=== PATIENT | male | born 1935 | race Caucasian/White ===

== ENCOUNTER 2016-06-22 15:20 | Inpatient (IN) | payer OTHER ==
[2016-06-22 15:40] VITALS: BMI 25.9
[2016-06-22 16:31] LABS: BASOPHIL 1.4 % (0-2.0); EOSINOPHIL 0.6 % (0-4.5); MCH 30.7 pg (25.7-33.7); MCHC 33.9 g/dl (32.0-35.9); MEAN CELL VOLUME 90.7 fl (80-96); MEAN PLT VOLUME 7.9 fl (7.5-11.1); NEUTROPHILS 78.3 % (42.8-82.8); PLATELET COUNT 354 K/MM3 (134-434); RDW 15.1 % (11.9-15.9); WHITE BLOOD COUNT 9.3 K/mm3 (4.0-10.0)
[2016-06-22 16:58] LABS: ALBUMIN 3.6 g/dl (3.4-5.0); CALCIUM 9.3 mg/dL (8.5-10.1); CREATININE 1.5 mg/dL (0.7-1.3)
[2016-06-22 17:00] LABS: BILIRUBIN,TOTAL 0.3 mg/dL (0.2-1.0); TOT PROT 7.6 g/dl (6.4-8.2)
[2016-06-22] MEDS ORDERED: DEXTROSE 50%-WATER 50 ML VIAL IVPUSH ONE (17:27)
[2016-06-22] MEDS ORDERED: INSULIN REGULAR HUMAN 100 UNITS/ML *VIAL IVPUSH ONE (17:27)
[2016-06-22] MEDS ORDERED: CALCIUM GLUCONATE 10% - 1,000 MG/10 ML VIAL IVPB ONE (17:27)
--- NOTE | 2016-06-22 17:38 | PDOC ---
History of Present Illness - History of Present Illness Initial Comments: 06/22/16 17:53 The patient is an 80 year old male with significant past medical history of hypertension, hyperlipidemia, CAD s/p stents x2, diabetes, metastatic prostate CA who presents to the emergency department with altered mental status for the last few months. As per daughter, the patient has been intermittently confused over the several weeks. She states that the patient does not recognize his family or where he is. The patient has also been complaining of back pain that radiates to his right abdomen. The patient denies any nausea, vomiting, or diarrhea. The patient denies any dizziness or syncope. The patient denies recent illness, fevers, or chills. PMD: Dr. Vincent <Paula Umaña - Last Filed: 06/22/16 17:53> - General History Source: Patient, Family, Old Records Exam Limitations: No Limitations <Isabel Otoole - Last Filed: 06/24/16 07:44> - General Chief Complaint: Altered Mental Status Stated Complaint: Altered Mental Status Time Seen by Provider: 06/22/16 16:00 Past History <Paula Umaña - Last Filed: 06/22/16 17:53> - Past Medical History Anemia: No Asthma: No Cancer: Yes ([id number] rx) Cardiac Disorders: Yes (bypassx4, stent placement x2) CVA: No COPD: Yes CHF: No Dementia: Yes (vague) Diabetes: No GI Disorders: Yes (hernia) Disorders: No HTN: Yes Hypercholesterolemia: Yes Liver Disease: No Seizures: No Thyroid Disease: Yes - Surgical History Abdominal Surgery: No Appendectomy: No Cardiac Surgery: Yes (bypassx4, stent placement x2) Cholecystectomy: No Lung Surgery: No Neurologic Surgery: Yes (laminectomy) Orthopedic Surgery: No - Immunization History Immunization Up to Date: Yes - Psycho/Social/Smoking Cessation Hx Anxiety: No Suicidal Ideation: No Smoking Status: No Smoking History: Former smoker Have you smoked in the past 12 months: No Number of Cigarettes Smoked Daily: 0 If you are a former smoker, when did you quit?: Over 58 years ago Information on smoking cessation initiated: No Hx Alcohol Use: No Drug/Substance Use Hx: No Substance Use Type: None Hx Substance Use Treatment: No <Isabel Otoole - Last Filed: 06/24/16 07:44> - Past Medical History Allergies/Adverse Reactions: Allergies Allergy/AdvReac Type Severity Reaction Status Date / Time acetaminophen [From [facility]] Allergy Intermediate Itching Verified 06/22/16 15: 35 Home Medications: Ambulatory Orders Buspirone HCl [Buspar -] 5 mg PO BID 08/26/15 Levothyroxine [Synthroid -] 50 mcg PO DAILY 08/26/15 Meclizine HCl 25 mg PO HS PRN 08/26/15 Metoprolol Succinate [Toprol Xl] 50 mg PO DAILY 08/26/15 Morphine Sulfate 30 mg PO TID PRN 08/26/15 Albuterol Sulfate [Proair Respiclick] 90 mcg IH QID PRN 11/30/15 Calcium Citrate [Calcitrate] 950 mg PO DAILY 11/30/15 Clonazepam [Klonopin] 1 mg PO HS PRN 11/30/15 Esomeprazole Magnesium [Nexium] 40 mg PO DAILY 11/30/15 Finasteride 5 mg PO DAILY 11/30/15 Albuterol Sulfate 0.042% [Ventolin 0.042% (Half-Strength) -] 1 amp NEB PRN PRN 05/12/16 Ergocalciferol [Drisdol -] 50,000 unit PO DAILY 05/12/16 Ipratropium 0.02% Nebulizer [Atrovent 0.02% Nebulizer -] 1 amp NEB PRN PRN 05/12 Amlodipine Besylate [Norvasc -] 5 mg PO DAILY 06/22/16 Icosapent Ethyl [Vascepa] 2 gm PO BID 06/22/16 Naloxegol Oxalate [Movantik] 25 mg PO DAILY 06/22/16 Oxycodone HCl/Acetaminophen [Endocet 7.5-325 mg Tablet] 1 each PO TID 06/22/16 Pitavastatin Calcium [Livalo] 2 mg PO DAILY 06/22/16 Roflumilast [Daliresp] 500 mcg PO DAILY 06/22/16 Tiotropium [place] [Spiriva] 1 inh PO DAILY 06/22/16 Review of Systems - Review of Systems Able to Perform ROS?: No (Altered mental status) <Paula Umaña - Last Filed: 06/22/16 17:53> *Physical Exam - Vital Signs Last Vital Signs Temp Pulse Resp BP Pulse Ox 99.1 F 86 19 160/76 95 06/22/16 15:35 06/22/16 15:35 06/22/16 15:35 06/22/16 15:35 06/22/16 15:35 - Physical Exam Comments: 06/22/16 17:54 GENERAL: The patient is in no acute distress, A&Ox2 HEAD: Normal with no signs of trauma. EYES: PERRLA, EOMI, sclera anicteric, conjunctiva clear. ENT: Ears normal, nares patent, oropharynx clear without exudates. Moist mucous membranes. NECK: Normal range of motion, supple without lymphadenopathy, JVD, or masses. LUNGS: Breath sounds equal, clear to auscultation bilaterally. No wheezes, and no crackles. HEART: Regular rate and rhythm, normal S1 and S2 without murmur, rub or gallop. ABDOMEN: +RLQ discomfort to palpation, otherwise soft, normoactive bowel sounds. No guarding, no rebound. EXTREMITIES: Normal range of motion, no edema. No clubbing or cyanosis. No erythema, or tenderness. NEUROLOGICAL: Cranial nerves II through XII grossly intact. Normal speech. No focal neurological deficits. MUSCULOSKELETAL: Back non-tender to palpation, no CVA tenderness SKIN: Warm, Dry, normal turgor, no rashes or lesions noted. <Paula Umaña - Last Filed: 06/22/16 17:53> - Vital Signs Last Vital Signs Temp Pulse Resp BP Pulse Ox 99.1 F 86 19 160/76 95 06/22/16 15:35 06/22/16 15:35 06/22/16 15:35 06/22/16 15:35 06/22/16 15:35 <Isabel Otoole - Last Filed: 06/24/16 07:44> Heart Score/ECG Review #1 ECG reviewed & interpreted by me at: 17:32 06/22/16 17:32 Twelve-lead EKG was performed and reviewed by me. There is normal sinus rhythm with a normal rate of 87bpm. Left axis deviation. The intervals are normal - pr: 130ms, QRS:102ms, QTc:425ms. RBBB. There are no ST elevations or depressions. T waves nml <Isabel Otoole - Last Filed: 06/24/16 07:44> ED Treatment Course - LABORATORY CBC & Chemistry Diagram: 06/22/16 16:15 06/22/16 16:15 - ADDITIONAL ORDERS Additional order review: Laboratory Results 06/22/16 16:15 Sodium 131 L Potassium 6.0 H D Chloride 99 Carbon Dioxide 21 Anion Gap 11 BUN 29 H D Creatinine 1.5 H D Creat Clearance w eGFR 44.92 Random Glucose 94 D Calcium 9.3 Total Bilirubin 0.3 D AST 16 D ALT 21 D Alkaline Phosphatase 96 D Total Protein 7.6 Albumin 3.6 06/22/16 16:15 RBC 3.53 L MCV 90.7 MCHC 33.9 RDW 15.1 MPV 7.9 D Neutrophils % 78.3 D Lymphocytes % 12.0 D Monocytes % 7.7 Eosinophils % 0.6 Basophils % 1.4 <Paula Umaña - Last Filed: 06/22/16 17:53> - LABORATORY CBC & Chemistry Diagram: 06/23/16 05:35 06/23/16 05:35 - ADDITIONAL ORDERS Additional order review: Laboratory Results 06/22/16 16:15 Sodium 131 L Potassium 6.0 H D Chloride 99 Carbon Dioxide 21 Anion Gap 11 BUN 29 H D Creatinine 1.5 H D Creat Clearance w eGFR 44.92 Random Glucose 94 D Calcium 9.3 Total Bilirubin 0.3 D AST 16 D ALT 21 D Alkaline Phosphatase 96 D Total Protein 7.6 Albumin 3.6 06/22/16 16:15 RBC 3.53 L MCV 90.7 MCHC 33.9 RDW 15.1 MPV 7.9 D Neutrophils % 78.3 D Lymphocytes % 12.0 D Monocytes % 7.7 Eosinophils % 0.6 Basophils % 1.4 - RADIOLOGY Radiology Studies Ordered: Category Date Time Status HEAD CT WITHOUT CONTRAST [CT] Stat CT Scan 06/22/16 16:01 Taken CHEST X-RAY PORTABLE* [RAD] Stat Radiology 06/22/16 16:01 Completed <Isabel Otoole - Last Filed: 06/24/16 07:44> Medical Decision Making - Medical Decision Making 06/22/16 17:31 A portion of this note was documented by scribe services under my direction. I have reviewed the details of the note, within reason, and agree with the documentation with the following case summary and management plan written by me. Nursing documentation reviewed and incorporated into medical decision making 06/22/16 17:37 THis is an 80 yo M with a history of Prostate CA with mets Pt presenting to the ER with daughter from Dr Vincent's office Pt apparently has been increasingly confused No trauma that the patient's daughter is aware of No fevers, no chills No recent travel 06/22/16 17:38 Laboratory Tests 06/22/16 06/22/16 16:15 16:15 WBC 9.3 Hgb 10.8 L Hct 32.0 L Plt Count 354 D Neutrophils % 78.3 D Lymphocytes % 12.0 D Sodium 131 L Potassium 6.0 H D Chloride 99 BUN 29 H D Creatinine 1.5 H D Random Glucose 94 D 06/22/16 17:[address] negative Case reviewed with Dr Li Will admit to tele Will give IVF, Calcium, Insulin, D50 Will continue to monitor Clinical impression: Confusion 06/24/16 07:44 <Isabel Otoole - Last Filed: 06/24/16 07:44> *DC/Admit/Observation/Transfer - Attestations Scribe Attestion: 06/22/16 17:56 Documentation prepared by Paula Umaña, acting as electromedical equipment technician for Isabel Otoole MD. <Paula Umaña - Last Filed: 06/22/16 17:53> - Discharge Dispostion Admit: Yes <Isabel Otoole - Last Filed: 06/24/16 07:44> Diagnosis at time of Disposition: Confusion - Discharge Dispostion Condition at time of disposition: Fair - Referrals
[2016-06-22] MEDS ORDERED: CALCIUM GLUCONATE 10% - 1,000 MG/10 ML VIAL ONE (17:47)
[2016-06-22] MEDS ORDERED: DEXTROSE 50%-WATER 50 ML DISP.SYRIN ONE (17:47)
[2016-06-22] MEDS ORDERED: INSULIN REGULAR HUMAN 100 UNITS/ML *VIAL ONE (17:48)
[2016-06-22] MEDS: SODIUM CHLORIDE 1,000 ML IV STA ×2 (17:50→23:12)
[2016-06-22 17:57] LABS: URINE APPEARANCE CLEAR; URINE BILIRUBIN NEGATIVE (NEGATIVE); URINE BLOOD NEGATIVE (NEGATIVE); URINE COLOR LTYELLOW; URINE GLUCOSE (UA) NEGATIVE (NEGATIVE); URINE KETONE NEGATIVE (NEGATIVE); URINE NITRITE NEGATIVE (NEGATIVE); URINE UROBILINOGEN NEGATIVE E.U./dl (0.2-1.0)
[2016-06-22 17:58] LABS: URINE PROTEIN 1+ (NEGATIVE)
[2016-06-22 17:59] LABS: URINE LEUK ESTERASE TRACE (NEGATIVE)
[2016-06-22 18:00] LABS: URINE RBC <1 /hpf (0-3); URINE WBC 5 /hpf (3-5)
[2016-06-22 18:17] LABS: TROPONIN I < 0.02 ng/ml (0.00-0.05)
[2016-06-22] MEDS ORDERED: morphine CARPU-JECT 2 MG/1 ML DISP.SYRIN IVPUSH ONE (18:24)
[2016-06-22] MEDS ORDERED: morphine CARPU-JECT 2 MG/1 ML DISP.SYRIN ONE (18:45)
[2016-06-22] MEDS ORDERED: MECLIZINE HCL 25 MG TABLET (FP) PO PRN (19:28)
[2016-06-22] MEDS ORDERED: morphine SULFATE IMMEDIATE RELEASE 30 MG TAB PO PRN (19:28)
[2016-06-22] MEDS ORDERED: PATIENT'S OWN MEDICATION (NON-FORMULARY) (Clonazepam [Klonopin] 1 MG) PO PRN (19:28)
[2016-06-22] MEDS: SODIUM CHLORIDE 1,000 ML IV SCH ×2 (21:30→23:22)
[2016-06-22] MEDS ORDERED: PATIENT'S OWN MEDICATION (NON-FORMULARY) (Icosapent Ethyl [Vascepa] 2 GM) PO SCH (22:00)
[2016-06-22 22:42] LABS: CALCIUM 10.1 mg/dL (8.5-10.1); CREATININE 1.4 mg/dL (0.7-1.3)
[2016-06-22] MEDS: OMEGA-3 ACID ETHYL ESTERS (FATTY-ACIDS) 1 GM CAPSULE (FP) PO SCH (23:10)
[2016-06-22] MEDS: clonazePAM 0.5 MG TABLET PO SCH (23:10)
[2016-06-22] MEDS: busPIRone HCL 5 MG TABLET PO SCH (23:10)
[2016-06-22] MEDS: HEPARIN NA (PORCINE) 5,000 UNITS/ML 1ML VIAL SQ SCH (23:11)
[2016-06-23] MEDS: LEVOTHYROXINE NA 50 MCG TABLET (FP) PO SCH (06:18)
[2016-06-23] MEDS: ALBUTEROL SO4 2.5/IPRATROPIUM 0.5 INH SOL 3 ML VIAL.NEB. NEB SCH ×5 (07:03→23:34)
[2016-06-23 07:18] LABS: BASOPHIL 1.4 % (0-2.0); EOSINOPHIL 0.9 % (0-4.5); MCH 30.6 pg (25.7-33.7); MCHC 33.6 g/dl (32.0-35.9); MEAN CELL VOLUME 91.1 fl (80-96); NEUTROPHILS 72.2 % (42.8-82.8); PLATELET COUNT 290 K/MM3 (134-434); RDW 15.3 % (11.9-15.9); WHITE BLOOD COUNT 7.2 K/mm3 (4.0-10.0)
[2016-06-23 07:43] LABS: BILIRUBIN,TOTAL 0.3 mg/dL (0.2-1.0); CALCIUM 9.3 mg/dL (8.5-10.1); CREATININE 1.4 mg/dL (0.7-1.3); TOT PROT 6.6 g/dl (6.4-8.2)
--- NOTE | 2016-06-23 08:30 | HP ---
Admitting History and Physical - Admission History of Present Illness: 80 year old male with significant past medical history of hypertension, hyperlipidemia, CAD s/p stents x2, diabetes, metastatic prostate CA who presents to the emergency department with altered mental status for the last few months. As per daughter, the patient has been intermittently confused over the several weeks. She states that the patient does not recognize his family or where he is. The patient has also been complaining of back pain that radiates to his right abdomen. The patient denies any nausea, vomiting, or diarrhea. The patient denies any dizziness or syncope. The patient denies recent illness, fevers, or chills. This am pt states feels better - Past Medical History Cardiovascular: Yes: CAD, HTN Gastrointestinal: Yes: Constipation Heme/Onc: Yes: Cancer (prostate ca with mets), Other (PROSTTAE CANCER PROBABLE METASTATIC) Musculoskeletal: Yes: Chronic low back pain, Paraplegia - Past Surgical History Past Surgical History: Yes: CABG, Laminectomy - Smoking History Smoking history: Former smoker Have you smoked in the past 12 months: No Aproximately how many cigarettes per day: 0 If you are a former smoker, when did you quit?: Over 58 years ago - Alcohol/Substance Use Hx Alcohol Use: No Home Medications - Allergies Allergies/Adverse Reactions: Allergies Allergy/AdvReac Type Severity Reaction Status Date / Time acetaminophen [From [facility]] Allergy Intermediate Itching Verified 06/22/16 15: 35 - Home Medications Home Medications: Ambulatory Orders Buspirone HCl [Buspar -] 5 mg PO BID 08/26/15 Levothyroxine [Synthroid -] 50 mcg PO DAILY 08/26/15 Meclizine HCl 25 mg PO HS PRN 08/26/15 Metoprolol Succinate [Toprol Xl] 50 mg PO DAILY 08/26/15 Morphine Sulfate 30 mg PO TID PRN 08/26/15 Albuterol Sulfate [Proair Respiclick] 90 mcg IH QID PRN 11/30/15 Calcium Citrate [Calcitrate] 950 mg PO DAILY 11/30/15 Clonazepam [Klonopin] 1 mg PO HS PRN 11/30/15 Esomeprazole Magnesium [Nexium] 40 mg PO DAILY 11/30/15 Finasteride 5 mg PO DAILY 11/30/15 Albuterol Sulfate 0.042% [Ventolin 0.042% (Half-Strength) -] 1 amp NEB PRN PRN 05/12/16 Ergocalciferol [Drisdol -] 50,000 unit PO DAILY 05/12/16 Ipratropium 0.02% Nebulizer [Atrovent 0.02% Nebulizer -] 1 amp NEB PRN PRN 05/12 Amlodipine Besylate [Norvasc -] 5 mg PO DAILY 06/22/16 Icosapent Ethyl [Vascepa] 2 gm PO BID 06/22/16 Naloxegol Oxalate [Movantik] 25 mg PO DAILY 06/22/16 Oxycodone HCl/Acetaminophen [Endocet 7.5-325 mg Tablet] 1 each PO TID 06/22/16 Pitavastatin Calcium [Livalo] 2 mg PO DAILY 06/22/16 Roflumilast [Daliresp] 500 mcg PO DAILY 06/22/16 Tiotropium [place] [Spiriva] 1 inh PO DAILY 06/22/16 Review of Systems - Review of Systems Cardiovascular: denies: Chest Pain Respiratory: denies: SOB Gastrointestinal: reports: Abdominal Pain Musculoskeletal: reports: Back Pain Physical Examination Vital Signs: Vital Signs Temperature 98.4 F 06/23/16 06:00 Pulse Rate 91 H 06/23/16 06:00 Respiratory Rate 18 06/23/16 06:00 Blood Pressure 124/64 06/23/16 06:00 O2 Sat by Pulse Oximetry (%) 95 06/22/16 21:20 Cardiovascular: Yes: S1, S2 Respiratory: Yes: Regular, CTA Bilaterally Gastrointestinal: Yes: Normal Bowel Sounds, Soft. No: Tenderness Edema: No Labs: CBC, BMP 06/23/16 05:35 06/23/16 05:35 Imaging - Results Cat Scan: Report Reviewed Problem List - Problems (1) Confusion Assessment/Plan: MAYBE DUE TO PNA MONITOR Code(s): R41.0 - DISORIENTATION, UNSPECIFIED (2) Prostate ca Assessment/Plan: URO CONSULT Code(s): C61 - MALIGNANT NEOPLASM OF PROSTATE (3) CAD (coronary artery disease) of artery bypass graft Assessment/Plan: NO CP Code(s): I25.810 - ATHEROSCLEROSIS OF CABG W/O ANGINA PECTORIS (4) Pneumonia Assessment/Plan: IV ABX ID CONSULT Code(s): J18.9 - PNEUMONIA, UNSPECIFIED ORGANISM Qualifiers: (5) Hyperkalemia Assessment/Plan: KAYAXELATE RENAL Code(s): E87.5 - HYPERKALEMIA (6) Pulmonary metastases Assessment/Plan: PULM CONSULT Code(s): C78.00 - SECONDARY MALIGNANT NEOPLASM OF UNSPECIFIED LUNG (7) Renal mass Assessment/Plan: UROLOGY CONSULT Code(s): N28.89 - OTHER SPECIFIED DISORDERS OF KIDNEY AND URETER
[2016-06-23] MEDS ORDERED: METOPROLOL SUCCINATE 50 MG TAB.SR.24H (FP) PO SCH (10:00)
[2016-06-23] MEDS ORDERED: CEFTRIAXONE 1 GM in DEXTROSE 5%-WATER - 100 ML IVPB SCH (10:00)
[2016-06-23] MEDS: HEPARIN NA (PORCINE) 5,000 UNITS/ML 1ML VIAL SQ SCH ×2 (10:10→21:22)
[2016-06-23] MEDS: FINASTERIDE 5 MG TABLET (FP) PO SCH (10:10)
[2016-06-23] MEDS: cefTRIAXone 1 GM/50 ML BAG (PRE-DOCKED) IVPB SCH (10:10)
[2016-06-23] MEDS: amLODIPine BESYLATE 5 MG TABLET (FP) PO SCH (10:10)
[2016-06-23] MEDS: OMEGA-3 ACID ETHYL ESTERS (FATTY-ACIDS) 1 GM CAPSULE (FP) PO SCH ×2 (10:11→21:22)
[2016-06-23] MEDS: busPIRone HCL 5 MG TABLET PO SCH ×2 (10:13→21:22)
[2016-06-23] MEDS ORDERED: PT OWN MED DRAWER 7, Y5N ONE ×3 (10:36→21:17)
[2016-06-23] MEDS ORDERED: SODIUM CHLORIDE 1,000 ML IV SCH (11:04)
--- NOTE | 2016-06-23 11:16 | CONSULT ---
Consult - text type - Consultation Consultation Note: Renal Consult for TERRA/Hyperkalemia This is a 80 year old Gentleman with PMhx of Metastatic Prostate Ca, Hypertension, Hyperlipidemia, CAD s/p Cardiac Stents, DM who presented with worsening MS for the past several months as per her daughter and found to have multiple abd mets and TERRA with BUN/Cr of 29/1.5 (baseline Cr 1.1) and hyperkalemia with K of 6. Pt is croatian speaking, awake and alert. Reports pain in thr right lower abd. No N/V. No chest pain or sob. No cough. No fever or chills. CT scan showed a distended bladder, unclear if pt is able to void. No rash. No documented recent Abx use. Call placed to daughter, did not pickle pumper, message left. PMhx: as above Allergies: Tylenol Family hx: NC Social hx: Unknown ROS: as per HPI, all other pertinent ros negative Home Meds: Home Medications Medication Instructions Recorded Buspirone HCl [Buspar -] 5 mg PO BID 08/26/15 Levothyroxine [Synthroid -] 50 mcg PO DAILY 08/26/15 Meclizine HCl 25 mg PO HS PRN 08/26/15 Metoprolol Succinate [Toprol Xl] 50 mg PO DAILY 08/26/15 Morphine Sulfate 30 mg PO TID PRN 08/26/15 Albuterol Sulfate [Proair 90 mcg IH QID PRN 11/30/15 Respiclick] Calcium Citrate [Calcitrate] 950 mg PO DAILY 11/30/15 Clonazepam [Klonopin] 1 mg PO HS PRN 11/30/15 Esomeprazole Magnesium [Nexium] 40 mg PO DAILY 11/30/15 Finasteride 5 mg PO DAILY 11/30/15 Albuterol Sulfate 0.042% [Ventolin 1 amp NEB PRN PRN 05/12/16 0.042% (Half-Strength) -] Ergocalciferol [Drisdol -] 50,000 unit PO DAILY 05/12/16 Ipratropium 0.02% Nebulizer 1 amp NEB PRN PRN 05/12/16 [Atrovent 0.02% Nebulizer -] Amlodipine Besylate [Norvasc -] 5 mg PO DAILY 06/22/16 Icosapent Ethyl [Vascepa] 2 gm PO BID 06/22/16 Naloxegol Oxalate [Movantik] 25 mg PO DAILY 06/22/16 Oxycodone HCl/Acetaminophen 1 each PO TID 06/22/16 [Endocet 7.5-325 mg Tablet] Pitavastatin Calcium [Livalo] 2 mg PO DAILY 06/22/16 Roflumilast [Daliresp] 500 mcg PO DAILY 06/22/16 Tiotropium [place] [Spiriva] 1 inh PO DAILY 06/22/16 Vital Signs Temperature 98.4 F 06/23/16 06:00 Pulse Rate 91 H 06/23/16 06:00 Respiratory Rate 18 06/23/16 10:00 Blood Pressure 124/64 06/23/16 06:00 O2 Sat by Pulse Oximetry (%) 95 06/23/16 10:00 Intake & Output 06/20/16 06/21/16 06/22/16 06/23/16 23:59 23:59 23:59 23:59 Intake Total 800 Output Total 300 Balance 500 Weight 137 lb Gen: NAD, awake and alert HEENT: NC/AT, MMM, No JVD CVS: RRR, No M/R Lungs: CTA, no rales or wheeze Abd: soft, + tenderness in lower abd Ext: No edema, clubbing or cyanosis Gu: mild bladder distension Neuro: Awake and Alert CBC, BMP 06/23/16 05:35 06/23/16 05:35 Current Medications Albuterol/Ipratropium (Duoneb -) 1 amp NEB QIDR [facility] Last Admin: 06/23/16 07:03 Dose: 1 amp Amlodipine Besylate (Norvasc -) 5 mg PO DAILY [facility] Last Admin: 06/23/16 10:10 Dose: 5 mg Buspirone HCl (Buspar -) 5 mg PO BID [facility] Last Admin: 06/23/16 10:13 Dose: 5 mg Ceftriaxone Sodium (Rocephin 1gm Ivpb (Pre-Docked)) 1 gm IVPB DAILY [facility] Last Admin: 06/23/16 10:10 Dose: 1 gm Clonazepam (Klonopin -) 1 mg PO HS [facility] Last Admin: 06/22/16 23:10 Dose: 1 mg Finasteride (Proscar -) 5 mg PO DAILY [facility] Last Admin: 06/23/16 10:10 Dose: 5 mg Heparin Sodium (Porcine) (Heparin -) 5,000 unit SQ BID [facility] Last Admin: 06/23/16 10:10 Dose: 5,000 unit Sodium Chloride (Normal Saline -) 1,000 mls @ 100 mls/hr IV ASDIR [facility] Stop: 06/23/16 19:44 Levothyroxine Sodium (Synthroid -) 50 mcg PO ACBK [facility] Last Admin: 06/23/16 06:18 Dose: 50 mcg Meclizine HCl (Antivert -) 25 mg PO HS PRN PRN Reason: VERTIGO Metoprolol Succinate (Toprol Xl -) 50 mg PO DAILY [facility] Last Admin: 06/23/16 10:10 Dose: 50 mg Morphine Sulfate (Msir -) 30 mg PO Q8H PRN PRN Reason: PAIN Non-Formulary Medication (Naloxegol Oxalate [Movantik]) 25 mg PO DAILY [facility] [id number] Ethyl Esters (Lovaza -) 2 gm PO BID [facility] Last Admin: 06/23/16 10:11 Dose: 2 gm Oxycodone HCl (Roxicodone -) 5 mg PO Q4H PRN PRN Reason: PAIN Roflumilast (Daliresp -) 500 mcg PO DAILY [facility] Sodium Polystyrene Sulfonate (Kayexalate -) 30 gm PO ONCE ONE Stop: 06/23/16 08:24 A/p 80 year old Gentleman with PMhx of Metastatic Prostate Ca, Hypertension, Hyperlipidemia, CAD s/p Cardiac Stents, DM who presented with worsening MS for the past several months as per her daughter and found to have multiple abd mets and TERRA with BUN/Cr of 29/1.5 (baseline Cr 1.1) and hyperkalemia with K of 6. #Acute Kidney Injury Cr is 1.4 today (baseline 1.1) Etiology unclear at this time but differential includes volume depletion vs. obstruction Ct of abd did not show hydronephrosis but the bladder did appear full. 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
[2016-06-23] MEDS ORDERED: SODIUM POLYSTYRENE SULFONATE 15 GM/60 ML BOTTLE PO ONE (11:30)
--- NOTE | 2016-06-23 11:59 | EKG ---
Test Reason : Blood Pressure : / mmHG Vent. Rate : 100 BPM Atrial Rate : 100 BPM P-R Int : 118 ms QRS Dur : 096 ms QT Int : 346 ms P-R-T Axes : 063 -48 042 degrees QTc Int : 446 ms SINUS RHYTHM WITH PREMATURE SUPRAVENTRICULAR COMPLEXES RIGHT BUNDLE BRANCH BLOCK ABNORMAL ECG Confirmed by SIS SWIFT, GREY ([id number]) on 06/23/2016 11:59:16 AM Referred By: KATARINA CALI Confirmed By:GREY ALEGRE MD
--- NOTE | 2016-06-23 12:00 | CON.GU ---
Consult Consult Specialty:: Urology Referred by:: Dr Lucila Li Reason for Consultation:: Metasatic Prostate Ca, Renal Insufficiency And Right Renal Mass - History of Present Illness Chief Complaint: Rt. Renal Mass - History Source History Provided By: Medical Record Limitations to Obtaining History: Clinical Condition - Past Medical History Cardio/Vascular: Yes: CAD, HTN Gastrointestinal: Yes: Constipation Renal/: Yes: Renal Failure, Cancer Musculoskeletal: Yes: Chronic low back pain, Paraplegia - Past Surgical History Past Surgical History: Yes: CABG, Laminectomy - Alcohol/Substance Use Hx Alcohol Use: No - Smoking History Smoking history: Former smoker Have you smoked in the past 12 months: No Aproximately how many cigarettes per day: 0 If you are a former smoker, when did you quit?: Over 58 years ago Home Medications - Allergies Allergies/Adverse Reactions: Allergies Allergy/AdvReac Type Severity Reaction Status Date / Time acetaminophen [From [facility]] Allergy Intermediate Itching Verified 06/22/16 15: 35 - Home Medications Home Medications: Ambulatory Orders Buspirone HCl [Buspar -] 5 mg PO BID 08/26/15 Levothyroxine [Synthroid -] 50 mcg PO DAILY 08/26/15 Meclizine HCl 25 mg PO HS PRN 08/26/15 Metoprolol Succinate [Toprol Xl] 50 mg PO DAILY 08/26/15 Morphine Sulfate 30 mg PO TID PRN 08/26/15 Albuterol Sulfate [Proair Respiclick] 90 mcg IH QID PRN 11/30/15 Calcium Citrate [Calcitrate] 950 mg PO DAILY 11/30/15 Clonazepam [Klonopin] 1 mg PO HS PRN 11/30/15 Esomeprazole Magnesium [Nexium] 40 mg PO DAILY 11/30/15 Finasteride 5 mg PO DAILY 11/30/15 Albuterol Sulfate 0.042% [Ventolin 0.042% (Half-Strength) -] 1 amp NEB PRN PRN 05/12/16 Ergocalciferol [Drisdol -] 50,000 unit PO DAILY 05/12/16 Ipratropium 0.02% Nebulizer [Atrovent 0.02% Nebulizer -] 1 amp NEB PRN PRN 05/12 Amlodipine Besylate [Norvasc -] 5 mg PO DAILY 06/22/16 Icosapent Ethyl [Vascepa] 2 gm PO BID 06/22/16 Naloxegol Oxalate [Movantik] 25 mg PO DAILY 06/22/16 Oxycodone HCl/Acetaminophen [Endocet 7.5-325 mg Tablet] 1 each PO TID 06/22/16 Pitavastatin Calcium [Livalo] 2 mg PO DAILY 06/22/16 Roflumilast [Daliresp] 500 mcg PO DAILY 06/22/16 Tiotropium [place] [Spiriva] 1 inh PO DAILY 06/22/16 Physical Exam- Vital Signs: Vital Signs Temperature 98.4 F 06/23/16 06:00 Pulse Rate 91 H 06/23/16 06:00 Respiratory Rate 18 06/23/16 10:00 Blood Pressure 124/64 06/23/16 06:00 O2 Sat by Pulse Oximetry (%) 95 06/23/16 10:00 Labs: CBC, BMP 06/23/16 05:35 06/23/16 05:35 Assessment/Plan 80 year Old Male with multiple medical issues admitted to the hospital with altered mental status. Sigificant past hx showed hx of metastatic ca of the prostate. He had Ct scan of the abd. for pain which showed a rt. renal mass in addition to the metastatic disease. He needs Ct Scan with contrast or MRI of the abd and pelvis. BUN and S. Creatinine are elevated. Will discuss with nephrology whether contrast can be given. Pt.'s present condition may preclude anything aggressive can be done. Will follow as necessary. Thank You Jyoti Jiang for Dr. Jhony Doshi.
[2016-06-23] MEDS: ROFLUMILAST 500 MCG TABLET PO SCH (12:05)
--- NOTE | 2016-06-23 12:31 | PN ---
Progress Note (short form) - Note Progress Note: ID Consult dictated LLL infiltrate/ effusion Possible toxic metabolic encephalopathy Metastatic prostate ca Azotemia Obtain c/s empiric zithromax/ ceftriaxone
--- NOTE | 2016-06-23 12:57 | CON.PULM ---
Consult Consult Specialty:: PULM/CCM Referred by:: CYTNHIA Reason for Consultation:: Abnormal CXR - History of Present Illness Chief Complaint: Confusion / back pain History of Present Illness: 80 M, with listed medical history. Hypertension, hyperlipidemia, CAD s/p stents x2, diabetes, and metastatic prostate CA (extent of metastatis is not clear). Admitted via the ER due to altered mental status and back/abdominal pain. No travel history or sick contacts. No documented hemoptysis. CXR: bilateral nodular densities / CT Abdomen : multiple mass like densities in the lung parenchyma. - History Source History Provided By: Medical Record Limitations to Obtaining History: Clinical Condition - Past Medical History Cardio/Vascular: Yes: CAD, HTN Gastrointestinal: Yes: Constipation Renal/: Yes: Renal Failure, Cancer Musculoskeletal: Yes: Chronic low back pain, Paraplegia - Past Surgical History Past Surgical History: Yes: CABG, Laminectomy - Alcohol/Substance Use Hx Alcohol Use: No - Smoking History Smoking history: Former smoker Have you smoked in the past 12 months: No Aproximately how many cigarettes per day: 0 If you are a former smoker, when did you quit?: Over 58 years ago Home Medications - Allergies Allergies/Adverse Reactions: Allergies Allergy/AdvReac Type Severity Reaction Status Date / Time acetaminophen [From [facility]] Allergy Intermediate Itching Verified 06/22/16 15: 35 - Home Medications Home Medications: Ambulatory Orders Buspirone HCl [Buspar -] 5 mg PO BID 08/26/15 Levothyroxine [Synthroid -] 50 mcg PO DAILY 08/26/15 Meclizine HCl 25 mg PO HS PRN 08/26/15 Metoprolol Succinate [Toprol Xl] 50 mg PO DAILY 08/26/15 Morphine Sulfate 30 mg PO TID PRN 08/26/15 Albuterol Sulfate [Proair Respiclick] 90 mcg IH QID PRN 11/30/15 Calcium Citrate [Calcitrate] 950 mg PO DAILY 11/30/15 Clonazepam [Klonopin] 1 mg PO HS PRN 11/30/15 Esomeprazole Magnesium [Nexium] 40 mg PO DAILY 11/30/15 Finasteride 5 mg PO DAILY 11/30/15 Albuterol Sulfate 0.042% [Ventolin 0.042% (Half-Strength) -] 1 amp NEB PRN PRN 05/12/16 Ergocalciferol [Drisdol -] 50,000 unit PO DAILY 05/12/16 Ipratropium 0.02% Nebulizer [Atrovent 0.02% Nebulizer -] 1 amp NEB PRN PRN 05/12 Amlodipine Besylate [Norvasc -] 5 mg PO DAILY 06/22/16 Icosapent Ethyl [Vascepa] 2 gm PO BID 06/22/16 Naloxegol Oxalate [Movantik] 25 mg PO DAILY 06/22/16 Oxycodone HCl/Acetaminophen [Endocet 7.5-325 mg Tablet] 1 each PO TID 06/22/16 Pitavastatin Calcium [Livalo] 2 mg PO DAILY 06/22/16 Roflumilast [Daliresp] 500 mcg PO DAILY 06/22/16 Tiotropium [place] [Spiriva] 1 inh PO DAILY 06/22/16 Review of Systems - Review of Systems Constitutional: reports: Lethargy, Malaise, Weakness. denies: Chills, Fever, Night Sweats Eyes: denies: Blurred Vision HENT: reports: No Symptoms Neck: reports: No Symptoms Cardiovascular: denies: Chest Pain, Palpitations, Shortness of Breath Respiratory: reports: Cough. denies: Hemoptysis, SOB, Wheezing Gastrointestinal: reports: Abdominal Pain, Diarrhea, Nausea, Vomiting. denies: Rectal Bleeding, Vomiting Blood Genitourinary: reports: Flank Pain. denies: Hematuria Musculoskeletal: reports: Back Pain Integumentary: reports: No Symptoms Neurological: reports: Confusion. denies: Seizure Endocrine: reports: No Symptoms Hematology/Lymphatic: reports: No Symptoms Physical Exam Vital Sings: Vital Signs Temperature 98.4 F 06/23/16 06:00 Pulse Rate 91 H 06/23/16 06:00 Respiratory Rate 18 06/23/16 10:00 Blood Pressure 124/64 06/23/16 06:00 O2 Sat by Pulse Oximetry (%) 95 06/23/16 10:00 Constitutional: Yes: No Distress Eyes: Yes: Conjunctiva Clear, EOM Intact, Ptosis HENT: Yes: Atraumatic Neck: Yes: Supple, Trachea Midline Cardiovascular: Yes: Regular Rate and Rhythm Respiratory: Yes: On Nasal O2, Rhonchi. No: Accessory Muscle Use, Rales, Stridor, Wheezes ...Inspection: Yes: WNL ...Clubbing: No Gastrointestinal: Yes: Normal Bowel Sounds, Soft Musculoskeletal: Yes: WNL Extremities: Yes: WNL Edema: No Peripheral Pulses WNL: Yes Integumentary: Yes: WNL Neurological: Yes: Confusion. No: Facial Droop Labs: CBC, BMP 06/23/16 05:35 06/23/16 05:35 Imaging - Results Chest X-ray: Report Reviewed, Image Reviewed Cat Scan: Report Reviewed, Image Reviewed Problem List - Problems (1) Abdominal pain Code(s): R10.9 - UNSPECIFIED ABDOMINAL PAIN (2) Confusion Code(s): R41.0 - DISORIENTATION, UNSPECIFIED (3) Prostate ca Code(s): C61 - MALIGNANT NEOPLASM OF PROSTATE (4) Pulmonary metastases Code(s): C78.00 - SECONDARY MALIGNANT NEOPLASM OF UNSPECIFIED LUNG (5) Renal mass Code(s): N28.89 - OTHER SPECIFIED DISORDERS OF KIDNEY AND URETER (6) TERRA (acute kidney injury) Code(s): N17.9 - ACUTE KIDNEY FAILURE, UNSPECIFIED (7) Back pain Code(s): M54.9 - DORSALGIA, UNSPECIFIED Qualifiers: Back pain location: low back pain (8) CAD (coronary artery disease) of artery bypass graft Code(s): I25.810 - ATHEROSCLEROSIS OF CABG W/O ANGINA PECTORIS (9) Pneumonia Code(s): J18.9 - PNEUMONIA, UNSPECIFIED ORGANISM Qualifiers: (10) UTI (lower urinary tract infection) Code(s): N39.0 - URINARY TRACT INFECTION, SITE NOT SPECIFIED Assessment/Plan ABX per ID O2 as needed Check sputum if possible Would not get a dedicated CT chest at this time as the CXR is consistent with likely metastatis Aspiration precautions Consider GOC talks with family Will follow Thank you. Dr Pink
[2016-06-23] MEDS: AZITHROMYCIN IVPB 500MG/250 ML IVPB SCH (14:32)
--- NOTE | 2016-06-23 15:28 | CONS ---
DATE OF CONSULTATION: HISTORY: An 80-year-old male with a known history of metastatic prostate cancer evaluated for possible pneumonia. He was brought to his primary care doctor by family members who report worsening mentation over the past weeks to months. He was evaluated in the emergency room at [facility] where a CAT scan of the head was negative. Family members had reported that he had been confused over the past several weeks and did not recognize his family or his environment. A CAT scan of the abdomen and pelvis was obtained for reports of lower abdominal pain. He was found to have a left lower lobe infiltrate and effusion as well as a right renal mass. His course was complicated by hyperkalemia. Family denies any recent febrile illness or shaking chills. No reports of dyspnea, cough, sputum production, or hemoptysis. No recent antibiotic therapy or hospitalizations. PAST MEDICAL HISTORY: Positive for metastatic prostate cancer with bone involvement, hypertension, coronary artery disease, diabetes mellitus, hyperlipidemia. Hospitalization in December 2015 for pneumonia. PAST SURGICAL HISTORY: Status post laminectomy and coronary artery stents. ALLERGIES: TYLENOL (pruritus). MEDICATIONS: Movantik, heparin, Antivert, Lovaza, BuSpar, Klonopin, Toprol, Norvasc, Proscar, Synthroid. SOCIAL HISTORY: Former smoker. Lives at home with family members. SYSTEMS REVIEW: Neurologic: Positive for altered mentation. Cardiac: Negative chest pain or palpitations. Respiratory: As per HPI. Gastrointestinal: Negative vomiting or diarrhea. Genitourinary: Negative for urinary tract infection. LABORATORY DATA: White count 7.2, hematocrit 30.1, platelet count 290, BUN 25, creatinine 1.4. Liver enzymes normal. Urinalysis: 5 white cells. Urine culture pending. PHYSICAL EXAMINATION: General: The patient is awake but confused. Vital Signs: Temperature 98.4, blood pressure 124/64, pulse 91 and regular, respirations 18. HEENT: Sclerae anicteric. Heart: Sounds S1, S2. Lungs: Diminished breath sounds at the bases bilaterally. Abdomen: Soft. No tenderness elicited. No mass, rebound, or rigidity. Extremities: Negative for edema. IMPRESSION: 1. Left lower lobe infiltrate/effusion. 2. Possible toxic metabolic encephalopathy secondary to pneumonia. 3. Metastatic prostate cancer. 4. Azotemia. PLAN: Obtain blood culture, sputum culture, urine Legionella antigen, empiric antibiotic coverage for community-acquired pulmonary pathogens with Zithromax and ceftriaxone. We will follow. Thank you for the kind referral. ELOY GLASS M.D. [id number]
--- NOTE | 2016-06-23 16:14 | EKG ---
Test Reason : Blood Pressure : / mmHG Vent. Rate : 085 BPM Atrial Rate : 085 BPM P-R Int : 128 ms QRS Dur : 100 ms QT Int : 348 ms P-R-T Axes : 040 -39 048 degrees QTc Int : 414 ms NORMAL SINUS RHYTHM LEFT AXIS DEVIATION INCOMPLETE RIGHT BUNDLE BRANCH BLOCK ABNORMAL ECG WHEN COMPARED WITH ECG OF 22-DEC-2015 09:38, CRITERIA FOR INFERIOR-POSTERIOR INFARCT ARE NO LONGER PRESENT QT HAS SHORTENED Confirmed by SIS SWIFT, GREY (2013) on 06/23/2016 4:14:03 PM Referred By: Confirmed By:GREY ALEGRE MD
--- NOTE | 2016-06-23 17:56 | CONSULT ---
Consult - text type - Consultation Consultation Note: NEUROLOGY CONSULTATION is greatly appreciated: This 80 yo RH man with h/o HTN, Chol, DM, ASHD,S/p stents is known to me with metastatic prostatic Ca and persistent back pain. On multiple meds including narcotics. Now admitted after few months of slowly progressive confusion punctuated by one weekl of not recognizing his family and loss of ambulation. CT of head (reviewed): Diffuse atrophy. Right frontal edema. K+= 6.0. Chest XRay shows multiple pulmonary mets and pleural effusion. Abd CT shows a large right renal tumor. CARLOS A: Neck supple. No bruits. Cor reg. Diffuse spinal palp tenderness. In diaper. NEURO: Awake, alert. Cannot identify [facility], the month or the year Follows simple commands. Full ferrell to threat and full EOM's No drift. Posssible ankle dorsiflexion weakness L>R Brisk reflexes except AJ's withdraws all 4's to pinch. IMP: Moderately severe, B/L cerebral dysfunction. Doubt hyperkalemia fully explains. R/O Right frontal met (possibly from a second primary). Cannot exclude myelopathy. SUGGEST: MRI of brain. MRI of cervical, thoracic and lumbosacral spines. Follow lytes, Ca++, Mg++ Check B12, TSH Oncology consultation. Thank you very much, Wayne Isidro MD
[2016-06-23] MEDS: clonazePAM 0.5 MG TABLET PO SCH (21:22)
[2016-06-23] MEDS: oxyCODONE HCL 5 MG TABLET PO PRN (22:03)
[2016-06-23] MEDS ORDERED: oxyCODONE HCL 5 MG TABLET PO ONE (23:15)
[2016-06-24] MEDS: oxyCODONE HCL 5 MG TABLET PO PRN ×7 (01:54→21:10)
[2016-06-24] MEDS: LEVOTHYROXINE NA 50 MCG TABLET (FP) PO SCH (06:03)
[2016-06-24] MEDS: ALBUTEROL SO4 2.5/IPRATROPIUM 0.5 INH SOL 3 ML VIAL.NEB. NEB SCH ×4 (06:15→23:17)
--- NOTE | 2016-06-24 08:08 | PN ---
Progress Note, Physician History of Present Illness: C/O PAIN - Current Medication List Current Medications: Active Medications Albuterol/Ipratropium (Duoneb -) 1 amp NEB QIDR [facility] Last Admin: 06/24/16 06:15 Dose: 1 amp Amlodipine Besylate (Norvasc -) 5 mg PO DAILY [facility] Last Admin: 06/23/16 10:10 Dose: 5 mg Buspirone HCl (Buspar -) 5 mg PO BID [facility] Last Admin: 06/23/16 21:22 Dose: 5 mg Ceftriaxone Sodium (Rocephin 1gm Ivpb (Pre-Docked)) 1 gm IVPB DAILY [facility] Last Admin: 06/23/16 10:10 Dose: 1 gm Clonazepam (Klonopin -) 1 mg PO HS [facility] Last Admin: 06/23/16 21:22 Dose: 1 mg Finasteride (Proscar -) 5 mg PO DAILY [facility] Last Admin: 06/23/16 10:10 Dose: 5 mg Heparin Sodium (Porcine) (Heparin -) 5,000 unit SQ BID [facility] Last Admin: 06/23/16 21:22 Dose: 5,000 unit Azithromycin (Zithromax 500mg Ivpb (Pre-Docked)) 250 mls @ 250 mls/hr IVPB DAILY [facility] Last Admin: 06/23/16 14:32 Dose: 250 mls/hr Levothyroxine Sodium (Synthroid -) 50 mcg PO ACBK [facility] Last Admin: 06/24/16 06:03 Dose: 50 mcg Metoprolol Succinate (Toprol Xl -) 50 mg PO DAILY [facility] Last Admin: 06/23/16 10:10 Dose: 50 mg Non-Formulary Medication (Naloxegol Oxalate [Movantik]) 25 mg PO DAILY [facility] [id number] Ethyl Esters (Lovaza -) 2 gm PO BID [facility] Last Admin: 06/23/16 21:22 Dose: 2 gm Oxycodone HCl (Roxicodone -) 5 mg PO Q4H PRN PRN Reason: PAIN Last Admin: 06/23/16 22:03 Dose: 5 mg Oxycodone HCl (Roxicodone -) 10 mg PO Q4H PRN PRN Reason: PAIN Last Admin: 06/24/16 06:14 Dose: 10 mg Roflumilast (Daliresp -) 500 mcg PO DAILY [facility] Last Admin: 06/23/16 12:05 Dose: 500 mcg - Objective Vital Signs: Vital Signs Temperature 97.9 F 06/24/16 05:33 Pulse Rate 92 H 06/24/16 05:33 Respiratory Rate 18 06/24/16 05:33 Blood Pressure 142/60 06/24/16 05:33 O2 Sat by Pulse Oximetry (%) 96 06/23/16 21:00 Cardiovascular: Yes: Regular Rate and Rhythm Respiratory: Yes: Regular, CTA Bilaterally Gastrointestinal: Yes: Normal Bowel Sounds, Soft Labs: CBC, BMP 06/23/16 05:35 06/23/16 05:35 Problem List - Problems (1) Confusion Assessment/Plan: MAYBE DUE TO PNA MONITOR Code(s): R41.0 - DISORIENTATION, UNSPECIFIED (2) Prostate ca Assessment/Plan: URO CONSULT Code(s): C61 - MALIGNANT NEOPLASM OF PROSTATE (3) CAD (coronary artery disease) of artery bypass graft Assessment/Plan: NO CP Code(s): I25.810 - ATHEROSCLEROSIS OF CABG W/O ANGINA PECTORIS (4) Pneumonia Assessment/Plan: IV ABX ID CONSULT Code(s): J18.9 - PNEUMONIA, UNSPECIFIED ORGANISM Qualifiers: (5) Hyperkalemia Assessment/Plan: KAYAXELATE RENAL LABS PENDING Code(s): E87.5 - HYPERKALEMIA (6) Pulmonary metastases Assessment/Plan: PULM CONSULT NOTED--WILL D/W FAMILY Code(s): C78.00 - SECONDARY MALIGNANT NEOPLASM OF UNSPECIFIED LUNG (7) Renal mass Assessment/Plan: UROLOGY CONSULT Code(s): N28.89 - OTHER SPECIFIED DISORDERS OF KIDNEY AND URETER
[2016-06-24] MEDS ORDERED: PT OWN MED DRAWER 7, Y5N ONE (09:18)
[2016-06-24] MEDS: FINASTERIDE 5 MG TABLET (FP) PO SCH (09:31)
[2016-06-24] MEDS: amLODIPine BESYLATE 5 MG TABLET (FP) PO SCH (09:32)
[2016-06-24] MEDS: OMEGA-3 ACID ETHYL ESTERS (FATTY-ACIDS) 1 GM CAPSULE (FP) PO SCH ×2 (09:32→21:11)
[2016-06-24] MEDS: HEPARIN NA (PORCINE) 5,000 UNITS/ML 1ML VIAL SQ SCH ×2 (09:33→21:09)
[2016-06-24] MEDS: ROFLUMILAST 500 MCG TABLET PO SCH (09:33)
[2016-06-24] MEDS: cefTRIAXone 1 GM/50 ML BAG (PRE-DOCKED) IVPB SCH (09:34)
[2016-06-24] MEDS: busPIRone HCL 5 MG TABLET PO SCH ×2 (09:34→21:09)
[2016-06-24] MEDS: AZITHROMYCIN IVPB 500MG/250 ML IVPB SCH (09:35)
[2016-06-24] MEDS: METOPROLOL SUCCINATE 50 MG TAB.SR.24H (FP) PO SCH ×2 (09:35→21:10)
[2016-06-24 11:09] LABS: ALBUMIN 2.7 g/dl (3.4-5.0); BILIRUBIN,TOTAL 0.3 mg/dL (0.2-1.0); CALCIUM 8.7 mg/dL (8.5-10.1); CREATININE 1.4 mg/dL (0.7-1.3); MAGNESIUM 1.5 mg/dL (1.8-2.4)
--- NOTE | 2016-06-24 12:13 | PN ---
Progress Note (short form) - Note Progress Note: PULMONARY AWAKE/MORE ALERT SON IS PRESENT DIDN'T KNOW ABOUT B/L LUNG NODULES AND POSSIBLE IMPLICATIONS RENAL MASS NOT BXED PER HX VSS/AFEBRILE COMPLAINING OF SEVERE CONSTIPATION(LIKELY NARCOTIC INDUCED) AND BACK PAIN ANICTERIC DISTANT B/L BREATH SOUNDS S1S2 TACHY BS+ NO EDEMA LABS/MEDS/NOTES/IMAGING/MEDS REVIEWED (1) Abdominal pain Code(s): R10.9 - UNSPECIFIED ABDOMINAL PAIN (2) Confusion Code(s): R41.0 - DISORIENTATION, UNSPECIFIED (3) Prostate ca Code(s): C61 - MALIGNANT NEOPLASM OF PROSTATE (4) Pulmonary metastases Code(s): C78.00 - SECONDARY MALIGNANT NEOPLASM OF UNSPECIFIED LUNG (5) Renal mass Code(s): N28.89 - OTHER SPECIFIED DISORDERS OF KIDNEY AND URETER (6) TERRA (acute kidney injury) Code(s): N17.9 - ACUTE KIDNEY FAILURE, UNSPECIFIED (7) Back pain Code(s): M54.9 - DORSALGIA, UNSPECIFIED Qualifiers: Back pain location: low back pain (8) CAD (coronary artery disease) of artery bypass graft Code(s): I25.810 - ATHEROSCLEROSIS OF CABG W/O ANGINA PECTORIS (9) Pneumonia Code(s): J18.9 - PNEUMONIA, UNSPECIFIED ORGANISM Qualifiers: (10) UTI (lower urinary tract infection) Code(s): N39.0 - URINARY TRACT INFECTION, SITE NOT SPECIFIED Assessment/Plan ABX per ID O2 as needed Check sputum if possible consider CT chest Aspiration precautions Consider GOC talks with family Pain management Will follow Jose SOUZA MD
[2016-06-24] MEDS: DOCUSATE SODIUM 100 MG CAPSULE (FP) PO SCH ×3 (13:00→21:09)
[2016-06-24] MEDS ORDERED: POLYETHYLENE GLYCOL 3350 119 GM BTL PO ONE (13:20)
--- NOTE | 2016-06-24 13:20 | PN ---
Progress Note (short form) - Note Progress Note: Renal Follow up for TERRA/Hyperkalemia Pt seen and examined at the bedside awake and alert pham inserted yesterday complaints of pain in abd that he feels is secondary to constipation no sob or chest pain Vital Signs Temperature 98.4 F 06/24/16 10:00 Pulse Rate 123 H 06/24/16 10:00 Respiratory Rate 20 06/24/16 10:00 Blood Pressure 124/66 06/24/16 10:00 O2 Sat by Pulse Oximetry (%) 96 06/24/16 09:00 Intake & Output 06/21/16 06/22/16 06/23/16 06/24/16 23:59 23:59 23:59 23:59 Intake Total 3160 1100 Output Total 1660 1000 Balance 1500 100 Weight 137 lb Gen: NAD, awake and alert CVS: RRR, No M/R Lungs: CTA, no rales or wheeze Abd: soft, + tenderness in lower abd Ext: No edema, clubbing or cyanosis : Pham in place CBC, BMP 06/23/16 05:35 06/24/16 10:00 Current Medications Albuterol/Ipratropium (Duoneb -) 1 amp NEB QIDR [facility] Last Admin: 06/24/16 11:05 Dose: 1 amp Amlodipine Besylate (Norvasc -) 5 mg PO DAILY [facility] Last Admin: 06/24/16 09:32 Dose: 5 mg Buspirone HCl (Buspar -) 5 mg PO BID [facility] Last Admin: 06/24/16 09:34 Dose: 5 mg Ceftriaxone Sodium (Rocephin 1gm Ivpb (Pre-Docked)) 1 gm IVPB DAILY [facility] Last Admin: 06/24/16 09:34 Dose: 1 gm Clonazepam (Klonopin -) 1 mg PO HS [facility] Last Admin: 06/23/16 21:22 Dose: 1 mg Docusate Sodium (Colace -) 100 mg PO TID [facility] Finasteride (Proscar -) 5 mg PO DAILY [facility] Last Admin: 06/24/16 09:31 Dose: 5 mg Heparin Sodium (Porcine) (Heparin -) 5,000 unit SQ BID [facility] Last Admin: 06/24/16 09:33 Dose: 5,000 unit Azithromycin (Zithromax 500mg Ivpb (Pre-Docked)) 250 mls @ 250 mls/hr IVPB DAILY [facility] Last Admin: 06/24/16 09:35 Dose: 250 mls/hr Levothyroxine Sodium (Synthroid -) 50 mcg PO ACBK [facility] Last Admin: 06/24/16 06:03 Dose: 50 mcg Metoprolol Succinate (Toprol Xl -) 50 mg PO BID [facility] Last Admin: 06/24/16 09:35 Dose: 50 mg Non-Formulary Medication (Naloxegol Oxalate [Movantik]) 25 mg PO DAILY [facility] [id number] Ethyl Esters (Lovaza -) 2 gm PO BID [facility] Last Admin: 06/24/16 09:32 Dose: 2 gm Oxycodone HCl (Roxicodone -) 5 mg PO Q4H PRN PRN Reason: PAIN Last Admin: 06/24/16 11:54 Dose: 5 mg Oxycodone HCl (Roxicodone -) 10 mg PO Q4H PRN PRN Reason: PAIN Last Admin: 06/24/16 09:20 Dose: 10 mg Roflumilast (Daliresp -) 500 mcg PO DAILY [facility] Last Admin: 06/24/16 09:33 Dose: 500 mcg A/p 80 year old Gentleman with PMhx of Metastatic Prostate Ca, Hypertension, Hyperlipidemia, CAD s/p Cardiac Stents, DM who presented with worsening MS for the past several months as per her daughter and found to have multiple abd mets and TERRA with BUN/Cr of 29/1.5 (baseline Cr 1.1) and hyperkalemia with K of 6. #Acute Kidney Injury BUN improving, Cr stable Pt is non-oliguric with good urine output maintain pham in place contine IVF but at decreased rate trend BUN/Cr #Contrast Nephropathy Prophylaxis Pt is ok to Get MRI with Srikanth if needed as GFR > 30 pt is at risk of CT contrast Nephropathy as per RADHA risk calculator janet of RADHA (50% or more increase in Cr is 26%), risk of immediate need for dialysis is 1.1% can hydrate pre and post procedure to minimize risk as well as give mucomyst #Hyperkalemia Secondary to renal insufficiency at this time improved today continue low k diet #AMS Work up as per neurology #Metastatic Prostate Ca with Renal mass Urology follow up pham in place #Hypertension Continue amlodipine for now keep MAP .>65 avoid KEO/ARB for now Anatoliy Ryan DO
--- NOTE | 2016-06-24 14:11 | CONSULT ---
Consult Consult Specialty:: Cardiology Referred by:: Dr Li Reason for Consultation:: Arrhythmia - History of Present Illness History of Present Illness: 80 year old male with history of hypertension, hyperlipidemia, DM, CAD s/p stents x2 (no details available), metastatic prostate CA, here with altered mental status for the last few months. As per daughter, the patient has been intermittently confused over several weeks , didn't recognize his family. The patient has also been complaining of back pain that radiates to his right abdomen. Patient has since been found with rt renal mass, pulmonary nodules adn is awaiting brain MRI to r/o mets He's been having a lot of ectopy on tele. Hence this consult. Pt denies palpitations or dizziness. He reports pain all over, not localized to chest. - History Source History Provided By: Patient, Medical Record - Past Medical History Cardio/Vascular: Yes: CAD (denies [place], but had CABG (no details)), HTN, Hyperlipdemia Gastrointestinal: Yes: Constipation Renal/: Yes: Renal Failure, Cancer (metastatic prostate) Musculoskeletal: Yes: Chronic low back pain, Paraplegia - Past Surgical History Past Surgical History: Yes: CABG, Laminectomy - Alcohol/Substance Use Hx Alcohol Use: No - Smoking History Smoking history: Former smoker (over 15 ya) Have you smoked in the past 12 months: No Aproximately how many cigarettes per day: 0 If you are a former smoker, when did you quit?: Over 58 years ago - Social History Usual Living Arrangement: With Child Home Medications - Allergies Allergies/Adverse Reactions: Allergies Allergy/AdvReac Type Severity Reaction Status Date / Time acetaminophen [From [facility]] Allergy Intermediate Itching Verified 06/22/16 15: 35 - Home Medications Home Medications: Ambulatory Orders Buspirone HCl [Buspar -] 5 mg PO BID 08/26/15 Levothyroxine [Synthroid -] 50 mcg PO DAILY 08/26/15 Meclizine HCl 25 mg PO HS PRN 08/26/15 Metoprolol Succinate [Toprol Xl] 50 mg PO DAILY 08/26/15 Morphine Sulfate 30 mg PO TID PRN 08/26/15 Albuterol Sulfate [Proair Respiclick] 90 mcg IH QID PRN 11/30/15 Calcium Citrate [Calcitrate] 950 mg PO DAILY 11/30/15 Clonazepam [Klonopin] 1 mg PO HS PRN 11/30/15 Esomeprazole Magnesium [Nexium] 40 mg PO DAILY 11/30/15 Finasteride 5 mg PO DAILY 11/30/15 Albuterol Sulfate 0.042% [Ventolin 0.042% (Half-Strength) -] 1 amp NEB PRN PRN 05/12/16 Ergocalciferol [Drisdol -] 50,000 unit PO DAILY 05/12/16 Ipratropium 0.02% Nebulizer [Atrovent 0.02% Nebulizer -] 1 amp NEB PRN PRN 05/12 Amlodipine Besylate [Norvasc -] 5 mg PO DAILY 06/22/16 Icosapent Ethyl [Vascepa] 2 gm PO BID 06/22/16 Naloxegol Oxalate [Movantik] 25 mg PO DAILY 06/22/16 Oxycodone HCl/Acetaminophen [Endocet 7.5-325 mg Tablet] 1 each PO TID 06/22/16 Pitavastatin Calcium [Livalo] 2 mg PO DAILY 06/22/16 Roflumilast [Daliresp] 500 mcg PO DAILY 06/22/16 Tiotropium [place] [Spiriva] 1 inh PO DAILY 06/22/16 Family Disease History - Family Disease History Family History: Denies (premature CADS) Review of Systems Unable to obtain ROS, reason: unreliable historian - Review of Systems Gastrointestinal: reports: Abdominal Pain Musculoskeletal: reports: Back Pain Physical Exam Vital Signs: Vital Signs Temperature 99.1 F 06/24/16 14:00 Pulse Rate 108 H 06/24/16 14:00 Respiratory Rate 20 06/24/16 14:00 Blood Pressure 119/81 06/24/16 14:00 O2 Sat by Pulse Oximetry (%) 96 06/24/16 09:00 Constitutional: Yes: No Distress Eyes: Yes: Conjunctiva Clear HENT: Yes: Atraumatic Neck: Yes: Supple Cardiovascular: Yes: Regular Rate and Rhythm (with frequent ectopy) Respiratory: Yes: CTA Bilaterally. No: Rales, Rhonchi, Wheezes Gastrointestinal: Yes: Normal Bowel Sounds, Soft, Tenderness Edema: No Peripheral Pulses WNL: Yes Neurological: Yes: Alert Psychiatric: Yes: Alert Labs: CBC, BMP 06/23/16 05:35 06/24/16 10:00 Imaging - Results Chest X-ray: Report Reviewed, Image Reviewed Cat Scan: Report Reviewed EKG: Report Reviewed, Image Reviewed (SR wit RBBB, NSST-T changes -. repeat EKG yesterday with mild improvement in anterior St-T changes) Other: Other (tele -. SR, ST, frequent APCs (look wide because of RBBB), short irregular runs suspicious for afib Holter (2013) -. SR wuth avg HR 72, frequent APCs, frequent PVCs including short NSVT (3 beats)) Assessment/Plan 80 yo male with the above history, here with change in mental status -. seems to have cleared up a little since Found in renal failure (normal in 12/21) and hyperkalemia (K 6) -. better with kayexalate No evidence of ACS or CHF Noted with a lot of atrial ectopy -. on review of tele, pt has been having a lot of APCs, some in succession , with some irregular episodes suspicious of afib (not clear as there are a lot of clear atrial activity (with P waves). Yasmeen ept is at high risl=k for thromboembolic complications form afib, he is also not a great candidate fro chronic AC, especially as we have not yet ruled out [employer] mets Pt had a lot of ectopy on holter from 2013 (see above) Patient's K is now nl, but Mg is 1.5 -. not yet repleted No record of echo in system Rec: Replete Mg to > 2 Keep K > 4 Echocardiogram to assess EF Agree with higher beta-john dose at 50 BID Follow HR Pt with evidence of possible renal and pulmonary CA (in addition to his met prostate CA)-. his prognosis will play a big part in management of course Thanks! We'll follow! d/w WILLIAM
--- NOTE | 2016-06-24 14:14 | PN ---
Progress Note, Physician History of Present Illness: Awake, supine in bed No c/o chest pain/ dyspnea/ cough Breathing non-labored + cough noted No fever/ chills - Current Medication List Current Medications: Active Medications Albuterol/Ipratropium (Duoneb -) 1 amp NEB QIDR [facility] Last Admin: 06/24/16 11:05 Dose: 1 amp Amlodipine Besylate (Norvasc -) 5 mg PO DAILY [facility] Last Admin: 06/24/16 09:32 Dose: 5 mg Buspirone HCl (Buspar -) 5 mg PO BID [facility] Last Admin: 06/24/16 09:34 Dose: 5 mg Ceftriaxone Sodium (Rocephin 1gm Ivpb (Pre-Docked)) 1 gm IVPB DAILY [facility] Last Admin: 06/24/16 09:34 Dose: 1 gm Clonazepam (Klonopin -) 1 mg PO HS [facility] Last Admin: 06/23/16 21:22 Dose: 1 mg Docusate Sodium (Colace -) 100 mg PO TID [facility] Finasteride (Proscar -) 5 mg PO DAILY [facility] Last Admin: 06/24/16 09:31 Dose: 5 mg Heparin Sodium (Porcine) (Heparin -) 5,000 unit SQ BID [facility] Last Admin: 06/24/16 09:33 Dose: 5,000 unit Azithromycin (Zithromax 500mg Ivpb (Pre-Docked)) 250 mls @ 250 mls/hr IVPB DAILY [facility] Last Admin: 06/24/16 09:35 Dose: 250 mls/hr Sodium Chloride (Normal Saline -) 1,000 mls @ 75 mls/hr IV ASDIR [facility] Stop: 06/25/16 13:29 Levothyroxine Sodium (Synthroid -) 50 mcg PO ACBK [facility] Last Admin: 06/24/16 06:03 Dose: 50 mcg Metoprolol Succinate (Toprol Xl -) 50 mg PO BID [facility] Last Admin: 06/24/16 09:35 Dose: 50 mg Non-Formulary Medication (Naloxegol Oxalate [Movantik]) 25 mg PO DAILY [facility] [id number] Ethyl Esters (Lovaza -) 2 gm PO BID [facility] Last Admin: 06/24/16 09:32 Dose: 2 gm Oxycodone HCl (Roxicodone -) 5 mg PO Q4H PRN PRN Reason: PAIN Last Admin: 06/24/16 11:54 Dose: 5 mg Oxycodone HCl (Roxicodone -) 10 mg PO Q4H PRN PRN Reason: PAIN Last Admin: 06/24/16 09:20 Dose: 10 mg Roflumilast (Daliresp -) 500 mcg PO DAILY [facility] Last Admin: 06/24/16 09:33 Dose: 500 mcg - Objective Vital Signs: Vital Signs Temperature 99.1 F 06/24/16 14:00 Pulse Rate 108 H 06/24/16 14:00 Respiratory Rate 20 06/24/16 14:00 Blood Pressure 119/81 06/24/16 14:00 O2 Sat by Pulse Oximetry (%) 96 06/24/16 09:00 Constitutional: Yes: No Distress Eyes: Yes: Conjunctiva Clear Cardiovascular: Yes: Regular Rate and Rhythm, S1, S2 Respiratory: Yes: Other (+ coarse rhonchi bilaterally) Gastrointestinal: Yes: Normal Bowel Sounds, Soft. No: Tenderness Edema: No Labs: CBC, BMP 06/23/16 05:35 06/24/16 10:00 Assessment/Plan LLL pneumonia Metastatic prostate ca Azotemia Check sputum c/s Continue empiric zithromax/ ceftriaxone
[2016-06-24] MEDS: SODIUM CHLORIDE 1,000 ML IV SCH (14:47)
[2016-06-24] MEDS ORDERED: MAGNESIUM OXIDE 400 MG TABLET (FP) PO ONE (15:30)
[2016-06-24] MEDS: clonazePAM 0.5 MG TABLET PO SCH (21:09)
[2016-06-25] MEDS: SODIUM CHLORIDE 1,000 ML IV SCH (03:08)
[2016-06-25] MEDS: oxyCODONE HCL 5 MG TABLET PO PRN ×3 (04:02→17:55)
[2016-06-25] MEDS: DOCUSATE SODIUM 100 MG CAPSULE (FP) PO SCH ×3 (06:21→21:07)
[2016-06-25] MEDS: LEVOTHYROXINE NA 50 MCG TABLET (FP) PO SCH (06:21)
[2016-06-25] MEDS: ALBUTEROL SO4 2.5/IPRATROPIUM 0.5 INH SOL 3 ML VIAL.NEB. NEB SCH ×4 (06:55→23:54)
--- NOTE | 2016-06-25 09:37 | PN ---
Progress Note, Physician Chief Complaint: C/O CONSTIPATION NOT IMPROVED CALM NO DISTRESS - Current Medication List Current Medications: Active Medications Albuterol/Ipratropium (Duoneb -) 1 amp NEB QIDR [facility] Last Admin: 06/24/16 23:17 Dose: 1 amp Amlodipine Besylate (Norvasc -) 5 mg PO DAILY [facility] Last Admin: 06/24/16 09:32 Dose: 5 mg Buspirone HCl (Buspar -) 5 mg PO BID [facility] Last Admin: 06/24/16 21:09 Dose: 5 mg Ceftriaxone Sodium (Rocephin 1gm Ivpb (Pre-Docked)) 1 gm IVPB DAILY [facility] Last Admin: 06/24/16 09:34 Dose: 1 gm Clonazepam (Klonopin -) 1 mg PO HS [facility] Last Admin: 06/24/16 21:09 Dose: 1 mg Docusate Sodium (Colace -) 100 mg PO TID [facility] Last Admin: 06/25/16 06:21 Dose: 100 mg Finasteride (Proscar -) 5 mg PO DAILY [facility] Last Admin: 06/24/16 09:31 Dose: 5 mg Heparin Sodium (Porcine) (Heparin -) 5,000 unit SQ BID [facility] Last Admin: 06/24/16 21:09 Dose: 5,000 unit Azithromycin (Zithromax 500mg Ivpb (Pre-Docked)) 250 mls @ 250 mls/hr IVPB DAILY [facility] Last Admin: 06/24/16 09:35 Dose: 250 mls/hr Sodium Chloride (Normal Saline -) 1,000 mls @ 75 mls/hr IV ASDIR [facility] Stop: 06/25/16 13:29 Last Admin: 06/25/16 03:08 Dose: 75 mls/hr Levothyroxine Sodium (Synthroid -) 50 mcg PO ACBK [facility] Last Admin: 06/25/16 06:21 Dose: 50 mcg Metoprolol Succinate (Toprol Xl -) 50 mg PO BID [facility] Last Admin: 06/24/16 21:10 Dose: 50 mg Non-Formulary Medication (Naloxegol Oxalate [Movantik]) 25 mg PO DAILY [facility] [id number] Ethyl Esters (Lovaza -) 2 gm PO BID [facility] Last Admin: 06/24/16 21:11 Dose: 2 gm Oxycodone HCl (Roxicodone -) 5 mg PO Q4H PRN PRN Reason: PAIN Last Admin: 06/24/16 17:41 Dose: 5 mg Oxycodone HCl (Roxicodone -) 10 mg PO Q4H PRN PRN Reason: PAIN Last Admin: 06/25/16 04:02 Dose: 10 mg Roflumilast (Daliresp -) 500 mcg PO DAILY [facility] Last Admin: 06/24/16 09:33 Dose: 500 mcg - Objective Vital Signs: Vital Signs Temperature 98.5 F 06/25/16 06:00 Pulse Rate 85 06/25/16 06:00 Respiratory Rate 20 06/25/16 06:00 Blood Pressure 128/77 06/25/16 06:00 O2 Sat by Pulse Oximetry (%) 96 06/24/16 21:00 Constitutional: Yes: Calm Cardiovascular: Yes: WNL Respiratory: Yes: WNL Gastrointestinal: Yes: WNL Edema: No Labs: CBC, BMP 06/23/16 05:35 06/24/16 10:00 Problem List - Problems (1) Confusion Code(s): R41.0 - DISORIENTATION, UNSPECIFIED (2) Prostate ca Code(s): C61 - MALIGNANT NEOPLASM OF PROSTATE (3) CAD (coronary artery disease) Code(s): I25.10 - ATHSCL HEART DISEASE OF [place] CORONARY ARTERY W/O ANG PCTRS (4) Pneumonia Code(s): J18.9 - PNEUMONIA, UNSPECIFIED ORGANISM Qualifiers: (5) Constipation Code(s): K59.00 - CONSTIPATION, UNSPECIFIED Assessment/Plan (1) Confusion Assessment/Plan: MAYBE DUE TO PNA MONITOR Code(s): R41.0 - DISORIENTATION, UNSPECIFIED (2) Prostate ca Assessment/Plan: URO CONSULTED -> F/U Code(s): C61 - MALIGNANT NEOPLASM OF PROSTATE (3) CAD (coronary artery disease) of artery bypass graft Assessment/Plan: TROP NEG x 1 -> F/U CARDIO ON CASE -> Whil ept is at high risl=k for thromboembolic complications form afib, he is also not a great candidate fro chronic AC, especially as we have not yet ruled out GARBAGE TRUCK HELPER mets - SCDs Code(s): I25.810 - ATHEROSCLEROSIS OF CABG W/O ANGINA PECTORIS (4) Pneumonia Assessment/Plan: IV ABX ID CONSULT Code(s): J18.9 - PNEUMONIA, UNSPECIFIED ORGANISM Qualifiers: (5) Hyperkalemia Assessment/Plan: KAYAXELATE RENAL RESOLVED Code(s): E87.5 - HYPERKALEMIA (6) Pulmonary metastases Assessment/Plan: PULM CONSULT NOTED--WILL D/W FAMILY Code(s): C78.00 - SECONDARY MALIGNANT NEOPLASM OF UNSPECIFIED LUNG (7) Renal mass Assessment/Plan: UROLOGY CONSULT Code(s): N28.89 - OTHER SPECIFIED DISORDERS OF KIDNEY AND URETER INVESTMENT ANALYST FM
--- NOTE | 2016-06-25 10:06 | PN ---
Progress Note (short form) - Note Progress Note: PULMONARY AWAKE/MORE ALERT COMPLAINING OF SEVERE CONSTIPATION(LIKELY NARCOTIC INDUCED) AND BACK PAIN VSS/AFEBRILE ANICTERIC DISTANT B/L BREATH SOUNDS S1S2 TACHY BS+ NO EDEMA LABS/MEDS/NOTES/IMAGING/MEDS REVIEWED (1) Abdominal pain Code(s): R10.9 - UNSPECIFIED ABDOMINAL PAIN (2) Confusion Code(s): R41.0 - DISORIENTATION, UNSPECIFIED (3) Prostate ca Code(s): C61 - MALIGNANT NEOPLASM OF PROSTATE (4) Pulmonary metastases Code(s): C78.00 - SECONDARY MALIGNANT NEOPLASM OF UNSPECIFIED LUNG (5) Renal mass Code(s): N28.89 - OTHER SPECIFIED DISORDERS OF KIDNEY AND URETER (6) TERRA (acute kidney injury) Code(s): N17.9 - ACUTE KIDNEY FAILURE, UNSPECIFIED (7) Back pain Code(s): M54.9 - DORSALGIA, UNSPECIFIED Qualifiers: Back pain location: low back pain (8) CAD (coronary artery disease) of artery bypass graft Code(s): I25.810 - ATHEROSCLEROSIS OF CABG W/O ANGINA PECTORIS (9) Pneumonia Code(s): J18.9 - PNEUMONIA, UNSPECIFIED ORGANISM Qualifiers: (10) UTI (lower urinary tract infection) Code(s): N39.0 - URINARY TRACT INFECTION, SITE NOT SPECIFIED Assessment/Plan ABX per ID O2 as needed Check sputum if possible consider CT chest Aspiration precautions Consider GOC talks with family Pain management consult requested Will follow Jose SOUZA MD
[2016-06-25] MEDS ORDERED: PT OWN MED DRAWER 7, Y5N ONE (10:17)
[2016-06-25] MEDS: HEPARIN NA (PORCINE) 5,000 UNITS/ML 1ML VIAL SQ SCH ×2 (10:22→21:07)
[2016-06-25] MEDS: METOPROLOL SUCCINATE 50 MG TAB.SR.24H (FP) PO SCH ×2 (10:22→21:04)
[2016-06-25] MEDS: amLODIPine BESYLATE 5 MG TABLET (FP) PO SCH (10:22)
[2016-06-25] MEDS: FINASTERIDE 5 MG TABLET (FP) PO SCH (10:22)
[2016-06-25] MEDS: cefTRIAXone 1 GM/50 ML BAG (PRE-DOCKED) IVPB SCH (10:23)
[2016-06-25] MEDS: AZITHROMYCIN IVPB 500MG/250 ML IVPB SCH (10:23)
[2016-06-25 11:15] LABS: CALCIUM 9.2 mg/dL (8.5-10.1); CREATININE 1.2 mg/dL (0.7-1.3)
[2016-06-25] MEDS: busPIRone HCL 5 MG TABLET PO SCH ×2 (11:56→23:13)
[2016-06-25] MEDS: OMEGA-3 ACID ETHYL ESTERS (FATTY-ACIDS) 1 GM CAPSULE (FP) PO SCH ×2 (11:56→23:13)
[2016-06-25] MEDS: ROFLUMILAST 500 MCG TABLET PO SCH (11:56)
--- NOTE | 2016-06-25 12:04 | PN ---
Progress Note (short form) - Note Progress Note: Renal Follow up for TERRA/Hyperkalemia Pt seen and examined at the bedside awake and alert reports lower back pain good urine output via pham no sob or chest pain on IVF Vital Signs Temperature 98.5 F 06/25/16 06:00 Pulse Rate 85 06/25/16 06:00 Respiratory Rate 20 06/25/16 06:00 Blood Pressure 128/77 06/25/16 06:00 O2 Sat by Pulse Oximetry (%) 96 06/24/16 21:00 Intake & Output 06/22/16 06/23/16 06/24/16 06/25/16 23:59 23:59 23:59 23:59 Intake Total 3160 2775 1020 Output Total 1660 2300 600 Balance 1500 475 420 Weight 137 lb Gen: NAD, awake and alert CVS: RRR, No M/R Lungs: CTA, no rales or wheeze Abd: soft, + tenderness in lower abd Ext: No edema, clubbing or cyanosis : Pham in place CBC, BMP 06/23/16 05:35 06/25/16 10:20 Current Medications Albuterol/Ipratropium (Duoneb -) 1 amp NEB QIDR [facility] Last Admin: 06/24/16 23:17 Dose: 1 amp Amlodipine Besylate (Norvasc -) 5 mg PO DAILY [facility] Last Admin: 06/25/16 10:22 Dose: 5 mg Buspirone HCl (Buspar -) 5 mg PO BID [facility] Last Admin: 06/25/16 11:56 Dose: Not Given Ceftriaxone Sodium (Rocephin 1gm Ivpb (Pre-Docked)) 1 gm IVPB DAILY [facility] Last Admin: 06/25/16 10:23 Dose: 1 gm Clonazepam (Klonopin -) 1 mg PO HS [facility] Last Admin: 06/24/16 21:09 Dose: 1 mg Docusate Sodium (Colace -) 100 mg PO TID [facility] Last Admin: 06/25/16 06:21 Dose: 100 mg Finasteride (Proscar -) 5 mg PO DAILY [facility] Last Admin: 06/25/16 10:22 Dose: 5 mg Heparin Sodium (Porcine) (Heparin -) 5,000 unit SQ BID [facility] Last Admin: 06/25/16 10:22 Dose: 5,000 unit Azithromycin (Zithromax 500mg Ivpb (Pre-Docked)) 250 mls @ 250 mls/hr IVPB DAILY [facility] Last Admin: 06/25/16 10:23 Dose: 250 mls/hr Sodium Chloride (Normal Saline -) 1,000 mls @ 75 mls/hr IV ASDIR [facility] Stop: 06/25/16 13:29 Last Admin: 06/25/16 03:08 Dose: 75 mls/hr Levothyroxine Sodium (Synthroid -) 50 mcg PO ACBK [facility] Last Admin: 06/25/16 06:21 Dose: 50 mcg Metoprolol Succinate (Toprol Xl -) 50 mg PO BID [facility] Last Admin: 06/25/16 10:22 Dose: 50 mg Non-Formulary Medication (Naloxegol Oxalate [Movantik]) 25 mg PO DAILY [facility] [id number] Ethyl Esters (Lovaza -) 2 gm PO BID [facility] Last Admin: 06/25/16 11:56 Dose: Not Given Oxycodone HCl (Roxicodone -) 5 mg PO Q4H PRN PRN Reason: PAIN Last Admin: 06/24/16 17:41 Dose: 5 mg Oxycodone HCl (Roxicodone -) 10 mg PO Q4H PRN PRN Reason: PAIN Last Admin: 06/25/16 10:30 Dose: 10 mg Roflumilast (Daliresp -) 500 mcg PO DAILY [facility] Last Admin: 06/25/16 11:56 Dose: Not Given A/p 80 year old Gentleman with PMhx of Metastatic Prostate Ca, Hypertension, Hyperlipidemia, CAD s/p Cardiac Stents, DM who presented with worsening MS for the past several months as per her daughter and found to have multiple abd mets and ETRRA with BUN/Cr of 29/1.5 (baseline Cr 1.1) and hyperkalemia with K of 6. #Acute Kidney Injury Etiology volume depletion + urine outflow obstruction BUN/Cr improving with IVF and Pham catheter Can decreae IVF rate to 60cc per hour today continue Pham pending urology follow up Avoid NSAIDS and other nephrotoxins #Contrast Nephropathy Prophylaxis Pt is ok to Get MRI with Srikanth if needed as GFR > 30 pt is at risk of CT contrast Nephropathy as per RADHA risk calculator janet of RADHA (50% or more increase in Cr is 26%), risk of immediate need for dialysis is 1.1% can hydrate pre and post procedure to minimize risk as well as give mucomyst #Hyperkalemia Secondary to renal insufficiency at this time now resolved #AMS Work up as per neurology #Metastatic Prostate Ca with Renal mass Urology follow up Pham in place #Hypertension Continue amlodipine for now BP acceptable keep MAP .>65 avoid KEO/ARB for now Anatoliy Ryan DO
--- NOTE | 2016-06-25 14:17 | PN ---
Progress Note, Physician History of Present Illness: Currently denies chest pain or dyspnea. - Current Medication List Current Medications: Active Medications Albuterol/Ipratropium (Duoneb -) 1 amp NEB QIDR [facility] Last Admin: 06/25/16 11:20 Dose: 1 amp Amlodipine Besylate (Norvasc -) 5 mg PO DAILY [facility] Last Admin: 06/25/16 10:22 Dose: 5 mg Buspirone HCl (Buspar -) 5 mg PO BID [facility] Last Admin: 06/25/16 11:56 Dose: Not Given Ceftriaxone Sodium (Rocephin 1gm Ivpb (Pre-Docked)) 1 gm IVPB DAILY [facility] Last Admin: 06/25/16 10:23 Dose: 1 gm Clonazepam (Klonopin -) 1 mg PO HS [facility] Last Admin: 06/24/16 21:09 Dose: 1 mg Docusate Sodium (Colace -) 100 mg PO TID [facility] Last Admin: 06/25/16 06:21 Dose: 100 mg Finasteride (Proscar -) 5 mg PO DAILY [facility] Last Admin: 06/25/16 10:22 Dose: 5 mg Heparin Sodium (Porcine) (Heparin -) 5,000 unit SQ BID [facility] Last Admin: 06/25/16 10:22 Dose: 5,000 unit Azithromycin (Zithromax 500mg Ivpb (Pre-Docked)) 250 mls @ 250 mls/hr IVPB DAILY [facility] Last Admin: 06/25/16 10:23 Dose: 250 mls/hr Levothyroxine Sodium (Synthroid -) 50 mcg PO ACBK [facility] Last Admin: 06/25/16 06:21 Dose: 50 mcg Metoprolol Succinate (Toprol Xl -) 50 mg PO BID [facility] Last Admin: 06/25/16 10:22 Dose: 50 mg Non-Formulary Medication (Naloxegol Oxalate [Movantik]) 25 mg PO DAILY [facility] [id number] Ethyl Esters (Lovaza -) 2 gm PO BID [facility] Last Admin: 06/25/16 11:56 Dose: Not Given Oxycodone HCl (Roxicodone -) 5 mg PO Q4H PRN PRN Reason: PAIN Last Admin: 06/24/16 17:41 Dose: 5 mg Oxycodone HCl (Roxicodone -) 10 mg PO Q4H PRN PRN Reason: PAIN Last Admin: 06/25/16 10:30 Dose: 10 mg Polyethylene Glycol (Miralax (For Daily Use) -) 17 gm PO DAILY [facility] Roflumilast (Daliresp -) 500 mcg PO DAILY [facility] Last Admin: 06/25/16 11:56 Dose: Not Given - Objective Vital Signs: Vital Signs Temperature 99.2 F 06/25/16 10:00 Pulse Rate 95 H 06/25/16 10:00 Respiratory Rate 20 06/25/16 10:00 Blood Pressure 134/82 06/25/16 10:00 O2 Sat by Pulse Oximetry (%) 96 06/25/16 10:00 Constitutional: Yes: Well Nourished, No Distress Eyes: Yes: Conjunctiva Clear, EOM Intact HENT: Yes: Atraumatic, Normocephalic Cardiovascular: Yes: Regular Rate and Rhythm. No: JVD, Murmur Respiratory: Yes: CTA Bilaterally Gastrointestinal: Yes: Normal Bowel Sounds, Soft. No: Tenderness Edema: No Neurological: Yes: Alert, Oriented Psychiatric: Yes: Alert, Oriented Labs: CBC, BMP 06/23/16 05:35 06/25/16 10:20 Assessment/Plan 80 yo male with HTN, hyperlipidemia, DM, CAD/CABG in 1998 (at [facility]?), metastatic prostate CA, who was admitted with altered mental status for the past few months. Patient has also been complaining of back pain that radiates to his right abdomen and was found to have right renal mass, pulmonary nodules, and is awaiting brain MRI to r/o mets. Cardiology consulted for frequent atrial ectopy. Patient was noted to have a lot of atrial ectopy per review of telemetry. Some irregular episodes were suspicious of afib, however it was not clear. Even if patient were having paroxysms of atrial fibrillation, he would not be an ideal candidate fro chronic anticoagulation, especially as we have not yet ruled out HEALTH CARE ANALYST metastases. 06/24/16 Echo demonstrated grossly normal LV systolic function, but regional WM abnormalities could not be excluded. Mild MR/TR/WA. Trivial pericardial effusion fo no hemodynamic significance. RECS: Keep K > 4 and Mg > 2. Continue metoprolol succinate. Given absence of documented afib, no indication for anticoagulation at this time. If patient will need surgical intervention in the future, he will need risk stratification with a nuclear stress test given his cardiac history and no recent ischemic evaluation. Will see prn. Call with questions.
[2016-06-25] MEDS: POLYETHYLENE GLYCOL 3350 119 GM BTL PO SCH (14:22)
[2016-06-25] MEDS: clonazePAM 0.5 MG TABLET PO SCH (21:06)
[2016-06-26] MEDS: oxyCODONE HCL 5 MG TABLET PO PRN ×3 (01:31→15:04)
[2016-06-26] MEDS ORDERED: PT OWN MED DRAWER 7, Y5N ONE ×3 (01:36→21:07)
[2016-06-26] MEDS: OMEGA-3 ACID ETHYL ESTERS (FATTY-ACIDS) 1 GM CAPSULE (FP) PO SCH ×3 (01:37→21:25)
[2016-06-26] MEDS: busPIRone HCL 5 MG TABLET PO SCH ×3 (01:37→21:26)
[2016-06-26] MEDS: LEVOTHYROXINE NA 50 MCG TABLET (FP) PO SCH (05:59)
[2016-06-26] MEDS: DOCUSATE SODIUM 100 MG CAPSULE (FP) PO SCH ×3 (06:06→21:25)
[2016-06-26] MEDS: ALBUTEROL SO4 2.5/IPRATROPIUM 0.5 INH SOL 3 ML VIAL.NEB. NEB SCH ×4 (06:24→23:00)
[2016-06-26 07:10] LABS: BASOPHIL 1.2 % (0-2.0); EOSINOPHIL 2.6 % (0-4.5); MCH 30.4 pg (25.7-33.7); MCHC 33.6 g/dl (32.0-35.9); MEAN CELL VOLUME 90.4 fl (80-96); MEAN PLT VOLUME 7.4 fl (7.5-11.1); NEUTROPHILS 68.2 % (42.8-82.8); PLATELET COUNT 244 K/MM3 (134-434); RDW 15.6 % (11.9-15.9); WHITE BLOOD COUNT 6.7 K/mm3 (4.0-10.0)
--- NOTE | 2016-06-26 07:47 | PN ---
Progress Note, Physician Chief Complaint: HAD BM NO CHANGE IN SOB - Current Medication List Current Medications: Active Medications Albuterol/Ipratropium (Duoneb -) 1 amp NEB QIDR [facility] Last Admin: 06/26/16 06:24 Dose: 1 amp Amlodipine Besylate (Norvasc -) 5 mg PO DAILY [facility] Last Admin: 06/25/16 10:22 Dose: 5 mg Buspirone HCl (Buspar -) 5 mg PO BID [facility] Last Admin: 06/26/16 01:37 Dose: 5 mg Ceftriaxone Sodium (Rocephin 1gm Ivpb (Pre-Docked)) 1 gm IVPB DAILY [facility] Last Admin: 06/25/16 10:23 Dose: 1 gm Clonazepam (Klonopin -) 1 mg PO HS [facility] Last Admin: 06/25/16 21:06 Dose: 1 mg Docusate Sodium (Colace -) 100 mg PO TID [facility] Last Admin: 06/26/16 06:06 Dose: Not Given Finasteride (Proscar -) 5 mg PO DAILY [facility] Last Admin: 06/25/16 10:22 Dose: 5 mg Heparin Sodium (Porcine) (Heparin -) 5,000 unit SQ BID [facility] Last Admin: 06/25/16 21:07 Dose: 5,000 unit Azithromycin (Zithromax 500mg Ivpb (Pre-Docked)) 250 mls @ 250 mls/hr IVPB DAILY [facility] Last Admin: 06/25/16 10:23 Dose: 250 mls/hr Levothyroxine Sodium (Synthroid -) 50 mcg PO ACBK [facility] Last Admin: 06/26/16 05:59 Dose: 50 mcg Metoprolol Succinate (Toprol Xl -) 50 mg PO BID [facility] Last Admin: 06/25/16 21:04 Dose: 50 mg Non-Formulary Medication (Naloxegol Oxalate [Movantik]) 25 mg PO DAILY [facility] [id number] Ethyl Esters (Lovaza -) 2 gm PO BID [facility] Last Admin: 06/26/16 01:37 Dose: 2 gm Oxycodone HCl (Roxicodone -) 10 mg PO Q4H PRN PRN Reason: PAIN Last Admin: 06/26/16 06:02 Dose: 10 mg Polyethylene Glycol (Miralax (For Daily Use) -) 17 gm PO DAILY [facility] Last Admin: 06/25/16 14:22 Dose: 17 gm Roflumilast (Daliresp -) 500 mcg PO DAILY [facility] Last Admin: 06/25/16 11:56 Dose: Not Given - Objective Vital Signs: Vital Signs Temperature 97.7 F 06/26/16 06:00 Pulse Rate 99 H 06/26/16 06:00 Respiratory Rate 18 06/26/16 06:00 Blood Pressure 142/76 06/26/16 06:00 O2 Sat by Pulse Oximetry (%) 95 06/25/16 22:00 Cardiovascular: Yes: Regular Rate and Rhythm Respiratory: Yes: Rhonchi Gastrointestinal: Yes: Normal Bowel Sounds, Soft Edema: No Labs: CBC, BMP 06/26/16 06:15 Problem List - Problems (1) Confusion Code(s): R41.0 - DISORIENTATION, UNSPECIFIED (2) Prostate ca Code(s): C61 - MALIGNANT NEOPLASM OF PROSTATE (3) CAD (coronary artery disease) Code(s): I25.10 - ATHSCL HEART DISEASE OF [place] CORONARY ARTERY W/O ANG PCTRS (4) Pneumonia Code(s): J18.9 - PNEUMONIA, UNSPECIFIED ORGANISM Qualifiers: (5) Constipation Code(s): K59.00 - CONSTIPATION, UNSPECIFIED Assessment/Plan (1) Confusion Assessment/Plan: MAYBE DUE TO PNA MONITOR Code(s): R41.0 - DISORIENTATION, UNSPECIFIED (2) Prostate ca Assessment/Plan: URO CONSULTED -> F/U Code(s): C61 - MALIGNANT NEOPLASM OF PROSTATE (3) CAD (coronary artery disease) of artery bypass graft Assessment/Plan: TROP NEG x 1 -> F/U CARDIO ON CASE -> NO AC NEEDED 2/2 NO DOCUMENTED AFIB SCDs Code(s): I25.810 - ATHEROSCLEROSIS OF CABG W/O ANGINA PECTORIS (4) Pneumonia Assessment/Plan: IV ABX ID CONSULT Code(s): J18.9 - PNEUMONIA, UNSPECIFIED ORGANISM Qualifiers: (5) Hyperkalemia Assessment/Plan: KAYAXELATE RENAL RESOLVED Code(s): E87.5 - HYPERKALEMIA (6) Pulmonary metastases Assessment/Plan: PULM CONSULT NOTED--WILL D/W FAMILY Code(s): C78.00 - SECONDARY MALIGNANT NEOPLASM OF UNSPECIFIED LUNG (7) Renal mass Assessment/Plan: UROLOGY CONSULT Code(s): N28.89 - OTHER SPECIFIED DISORDERS OF KIDNEY AND URETER CHALKER SOLES FM
[2016-06-26 08:44] LABS: ALBUMIN 2.8 g/dl (3.4-5.0); BILIRUBIN,TOTAL 0.4 mg/dL (0.2-1.0); CALCIUM 9.2 mg/dL (8.5-10.1); CREATININE 1.3 mg/dL (0.7-1.3); TOT PROT 6.2 g/dl (6.4-8.2)
--- NOTE | 2016-06-26 08:53 | CONSULT ---
Consult Consult Specialty:: pain medicine Referred by:: dr austin Reason for Consultation:: back pain - History of Present Illness Chief Complaint: back pain History of Present Illness: 80 year old man with a history of metastatic prostate cancer presented with increasing lower back pain. he is unable to stand or walk due to pain. he is on oxycodone atc with intermittent pain relief. there are no recent imaging studies of his lumbar spine - Past Medical History Cardio/Vascular: Yes: CAD (denies GA, but had CABG (no details)), HTN, Hyperlipdemia Gastrointestinal: Yes: Constipation Renal/: Yes: Renal Failure, Cancer (metastatic prostate) Musculoskeletal: Yes: Chronic low back pain, Paraplegia - Past Surgical History Past Surgical History: Yes: CABG, Laminectomy - Alcohol/Substance Use Hx Alcohol Use: No - Smoking History Smoking history: Former smoker (over 15 ya) Have you smoked in the past 12 months: No Aproximately how many cigarettes per day: 0 If you are a former smoker, when did you quit?: Over 58 years ago - Social History Usual Living Arrangement: With Child Home Medications - Allergies Allergies/Adverse Reactions: Allergies Allergy/AdvReac Type Severity Reaction Status Date / Time acetaminophen [From Ofirmev] Allergy Intermediate Itching Verified 06/22/16 15: 35 - Home Medications Home Medications: Ambulatory Orders Buspirone HCl [Buspar -] 5 mg PO BID 08/26/15 Levothyroxine [Synthroid -] 50 mcg PO DAILY 08/26/15 Meclizine HCl 25 mg PO HS PRN 08/26/15 Metoprolol Succinate [Toprol Xl] 50 mg PO DAILY 08/26/15 Morphine Sulfate 30 mg PO TID PRN 08/26/15 Albuterol Sulfate [Proair Respiclick] 90 mcg IH QID PRN 11/30/15 Calcium Citrate [Calcitrate] 950 mg PO DAILY 11/30/15 Clonazepam [Klonopin] 1 mg PO HS PRN 11/30/15 Esomeprazole Magnesium [Nexium] 40 mg PO DAILY 11/30/15 Finasteride 5 mg PO DAILY 11/30/15 Albuterol Sulfate 0.042% [Ventolin 0.042% (Half-Strength) -] 1 amp NEB PRN PRN 05/12/16 Ergocalciferol [Drisdol -] 50,000 unit PO DAILY 05/12/16 Ipratropium 0.02% Nebulizer [Atrovent 0.02% Nebulizer -] 1 amp NEB PRN PRN 05/12 Amlodipine Besylate [Norvasc -] 5 mg PO DAILY 06/22/16 Icosapent Ethyl [Vascepa] 2 gm PO BID 06/22/16 Naloxegol Oxalate [Movantik] 25 mg PO DAILY 06/22/16 Oxycodone HCl/Acetaminophen [Endocet 7.5-325 mg Tablet] 1 each PO TID 06/22/16 Pitavastatin Calcium [Livalo] 2 mg PO DAILY 06/22/16 Roflumilast [Daliresp] 500 mcg PO DAILY 06/22/16 Tiotropium [place] [Spiriva] 1 inh PO DAILY 06/22/16 Physical Exam Vital Signs: Vital Signs Temperature 97.7 F 06/26/16 06:00 Pulse Rate 99 H 06/26/16 06:00 Respiratory Rate 18 06/26/16 06:00 Blood Pressure 142/76 06/26/16 06:00 O2 Sat by Pulse Oximetry (%) 95 06/25/16 22:00 Musculoskeletal: Yes: Back Pain Labs: CBC, BMP 06/26/16 06:15 06/26/16 06:15 Assessment/Plan Severe worsening lower back pain over the last 3 months Metastatic prostate cancer 1. Patient will need further imaging studies. We are waiting for MRIs- there is a possibility that they cannot be performed due to recent stent placements. If that is the case he will need a dedicated ct scan lumbar spine non contrast and nuclear bone scan. 2. Patient seems to comfortable with oxycodone 10m po q4hr prn pain around the clock. Please consider adding oycontin 10mg PO q8h. 3. Bowel regimen to prevent opioid induced constipation
[2016-06-26] MEDS: HEPARIN NA (PORCINE) 5,000 UNITS/ML 1ML VIAL SQ SCH ×2 (08:59→21:24)
[2016-06-26] MEDS: AZITHROMYCIN IVPB 500MG/250 ML IVPB SCH (09:00)
[2016-06-26] MEDS: amLODIPine BESYLATE 5 MG TABLET (FP) PO SCH (09:00)
[2016-06-26] MEDS: cefTRIAXone 1 GM/50 ML BAG (PRE-DOCKED) IVPB SCH (09:00)
[2016-06-26] MEDS: METOPROLOL SUCCINATE 50 MG TAB.SR.24H (FP) PO SCH ×2 (09:00→21:25)
[2016-06-26] MEDS: FINASTERIDE 5 MG TABLET (FP) PO SCH (09:00)
[2016-06-26] MEDS: POLYETHYLENE GLYCOL 3350 119 GM BTL PO SCH (09:00)
[2016-06-26 09:25] LABS: MAGNESIUM 1.7 mg/dL (1.8-2.4); PHOSPHOROUS 3.6 mg/dL (2.5-4.9)
[2016-06-26 09:26] LABS: TROPONIN I 0.02 ng/ml (0.00-0.05)
[2016-06-26] MEDS: oxyCODONE HCL 10 MG SUSTAINED ACTING TABLET PO SCH ×2 (11:02→21:25)
--- NOTE | 2016-06-26 11:11 | PN ---
Progress Note (short form) - Note Progress Note: PULMONARY AWAKE/BACK PAIN CONTINUES PAIN MANAGEMENT CONSULT APPRECIATED COMPLAINING OF SEVERE CONSTIPATION(LIKELY NARCOTIC INDUCED) VSS/AFEBRILE ANICTERIC DISTANT B/L BREATH SOUNDS S1S2 TACHY BS+ NO EDEMA LABS/MEDS/NOTES/IMAGING/MEDS REVIEWED MG 05/14 (1) Abdominal pain Code(s): R10.9 - UNSPECIFIED ABDOMINAL PAIN (2) Confusion Code(s): R41.0 - DISORIENTATION, UNSPECIFIED (3) Prostate ca Code(s): C61 - MALIGNANT NEOPLASM OF PROSTATE (4) Pulmonary metastases Code(s): C78.00 - SECONDARY MALIGNANT NEOPLASM OF UNSPECIFIED LUNG (5) Renal mass Code(s): N28.89 - OTHER SPECIFIED DISORDERS OF KIDNEY AND URETER (6) TERRA (acute kidney injury) Code(s): N17.9 - ACUTE KIDNEY FAILURE, UNSPECIFIED (7) Back pain Code(s): M54.9 - DORSALGIA, UNSPECIFIED Qualifiers: Back pain location: low back pain (8) CAD (coronary artery disease) of artery bypass graft Code(s): 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
[2016-06-26] MEDS ORDERED: MAGNESIUM OXIDE 400 MG TABLET (FP) PO ONE (11:15)
[2016-06-26] MEDS: ROFLUMILAST 500 MCG TABLET PO SCH (15:04)
[2016-06-26] MEDS: MECLIZINE HCL 25 MG TABLET (FP) PO SCH (21:25)
[2016-06-26] MEDS: clonazePAM 0.5 MG TABLET PO SCH (21:25)
[2016-06-27] MEDS: oxyCODONE HCL 5 MG TABLET PO PRN ×2 (05:58→18:12)
[2016-06-27] MEDS: DOCUSATE SODIUM 100 MG CAPSULE (FP) PO SCH ×3 (05:58→21:40)
[2016-06-27] MEDS: LEVOTHYROXINE NA 50 MCG TABLET (FP) PO SCH (06:18)
[2016-06-27] MEDS: ALBUTEROL SO4 2.5/IPRATROPIUM 0.5 INH SOL 3 ML VIAL.NEB. NEB SCH ×4 (06:40→23:01)
[2016-06-27 08:39] LABS: BASOPHIL 0.8 % (0-2.0); EOSINOPHIL 2.7 % (0-4.5); MCH 30.4 pg (25.7-33.7); MCHC 33.8 g/dl (32.0-35.9); MEAN CELL VOLUME 89.7 fl (80-96); MEAN PLT VOLUME 7.6 fl (7.5-11.1); NEUTROPHILS 70.6 % (42.8-82.8); PLATELET COUNT 256 K/MM3 (134-434); RDW 15.1 % (11.9-15.9); WHITE BLOOD COUNT 6.4 K/mm3 (4.0-10.0)
--- NOTE | 2016-06-27 08:55 | PN ---
Progress Note, Physician - Current Medication List Current Medications: Active Medications Albuterol/Ipratropium (Duoneb -) 1 amp NEB QIDR [facility] Last Admin: 06/27/16 06:40 Dose: 1 amp Amlodipine Besylate (Norvasc -) 5 mg PO DAILY [facility] Last Admin: 06/26/16 09:00 Dose: 5 mg Buspirone HCl (Buspar -) 5 mg PO BID [facility] Last Admin: 06/26/16 21:26 Dose: 5 mg Ceftriaxone Sodium (Rocephin 1gm Ivpb (Pre-Docked)) 1 gm IVPB DAILY [facility] Last Admin: 06/26/16 09:00 Dose: 1 gm Clonazepam (Klonopin -) 1 mg PO HS [facility] Last Admin: 06/26/16 21:25 Dose: 1 mg Docusate Sodium (Colace -) 100 mg PO TID [facility] Last Admin: 06/27/16 05:58 Dose: 100 mg Finasteride (Proscar -) 5 mg PO DAILY [facility] Last Admin: 06/26/16 09:00 Dose: 5 mg Heparin Sodium (Porcine) (Heparin -) 5,000 unit SQ BID [facility] Last Admin: 06/26/16 21:24 Dose: 5,000 unit Azithromycin (Zithromax 500mg Ivpb (Pre-Docked)) 250 mls @ 250 mls/hr IVPB DAILY [facility] Last Admin: 06/26/16 09:00 Dose: 250 mls/hr Levothyroxine Sodium (Synthroid -) 50 mcg PO ACBK [facility] Last Admin: 06/27/16 06:18 Dose: 50 mcg Meclizine HCl (Antivert -) 25 mg PO [facility] Last Admin: 06/26/16 21:25 Dose: 25 mg Metoprolol Succinate (Toprol Xl -) 50 mg PO BID [facility] Last Admin: 06/26/16 21:25 Dose: 50 mg Non-Formulary Medication (Naloxegol Oxalate [Movantik]) 25 mg PO DAILY [facility] [id number]-[id number] Ethyl Esters (Lovaza -) 2 gm PO BID [facility] Last Admin: 06/26/16 21:25 Dose: 2 gm Oxycodone HCl (Roxicodone -) 10 mg PO Q4H PRN PRN Reason: PAIN Last Admin: 06/27/16 05:58 Dose: 10 mg Oxycodone HCl (Oxycontin -) 10 mg PO BID [facility] Last Admin: 06/26/16 21:25 Dose: 10 mg Polyethylene Glycol (Miralax (For Daily Use) -) 17 gm PO DAILY [facility] Last Admin: 06/26/16 09:00 Dose: 17 gm Roflumilast (Daliresp -) 500 mcg PO DAILY [facility] Last Admin: 06/26/16 15:04 Dose: 500 mcg - Objective Vital Signs: Vital Signs Temperature 97.9 F 06/27/16 06:00 Pulse Rate 95 H 06/27/16 06:00 Respiratory Rate 18 06/27/16 06:00 Blood Pressure 160/83 06/27/16 06:00 O2 Sat by Pulse Oximetry (%) 95 06/26/16 21:00 Cardiovascular: Yes: S1, S2 Respiratory: Yes: Regular, CTA Bilaterally Gastrointestinal: Yes: Normal Bowel Sounds, Soft Labs: CBC, BMP 06/27/16 06:05 Problem List - Problems (1) Confusion Assessment/Plan: MAYBE DUE TO PNA MONITOR Code(s): R41.0 - DISORIENTATION, UNSPECIFIED (2) Prostate ca Assessment/Plan: URO CONSULT Code(s): C61 - MALIGNANT NEOPLASM OF PROSTATE (3) CAD (coronary artery disease) of artery bypass graft Assessment/Plan: NO CP Code(s): I25.810 - ATHEROSCLEROSIS OF CABG W/O ANGINA PECTORIS (4) Pneumonia Assessment/Plan: IV ABX ID CONSULT Code(s): J18.9 - PNEUMONIA, UNSPECIFIED ORGANISM Qualifiers: (5) Hyperkalemia Assessment/Plan: S/P KAYAXELATE--K 4.3 RENAL LABS PENDING Code(s): E87.5 - HYPERKALEMIA (6) Pulmonary metastases Assessment/Plan: PULM CONSULT NOTED--WILL D/W FAMILY Code(s): C78.00 - SECONDARY MALIGNANT NEOPLASM OF UNSPECIFIED LUNG (7) Renal mass Assessment/Plan: UROLOGY CONSULT Code(s): N28.89 - OTHER SPECIFIED DISORDERS OF KIDNEY AND URETER
[2016-06-27] MEDS ORDERED: PT OWN MED DRAWER 7, Y5N ONE ×2 (09:09→21:34)
[2016-06-27 09:17] LABS: ALBUMIN 2.9 g/dl (3.4-5.0); BILIRUBIN,TOTAL 0.4 mg/dL (0.2-1.0); CREATININE 1.3 mg/dL (0.7-1.3); TOT PROT 6.7 g/dl (6.4-8.2)
[2016-06-27] MEDS: HEPARIN NA (PORCINE) 5,000 UNITS/ML 1ML VIAL SQ SCH ×2 (09:29→21:38)
[2016-06-27] MEDS: OMEGA-3 ACID ETHYL ESTERS (FATTY-ACIDS) 1 GM CAPSULE (FP) PO SCH ×2 (09:31→21:38)
[2016-06-27] MEDS: busPIRone HCL 5 MG TABLET PO SCH ×2 (09:31→21:38)
[2016-06-27] MEDS: amLODIPine BESYLATE 5 MG TABLET (FP) PO SCH (09:31)
[2016-06-27] MEDS: ROFLUMILAST 500 MCG TABLET PO SCH (09:31)
[2016-06-27] MEDS: oxyCODONE HCL 10 MG SUSTAINED ACTING TABLET PO SCH (09:32)
[2016-06-27] MEDS: AZITHROMYCIN IVPB 500MG/250 ML IVPB SCH (09:34)
[2016-06-27] MEDS: cefTRIAXone 1 GM/50 ML BAG (PRE-DOCKED) IVPB SCH (09:34)
[2016-06-27] MEDS: FINASTERIDE 5 MG TABLET (FP) PO SCH (09:34)
[2016-06-27] MEDS: METOPROLOL SUCCINATE 50 MG TAB.SR.24H (FP) PO SCH ×2 (09:34→21:40)
--- NOTE | 2016-06-27 11:17 | PN ---
Progress Note, Physician History of Present Illness: pulmonary alert,confused,-resp distress - Current Medication List Current Medications: Active Medications Albuterol/Ipratropium (Duoneb -) 1 amp NEB QIDR [facility] Last Admin: 06/27/16 06:40 Dose: 1 amp Amlodipine Besylate (Norvasc -) 5 mg PO DAILY [facility] Last Admin: 06/27/16 09:31 Dose: 5 mg Buspirone HCl (Buspar -) 5 mg PO BID [facility] Last Admin: 06/27/16 09:31 Dose: 5 mg Ceftriaxone Sodium (Rocephin 1gm Ivpb (Pre-Docked)) 1 gm IVPB DAILY [facility] Last Admin: 06/27/16 09:34 Dose: 1 gm Clonazepam (Klonopin -) 1 mg PO [facility] Last Admin: 06/26/16 21:25 Dose: 1 mg Docusate Sodium (Colace -) 100 mg PO TID [facility] Last Admin: 06/27/16 05:58 Dose: 100 mg Finasteride (Proscar -) 5 mg PO DAILY [facility] Last Admin: 06/27/16 09:34 Dose: 5 mg Heparin Sodium (Porcine) (Heparin -) 5,000 unit SQ BID [facility] Last Admin: 06/27/16 09:29 Dose: 5,000 unit Azithromycin (Zithromax 500mg Ivpb (Pre-Docked)) 250 mls @ 250 mls/hr IVPB DAILY [facility] Last Admin: 06/27/16 09:34 Dose: 250 mls/hr Levothyroxine Sodium (Synthroid -) 50 mcg PO ACBK [facility] Last Admin: 06/27/16 06:18 Dose: 50 mcg Meclizine HCl (Antivert -) 25 mg PO HS [facility] Last Admin: 06/26/16 21:25 Dose: 25 mg Metoprolol Succinate (Toprol Xl -) 50 mg PO BID [facility] Last Admin: 06/27/16 09:34 Dose: 50 mg Non-Formulary Medication (Naloxegol Oxalate [Movantik]) 25 mg PO DAILY [facility] Quqft-0-Mpod Ethyl Esters (Lovaza -) 2 gm PO BID [facility] Last Admin: 06/27/16 09:31 Dose: 2 gm Oxycodone HCl (Roxicodone -) 10 mg PO Q4H PRN PRN Reason: PAIN Last Admin: 06/27/16 05:58 Dose: 10 mg Oxycodone HCl (Oxycontin -) 10 mg PO BID [facility] Last Admin: 06/27/16 09:32 Dose: 10 mg Polyethylene Glycol (Miralax (For Daily Use) -) 17 gm PO DAILY [facility] Last Admin: 06/26/16 09:00 Dose: 17 gm Roflumilast (Daliresp -) 500 mcg PO DAILY [facility] Last Admin: 06/27/16 09:31 Dose: 500 mcg - Objective Vital Signs: Vital Signs Temperature 97.9 F 06/27/16 06:00 Pulse Rate 95 H 06/27/16 06:00 Respiratory Rate 18 06/27/16 06:00 Blood Pressure 160/83 06/27/16 06:00 O2 Sat by Pulse Oximetry (%) 95 06/26/16 21:00 Constitutional: Yes: Well Nourished, Calm Eyes: Yes: WNL HENT: Yes: WNL Neck: Yes: WNL Cardiovascular: Yes: Regular Rate and Rhythm, S1, S2 Respiratory: Yes: Diminished Gastrointestinal: Yes: Normal Bowel Sounds, Soft Extremities: Yes: WNL Edema: No Labs: CBC, BMP 06/27/16 06:05 06/27/16 06:05 Assessment/Plan Problem List - Problems (1) Abdominal pain Code(s): R10.9 - UNSPECIFIED ABDOMINAL PAIN (2) Confusion Code(s): R41.0 - DISORIENTATION, UNSPECIFIED (3) Prostate ca Code(s): C61 - MALIGNANT NEOPLASM OF PROSTATE (4) Pulmonary metastases Code(s): C78.00 - SECONDARY MALIGNANT NEOPLASM OF UNSPECIFIED LUNG (5) Renal mass Code(s): N28.89 - OTHER SPECIFIED DISORDERS OF KIDNEY AND URETER (6) TERRA (acute kidney injury) Code(s): N17.9 - ACUTE KIDNEY FAILURE, UNSPECIFIED (7) Back pain Code(s): M54.9 - DORSALGIA, UNSPECIFIED Qualifiers: Back pain location: low back pain (8) CAD (coronary artery disease) of artery bypass graft Code(s): I25.810 - ATHEROSCLEROSIS OF CABG W/O ANGINA PECTORIS (9) Pneumonia Code(s): J18.9 - PNEUMONIA, UNSPECIFIED ORGANISM Qualifiers: (10) UTI (lower urinary tract infection) Code(s): N39.0 - URINARY TRACT INFECTION, SITE NOT SPECIFIED Assessment/Plan ABX per ID O2 as needed Aspiration precautions Chest x-ray DR MURDOCK
[2016-06-27] MEDS: POLYETHYLENE GLYCOL 3350 119 GM BTL PO SCH (14:12)
--- NOTE | 2016-06-27 15:26 | PN ---
Progress Note, Physician Chief Complaint: The patient seen in his room . Family visiting. Remains confused. On analgesics. Maintains good urine output. No pains, No palpitations. Awaiting Neurologic w/u, including MRI. - Current Medication List Current Medications: Active Medications Albuterol/Ipratropium (Duoneb -) 1 amp NEB QIDR [facility] Last Admin: 06/27/16 12:06 Dose: 1 amp Amlodipine Besylate (Norvasc -) 5 mg PO DAILY [facility] Last Admin: 06/27/16 09:31 Dose: 5 mg Buspirone HCl (Buspar -) 5 mg PO BID [facility] Last Admin: 06/27/16 09:31 Dose: 5 mg Ceftriaxone Sodium (Rocephin 1gm Ivpb (Pre-Docked)) 1 gm IVPB DAILY [facility] Last Admin: 06/27/16 09:34 Dose: 1 gm Clonazepam (Klonopin -) 1 mg PO HS [facility] Last Admin: 06/26/16 21:25 Dose: 1 mg Docusate Sodium (Colace -) 100 mg PO TID [facility] Last Admin: 06/27/16 14:12 Dose: 100 mg Finasteride (Proscar -) 5 mg PO DAILY [facility] Last Admin: 06/27/16 09:34 Dose: 5 mg Heparin Sodium (Porcine) (Heparin -) 5,000 unit SQ BID [facility] Last Admin: 06/27/16 09:29 Dose: 5,000 unit Azithromycin (Zithromax 500mg Ivpb (Pre-Docked)) 250 mls @ 250 mls/hr IVPB DAILY [facility] Last Admin: 06/27/16 09:34 Dose: 250 mls/hr Levothyroxine Sodium (Synthroid -) 50 mcg PO ACBK [facility] Last Admin: 06/27/16 06:18 Dose: 50 mcg Meclizine HCl (Antivert -) 25 mg PO HS [facility] Last Admin: 06/26/16 21:25 Dose: 25 mg Metoprolol Succinate (Toprol Xl -) 50 mg PO BID [facility] Last Admin: 06/27/16 09:34 Dose: 50 mg Non-Formulary Medication (Naloxegol Oxalate [Movantik]) 25 mg PO DAILY [facility] Rqwhh-[id number] Ethyl Esters (Lovaza -) 2 gm PO BID [facility] Last Admin: 06/27/16 09:31 Dose: 2 gm Oxycodone HCl (Roxicodone -) 10 mg PO Q4H PRN PRN Reason: PAIN Last Admin: 06/27/16 05:58 Dose: 10 mg Oxycodone HCl (Oxycontin -) 10 mg PO BID [facility] Last Admin: 06/27/16 09:32 Dose: 10 mg Polyethylene Glycol (Miralax (For Daily Use) -) 17 gm PO DAILY [facility] Last Admin: 06/27/16 14:12 Dose: 17 gm Roflumilast (Daliresp -) 500 mcg PO DAILY [facility] Last Admin: 06/27/16 09:31 Dose: 500 mcg - Objective Vital Signs: Vital Signs Temperature 99.9 F H 06/27/16 10:00 Pulse Rate 108 H 06/27/16 10:00 Respiratory Rate 20 06/27/16 10:00 Blood Pressure 140/93 06/27/16 10:00 O2 Sat by Pulse Oximetry (%) 95 06/27/16 09:00 Constitutional: Yes: Calm Eyes: Yes: Conjunctiva Clear HENT: Yes: Normocephalic Neck: Yes: Supple Cardiovascular: Yes: S1, S2 Respiratory: Yes: CTA Bilaterally Gastrointestinal: Yes: Normal Bowel Sounds, Soft Neurological: Yes: Confusion Labs: CBC, BMP 06/27/16 06:05 06/27/16 06:05 Problem List - Problems (1) Confusion Code(s): R41.0 - DISORIENTATION, UNSPECIFIED (2) Hyperkalemia Code(s): E87.5 - HYPERKALEMIA (3) Prostate ca Code(s): C61 - MALIGNANT NEOPLASM OF PROSTATE (4) Pulmonary metastases Code(s): C78.00 - SECONDARY MALIGNANT NEOPLASM OF UNSPECIFIED LUNG (5) Renal mass Code(s): N28.89 - OTHER SPECIFIED DISORDERS OF KIDNEY AND URETER (6) TERRA (acute kidney injury) Code(s): N17.9 - ACUTE KIDNEY FAILURE, UNSPECIFIED (7) Back pain Code(s): M54.9 - DORSALGIA, UNSPECIFIED Qualifiers: Back pain location: low back pain (8) CAD (coronary artery disease) Code(s): I25.10 - ATHSCL HEART DISEASE OF [place] CORONARY ARTERY W/O ANG PCTRS (9) CAD (coronary artery disease) of artery bypass graft Code(s): I25.810 - ATHEROSCLEROSIS OF CABG W/O ANGINA PECTORIS (10) Chronic pain Code(s): G89.29 - OTHER CHRONIC PAIN (11) Hyponatremia Code(s): E87.1 - HYPO-OSMOLALITY AND HYPONATREMIA (12) Pneumonia Code(s): J18.9 - PNEUMONIA, UNSPECIFIED ORGANISM Qualifiers: Assessment/Plan 80 y/o male with Acute change in Mental status. Renal functions are improving towards his baseline. H/o CA Prostate with mets. Has Renal mass and Pulmonary nodule. The current management is well tolerated. Neurology w/u and Pain management in progress. Gabriella Fang MD
[2016-06-27] MEDS: morphine SO4 SUSTAINED ACTING 30 MG TABLET.SA PO SCH (21:39)
[2016-06-27] MEDS: clonazePAM 0.5 MG TABLET PO SCH (21:40)
[2016-06-27] MEDS: MECLIZINE HCL 25 MG TABLET (FP) PO SCH (21:40)
[2016-06-28] MEDS: DOCUSATE SODIUM 100 MG CAPSULE (FP) PO SCH ×2 (05:12→14:43)
[2016-06-28] MEDS: morphine SO4 SUSTAINED ACTING 30 MG TABLET.SA PO SCH ×2 (05:12→14:58)
[2016-06-28] MEDS: LEVOTHYROXINE NA 50 MCG TABLET (FP) PO SCH (05:59)
[2016-06-28 08:01] LABS: ALBUMIN 2.9 g/dl (3.4-5.0); BILIRUBIN,TOTAL 0.4 mg/dL (0.2-1.0); CALCIUM 10.6 mg/dL (8.5-10.1); CREATININE 1.6 mg/dL (0.7-1.3); TOT PROT 6.6 g/dl (6.4-8.2)
--- NOTE | 2016-06-28 08:58 | PN ---
Progress Note, Physician History of Present Illness: periods of confusion in bed - Current Medication List Current Medications: Active Medications Amlodipine Besylate (Norvasc -) 5 mg PO DAILY [facility] Last Admin: 06/27/16 09:31 Dose: 5 mg Buspirone HCl (Buspar -) 5 mg PO BID [facility] Last Admin: 06/27/16 21:38 Dose: 5 mg Ceftriaxone Sodium (Rocephin 1gm Ivpb (Pre-Docked)) 1 gm IVPB DAILY [facility] Last Admin: 06/27/16 09:34 Dose: 1 gm Clonazepam (Klonopin -) 1 mg PO HS [facility] Last Admin: 06/27/16 21:40 Dose: 1 mg Docusate Sodium (Colace -) 100 mg PO TID [facility] Last Admin: 06/28/16 05:12 Dose: 100 mg Finasteride (Proscar -) 5 mg PO DAILY [facility] Last Admin: 06/27/16 09:34 Dose: 5 mg Heparin Sodium (Porcine) (Heparin -) 5,000 unit SQ BID [facility] Last Admin: 06/27/16 21:38 Dose: 5,000 unit Azithromycin (Zithromax 500mg Ivpb (Pre-Docked)) 250 mls @ 250 mls/hr IVPB DAILY [facility] Last Admin: 06/27/16 09:34 Dose: 250 mls/hr Levothyroxine Sodium (Synthroid -) 50 mcg PO ACBK [facility] Last Admin: 06/28/16 05:59 Dose: 50 mcg Meclizine HCl (Antivert -) 25 mg PO [facility] Last Admin: 06/27/16 21:40 Dose: 25 mg Metoprolol Succinate (Toprol Xl -) 50 mg PO BID [facility] Last Admin: 06/27/16 21:40 Dose: 50 mg Morphine Sulfate (Ms Contin -) 30 mg PO TID [facility] Last Admin: 06/28/16 05:12 Dose: 30 mg Non-Formulary Medication (Naloxegol Oxalate [Movantik]) 25 mg PO DAILY [facility] [id number]-2-[id number] Ethyl Esters (Lovaza -) 2 gm PO BID [facility] Last Admin: 06/27/16 21:38 Dose: 2 gm Oxycodone HCl (Roxicodone -) 10 mg PO Q4H PRN PRN Reason: PAIN Last Admin: 06/27/16 18:12 Dose: 10 mg Polyethylene Glycol (Miralax (For Daily Use) -) 17 gm PO DAILY [facility] Last Admin: 06/27/16 14:12 Dose: 17 gm Roflumilast (Daliresp -) 500 mcg PO DAILY [facility] Last Admin: 06/27/16 09:31 Dose: 500 mcg - Objective Vital Signs: Vital Signs Temperature 98.2 F 06/28/16 06:00 Pulse Rate 102 H 06/28/16 06:00 Respiratory Rate 20 06/28/16 06:00 Blood Pressure 147/96 06/28/16 06:00 O2 Sat by Pulse Oximetry (%) 95 06/27/16 21:00 Cardiovascular: Yes: Regular Rate and Rhythm Respiratory: Yes: Diminished, On Nasal O2 Gastrointestinal: Yes: Normal Bowel Sounds, Soft Neurological: Yes: Alert, Confusion, Weakness Labs: CBC, BMP 06/27/16 06:05 06/28/16 05:35 Problem List - Problems (1) Confusion Code(s): R41.0 - DISORIENTATION, UNSPECIFIED (2) Prostate ca Code(s): C61 - MALIGNANT NEOPLASM OF PROSTATE (3) CAD (coronary artery disease) of artery bypass graft Code(s): I25.810 - ATHEROSCLEROSIS OF CABG W/O ANGINA PECTORIS (4) Pneumonia Code(s): J18.9 - PNEUMONIA, UNSPECIFIED ORGANISM Qualifiers: (5) Hyperkalemia Code(s): E87.5 - HYPERKALEMIA (6) Pulmonary metastases Code(s): C78.00 - SECONDARY MALIGNANT NEOPLASM OF UNSPECIFIED LUNG (7) Renal mass Code(s): N28.89 - OTHER SPECIFIED DISORDERS OF KIDNEY AND URETER Assessment/Plan Problems (1) Confusion Assessment/Plan: MAYBE DUE TO PNA R/O METS--UNABLE TO DO MRI DUE TO STENTS??? NEURO MONITOR Code(s): R41.0 - DISORIENTATION, UNSPECIFIED (2) Prostate ca Assessment/Plan: URO CONSULT Code(s): C61 - MALIGNANT NEOPLASM OF PROSTATE (3) CAD (coronary artery disease) of artery bypass graft Assessment/Plan: NO CP Code(s): I25.810 - ATHEROSCLEROSIS OF CABG W/O ANGINA PECTORIS (4) Pneumonia Assessment/Plan: IV ABX ID CONSULT Code(s): J18.9 - PNEUMONIA, UNSPECIFIED ORGANISM Qualifiers: (5) Hyperkalemia Assessment/Plan: S/P KAYAXELATE--K 4.3 RENAL LABS PENDING Code(s): E87.5 - HYPERKALEMIA (6) Pulmonary metastases Assessment/Plan: PULM CONSULT NOTED--WILL D/W FAMILY FURTHER RX ONCE INFECTIOUS PROCESS RESOLVES AND IF FAMILY WANTS TO PURSUE Code(s): C78.00 - SECONDARY MALIGNANT NEOPLASM OF UNSPECIFIED LUNG (7) Renal mass Assessment/Plan: UROLOGY CONSULT--D/W DR MAC--CONSIDER CT WITH CONTRAST VS BIOPSY--WILL DISCUSS Code(s): N28.89 - OTHER SPECIFIED DISORDERS OF KIDNEY AND URETER
[2016-06-28] MEDS: METOPROLOL SUCCINATE 50 MG TAB.SR.24H (FP) PO SCH (09:00)
[2016-06-28] MEDS: busPIRone HCL 5 MG TABLET PO SCH (09:00)
[2016-06-28] MEDS: ROFLUMILAST 500 MCG TABLET PO SCH (09:00)
[2016-06-28] MEDS: amLODIPine BESYLATE 5 MG TABLET (FP) PO SCH (09:00)
[2016-06-28] MEDS: FINASTERIDE 5 MG TABLET (FP) PO SCH (09:00)
[2016-06-28] MEDS: PATIENT'S OWN MEDICATION (NON-FORMULARY) (Naloxegol Oxalate [Movantik] 25 MG) PO SCH (09:01)
[2016-06-28] MEDS: cefTRIAXone 1 GM/50 ML BAG (PRE-DOCKED) IVPB SCH (09:08)
[2016-06-28] MEDS: HEPARIN NA (PORCINE) 5,000 UNITS/ML 1ML VIAL SQ SCH (09:09)
[2016-06-28] MEDS: OMEGA-3 ACID ETHYL ESTERS (FATTY-ACIDS) 1 GM CAPSULE (FP) PO SCH (09:11)
[2016-06-28] MEDS: POLYETHYLENE GLYCOL 3350 119 GM BTL PO SCH (09:13)
[2016-06-28] MEDS: AZITHROMYCIN IVPB 500MG/250 ML IVPB SCH (10:12)
--- NOTE | 2016-06-28 11:21 | PN ---
Progress Note, Physician History of Present Illness: pulmonary alert,nad,-congestion - Current Medication List Current Medications: Active Medications Amlodipine Besylate (Norvasc -) 5 mg PO DAILY [facility] Last Admin: 06/28/16 09:00 Dose: 5 mg Buspirone HCl (Buspar -) 5 mg PO BID [facility] Last Admin: 06/28/16 09:00 Dose: 5 mg Ceftriaxone Sodium (Rocephin 1gm Ivpb (Pre-Docked)) 1 gm IVPB DAILY [facility] Last Admin: 06/28/16 09:08 Dose: 1 gm Clonazepam (Klonopin -) 1 mg PO HS [facility] Last Admin: 06/27/16 21:40 Dose: 1 mg Docusate Sodium (Colace -) 100 mg PO TID [facility] Last Admin: 06/28/16 05:12 Dose: 100 mg Finasteride (Proscar -) 5 mg PO DAILY [facility] Last Admin: 06/28/16 09:00 Dose: 5 mg Furosemide (Lasix Injection -) 40 mg IVPUSH BID@0600,1400 [facility] Heparin Sodium (Porcine) (Heparin -) 5,000 unit SQ BID [facility] Last Admin: 06/28/16 09:09 Dose: 5,000 unit Azithromycin (Zithromax 500mg Ivpb (Pre-Docked)) 250 mls @ 250 mls/hr IVPB DAILY [facility] Last Admin: 06/28/16 10:12 Dose: 250 mls/hr Levothyroxine Sodium (Synthroid -) 50 mcg PO ACBK [facility] Last Admin: 06/28/16 05:59 Dose: 50 mcg Meclizine HCl (Antivert -) 25 mg PO [facility] Last Admin: 06/27/16 21:40 Dose: 25 mg Metoprolol Succinate (Toprol Xl -) 50 mg PO BID [facility] Last Admin: 06/28/16 09:00 Dose: 50 mg Morphine Sulfate (Ms Contin -) 30 mg PO TID [facility] Last Admin: 06/28/16 05:12 Dose: 30 mg Non-Formulary Medication (Naloxegol Oxalate [Movantik]) 25 mg PO DAILY [facility] Last Admin: 06/28/16 09:01 Dose: 25 mg Bhdls-0-Kslh Ethyl Esters (Lovaza -) 2 gm PO BID [facility] Last Admin: 06/28/16 09:11 Dose: Not Given Oxycodone HCl (Roxicodone -) 10 mg PO Q4H PRN PRN Reason: PAIN Last Admin: 06/27/16 18:12 Dose: 10 mg Polyethylene Glycol (Miralax (For Daily Use) -) 17 gm PO DAILY [facility] Last Admin: 06/28/16 09:13 Dose: Not Given Roflumilast (Daliresp -) 500 mcg PO DAILY [facility] Last Admin: 06/28/16 09:00 Dose: 500 mcg - Objective Vital Signs: Vital Signs Temperature 98.2 F 06/28/16 06:00 Pulse Rate 102 H 06/28/16 06:00 Respiratory Rate 20 06/28/16 06:00 Blood Pressure 147/96 06/28/16 06:00 O2 Sat by Pulse Oximetry (%) 95 06/27/16 21:00 Constitutional: Yes: Calm, Thin Eyes: Yes: WNL HENT: Yes: WNL Neck: Yes: WNL Cardiovascular: Yes: Regular Rate and Rhythm, S1, S2 Respiratory: Yes: Rales Gastrointestinal: Yes: Normal Bowel Sounds, Soft Extremities: Yes: WNL Edema: No Labs: CBC, BMP 06/27/16 06:05 06/28/16 05:35 - ....Imaging Chest X-ray: Report Reviewed, Image Reviewed Assessment/Plan Problem List - Problems (1) Abdominal pain Code(s): R10.9 - UNSPECIFIED ABDOMINAL PAIN (2) Confusion Code(s): R41.0 - DISORIENTATION, UNSPECIFIED (3) Prostate ca Code(s): C61 - MALIGNANT NEOPLASM OF PROSTATE (4) Pulmonary metastases Code(s): C78.00 - SECONDARY MALIGNANT NEOPLASM OF UNSPECIFIED LUNG (5) Renal mass Code(s): N28.89 - OTHER SPECIFIED DISORDERS OF KIDNEY AND URETER (6) TERRA (acute kidney injury) Code(s): N17.9 - ACUTE KIDNEY FAILURE, UNSPECIFIED (7) Back pain Code(s): M54.9 - DORSALGIA, UNSPECIFIED Qualifiers: Back pain location: low back pain (8) CAD (coronary artery disease) of artery bypass graft Code(s): I25.810 - ATHEROSCLEROSIS OF CABG W/O ANGINA PECTORIS (9) Pneumonia Code(s): J18.9 - PNEUMONIA, UNSPECIFIED ORGANISM Qualifiers: (10) UTI (lower urinary tract infection) Code(s): N39.0 - URINARY TRACT INFECTION, SITE NOT SPECIFIED Assessment/Plan ABX per ID O2 as needed Aspiration precautions monitor yulisa MURDOCK
[2016-06-28] MEDS: FUROSEMIDE 40 MG/4 ML INJECTABLE VIAL IVPUSH SCH ×2 (11:53→14:00)
--- NOTE | 2016-06-28 14:09 | CONSULT ---
Consult Consult Specialty:: PM&R - History of Present Illness Chief Complaint: diffuse back pain History of Present Illness: This is an 80 year old man with a medical history of HTN, HLD, CAD s/p stents, metastatic prostate cancer, DM, who presented to the ED 06/22/[address] head showed no acute pathology with chronic changes. Renal was consulted for TERRA. ID was consulted for possible PNA for which he received Azithromycin and Ceftriaxone; blood and urine cx were negative. Pulm was consulted for nodular interstitial lung disease, who felt it was related to metastatic disease. was consulted for the metastatic prostate cancer and renal insufficiency. Cardiology was consulted for arrhythmia, who ordered Echo which was performed 06/25/16. Neurology was consulted for AMS, who reported he has severe B brain dysfunction and recommended MRI brain and spine. Pain consult also recommended further imaging of spine, and adjusted pain regimen. Physiatry is being consulted for further recommendations. - History Source History Provided By: Medical Record - Past Medical History Cardio/Vascular: Yes: CAD (denies TN, but had CABG (no details)), HTN, Hyperlipdemia Gastrointestinal: Yes: Constipation Renal/: Yes: Renal Failure, Cancer (metastatic prostate) Musculoskeletal: Yes: Chronic low back pain, Paraplegia - Past Surgical History Past Surgical History: Yes: CABG, Laminectomy - Alcohol/Substance Use Hx Alcohol Use: No - Smoking History Smoking history: Former smoker (over 15 ya) Have you smoked in the past 12 months: No Aproximately how many cigarettes per day: 0 If you are a former smoker, when did you quit?: Over 58 years ago - Social History Usual Living Arrangement: With Child ADL: Support Services (has [employer] 8 hours x7 days) Home Medications - Allergies Allergies/Adverse Reactions: Allergies Allergy/AdvReac Type Severity Reaction Status Date / Time No Known Allergies Allergy Verified 06/27/16 16:30 - Home Medications Home Medications: Ambulatory Orders Buspirone HCl [Buspar -] 5 mg PO BID 08/26/15 Levothyroxine [Synthroid -] 50 mcg PO DAILY 08/26/15 Meclizine HCl 25 mg PO HS PRN 08/26/15 Metoprolol Succinate [Toprol Xl] 50 mg PO DAILY 08/26/15 Morphine Sulfate 30 mg PO TID PRN 08/26/15 Albuterol Sulfate [Proair Respiclick] 90 mcg IH QID PRN 11/30/15 Calcium Citrate [Calcitrate] 950 mg PO DAILY 11/30/15 Clonazepam [Klonopin] 1 mg PO HS PRN 11/30/15 Esomeprazole Magnesium [Nexium] 40 mg PO DAILY 11/30/15 Finasteride 5 mg PO DAILY 11/30/15 Albuterol Sulfate 0.042% [Ventolin 0.042% (Half-Strength) -] 1 amp NEB PRN PRN 05/12/16 Ergocalciferol [Drisdol -] 50,000 unit PO DAILY 05/12/16 Ipratropium 0.02% Nebulizer [Atrovent 0.02% Nebulizer -] 1 amp NEB PRN PRN 05/12 Amlodipine Besylate [Norvasc -] 5 mg PO DAILY 06/22/16 Icosapent Ethyl [Vascepa] 2 gm PO BID 06/22/16 Naloxegol Oxalate [Movantik] 25 mg PO DAILY 06/22/16 Oxycodone HCl/Acetaminophen [Endocet 7.5-325 mg Tablet] 1 each PO TID 06/22/16 Pitavastatin Calcium [Livalo] 2 mg PO DAILY 06/22/16 Roflumilast [Daliresp] 500 mcg PO DAILY 06/22/16 Tiotropium [place] [Spiriva] 1 inh PO DAILY 06/22/16 Family Disease History - Family Disease History Family History: Unable to Obtain Review of Systems Findings/Remarks: notes diffuse back down down BLE to feet, with B foot numbness. No fevers, ear/ eye pain, CP or abdominal pain; no agitation. On supplemental O2, Mora in place. Physical Exam Vital Signs: Vital Signs Temperature 98.7 F 06/28/16 10:00 Pulse Rate 89 06/28/16 10:00 Respiratory Rate 18 06/28/16 10:00 Blood Pressure 123/79 06/28/16 10:00 O2 Sat by Pulse Oximetry (%) 95 06/28/16 09:00 Musculoskeletal: Yes: Other (General: calm HM sitting in bed awake and alert on supplemental O2 HEENT: NCAT OP clear N/M: B shoulder passive flexion to 75 degrees, 2/5 BUE, 1/5 BLE with full passive BLE ROM; Pinprick Intact BUE/ BLE, negative B Davila's sign, B plantars equivocal Extremities: no BLE pitting edema, no B calf tenderness) Labs: CBC, BMP 06/27/16 06:05 06/28/16 05:35 Imaging - Results Chest X-ray: Report Reviewed (CXR 06/22/16 shows nodular interstitial lung disease, worse compared to prior) Cat Scan: Report Reviewed (CT head 06/22/16 shows no acute pathology CT A/P shows likely B lung and R renal mets) Assessment/Plan Impression: 1) Deficits mobility/ ADLs 2) Deconditioning 3) Gait abnormality 4) Metastatic prostate cancer 5) Diffuse spine pain down BLE, likely due to metastatic disease 6) Cardiac arrhythmia hx HTN, HLD, CAD s/p stents 7) TERRA 8) PNA 9) DM 10) severe B brain dysfunction 11) Anemia 12) BMI WNL 13) Up to date flu/ pneumovax Recommendations: 1) PT for stretching strengthening ROM bed mobility transfers balance ambulation 2) Falls, safety precautions 3) Cardiac, diabetic precautions 4) Heat, ice/ TENs to low back prn, trial lumbar corset prn. No US to back given active cancer 5) Pain medications as per Pain Management 6) Agree with further imaging spine 7) DVT ppx: on hep 8) Bowel regimen prn 9) Skin protection: float heels, frequent turning 10) Monitor CBC given anemia 11) Continue medical management 12) Discharge planning: while pt would benefit from inpatient rehabilitation for strengthening and pain control, per notes, family is planning on bringing pt home with services. Appreciate SW/ hospice case manager working on home services. Thank you for this referral.
--- NOTE | 2016-06-28 14:17 | PN ---
Progress Note (short form) - Note Progress Note: Renal Follow up for TERRA/Hyperkalemia Pt seen and examined at the bedside awake and alert has some secretions from his mouth denies any pain + Cough CXR shows worsening congestion Vital Signs Temperature 98.7 F 06/28/16 10:00 Pulse Rate 89 06/28/16 10:00 Respiratory Rate 18 06/28/16 10:00 Blood Pressure 123/79 06/28/16 10:00 O2 Sat by Pulse Oximetry (%) 95 06/28/16 09:00 Intake & Output 06/25/16 06/26/16 06/27/16 06/28/16 23:59 23:59 23:59 23:59 Intake Total 2770 550 1170 200 Output Total 2700 1450 1000 100 Balance 70 -900 170 100 Gen: NAD, CVS: RRR, No M/R Lungs: Dec BS at lung bases Abd: soft, + tenderness in lower abd Ext: No edema, clubbing or cyanosis : Mora in place CBC, BMP 06/27/16 06:05 06/28/16 05:35 Current Medications Amlodipine Besylate (Norvasc -) 5 mg PO DAILY [facility] Last Admin: 06/28/16 09:00 Dose: 5 mg Buspirone HCl (Buspar -) 5 mg PO BID [facility] Last Admin: 06/28/16 09:00 Dose: 5 mg Ceftriaxone Sodium (Rocephin 1gm Ivpb (Pre-Docked)) 1 gm IVPB DAILY [facility] Last Admin: 06/28/16 09:08 Dose: 1 gm Clonazepam (Klonopin -) 1 mg PO HS [facility] Last Admin: 06/27/16 21:40 Dose: 1 mg Docusate Sodium (Colace -) 100 mg PO TID [facility] Last Admin: 06/28/16 05:12 Dose: 100 mg Finasteride (Proscar -) 5 mg PO DAILY [facility] Last Admin: 06/28/16 09:00 Dose: 5 mg Furosemide (Lasix Injection -) 40 mg IVPUSH BID@0600,1400 [facility] Last Admin: 06/28/16 11:53 Dose: 40 mg Heparin Sodium (Porcine) (Heparin -) 5,000 unit SQ BID [facility] Last Admin: 06/28/16 09:09 Dose: 5,000 unit Azithromycin (Zithromax 500mg Ivpb (Pre-Docked)) 250 mls @ 250 mls/hr IVPB DAILY [facility] Last Admin: 06/28/16 10:12 Dose: 250 mls/hr Levothyroxine Sodium (Synthroid -) 50 mcg PO ACBK [facility] Last Admin: 06/28/16 05:59 Dose: 50 mcg Meclizine HCl (Antivert -) 25 mg PO HS [facility] Last Admin: 06/27/16 21:40 Dose: 25 mg Metoprolol Succinate (Toprol Xl -) 50 mg PO BID [facility] Last Admin: 06/28/16 09:00 Dose: 50 mg Morphine Sulfate (Ms Contin -) 30 mg PO TID [facility] Last Admin: 06/28/16 05:12 Dose: 30 mg Non-Formulary Medication (Naloxegol Oxalate [Movantik]) 25 mg PO DAILY [facility] Last Admin: 06/28/16 09:01 Dose: 25 mg Mwvgf-9-Irot Ethyl Esters (Lovaza -) 2 gm PO BID [facility] Last Admin: 06/28/16 09:11 Dose: Not Given Oxycodone HCl (Roxicodone -) 10 mg PO Q4H PRN PRN Reason: PAIN Last Admin: 06/27/16 18:12 Dose: 10 mg Polyethylene Glycol (Miralax (For Daily Use) -) 17 gm PO DAILY [facility] Last Admin: 06/28/16 09:13 Dose: Not Given Roflumilast (Daliresp -) 500 mcg PO DAILY [facility] Last Admin: 06/28/16 09:00 Dose: 500 mcg A/p 80 year old Gentleman with PMhx of Metastatic Prostate Ca, Hypertension, Hyperlipidemia, CAD s/p Cardiac Stents, DM who presented with worsening MS for the past several months as per her daughter and found to have multiple abd mets and TERRA with BUN/Cr of 29/1.5 (baseline Cr 1.1) and hyperkalemia with K of 6. #Acute Kidney Injury Cr up trended today no nephrotoxin exposure, overt hypotension CXR shows increasing congestion, will treat with IV Lasix 40mg BID Trend BUN/Cr No indication for INTERN BRAND #Hyperkalemia Secondary to renal insufficiency at this time will give IV lasix repeat BMP this evening #AMS Work up as per neurology #Metastatic Prostate Ca with Renal mass Urology follow up Mora in place #Hypertension Continue amlodipine for now BP acceptable keep MAP .>65 avoid KEO/ARB for now Anatoliy Ryan DO
--- NOTE | 2016-06-28 15:35 | PN ---
Progress Note, Physician History of Present Illness: More lethargic today Offers no complaints Breathing non-labored No fever/ chills - Current Medication List Current Medications: Active Medications Amlodipine Besylate (Norvasc -) 5 mg PO DAILY [facility] Last Admin: 06/28/16 09:00 Dose: 5 mg Buspirone HCl (Buspar -) 5 mg PO BID [facility] Last Admin: 06/28/16 09:00 Dose: 5 mg Ceftriaxone Sodium (Rocephin 1gm Ivpb (Pre-Docked)) 1 gm IVPB DAILY [facility] Last Admin: 06/28/16 09:08 Dose: 1 gm Clonazepam (Klonopin -) 1 mg PO HS [facility] Last Admin: 06/27/16 21:40 Dose: 1 mg Docusate Sodium (Colace -) 100 mg PO TID [facility] Last Admin: 06/28/16 14:43 Dose: Not Given Finasteride (Proscar -) 5 mg PO DAILY [facility] Last Admin: 06/28/16 09:00 Dose: 5 mg Furosemide (Lasix Injection -) 40 mg IVPUSH BID@0600,1400 [facility] Last Admin: 06/28/16 11:53 Dose: 40 mg Heparin Sodium (Porcine) (Heparin -) 5,000 unit SQ BID [facility] Last Admin: 06/28/16 09:09 Dose: 5,000 unit Azithromycin (Zithromax 500mg Ivpb (Pre-Docked)) 250 mls @ 250 mls/hr IVPB DAILY [facility] Last Admin: 06/28/16 10:12 Dose: 250 mls/hr Levothyroxine Sodium (Synthroid -) 50 mcg PO ACBK [facility] Last Admin: 06/28/16 05:59 Dose: 50 mcg Meclizine HCl (Antivert -) 25 mg PO HS [facility] Last Admin: 06/27/16 21:40 Dose: 25 mg Metoprolol Succinate (Toprol Xl -) 50 mg PO BID [facility] Last Admin: 06/28/16 09:00 Dose: 50 mg Morphine Sulfate (Ms Contin -) 30 mg PO TID [facility] Last Admin: 06/28/16 14:58 Dose: 30 mg Non-Formulary Medication (Naloxegol Oxalate [Movantik]) 25 mg PO DAILY [facility] Last Admin: 06/28/16 09:01 Dose: 25 mg Mpzet-8-Sfld Ethyl Esters (Lovaza -) 2 gm PO BID [facility] Last Admin: 06/28/16 09:11 Dose: Not Given Oxycodone HCl (Roxicodone -) 10 mg PO Q4H PRN PRN Reason: PAIN Last Admin: 06/27/16 18:12 Dose: 10 mg Polyethylene Glycol (Miralax (For Daily Use) -) 17 gm PO DAILY [facility] Last Admin: 06/28/16 09:13 Dose: Not Given Roflumilast (Daliresp -) 500 mcg PO DAILY [facility] Last Admin: 06/28/16 09:00 Dose: 500 mcg - Objective Vital Signs: Vital Signs Temperature 97.8 F 06/28/16 14:19 Pulse Rate 93 H 06/28/16 14:19 Respiratory Rate 18 06/28/16 14:19 Blood Pressure 126/58 06/28/16 14:19 O2 Sat by Pulse Oximetry (%) 95 06/28/16 09:00 Constitutional: Yes: No Distress Cardiovascular: Yes: Regular Rate and Rhythm, S1, S2 Respiratory: Yes: Diminished Gastrointestinal: Yes: Normal Bowel Sounds, Soft, Abdomen, Obese. No: Tenderness Labs: CBC, BMP 06/27/16 06:05 06/28/16 05:35 Assessment/Plan LLL pneumonia Metastatic prostate ca Azotemia Continue empiric zithromax/ ceftriaxone
[2016-06-28 16:55] LABS: MCH 30.1 pg (25.7-33.7); MCHC 33.3 g/dl (32.0-35.9); MEAN CELL VOLUME 90.5 fl (80-96); MEAN PLT VOLUME 7.8 fl (7.5-11.1); NEUTROPHILS 72.3 % (42.8-82.8); PLATELET COUNT 233 K/MM3 (134-434); RDW 15.1 % (11.9-15.9); WHITE BLOOD COUNT 7.5 K/mm3 (4.0-10.0)
[2016-06-28] MEDS: oxyCODONE HCL 5 MG TABLET PO PRN (17:19)
[2016-06-28] MEDS ORDERED: FUROSEMIDE 40 MG/4 ML INJECTABLE VIAL IVPUSH ONE ×2 (18:15→20:00)
[2016-06-28 19:37] LABS: CALCIUM 11.2 mg/dL (8.5-10.1); CREATININE 1.6 mg/dL (0.7-1.3)
[2016-06-28 19:51] LABS: ALBUMIN 2.9 g/dl (3.4-5.0); BILIRUBIN,TOTAL 0.3 mg/dL (0.2-1.0); CREATININE 1.6 mg/dL (0.7-1.3); TOT PROT 6.8 g/dl (6.4-8.2)
[2016-06-28] MEDS ORDERED: ONDANSETRON 4 MG/2 ML VIAL IVPB PRN (20:00)
[2016-06-28] MEDS: DEXTROSE 5%-0.45% SALINE 1,000 ML IV SCH (20:22)
[2016-06-28] MEDS ORDERED: METOPROLOL TARTRATE 5 MG/5 ML VIAL ONE (21:01)
[2016-06-28] MEDS ORDERED: METOPROLOL TARTRATE 5 MG/5 ML VIAL IVPUSH PRN (21:02)
[2016-06-28] MEDS ORDERED: PANTOPRAZOLE SODIUM 40 MG/100 ML PRE-DOCKED IVPB ONE (21:15)
[2016-06-28 22:02] LABS: BASOPHIL 0.9 % (0-2.0); EOSINOPHIL 1.2 % (0-4.5); MCHC 33.1 g/dl (32.0-35.9); MEAN CELL VOLUME 90.7 fl (80-96); MEAN PLT VOLUME 8.1 fl (7.5-11.1); NEUTROPHILS 84.7 % (42.8-82.8); PLATELET COUNT 252 K/MM3 (134-434); RDW 14.9 % (11.9-15.9); WHITE BLOOD COUNT 8.5 K/mm3 (4.0-10.0)
[2016-06-29] MEDS: METOPROLOL SUCCINATE 50 MG TAB.SR.24H (FP) PO SCH ×3 (00:01→21:18)
[2016-06-29] MEDS: morphine SO4 SUSTAINED ACTING 30 MG TABLET.SA PO SCH ×4 (00:01→21:18)
[2016-06-29] MEDS: DOCUSATE SODIUM 100 MG CAPSULE (FP) PO SCH ×4 (00:02→21:17)
[2016-06-29] MEDS: HEPARIN NA (PORCINE) 5,000 UNITS/ML 1ML VIAL SQ SCH ×3 (00:02→21:18)
[2016-06-29] MEDS: LEVOTHYROXINE NA 50 MCG TABLET (FP) PO SCH (06:58)
[2016-06-29] MEDS: FUROSEMIDE 40 MG/4 ML INJECTABLE VIAL IVPUSH SCH (07:05)
[2016-06-29 07:59] LABS: BASOPHIL 0.5 % (0-2.0); EOSINOPHIL 0.2 % (0-4.5); MCH 30.5 pg (25.7-33.7); MCHC 33.4 g/dl (32.0-35.9); MEAN CELL VOLUME 91.4 fl (80-96); MEAN PLT VOLUME 7.9 fl (7.5-11.1); NEUTROPHILS 78.4 % (42.8-82.8); PLATELET COUNT 231 K/MM3 (134-434); RDW 15.2 % (11.9-15.9); WHITE BLOOD COUNT 6.2 K/mm3 (4.0-10.0)
--- NOTE | 2016-06-29 08:05 | PN ---
Progress Note, Physician History of Present Illness: periods of confusion--more lethargic today in bed - Current Medication List Current Medications: Active Medications Amlodipine Besylate (Norvasc -) 5 mg PO DAILY [facility] Last Admin: 06/28/16 09:00 Dose: 5 mg Buspirone HCl (Buspar -) 5 mg PO BID [facility] Last Admin: 06/29/16 00:00 Dose: Not Given Ceftriaxone Sodium (Rocephin 1gm Ivpb (Pre-Docked)) 1 gm IVPB DAILY [facility] Last Admin: 06/28/16 09:08 Dose: 1 gm Clonazepam (Klonopin -) 1 mg PO [facility] Last Admin: 06/29/16 00:00 Dose: Not Given Docusate Sodium (Colace -) 100 mg PO TID [facility] Last Admin: 06/29/16 06:57 Dose: Not Given Finasteride (Proscar -) 5 mg PO DAILY [facility] Last Admin: 06/28/16 09:00 Dose: 5 mg Heparin Sodium (Porcine) (Heparin -) 5,000 unit SQ BID [facility] Last Admin: 06/29/16 00:02 Dose: 5,000 unit Dextrose/Sodium Chloride (D5-1/2ns -) 1,000 mls @ 83 mls/hr IV ASDIR [facility] Last Admin: 06/28/16 20:22 Dose: 83 mls/hr Pantoprazole Sodium 40 mg/ (Sodium Chloride) 100 mls @ 200 mls/hr IVPB BID [facility] Levothyroxine Sodium (Synthroid -) 50 mcg PO ACBK [facility] Last Admin: 06/29/16 06:58 Dose: Not Given Meclizine HCl (Antivert -) 25 mg PO [facility] Last Admin: 06/29/16 00:00 Dose: Not Given Metoprolol Succinate (Toprol Xl -) 50 mg PO BID [facility] Last Admin: 06/29/16 00:01 Dose: Not Given Metoprolol Tartrate (Lopressor Injection -) 5 mg IVPUSH Q4H PRN PRN Reason: FOR SBP OVER 150 Morphine Sulfate (Ms Contin -) 30 mg PO TID [facility] Last Admin: 06/29/16 06:58 Dose: Not Given Non-Formulary Medication (Naloxegol Oxalate [Movantik]) 25 mg PO DAILY [facility] Last Admin: 06/28/16 09:01 Dose: 25 mg Allfq-1-Klbm Ethyl Esters (Lovaza -) 2 gm PO BID [facility] Last Admin: 06/29/16 00:00 Dose: Not Given Ondansetron HCl (Zofran Injection) 4 mg IVPB Q6H PRN PRN Reason: NAUSEA Last Admin: 06/28/16 20:22 Dose: 4 mg Oxycodone HCl (Roxicodone -) 10 mg PO Q4H PRN PRN Reason: PAIN Last Admin: 06/28/16 17:19 Dose: 10 mg Polyethylene Glycol (Miralax (For Daily Use) -) 17 gm PO DAILY [facility] Last Admin: 06/28/16 09:13 Dose: Not Given - Objective Vital Signs: Vital Signs Temperature 97.4 F L 06/29/16 05:00 Pulse Rate 78 06/29/16 05:00 Respiratory Rate 18 06/29/16 05:00 Blood Pressure 127/66 06/29/16 05:00 O2 Sat by Pulse Oximetry (%) 97 06/28/16 22:00 Cardiovascular: Yes: S1, S2 Respiratory: Yes: Diminished, Rales (at the bases) Gastrointestinal: Yes: Normal Bowel Sounds, Soft Edema: No Problem List - Problems (1) Confusion Code(s): R41.0 - DISORIENTATION, UNSPECIFIED (2) Prostate ca Code(s): C61 - MALIGNANT NEOPLASM OF PROSTATE (3) CAD (coronary artery disease) of artery bypass graft Code(s): I25.810 - ATHEROSCLEROSIS OF CABG W/O ANGINA PECTORIS (4) Pneumonia Code(s): J18.9 - PNEUMONIA, UNSPECIFIED ORGANISM Qualifiers: (5) Hyperkalemia Code(s): E87.5 - HYPERKALEMIA (6) Pulmonary metastases Code(s): C78.00 - SECONDARY MALIGNANT NEOPLASM OF UNSPECIFIED LUNG (7) Renal mass Code(s): N28.89 - OTHER SPECIFIED DISORDERS OF KIDNEY AND URETER Assessment/Plan Problems (1) Confusion Assessment/Plan: MAYBE DUE TO PNA/DEMENTIA--NOW HYPERCALCEMIA R/O METS--UNABLE TO DO MRI DUE TO STENTS??? NEURO F/U--MRI IVF MONITOR Code(s): R41.0 - DISORIENTATION, UNSPECIFIED (2) Prostate ca Assessment/Plan: URO CONSULT NOTED-- Code(s): C61 - MALIGNANT NEOPLASM OF PROSTATE (3) CAD (coronary artery disease) of artery bypass graft Assessment/Plan: NO CP Code(s): I25.810 - ATHEROSCLEROSIS OF CABG W/O ANGINA PECTORIS (4) Pneumonia Assessment/Plan: IV ABX ID CONSULT AND F/U NOTED Code(s): J18.9 - PNEUMONIA, UNSPECIFIED ORGANISM Qualifiers: (5) Hypercalcemia Assessment/Plan: maybe due to malignancy monitor labs oncology consult (6) Pulmonary metastases Assessment/Plan: PULM CONSULT NOTED-- I DISCUSSED WITH FAMILY FURTHER RX ONCE INFECTIOUS PROCESS RESOLVES AND IF FAMILY WANTS TO PURSUE CT OF CHEST Code(s): C78.00 - SECONDARY MALIGNANT NEOPLASM OF UNSPECIFIED LUNG (7) Renal mass Assessment/Plan: UROLOGY CONSULT--D/W DR MAC--CONSIDER CT WITH CONTRAST VS BIOPSY--WILL DISCUSS Code(s): N28.89 - OTHER SPECIFIED DISORDERS OF KIDNEY AND URETER
[2016-06-29 08:10] LABS: CALCIUM 10.3 mg/dL (8.5-10.1); CREATININE 1.8 mg/dL (0.7-1.3); MAGNESIUM 2.3 mg/dL (1.8-2.4); PHOSPHOROUS 4.7 mg/dL (2.5-4.9)
[2016-06-29] MEDS: cefTRIAXone 1 GM/50 ML BAG (PRE-DOCKED) IVPB SCH (10:00)
[2016-06-29] MEDS: PANTOPRAZOLE SODIUM 100 ML IVPB SCH ×2 (10:00→21:17)
[2016-06-29] MEDS: oxyCODONE HCL 5 MG TABLET PO PRN ×2 (10:25→18:08)
[2016-06-29] MEDS: PATIENT'S OWN MEDICATION (NON-FORMULARY) (Naloxegol Oxalate [Movantik] 25 MG) PO SCH (10:30)
[2016-06-29] MEDS: FINASTERIDE 5 MG TABLET (FP) PO SCH (10:33)
[2016-06-29] MEDS: amLODIPine BESYLATE 5 MG TABLET (FP) PO SCH (10:33)
[2016-06-29] MEDS: busPIRone HCL 5 MG TABLET PO SCH ×3 (10:34→21:18)
[2016-06-29] MEDS: OMEGA-3 ACID ETHYL ESTERS (FATTY-ACIDS) 1 GM CAPSULE (FP) PO SCH ×3 (10:40→21:17)
[2016-06-29] MEDS: POLYETHYLENE GLYCOL 3350 119 GM BTL PO SCH (10:40)
[2016-06-29] MEDS ORDERED: PT OWN MED DRAWER 7, Y5N ONE (10:51)
--- NOTE | 2016-06-29 11:19 | PN ---
Progress Note, Physician History of Present Illness: pulmonary awake,still confused,-resp distress ,refused chest ct earlier - Current Medication List Current Medications: Active Medications Amlodipine Besylate (Norvasc -) 5 mg PO DAILY [facility] Last Admin: 06/29/16 10:33 Dose: 5 mg Buspirone HCl (Buspar -) 5 mg PO BID [facility] Last Admin: 06/29/16 10:34 Dose: 5 mg Ceftriaxone Sodium (Rocephin 1gm Ivpb (Pre-Docked)) 1 gm IVPB DAILY [facility] Last Admin: 06/28/16 09:08 Dose: 1 gm Clonazepam (Klonopin -) 1 mg PO HS [facility] Last Admin: 06/29/16 00:00 Dose: Not Given Docusate Sodium (Colace -) 100 mg PO TID [facility] Last Admin: 06/29/16 06:57 Dose: Not Given Finasteride (Proscar -) 5 mg PO DAILY [facility] Last Admin: 06/29/16 10:33 Dose: 5 mg Heparin Sodium (Porcine) (Heparin -) 5,000 unit SQ BID [facility] Last Admin: 06/29/16 10:38 Dose: 5,000 unit Dextrose/Sodium Chloride (D5-1/2ns -) 1,000 mls @ 83 mls/hr IV ASDIR [facility] Last Admin: 06/28/16 20:22 Dose: 83 mls/hr Pantoprazole Sodium (Protonix 40mg Ivpb (Pre-Docked)) 100 mls @ 200 mls/hr IVPB BID [facility] Levothyroxine Sodium (Synthroid -) 50 mcg PO ACBK [facility] Last Admin: 06/29/16 06:58 Dose: Not Given Meclizine HCl (Antivert -) 25 mg PO HS [facility] Last Admin: 06/29/16 00:00 Dose: Not Given Metoprolol Succinate (Toprol Xl -) 50 mg PO BID [facility] Last Admin: 06/29/16 10:33 Dose: 50 mg Metoprolol Tartrate (Lopressor Injection -) 5 mg IVPUSH Q4H PRN PRN Reason: FOR SBP OVER 150 Morphine Sulfate (Ms Contin -) 30 mg PO TID [facility] Last Admin: 06/29/16 06:58 Dose: Not Given Non-Formulary Medication (Naloxegol Oxalate [Movantik]) 25 mg PO DAILY [facility] Last Admin: 06/29/16 10:30 Dose: 25 mg Zliam-9-Bgtr Ethyl Esters (Lovaza -) 2 gm PO BID [facility] Last Admin: 06/29/16 10:40 Dose: Not Given Ondansetron HCl (Zofran Injection) 4 mg IVPB Q6H PRN PRN Reason: NAUSEA Last Admin: 06/28/16 20:22 Dose: 4 mg Oxycodone HCl (Roxicodone -) 10 mg PO Q4H PRN PRN Reason: PAIN Last Admin: 06/28/16 17:19 Dose: 10 mg Polyethylene Glycol (Miralax (For Daily Use) -) 17 gm PO DAILY [facility] Last Admin: 06/29/16 10:40 Dose: Not Given - Objective Vital Signs: Vital Signs Temperature 97.4 F L 06/29/16 05:00 Pulse Rate 78 06/29/16 05:00 Respiratory Rate 18 06/29/16 05:00 Blood Pressure 127/66 06/29/16 05:00 O2 Sat by Pulse Oximetry (%) 97 06/28/16 22:00 Constitutional: Yes: Well Nourished, Calm Eyes: Yes: WNL HENT: Yes: WNL Neck: Yes: WNL Cardiovascular: Yes: Regular Rate and Rhythm, S1, S2 Respiratory: Yes: Diminished, Rhonchi (few rhonchi) Gastrointestinal: Yes: WNL Extremities: Yes: WNL Edema: No Labs: CBC, BMP 06/29/16 06:00 06/29/16 06:00 - ....Imaging Chest X-ray: Report Reviewed, Image Reviewed (increased infiltrate left) Assessment/Plan Problem List - Problems (1) Abdominal pain Code(s): R10.9 - UNSPECIFIED ABDOMINAL PAIN (2) Confusion Code(s): R41.0 - DISORIENTATION, UNSPECIFIED (3) Prostate ca Code(s): C61 - MALIGNANT NEOPLASM OF PROSTATE (4) Pulmonary metastases Code(s): C78.00 - SECONDARY MALIGNANT NEOPLASM OF UNSPECIFIED LUNG (5) Renal mass Code(s): N28.89 - OTHER SPECIFIED DISORDERS OF KIDNEY AND URETER (6) TERRA (acute kidney injury) Code(s): N17.9 - ACUTE KIDNEY FAILURE, UNSPECIFIED (7) Back pain Code(s): M54.9 - DORSALGIA, UNSPECIFIED Qualifiers: Back pain location: low back pain (8) CAD (coronary artery disease) of artery bypass graft Code(s): I25.810 - ATHEROSCLEROSIS OF CABG W/O ANGINA PECTORIS (9) Pneumonia Code(s): J18.9 - PNEUMONIA, UNSPECIFIED ORGANISM Qualifiers: (10) UTI (lower urinary tract infection) Code(s): N39.0 - URINARY TRACT INFECTION, SITE NOT SPECIFIED Assessment/Plan ABX per ID O2 as needed Aspiration precautions monitor lytes chest ct DR MURDOCK
--- NOTE | 2016-06-29 13:41 | PN ---
Progress Note (short form) - Note Progress Note: Pt seen today. Office chart reviewed. Pt was supposed to have a consult with Dr. Liang for possible renal biopsy. Will put a consult for him. Thanks
--- NOTE | 2016-06-29 16:43 | PN ---
Progress Note (short form) - Note Progress Note: Renal Follow up for TERRA/Hyperkalemia Pt seen and examined at the bedside awake and alert has cough, + SOB no chest pain pham in place with yellow urine Vital Signs Temperature 98.7 F 06/29/16 14:18 Pulse Rate 112 H 06/29/16 14:18 Respiratory Rate 19 06/29/16 14:18 Blood Pressure 133/70 06/29/16 14:18 O2 Sat by Pulse Oximetry (%) 96 06/29/16 09:00 Intake & Output 06/26/16 06/27/16 06/28/16 06/29/16 23:59 23:59 23:59 23:59 Intake Total 550 6007 325 1801 Output Total 1450 9507 197 2300 Balance -900 170 -120 46 Gen: NAD, CVS: RRR, No M/R Lungs: Dec BS at lung bases Abd: soft, + tenderness in lower abd Ext: No edema, clubbing or cyanosis : Pham in place CBC, BMP 06/29/16 06:00 06/29/16 06:00 Current Medications Amlodipine Besylate (Norvasc -) 5 mg PO DAILY [facility] Last Admin: 06/29/16 10:33 Dose: 5 mg Buspirone HCl (Buspar -) 5 mg PO BID [facility] Last Admin: 06/29/16 10:34 Dose: 5 mg Ceftriaxone Sodium (Rocephin 1gm Ivpb (Pre-Docked)) 1 gm IVPB DAILY [facility] Last Admin: 06/29/16 10:00 Dose: Not Given Clonazepam (Klonopin -) 1 mg PO HS [facility] Last Admin: 06/29/16 00:00 Dose: Not Given Docusate Sodium (Colace -) 100 mg PO TID [facility] Last Admin: 06/29/16 14:14 Dose: Not Given Finasteride (Proscar -) 5 mg PO DAILY [facility] Last Admin: 06/29/16 10:33 Dose: 5 mg Heparin Sodium (Porcine) (Heparin -) 5,000 unit SQ BID [facility] Last Admin: 06/29/16 10:38 Dose: 5,000 unit Dextrose/Sodium Chloride (D5-1/2ns -) 1,000 mls @ 83 mls/hr IV ASDIR [facility] Last Admin: 06/28/16 20:22 Dose: 83 mls/hr Pantoprazole Sodium (Protonix 40mg Ivpb (Pre-Docked)) 100 mls @ 200 mls/hr IVPB BID [facility] Last Admin: 06/29/16 10:00 Dose: Not Given Levothyroxine Sodium (Synthroid -) 50 mcg PO ACBK [facility] Last Admin: 06/29/16 06:58 Dose: Not Given Meclizine HCl (Antivert -) 25 mg PO HS [facility] Last Admin: 06/29/16 00:00 Dose: Not Given Metoprolol Succinate (Toprol Xl -) 50 mg PO BID [facility] Last Admin: 06/29/16 10:33 Dose: 50 mg Metoprolol Tartrate (Lopressor Injection -) 5 mg IVPUSH Q4H PRN PRN Reason: FOR SBP OVER 150 Morphine Sulfate (Ms Contin -) 30 mg PO TID [facility] Last Admin: 06/29/16 14:14 Dose: 30 mg Non-Formulary Medication (Naloxegol Oxalate [Movantik]) 25 mg PO DAILY [facility] Last Admin: 06/29/16 10:30 Dose: 25 mg [id number]-9-[id number] Ethyl Esters (Lovaza -) 2 gm PO BID [facility] Last Admin: 06/29/16 10:40 Dose: Not Given Ondansetron HCl (Zofran Injection) 4 mg IVPB Q6H PRN PRN Reason: NAUSEA Last Admin: 06/28/16 20:22 Dose: 4 mg Oxycodone HCl (Roxicodone -) 10 mg PO Q4H PRN PRN Reason: PAIN Last Admin: 06/28/16 17:19 Dose: 10 mg Polyethylene Glycol (Miralax (For Daily Use) -) 17 gm PO DAILY [facility] Last Admin: 06/29/16 10:40 Dose: Not Given A/p 80 year old Gentleman with PMhx of Metastatic Prostate Ca, Hypertension, Hyperlipidemia, CAD s/p Cardiac Stents, DM who presented with worsening MS for the past several months as per her daughter and found to have multiple abd mets and TERRA with BUN/Cr of 29/1.5 (baseline Cr 1.1) and hyperkalemia with K of 6. #Acute Kidney Injury Cr remains elevated pt is non-oliguric pt with high urine Na indicating tubular injury Continue IV Lasix as needed for sob trend BUN/Cr #Hyperkalemia Secondary to renal insufficiency at this time Low potassium diet trend daily #Hypercalcemia of malignancy Corrected Ca is 11.3 Check PTH no acute intervention warranted Trend daily #AMS Work up as per neurology #Metastatic Prostate Ca with Renal mass Urology follow up Pham in place Continue Proscar and Flomax #Hypertension Continue amlodipine for now BP acceptable keep MAP .>65 avoid KEO/ARB for now Anatoliy Ryan DO
--- NOTE | 2016-06-29 20:25 | CONSULT ---
Consult - text type - Consultation Consultation Note: Patient seen and examined This is an 80 year old man with a medical history of HTN, HLD, CAD s/p stents, metastatic prostate cancer, DM, who presented to the ED 06/22/[address] head showed no acute pathology with chronic changes. Renal was consulted for TERRA. ID was consulted for possible PNA for which he received Azithromycin and Ceftriaxone; blood and urine cx were negative. Pulm was consulted for nodular interstitial lung disease, who felt it was related to metastatic disease. was consulted for the metastatic prostate cancer and renal insufficiency. Cardiology was consulted for arrhythmia, who ordered Echo which was performed 06/25/16. Neurology was consulted for AMS, who reported he has severe B brain dysfunction We have been consulted for metastatic prostate ca/lung mets/hypercalcemia - History Source History Provided By: Medical Record - Past Medical History Cardio/Vascular: Yes: CAD (denies GA, but had CABG (no details)), HTN, Hyperlipdemia Gastrointestinal: Yes: Constipation Renal/: Yes: Renal Failure, Cancer (metastatic prostate) Musculoskeletal: Yes: Chronic low back pain, Paraplegia - Past Surgical History Past Surgical History: Yes: CABG, Laminectomy - Smoking History Smoking history: Former smoker (over 15 ya) - Social History Usual Living Arrangement: With Child ADL: Support Services (has [employer] 8 hours x7 days) Home Medications - Allergies Allergies/Adverse Reactions: Allergies Allergy/AdvReac Type Severity Reaction Status Date / Time No Known Allergies Allergy Verified 06/27/16 16:30 - Home Medications Home Medications: Ambulatory Orders Buspirone HCl [Buspar -] 5 mg PO BID 08/26/15 Levothyroxine [Synthroid -] 50 mcg PO DAILY 08/26/15 Meclizine HCl 25 mg PO HS PRN 08/26/15 Metoprolol Succinate [Toprol Xl] 50 mg PO DAILY 08/26/15 Morphine Sulfate 30 mg PO TID PRN 08/26/15 Albuterol Sulfate [Proair Respiclick] 90 mcg IH QID PRN 11/30/15 Calcium Citrate [Calcitrate] 950 mg PO DAILY 11/30/15 Clonazepam [Klonopin] 1 mg PO HS PRN 11/30/15 Esomeprazole Magnesium [Nexium] 40 mg PO DAILY 11/30/15 Finasteride 5 mg PO DAILY 11/30/15 Albuterol Sulfate 0.042% [Ventolin 0.042% (Half-Strength) -] 1 amp NEB PRN PRN 05/12/16 Ergocalciferol [Drisdol -] 50,000 unit PO DAILY 05/12/16 Ipratropium 0.02% Nebulizer [Atrovent 0.02% Nebulizer -] 1 amp NEB PRN PRN 05/12 Amlodipine Besylate [Norvasc -] 5 mg PO DAILY 06/22/16 Icosapent Ethyl [Vascepa] 2 gm PO BID 06/22/16 Naloxegol Oxalate [Movantik] 25 mg PO DAILY 06/22/16 Oxycodone HCl/Acetaminophen [Endocet 7.5-325 mg Tablet] 1 each PO TID 06/22/16 Pitavastatin Calcium [Livalo] 2 mg PO DAILY 06/22/16 Roflumilast [Daliresp] 500 mcg PO DAILY 06/22/16 Tiotropium [place] [Spiriva] 1 inh PO DAILY 06/22/16 Physical Exam AFV SS HEENT: KIT, EOM Intact Cor: RSR, No murmurs, No gallops Lungs: Clear to P&A Abd: Soft, Normal bowel sounds, No organomegaly Ext:No significant edema - Results Chest X-ray: Report Reviewed (CXR 06/22/16 shows nodular interstitial lung disease, worse compared to prior) Cat Scan: Report Reviewed (CT head 06/22/16 shows no acute pathology CT A/P shows likely B lung and R renal mets) Assessment/Plan Impression: 1) Deficits mobility/ ADLs 2) Deconditioning 3) Gait abnormality for several months 4) Metastatic prostate cancer/lung mets 5) Diffuse pain 6) Cardiac arrhythmia hx HTN, HLD, CAD s/p stents 7) TERRA 8) PNA 9) DM 10) severe B brain dysfunction 11) Anemia 80 year old Gentleman with PMhx of Metastatic Prostate Ca, Hypertension, Hyperlipidemia, CAD s/p Cardiac Stents, DM who presented with worsening mental status for the past several months and found to have multiple lung mets and TERRA with BUN/Cr of 29/1.5 (baseline Cr 1.1) and hyperkalemia with K of 6. mild hypercalcemia On IV hydration will consider zometa / xgeva based on renal function/ca level
[2016-06-29] MEDS: clonazePAM 0.5 MG TABLET PO SCH ×2 (21:17)
[2016-06-29] MEDS: MECLIZINE HCL 25 MG TABLET (FP) PO SCH ×2 (21:18)
[2016-06-29] MEDS: DEXTROSE 5%-0.45% SALINE 1,000 ML IV SCH (21:34)
[2016-06-30] MEDS: morphine SO4 SUSTAINED ACTING 30 MG TABLET.SA PO SCH ×3 (05:45→21:46)
[2016-06-30] MEDS: LEVOTHYROXINE NA 50 MCG TABLET (FP) PO SCH ×2 (05:45→10:54)
[2016-06-30] MEDS: DOCUSATE SODIUM 100 MG CAPSULE (FP) PO SCH ×3 (05:46→21:44)
--- NOTE | 2016-06-30 08:21 | PN ---
Progress Note, Physician History of Present Illness: periods of confusion-- alert in bed - Current Medication List Current Medications: Active Medications Amlodipine Besylate (Norvasc -) 5 mg PO DAILY [facility] Last Admin: 06/29/16 10:33 Dose: 5 mg Buspirone HCl (Buspar -) 5 mg PO BID [facility] Last Admin: 06/29/16 21:18 Dose: 5 mg Ceftriaxone Sodium (Rocephin 1gm Ivpb (Pre-Docked)) 1 gm IVPB DAILY [facility] Last Admin: 06/29/16 10:00 Dose: Not Given Clonazepam (Klonopin -) 1 mg PO HS [facility] Last Admin: 06/29/16 21:17 Dose: 1 mg Docusate Sodium (Colace -) 100 mg PO TID [facility] Last Admin: 06/30/16 05:46 Dose: 100 mg Finasteride (Proscar -) 5 mg PO DAILY [facility] Last Admin: 06/29/16 10:33 Dose: 5 mg Heparin Sodium (Porcine) (Heparin -) 5,000 unit SQ BID [facility] Last Admin: 06/29/16 21:18 Dose: 5,000 unit Dextrose/Sodium Chloride (D5-1/2ns -) 1,000 mls @ 83 mls/hr IV ASDIR [facility] Last Admin: 06/29/16 21:34 Dose: 83 mls/hr Levothyroxine Sodium (Synthroid -) 50 mcg PO ACBK [facility] Last Admin: 06/30/16 05:45 Dose: 50 mcg Meclizine HCl (Antivert -) 25 mg PO HS [facility] Last Admin: 06/29/16 21:18 Dose: 25 mg Metoprolol Succinate (Toprol Xl -) 50 mg PO BID [facility] Last Admin: 06/29/16 21:18 Dose: 50 mg Morphine Sulfate (Ms Contin -) 30 mg PO TID [facility] Last Admin: 06/30/16 05:45 Dose: 30 mg Non-Formulary Medication (Naloxegol Oxalate [Movantik]) 25 mg PO DAILY [facility] Last Admin: 06/29/16 10:30 Dose: 25 mg Fqkrl-3-Ucbi Ethyl Esters (Lovaza -) 2 gm PO BID [facility] Last Admin: 06/29/16 21:17 Dose: 2 gm Ondansetron HCl (Zofran Injection) 4 mg IVPB Q6H PRN PRN Reason: NAUSEA Last Admin: 06/28/16 20:22 Dose: 4 mg Oxycodone HCl (Roxicodone -) 10 mg PO Q4H PRN PRN Reason: PAIN Last Admin: 06/29/16 18:08 Dose: 10 mg Pantoprazole Sodium (Protonix -) 40 mg PO BID [facility] Polyethylene Glycol (Miralax (For Daily Use) -) 17 gm PO DAILY [facility] Last Admin: 06/29/16 10:40 Dose: Not Given - Objective Vital Signs: Vital Signs Temperature 98.9 F 06/30/16 05:53 Pulse Rate 88 06/30/16 05:53 Respiratory Rate 18 06/30/16 05:53 Blood Pressure 151/75 06/30/16 05:53 O2 Sat by Pulse Oximetry (%) 96 06/29/16 22:00 Cardiovascular: Yes: Regular Rate and Rhythm Respiratory: Yes: Diminished, On Nasal O2 Gastrointestinal: Yes: Normal Bowel Sounds, Soft Neurological: Yes: Alert, Confusion Labs: CBC, BMP 06/29/16 06:00 06/29/16 06:00 Problem List - Problems (1) Confusion Code(s): R41.0 - DISORIENTATION, UNSPECIFIED (2) Prostate ca Code(s): C61 - MALIGNANT NEOPLASM OF PROSTATE (3) CAD (coronary artery disease) of artery bypass graft Code(s): I25.810 - ATHEROSCLEROSIS OF CABG W/O ANGINA PECTORIS (4) Pneumonia Code(s): J18.9 - PNEUMONIA, UNSPECIFIED ORGANISM Qualifiers: (5) Hyperkalemia Code(s): E87.5 - HYPERKALEMIA (6) Pulmonary metastases Code(s): C78.00 - SECONDARY MALIGNANT NEOPLASM OF UNSPECIFIED LUNG (7) Renal mass Code(s): N28.89 - OTHER SPECIFIED DISORDERS OF KIDNEY AND URETER Assessment/Plan Problems (1) Confusion Assessment/Plan: MAYBE DUE TO PNA/DEMENTIA--NOW HYPERCALCEMIA R/O METS--UNABLE TO DO MRI DUE TO STENTS??? NEURO F/U--MRI NOTED --NO METS IVF MONITOR Code(s): R41.0 - DISORIENTATION, UNSPECIFIED (2) Prostate ca Assessment/Plan: URO CONSULT NOTED-- Code(s): C61 - MALIGNANT NEOPLASM OF PROSTATE (3) CAD (coronary artery disease) of artery bypass graft Assessment/Plan: NO CP Code(s): I25.810 - ATHEROSCLEROSIS OF CABG W/O ANGINA PECTORIS (4) Pneumonia Assessment/Plan: IV ABX--F/U CXR ID CONSULT AND F/U NOTED Code(s): J18.9 - PNEUMONIA, UNSPECIFIED ORGANISM Qualifiers: (5) Hypercalcemia Assessment/Plan: maybe due to malignancy monitor labs oncology consult ON BOARD (6) Pulmonary metastases Assessment/Plan: PULM CONSULT NOTED-- I DISCUSSED WITH FAMILY FURTHER RX ONCE INFECTIOUS PROCESS RESOLVES AND IF FAMILY WANTS TO PURSUE CT OF CHEST Code(s): C78.00 - SECONDARY MALIGNANT NEOPLASM OF UNSPECIFIED LUNG (7) Renal mass Assessment/Plan: UROLOGY CONSULT--D/W DR MAC--CONSIDER CT WITH CONTRAST VS BIOPSY--WILL DISCUSS Code(s): N28.89 - OTHER SPECIFIED DISORDERS OF KIDNEY AND URETER DC PLANNING--PENDING LABS AND CXR
[2016-06-30 10:10] LABS: BASOPHIL 0.5 % (0-2.0); EOSINOPHIL 1.1 % (0-4.5); MCH 30.2 pg (25.7-33.7); MCHC 33.5 g/dl (32.0-35.9); MEAN CELL VOLUME 90.3 fl (80-96); MEAN PLT VOLUME 7.4 fl (7.5-11.1); NEUTROPHILS 75.4 % (42.8-82.8); PLATELET COUNT 215 K/MM3 (134-434); WHITE BLOOD COUNT 6.6 K/mm3 (4.0-10.0)
[2016-06-30] MEDS: cefTRIAXone 1 GM/50 ML BAG (PRE-DOCKED) IVPB SCH (10:55)
[2016-06-30] MEDS: METOPROLOL SUCCINATE 50 MG TAB.SR.24H (FP) PO SCH ×2 (10:55→21:45)
[2016-06-30] MEDS: amLODIPine BESYLATE 5 MG TABLET (FP) PO SCH (10:56)
[2016-06-30] MEDS: FINASTERIDE 5 MG TABLET (FP) PO SCH (10:56)
[2016-06-30] MEDS: PANTOPRAZOLE 40 MG TABLET (FP) PO SCH ×2 (10:56→21:44)
[2016-06-30] MEDS: HEPARIN NA (PORCINE) 5,000 UNITS/ML 1ML VIAL SQ SCH ×2 (10:56→21:45)
[2016-06-30] MEDS: PATIENT'S OWN MEDICATION (NON-FORMULARY) (Naloxegol Oxalate [Movantik] 25 MG) PO SCH (10:57)
[2016-06-30] MEDS: POLYETHYLENE GLYCOL 3350 119 GM BTL PO SCH (10:57)
[2016-06-30] MEDS: busPIRone HCL 5 MG TABLET PO SCH ×2 (10:58→21:45)
[2016-06-30] MEDS: OMEGA-3 ACID ETHYL ESTERS (FATTY-ACIDS) 1 GM CAPSULE (FP) PO SCH ×2 (10:58→22:44)
[2016-06-30 10:59] LABS: ALBUMIN 2.7 g/dl (3.4-5.0); BILIRUBIN,TOTAL 0.2 mg/dL (0.2-1.0); CALCIUM 10.1 mg/dL (8.5-10.1); CREATININE 1.5 mg/dL (0.7-1.3); TOT PROT 6.2 g/dl (6.4-8.2)
--- NOTE | 2016-06-30 13:45 | PN ---
Progress Note (short form) - Note Progress Note: Renal Follow up for TERRA/Hyperkalemia Pt seen and examined at the bedside awake and alert eating lunch denies any pain or sob on IVF good urine output via pham Vital Signs Temperature 97.8 F 06/30/16 11:20 Pulse Rate 97 H 06/30/16 11:20 Respiratory Rate 19 06/30/16 11:20 Blood Pressure 148/95 06/30/16 11:20 O2 Sat by Pulse Oximetry (%) 96 06/29/16 22:00 Intake & Output 06/27/16 06/28/16 06/29/16 06/30/16 23:59 23:59 23:59 23:59 Intake Total 6131 072 7785 996 Output Total 0887 604 7684 250 Balance 170 -120 96 746 Gen: NAD, CVS: RRR, No M/R Lungs: Dec BS at lung bases Abd: soft, + tenderness in lower abd Ext: No edema, clubbing or cyanosis : Pham in place CBC, BMP 06/30/16 09:20 06/30/16 09:20 Current Medications Amlodipine Besylate (Norvasc -) 5 mg PO DAILY [facility] Last Admin: 06/30/16 10:56 Dose: 5 mg Buspirone HCl (Buspar -) 5 mg PO BID [facility] Last Admin: 06/30/16 10:58 Dose: 5 mg Ceftriaxone Sodium (Rocephin 1gm Ivpb (Pre-Docked)) 1 gm IVPB DAILY [facility] Last Admin: 06/30/16 10:55 Dose: 1 gm Clonazepam (Klonopin -) 1 mg PO HS [facility] Last Admin: 06/29/16 21:17 Dose: 1 mg Docusate Sodium (Colace -) 100 mg PO TID [facility] Last Admin: 06/30/16 05:46 Dose: 100 mg Finasteride (Proscar -) 5 mg PO DAILY [facility] Last Admin: 06/30/16 10:56 Dose: 5 mg Heparin Sodium (Porcine) (Heparin -) 5,000 unit SQ BID [facility] Last Admin: 06/30/16 10:56 Dose: 5,000 unit Dextrose/Sodium Chloride (D5-1/2ns -) 1,000 mls @ 83 mls/hr IV ASDIR [facility] Last Admin: 06/29/16 21:34 Dose: 83 mls/hr Levothyroxine Sodium (Synthroid -) 50 mcg PO ACBK [facility] Last Admin: 06/30/16 10:54 Dose: Not Given Meclizine HCl (Antivert -) 25 mg PO HS [facility] Last Admin: 06/29/16 21:18 Dose: 25 mg Metoprolol Succinate (Toprol Xl -) 50 mg PO BID [facility] Last Admin: 06/30/16 10:55 Dose: 50 mg Morphine Sulfate (Ms Contin -) 30 mg PO TID [facility] Last Admin: 06/30/16 05:45 Dose: 30 mg Non-Formulary Medication (Naloxegol Oxalate [Movantik]) 25 mg PO DAILY [facility] Last Admin: 06/30/16 10:57 Dose: 25 mg Ufaxt-9-Fgwk Ethyl Esters (Lovaza -) 2 gm PO BID [facility] Last Admin: 06/30/16 10:58 Dose: 2 gm Ondansetron HCl (Zofran Injection) 4 mg IVPB Q6H PRN PRN Reason: NAUSEA Last Admin: 06/28/16 20:22 Dose: 4 mg Oxycodone HCl (Roxicodone -) 10 mg PO Q4H PRN PRN Reason: PAIN Last Admin: 06/29/16 18:08 Dose: 10 mg Pantoprazole Sodium (Protonix -) 40 mg PO BID [facility] Last Admin: 06/30/16 10:56 Dose: 40 mg Polyethylene Glycol (Miralax (For Daily Use) -) 17 gm PO DAILY [facility] Last Admin: 06/30/16 10:57 Dose: 17 gm A/p 80 year old Gentleman with PMhx of Metastatic Prostate Ca, Hypertension, Hyperlipidemia, CAD s/p Cardiac Stents, DM who presented with worsening MS for the past several months as per her daughter and found to have multiple abd mets and TERRA with BUN/Cr of 29/1.5 (baseline Cr 1.1) and hyperkalemia with K of 6. #Acute Kidney Injury Cr improved today continue gentle IVF Lasix PRN for sob/resp distress Trend BUN/Cr daily avoid nephrotoxins #Hyperkalemia K is WNL now Trend daily #Hypercalcemia of malignancy Corrected Ca is 11.3 Check PTH - pending management as per oncology #AMS Work up as per neurology #Metastatic Prostate Ca with Renal mass Urology follow up Pham in place Continue Proscar and Flomax #Hypertension Continue amlodipine for now BP acceptable keep MAP .>65 avoid KEO/ARB for now Anatoliy Ryan DO
--- NOTE | 2016-06-30 15:29 | PN ---
Progress Note (short form) - Note Progress Note: NAD. Confused. No acute events overnight. CT: bilateral scattered Pulmonary nodules that are new from 12/2015 / Bibasilar consolidation and effusions Left > right Intake & Output 06/27/16 06/28/16 06/29/16 06/30/16 23:59 23:59 23:59 23:59 Intake Total 2934 778 4988 996 Output Total 9631 230 6033 250 Balance 170 -120 96 746 Last Vital Signs Temp Pulse Resp BP Pulse Ox 98.4 F 98 H 22 144/85 96 06/30/16 15:06 06/30/16 15:06 06/30/16 15:06 06/30/16 15:06 06/29/16 22:00 Active Medications Amlodipine Besylate (Norvasc -) 5 mg PO DAILY [facility] Last Admin: 06/30/16 10:56 Dose: 5 mg Buspirone HCl (Buspar -) 5 mg PO BID [facility] Last Admin: 06/30/16 10:58 Dose: 5 mg Ceftriaxone Sodium (Rocephin 1gm Ivpb (Pre-Docked)) 1 gm IVPB DAILY [facility] Last Admin: 06/30/16 10:55 Dose: 1 gm Clonazepam (Klonopin -) 1 mg PO HS [facility] Last Admin: 06/29/16 21:17 Dose: 1 mg Docusate Sodium (Colace -) 100 mg PO TID [facility] Last Admin: 06/30/16 05:46 Dose: 100 mg Finasteride (Proscar -) 5 mg PO DAILY [facility] Last Admin: 06/30/16 10:56 Dose: 5 mg Heparin Sodium (Porcine) (Heparin -) 5,000 unit SQ BID [facility] Last Admin: 06/30/16 10:56 Dose: 5,000 unit Dextrose/Sodium Chloride (D5-1/2ns -) 1,000 mls @ 83 mls/hr IV ASDIR [facility] Last Admin: 06/29/16 21:34 Dose: 83 mls/hr Levothyroxine Sodium (Synthroid -) 50 mcg PO ACBK [facility] Last Admin: 06/30/16 10:54 Dose: Not Given Meclizine HCl (Antivert -) 25 mg PO HS [facility] Last Admin: 06/29/16 21:18 Dose: 25 mg Metoprolol Succinate (Toprol Xl -) 50 mg PO BID [facility] Last Admin: 06/30/16 10:55 Dose: 50 mg Morphine Sulfate (Ms Contin -) 30 mg PO TID [facility] Last Admin: 06/30/16 05:45 Dose: 30 mg Non-Formulary Medication (Naloxegol Oxalate [Movantik]) 25 mg PO DAILY [facility] Last Admin: 06/30/16 10:57 Dose: 25 mg Qktmu-9-Gzbi Ethyl Esters (Lovaza -) 2 gm PO BID [facility] Last Admin: 06/30/16 10:58 Dose: 2 gm Ondansetron HCl (Zofran Injection) 4 mg IVPB Q6H PRN PRN Reason: NAUSEA Last Admin: 06/28/16 20:22 Dose: 4 mg Oxycodone HCl (Roxicodone -) 10 mg PO Q4H PRN PRN Reason: PAIN Last Admin: 06/29/16 18:08 Dose: 10 mg Pantoprazole Sodium (Protonix -) 40 mg PO BID [facility] Last Admin: 06/30/16 10:56 Dose: 40 mg Polyethylene Glycol (Miralax (For Daily Use) -) 17 gm PO DAILY [facility] Last Admin: 06/30/16 10:57 Dose: 17 gm Constitutional: Yes: NAD, confused Eyes: Yes: WNL HENT: Yes: WNL Neck: Yes: WNL Cardiovascular: Yes: Regular Rate and Rhythm, S1, S2 Respiratory: Yes: Bibasilar rhonchi Gastrointestinal: Yes: WNL Extremities: Yes: WNL Edema: No Labs: Laboratory Results - last 24 hr 06/30/16 06/30/16 09:20 09:20 WBC 6.6 RBC 2.93 L Hgb 8.9 L Hct 26.5 L MCV 90.3 MCHC 33.5 RDW 15.0 Plt Count 215 MPV 7.4 L Neutrophils % 75.4 Lymphocytes % 16.4 Monocytes % 6.6 Eosinophils % 1.1 D Basophils % 0.5 Sodium 136 Potassium 4.6 Chloride 102 Carbon Dioxide 23 Anion Gap 11 BUN 30 H Creatinine 1.5 H Creat Clearance w eGFR 44.92 Random Glucose 113 H Calcium 10.1 Total Bilirubin 0.2 D AST 13 L D ALT 17 Alkaline Phosphatase 126 H D Total Protein 6.2 L Albumin 2.7 L Assessment/Plan Problem List - Problems (1) Abdominal pain Code(s): R10.9 - UNSPECIFIED ABDOMINAL PAIN (2) Confusion Code(s): R41.0 - DISORIENTATION, UNSPECIFIED (3) Prostate ca Code(s): C61 - MALIGNANT NEOPLASM OF PROSTATE (4) Pulmonary metastases Code(s): C78.00 - SECONDARY MALIGNANT NEOPLASM OF UNSPECIFIED LUNG (5) Renal mass Code(s): N28.89 - OTHER SPECIFIED DISORDERS OF KIDNEY AND URETER (6) TERRA (acute kidney injury) Code(s): N17.9 - ACUTE KIDNEY FAILURE, UNSPECIFIED (7) Back pain Code(s): M54.9 - DORSALGIA, UNSPECIFIED Qualifiers: Back pain location: low back pain (8) CAD (coronary artery disease) of artery bypass graft Code(s): I25.810 - ATHEROSCLEROSIS OF CABG W/O ANGINA PECTORIS (9) Pneumonia Code(s): J18.9 - PNEUMONIA, UNSPECIFIED ORGANISM Qualifiers: (10) UTI (lower urinary tract infection) Code(s): N39.0 - URINARY TRACT INFECTION, SITE NOT SPECIFIED Assessment/Plan ABX per ID O2 as needed Aspiration precautions monitor lytes Due to overall condition, would treat CT findings of likely metastatic disease conservatively / outpatient No Pulmonary contraindication for D/C planning Dr Pink Problem List - Problems (1) Abdominal pain Code(s): R10.9 - UNSPECIFIED ABDOMINAL PAIN (2) Confusion Code(s): R41.0 - DISORIENTATION, UNSPECIFIED (3) Prostate ca Code(s): C61 - MALIGNANT NEOPLASM OF PROSTATE (4) Pulmonary metastases Code(s): C78.00 - SECONDARY MALIGNANT NEOPLASM OF UNSPECIFIED LUNG (5) Renal mass Code(s): N28.89 - OTHER SPECIFIED DISORDERS OF KIDNEY AND URETER (6) TERRA (acute kidney injury) Code(s): N17.9 - ACUTE KIDNEY FAILURE, UNSPECIFIED (7) Back pain Code(s): M54.9 - DORSALGIA, UNSPECIFIED Qualifiers: Back pain location: low back pain (8) CAD (coronary artery disease) of artery bypass graft Code(s): I25.810 - ATHEROSCLEROSIS OF CABG W/O ANGINA PECTORIS (9) Pneumonia Code(s): J18.9 - PNEUMONIA, UNSPECIFIED ORGANISM Qualifiers: (10) UTI (lower urinary tract infection) Code(s): N39.0 - URINARY TRACT INFECTION, SITE NOT SPECIFIED
--- NOTE | 2016-06-30 17:11 | PN ---
Progress Note, Physician History of Present Illness: Lethargic Breathing non-labored Afebrile - Current Medication List Current Medications: Active Medications Amlodipine Besylate (Norvasc -) 5 mg PO DAILY [facility] Last Admin: 06/30/16 10:56 Dose: 5 mg Buspirone HCl (Buspar -) 5 mg PO BID [facility] Last Admin: 06/30/16 10:58 Dose: 5 mg Ceftriaxone Sodium (Rocephin 1gm Ivpb (Pre-Docked)) 1 gm IVPB DAILY [facility] Last Admin: 06/30/16 10:55 Dose: 1 gm Clonazepam (Klonopin -) 1 mg PO HS [facility] Last Admin: 06/29/16 21:17 Dose: 1 mg Docusate Sodium (Colace -) 100 mg PO TID [facility] Last Admin: 06/30/16 15:32 Dose: 100 mg Finasteride (Proscar -) 5 mg PO DAILY [facility] Last Admin: 06/30/16 10:56 Dose: 5 mg Heparin Sodium (Porcine) (Heparin -) 5,000 unit SQ BID [facility] Last Admin: 06/30/16 10:56 Dose: 5,000 unit Dextrose/Sodium Chloride (D5-1/2ns -) 1,000 mls @ 83 mls/hr IV ASDIR [facility] Last Admin: 06/29/16 21:34 Dose: 83 mls/hr Levothyroxine Sodium (Synthroid -) 50 mcg PO ACBK [facility] Last Admin: 06/30/16 10:54 Dose: Not Given Meclizine HCl (Antivert -) 25 mg PO HS [facility] Last Admin: 06/29/16 21:18 Dose: 25 mg Metoprolol Succinate (Toprol Xl -) 50 mg PO BID [facility] Last Admin: 06/30/16 10:55 Dose: 50 mg Morphine Sulfate (Ms Contin -) 30 mg PO TID [facility] Last Admin: 06/30/16 15:32 Dose: 30 mg Non-Formulary Medication (Naloxegol Oxalate [Movantik]) 25 mg PO DAILY [facility] Last Admin: 06/30/16 10:57 Dose: 25 mg Qybfu-4-Jqxq Ethyl Esters (Lovaza -) 2 gm PO BID [facility] Last Admin: 06/30/16 10:58 Dose: 2 gm Ondansetron HCl (Zofran Injection) 4 mg IVPB Q6H PRN PRN Reason: NAUSEA Last Admin: 06/28/16 20:22 Dose: 4 mg Oxycodone HCl (Roxicodone -) 10 mg PO Q4H PRN PRN Reason: PAIN Last Admin: 06/29/16 18:08 Dose: 10 mg Pantoprazole Sodium (Protonix -) 40 mg PO BID [facility] Last Admin: 06/30/16 10:56 Dose: 40 mg Polyethylene Glycol (Miralax (For Daily Use) -) 17 gm PO DAILY [facility] Last Admin: 06/30/16 10:57 Dose: 17 gm - Objective Vital Signs: Vital Signs Temperature 98.4 F 06/30/16 15:06 Pulse Rate 98 H 06/30/16 15:06 Respiratory Rate 22 06/30/16 15:06 Blood Pressure 144/85 06/30/16 15:06 O2 Sat by Pulse Oximetry (%) 96 06/29/16 22:00 Constitutional: Yes: No Distress Eyes: Yes: Conjunctiva Clear Cardiovascular: Yes: Regular Rate and Rhythm, S1, S2 Respiratory: Yes: Diminished Gastrointestinal: Yes: Normal Bowel Sounds, Soft. No: Tenderness Edema: No Labs: CBC, BMP 06/30/16 09:20 06/30/16 09:20 Assessment/Plan LLL pneumonia Metastatic prostate ca Azotemia D/C antibiotics, 0bserve
[2016-06-30] MEDS ORDERED: PT OWN MED DRAWER 7, Y5N ONE (21:41)
[2016-06-30] MEDS: clonazePAM 0.5 MG TABLET PO SCH (21:44)
[2016-06-30] MEDS: MECLIZINE HCL 25 MG TABLET (FP) PO SCH (21:45)
[2016-06-30] MEDS: DEXTROSE 5%-0.45% SALINE 1,000 ML IV SCH (21:59)
[2016-07-01] MEDS: DOCUSATE SODIUM 100 MG CAPSULE (FP) PO SCH ×3 (05:04→23:22)
[2016-07-01] MEDS: morphine SO4 SUSTAINED ACTING 30 MG TABLET.SA PO SCH ×3 (05:05→15:30)
[2016-07-01] MEDS: LEVOTHYROXINE NA 50 MCG TABLET (FP) PO SCH (06:03)
[2016-07-01 07:07] LABS: BASOPHIL 0.9 % (0-2.0); EOSINOPHIL 2.9 % (0-4.5); MEAN CELL VOLUME 91.1 fl (80-96); MEAN PLT VOLUME 7.8 fl (7.5-11.1); NEUTROPHILS 65.2 % (42.8-82.8); PLATELET COUNT 213 K/MM3 (134-434); RDW 14.8 % (11.9-15.9); WHITE BLOOD COUNT 5.1 K/mm3 (4.0-10.0)
[2016-07-01 07:36] LABS: ALBUMIN 2.6 g/dl (3.4-5.0); CALCIUM 10.7 mg/dL (8.5-10.1); MAGNESIUM 1.9 mg/dL (1.8-2.4); PHOSPHOROUS 2.9 mg/dL (2.5-4.9)
[2016-07-01 07:38] LABS: BILIRUBIN,TOTAL 0.2 mg/dL (0.2-1.0); CREATININE 1.3 mg/dL (0.7-1.3); TOT PROT 5.9 g/dl (6.4-8.2)
--- NOTE | 2016-07-01 07:45 | PN ---
Progress Note, Physician History of Present Illness: periods of confusion-- alert in bed nad - Current Medication List Current Medications: Active Medications Amlodipine Besylate (Norvasc -) 5 mg PO DAILY [facility] Last Admin: 06/30/16 10:56 Dose: 5 mg Buspirone HCl (Buspar -) 5 mg PO BID [facility] Last Admin: 06/30/16 21:45 Dose: 5 mg Clonazepam (Klonopin -) 1 mg PO [facility] Last Admin: 06/30/16 21:44 Dose: 1 mg Docusate Sodium (Colace -) 100 mg PO TID [facility] Last Admin: 07/01/16 05:04 Dose: 100 mg Finasteride (Proscar -) 5 mg PO DAILY [facility] Last Admin: 06/30/16 10:56 Dose: 5 mg Heparin Sodium (Porcine) (Heparin -) 5,000 unit SQ BID [facility] Last Admin: 06/30/16 21:45 Dose: 5,000 unit Levothyroxine Sodium (Synthroid -) 50 mcg PO ACBK [facility] Last Admin: 07/01/16 06:03 Dose: 50 mcg Meclizine HCl (Antivert -) 25 mg PO [facility] Last Admin: 06/30/16 21:45 Dose: 25 mg Metoprolol Succinate (Toprol Xl -) 50 mg PO BID [facility] Last Admin: 06/30/16 21:45 Dose: 50 mg Morphine Sulfate (Ms Contin -) 30 mg PO TID [facility] Last Admin: 07/01/16 05:05 Dose: 30 mg Non-Formulary Medication (Naloxegol Oxalate [Movantik]) 25 mg PO DAILY [facility] Last Admin: 06/30/16 10:57 Dose: 25 mg [id number]-9-[id number] Ethyl Esters (Lovaza -) 2 gm PO BID [facility] Last Admin: 06/30/16 22:44 Dose: 2 gm Ondansetron HCl (Zofran Injection) 4 mg IVPB Q6H PRN PRN Reason: NAUSEA Last Admin: 06/28/16 20:22 Dose: 4 mg Oxycodone HCl (Roxicodone -) 10 mg PO Q4H PRN PRN Reason: PAIN Last Admin: 06/29/16 18:08 Dose: 10 mg Pantoprazole Sodium (Protonix -) 40 mg PO BID [facility] Last Admin: 06/30/16 21:44 Dose: 40 mg Polyethylene Glycol (Miralax (For Daily Use) -) 17 gm PO DAILY [facility] Last Admin: 06/30/16 10:57 Dose: 17 gm - Objective Vital Signs: Vital Signs Temperature 98.5 F 07/01/16 06:00 Pulse Rate 80 07/01/16 06:00 Respiratory Rate 20 07/01/16 06:00 Blood Pressure 153/78 07/01/16 06:00 O2 Sat by Pulse Oximetry (%) 95 06/30/16 21:00 Cardiovascular: Yes: Regular Rate and Rhythm Respiratory: Yes: Regular, CTA Bilaterally Gastrointestinal: Yes: Normal Bowel Sounds, Soft Labs: CBC, BMP 07/01/16 06:00 Problem List - Problems (1) Confusion Code(s): R41.0 - DISORIENTATION, UNSPECIFIED (2) Prostate ca Code(s): C61 - MALIGNANT NEOPLASM OF PROSTATE (3) CAD (coronary artery disease) of artery bypass graft Code(s): I25.810 - ATHEROSCLEROSIS OF CABG W/O ANGINA PECTORIS (4) Pneumonia Code(s): J18.9 - PNEUMONIA, UNSPECIFIED ORGANISM Qualifiers: (5) Hyperkalemia Code(s): E87.5 - HYPERKALEMIA (6) Pulmonary metastases Code(s): C78.00 - SECONDARY MALIGNANT NEOPLASM OF UNSPECIFIED LUNG (7) Renal mass Code(s): N28.89 - OTHER SPECIFIED DISORDERS OF KIDNEY AND URETER Assessment/Plan Problems (1) Confusion Assessment/Plan: MAYBE DUE TO PNA/DEMENTIA--NOW HYPERCALCEMIA R/O METS--UNABLE TO DO MRI DUE TO STENTS??? NEURO F/U--MRI NOTED --NO METS DC IVF MONITOR Code(s): R41.0 - DISORIENTATION, UNSPECIFIED (2) Prostate ca Assessment/Plan: URO CONSULT NOTED-- DC ZHONG Code(s): C61 - MALIGNANT NEOPLASM OF PROSTATE (3) CAD (coronary artery disease) of artery bypass graft Assessment/Plan: NO CP Code(s): I25.810 - ATHEROSCLEROSIS OF CABG W/O ANGINA PECTORIS (4) Pneumonia Assessment/Plan: DC IV ABX--F/U CXR NOTED ID CONSULT AND F/U NOTED Code(s): J18.9 - PNEUMONIA, UNSPECIFIED ORGANISM Qualifiers: (5) Hypercalcemia Assessment/Plan: maybe due to malignancy monitor labs as outpatient oncology consult ON BOARD (6) Pulmonary metastases Assessment/Plan: PULM CONSULT NOTED-- I DISCUSSED WITH FAMILY FURTHER RX ONCE INFECTIOUS PROCESS RESOLVES AND IF FAMILY WANTS TO PURSUE Code(s): C78.00 - SECONDARY MALIGNANT NEOPLASM OF UNSPECIFIED LUNG (7) Renal mass Assessment/Plan: UROLOGY CONSULT--D/W DR MAC--CONSIDER CT WITH CONTRAST VS BIOPSY--WILL DISCUSS Code(s): N28.89 - OTHER SPECIFIED DISORDERS OF KIDNEY AND URETER DC PLANNING--POSSIBLE SNF IF FAMILY AGREES--
[2016-07-01] MEDS: PATIENT'S OWN MEDICATION (NON-FORMULARY) (Naloxegol Oxalate [Movantik] 25 MG) PO SCH ×2 (11:07→14:49)
[2016-07-01] MEDS: HEPARIN NA (PORCINE) 5,000 UNITS/ML 1ML VIAL SQ SCH ×3 (11:08→23:23)
[2016-07-01] MEDS: OMEGA-3 ACID ETHYL ESTERS (FATTY-ACIDS) 1 GM CAPSULE (FP) PO SCH ×3 (11:08→23:23)
[2016-07-01] MEDS: busPIRone HCL 5 MG TABLET PO SCH ×3 (11:08→23:18)
[2016-07-01] MEDS: amLODIPine BESYLATE 5 MG TABLET (FP) PO SCH ×2 (11:09→14:49)
[2016-07-01] MEDS: FINASTERIDE 5 MG TABLET (FP) PO SCH ×2 (11:09→14:50)
[2016-07-01] MEDS: PANTOPRAZOLE 40 MG TABLET (FP) PO SCH ×3 (11:09→23:19)
[2016-07-01] MEDS: METOPROLOL SUCCINATE 50 MG TAB.SR.24H (FP) PO SCH ×3 (11:09→23:22)
[2016-07-01] MEDS: POLYETHYLENE GLYCOL 3350 119 GM BTL PO SCH (11:11)
--- NOTE | 2016-07-01 12:22 | PN ---
Progress Note (short form) - Note Progress Note: Renal Follow up for TERRA/Hyperkalemia Pt seen and examined at the bedside awake and alert no overnight events off IVF as of this AM good urine output pham removed this am Vital Signs Temperature 98.2 F 07/01/16 10:00 Pulse Rate 112 H 07/01/16 10:00 Respiratory Rate 20 07/01/16 10:00 Blood Pressure 162/98 07/01/16 10:00 O2 Sat by Pulse Oximetry (%) 95 06/30/16 21:00 Intake & Output 06/28/16 06/29/16 06/30/16 07/01/16 23:59 23:59 23:59 23:59 Intake Total 630 1496 2068 581 Output Total 750 1400 1050 800 Balance -460 64 7557 -219 Gen: NAD, CVS: RRR, No M/R Lungs: Dec BS at lung bases Abd: soft, NT Ext: No edema, clubbing or cyanosis : Pham removed, no bladder distension CBC, BMP 07/01/16 06:00 07/01/16 06:00 Current Medications Amlodipine Besylate (Norvasc -) 5 mg PO DAILY [facility] Last Admin: 07/01/16 11:09 Dose: 5 mg Buspirone HCl (Buspar -) 5 mg PO BID [facility] Last Admin: 07/01/16 11:08 Dose: 5 mg Clonazepam (Klonopin -) 1 mg PO HS [facility] Last Admin: 06/30/16 21:44 Dose: 1 mg Docusate Sodium (Colace -) 100 mg PO TID [facility] Last Admin: 07/01/16 05:04 Dose: 100 mg Finasteride (Proscar -) 5 mg PO DAILY [facility] Last Admin: 07/01/16 11:09 Dose: 5 mg Heparin Sodium (Porcine) (Heparin -) 5,000 unit SQ BID [facility] Last Admin: 07/01/16 11:08 Dose: 5,000 unit Levothyroxine Sodium (Synthroid -) 50 mcg PO ACBK [facility] Last Admin: 07/01/16 06:03 Dose: 50 mcg Meclizine HCl (Antivert -) 25 mg PO HS [facility] Last Admin: 06/30/16 21:45 Dose: 25 mg Metoprolol Succinate (Toprol Xl -) 50 mg PO BID [facility] Last Admin: 07/01/16 11:09 Dose: 50 mg Morphine Sulfate (Ms Contin -) 30 mg PO TID [facility] Last Admin: 07/01/16 05:05 Dose: 30 mg Non-Formulary Medication (Naloxegol Oxalate [Movantik]) 25 mg PO DAILY [facility] Last Admin: 07/01/16 11:07 Dose: 25 mg Vhxwo-2-Ysvs Ethyl Esters (Lovaza -) 2 gm PO BID [facility] Last Admin: 07/01/16 11:08 Dose: 2 gm Ondansetron HCl (Zofran Injection) 4 mg IVPB Q6H PRN PRN Reason: NAUSEA Last Admin: 06/28/16 20:22 Dose: 4 mg Oxycodone HCl (Roxicodone -) 10 mg PO Q4H PRN PRN Reason: PAIN Last Admin: 06/29/16 18:08 Dose: 10 mg Pantoprazole Sodium (Protonix -) 40 mg PO BID [facility] Last Admin: 07/01/16 11:09 Dose: 40 mg Polyethylene Glycol (Miralax (For Daily Use) -) 17 gm PO DAILY [facility] Last Admin: 07/01/16 11:11 Dose: Not Given A/p 80 year old Gentleman with PMhx of Metastatic Prostate Ca, Hypertension, Hyperlipidemia, CAD s/p Cardiac Stents, DM who presented with worsening MS for the past several months as per her daughter and found to have multiple abd mets and TERRA with BUN/Cr of 29/1.5 (baseline Cr 1.1) and hyperkalemia with K of 6. #Acute Kidney Injury Renal function improved off IVF Pham discontinued, trend renal function and urine output #Hyperkalemia K is WNL now Trend daily #Hypercalcemia of malignancy Corrected Ca is 11.8 Check PTH - pending management as per oncology #AMS Work up as per neurology #Metastatic Prostate Ca with Renal mass Urology follow up Pham discontinued Continue Proscar and Flomax #Hypertension Continue amlodipine for now BP acceptable keep MAP .>65 avoid KEO/ARB for now Anatoliy Ryan DO
--- NOTE | 2016-07-01 15:29 | PN ---
Progress Note (short form) - Note Progress Note: NEUROLOGY FOLLOW-UP: Events reviewed, Patient examined. Normokalemic and more alert, but remains confused. MRI of Brain (reviewed): Moderate, diffuse, atrophy and multiple strokes including, B/L Basal ganglia and diffuse, microvascular disease. CARLOS A: No bruits. Still with pham (removed later today). In diaper. Neck supple. NEURO: Awake, alert. [facility] but not [facility]. Speech, fluent but confused. + Glabella Full ferrell. Gag OK Moves all fours well. Normal reflexes except AJ's Feels touch throughout IMP: Non-focal exam sig for Moderate, bilateral cerebral dysfunction. Probably a more chronic, underlying OMS (as suggested by the MRI scan.) Better than on admission this time-improving. No suggestion of [employer] Mets. Suggest: Continue current Rx and supportive care. Check ammonia level (liver mets), B12, TSH, RPR. Mobilize OO bed to chair. Thank you very much, Wayne Isidro MD
[2016-07-01] MEDS ORDERED: PT OWN MED DRAWER 7, Y5N ONE (23:11)
[2016-07-01] MEDS: clonazePAM 0.5 MG TABLET PO SCH (23:23)
[2016-07-02] MEDS: LEVOTHYROXINE NA 50 MCG TABLET (FP) PO SCH (06:35)
[2016-07-02] MEDS: DOCUSATE SODIUM 100 MG CAPSULE (FP) PO SCH ×4 (06:35→21:56)
[2016-07-02 07:35] LABS: ALBUMIN 2.7 g/dl (3.4-5.0); BILIRUBIN,TOTAL 0.2 mg/dL (0.2-1.0); CALCIUM 11.7 mg/dL (8.5-10.1); CREATININE 1.3 mg/dL (0.7-1.3); TOT PROT 6.1 g/dl (6.4-8.2)
[2016-07-02 07:44] LABS: THYROID STIMULATING HORMONE 0.24 uIU/ml (0.358-3.74)
[2016-07-02] MEDS ORDERED: PT OWN MED DRAWER 7, Y5N ONE ×2 (09:08→20:40)
[2016-07-02] MEDS: HEPARIN NA (PORCINE) 5,000 UNITS/ML 1ML VIAL SQ SCH ×3 (10:05→21:57)
[2016-07-02] MEDS: POLYETHYLENE GLYCOL 3350 119 GM BTL PO SCH (10:05)
[2016-07-02] MEDS: OMEGA-3 ACID ETHYL ESTERS (FATTY-ACIDS) 1 GM CAPSULE (FP) PO SCH ×3 (10:05→21:56)
[2016-07-02] MEDS: PATIENT'S OWN MEDICATION (NON-FORMULARY) (Naloxegol Oxalate [Movantik] 25 MG) PO SCH (10:06)
[2016-07-02] MEDS: amLODIPine BESYLATE 5 MG TABLET (FP) PO SCH (10:07)
[2016-07-02] MEDS: PANTOPRAZOLE 40 MG TABLET (FP) PO SCH ×2 (10:07→21:36)
[2016-07-02] MEDS: METOPROLOL SUCCINATE 50 MG TAB.SR.24H (FP) PO SCH ×2 (10:08→21:36)
[2016-07-02] MEDS: FINASTERIDE 5 MG TABLET (FP) PO SCH (10:22)
[2016-07-02] MEDS: oxyCODONE HCL 5 MG TABLET PO PRN ×3 (10:23→21:38)
--- NOTE | 2016-07-02 10:44 | PN ---
Progress Note (short form) - Note Progress Note: Renal Follow up for TERRA/Hyperkalemia Pt seen and examined at the bedside awake and alert daughter at the bedside reports that her dad is still confused eatting a little amount urinating w/o pham Vital Signs Temperature 98.7 F 07/02/16 10:00 Pulse Rate 78 07/02/16 10:00 Respiratory Rate 20 07/02/16 10:00 Blood Pressure 178/79 07/02/16 10:00 O2 Sat by Pulse Oximetry (%) 98 07/01/16 20:58 Intake & Output 06/29/16 06/30/16 07/01/16 07/02/16 23:59 23:59 23:59 23:59 Intake Total 1496 2068 981 Output Total 1400 1050 1100 Balance 96 1018 -119 Gen: NAD, CVS: RRR, No M/R Lungs: Dec BS at lung bases Abd: soft, NT Ext: No edema, clubbing or cyanosis : Pham removed, no bladder distension CBC, BMP 07/01/16 06:00 07/02/16 05:45 Current Medications Amlodipine Besylate (Norvasc -) 5 mg PO DAILY [facility] Last Admin: 07/02/16 10:07 Dose: 5 mg Buspirone HCl (Buspar -) 5 mg PO BID [facility] Last Admin: 07/01/16 23:18 Dose: 5 mg Clonazepam (Klonopin -) 1 mg PO HS [facility] Last Admin: 07/01/16 23:23 Dose: 1 mg Docusate Sodium (Colace -) 100 mg PO TID [facility] Last Admin: 07/02/16 06:35 Dose: Not Given Finasteride (Proscar -) 5 mg PO DAILY [facility] Last Admin: 07/02/16 10:22 Dose: 5 mg Heparin Sodium (Porcine) (Heparin -) 5,000 unit SQ BID [facility] Last Admin: 07/02/16 10:05 Dose: 5,000 unit Levothyroxine Sodium (Synthroid -) 50 mcg PO ACBK [facility] Last Admin: 07/02/16 06:35 Dose: Not Given Metoprolol Succinate (Toprol Xl -) 50 mg PO BID [facility] Last Admin: 07/02/16 10:08 Dose: 50 mg Non-Formulary Medication (Naloxegol Oxalate [Movantik]) 25 mg PO DAILY [facility] Last Admin: 07/02/16 10:06 Dose: 25 mg Gghlw-3-Otcs Ethyl Esters (Lovaza -) 2 gm PO BID [facility] Last Admin: 07/02/16 10:05 Dose: Not Given Ondansetron HCl (Zofran Injection) 4 mg IVPB Q6H PRN PRN Reason: NAUSEA Last Admin: 06/28/16 20:22 Dose: 4 mg Oxycodone HCl (Roxicodone -) 10 mg PO Q4H PRN PRN Reason: PAIN Last Admin: 07/02/16 10:23 Dose: 10 mg Pantoprazole Sodium (Protonix -) 40 mg PO BID [facility] Last Admin: 07/02/16 10:07 Dose: 40 mg Polyethylene Glycol (Miralax (For Daily Use) -) 17 gm PO DAILY [facility] Last Admin: 07/02/16 10:05 Dose: 17 gm A/p 80 year old Gentleman with PMhx of Metastatic Prostate Ca, Hypertension, Hyperlipidemia, CAD s/p Cardiac Stents, DM who presented with worsening MS for the past several months as per her daughter and found to have multiple abd mets and TERRA with BUN/Cr of 29/1.5 (baseline Cr 1.1) and hyperkalemia with K of 6. #Acute Kidney Injury Renal function improved Pham removed and pt is voiding continue to trend renal function #Hypercalcemia of malignancy PTH pending Trend Ca not currently on IVF #AMS Work up as per neurology #Metastatic Prostate Ca with Renal mass Urology follow up Pham discontinued Continue Proscar and Flomax #Hypertension Increase amlodpine to 140mg BP above goal keep MAP .>65 avoid KEO/ARB for now Anatoliy Ryan DO
[2016-07-02] MEDS ORDERED: amLODIPine BESYLATE 5 MG TABLET (FP) PO ONE (11:00)
--- NOTE | 2016-07-02 11:34 | PN ---
Progress Note, Physician History of Present Illness: periods of confusion-- alert in bed nad - Current Medication List Current Medications: Active Medications Amlodipine Besylate (Norvasc -) 10 mg PO DAILY [facility] Buspirone HCl (Buspar -) 5 mg PO BID [facility] Last Admin: 07/01/16 23:18 Dose: 5 mg Clonazepam (Klonopin -) 1 mg PO HS [facility] Last Admin: 07/01/16 23:23 Dose: 1 mg Docusate Sodium (Colace -) 100 mg PO TID [facility] Last Admin: 07/02/16 06:35 Dose: Not Given Finasteride (Proscar -) 5 mg PO DAILY [facility] Last Admin: 07/02/16 10:22 Dose: 5 mg Heparin Sodium (Porcine) (Heparin -) 5,000 unit SQ BID [facility] Last Admin: 07/02/16 10:05 Dose: 5,000 unit Levothyroxine Sodium (Synthroid -) 50 mcg PO ACBK [facility] Last Admin: 07/02/16 06:35 Dose: Not Given Metoprolol Succinate (Toprol Xl -) 50 mg PO BID [facility] Last Admin: 07/02/16 10:08 Dose: 50 mg Non-Formulary Medication (Naloxegol Oxalate [Movantik]) 25 mg PO DAILY [facility] Last Admin: 07/02/16 10:06 Dose: 25 mg Bneud-8-Reej Ethyl Esters (Lovaza -) 2 gm PO BID [facility] Last Admin: 07/02/16 10:05 Dose: Not Given Ondansetron HCl (Zofran Injection) 4 mg IVPB Q6H PRN PRN Reason: NAUSEA Last Admin: 06/28/16 20:22 Dose: 4 mg Oxycodone HCl (Roxicodone -) 10 mg PO Q4H PRN PRN Reason: PAIN Last Admin: 07/02/16 10:23 Dose: 10 mg Pantoprazole Sodium (Protonix -) 40 mg PO BID [facility] Last Admin: 07/02/16 10:07 Dose: 40 mg Polyethylene Glycol (Miralax (For Daily Use) -) 17 gm PO DAILY [facility] Last Admin: 07/02/16 10:05 Dose: 17 gm - Objective Vital Signs: Vital Signs Temperature 98.7 F 07/02/16 10:00 Pulse Rate 78 07/02/16 10:00 Respiratory Rate 20 07/02/16 10:00 Blood Pressure 178/79 07/02/16 10:00 O2 Sat by Pulse Oximetry (%) 98 07/01/16 20:58 Cardiovascular: Yes: S1, S2 Respiratory: Yes: Regular, CTA Bilaterally Gastrointestinal: Yes: Normal Bowel Sounds, Soft. No: Tenderness Labs: CBC, BMP 07/01/16 06:00 07/02/16 05:45 Problem List - Problems (1) Confusion Assessment/Plan: H/O DEMENTIA DUE TO PNA MONITOR Code(s): R41.0 - DISORIENTATION, UNSPECIFIED (2) Prostate ca Assessment/Plan: URO CONSULT Code(s): C61 - MALIGNANT NEOPLASM OF PROSTATE (3) CAD (coronary artery disease) of artery bypass graft Assessment/Plan: NO CP Code(s): I25.810 - ATHEROSCLEROSIS OF CABG W/O ANGINA PECTORIS (4) Pneumonia Assessment/Plan: IV ABX ID CONSULT Code(s): J18.9 - PNEUMONIA, UNSPECIFIED ORGANISM Qualifiers: (5) Hyperkalemia Assessment/Plan: S/P KAYAXELATE--K 4.3 RENAL LABS PENDING Code(s): E87.5 - HYPERKALEMIA (6) Pulmonary metastases Assessment/Plan: PULM CONSULT NOTED--WILL D/W FAMILY Code(s): C78.00 - SECONDARY MALIGNANT NEOPLASM OF UNSPECIFIED LUNG (7) Renal mass Assessment/Plan: UROLOGY CONSULT Code(s): N28.89 - OTHER SPECIFIED DISORDERS OF KIDNEY AND URETER Assessment/Plan D/W PT DAUGHTER REGARDING PROGNOSIS AND PLAN REGARDING PEG AND COMFORT
[2016-07-02] MEDS: busPIRone HCL 5 MG TABLET PO SCH ×2 (11:52→21:35)
--- NOTE | 2016-07-02 15:38 | CON.GI ---
Consult Consult Specialty:: gastroenterology Referred by:: Dr Lucila Li Reason for Consultation:: evaluation for gastrostomy tube placement - History of Present Illness History of Present Illness: 80 year old Gentleman with PMhx of Metastatic Prostate Ca, Hypertension, Hyperlipidemia, CAD s/p Cardiac Stents, DM who presented with worsening mental status for the past several months and found to have multiple lung mets and TERRA with BUN/Cr of 29/1.5 (baseline Cr 1.1) and hyperkalemia with K of 6. Patient noted to have multiple lacunar infarcts.He has episodes of confusion associated with poor po intake. - Past Medical History Cardio/Vascular: Yes: CAD (denies [place], but had CABG (no details)), HTN, Hyperlipdemia Gastrointestinal: Yes: Constipation Renal/: Yes: Renal Failure, Cancer (metastatic prostate) Musculoskeletal: Yes: Chronic low back pain, Paraplegia - Past Surgical History Past Surgical History: Yes: CABG, Laminectomy - Alcohol/Substance Use Hx Alcohol Use: No - Smoking History Smoking history: Former smoker (over 15 ya) Have you smoked in the past 12 months: No Aproximately how many cigarettes per day: 0 If you are a former smoker, when did you quit?: Over 58 years ago - Social History Usual Living Arrangement: With Child ADL: Support Services (has [employer]ATION [employer] 8 hours x7 days) Home Medications - Allergies Allergies/Adverse Reactions: Allergies Allergy/AdvReac Type Severity Reaction Status Date / Time No Known Allergies Allergy Verified 06/27/16 16:30 - Home Medications Home Medications: Ambulatory Orders Buspirone HCl [Buspar -] 5 mg PO BID 08/26/15 Levothyroxine [Synthroid -] 50 mcg PO DAILY 08/26/15 Meclizine HCl 25 mg PO HS PRN 08/26/15 Metoprolol Succinate [Toprol Xl] 50 mg PO DAILY 08/26/15 Morphine Sulfate 30 mg PO TID PRN 08/26/15 Albuterol Sulfate [Proair Respiclick] 90 mcg IH QID PRN 11/30/15 Calcium Citrate [Calcitrate] 950 mg PO DAILY 11/30/15 Clonazepam [Klonopin] 1 mg PO HS PRN 11/30/15 Esomeprazole Magnesium [Nexium] 40 mg PO DAILY 11/30/15 Finasteride 5 mg PO DAILY 11/30/15 Albuterol Sulfate 0.042% [Ventolin 0.042% (Half-Strength) -] 1 amp NEB PRN PRN 05/12/16 Ergocalciferol [Drisdol -] 50,000 unit PO DAILY 05/12/16 Ipratropium 0.02% Nebulizer [Atrovent 0.02% Nebulizer -] 1 amp NEB PRN PRN 05/12 Amlodipine Besylate [Norvasc -] 5 mg PO DAILY 06/22/16 Icosapent Ethyl [Vascepa] 2 gm PO BID 06/22/16 Naloxegol Oxalate [Movantik] 25 mg PO DAILY 06/22/16 Oxycodone HCl/Acetaminophen [Endocet 7.5-325 mg Tablet] 1 each PO TID 06/22/16 Pitavastatin Calcium [Livalo] 2 mg PO DAILY 06/22/16 Roflumilast [Daliresp] 500 mcg PO DAILY 06/22/16 Tiotropium [place] [Spiriva] 1 inh PO DAILY 06/22/16 Review of Systems Unable to obtain ROS, reason: confused Physical Exam-GI Vital Signs: Vital Signs Temperature 98.7 F 07/02/16 10:00 Pulse Rate 78 07/02/16 10:00 Respiratory Rate 20 07/02/16 10:00 Blood Pressure 178/79 07/02/16 10:00 O2 Sat by Pulse Oximetry (%) 98 07/02/16 09:00 Constitutional: Yes: Well Nourished Eyes: Yes: Conjunctiva Clear HENT: Yes: Atraumatic Neck: Yes: Supple Cardiovascular: Yes: Regular Rate and Rhythm Respiratory: Yes: CTA Bilaterally ...Palpate: Yes: Soft. No: Firm/Rigid, Guarding, Hepatomegaly, Mass, Pulsatile Mass, Splenomegaly Labs: CBC, BMP 07/01/16 06:00 07/02/16 05:45 Problem List - Problems (1) Poor fluid intake Assessment/Plan: poor appetite secondary lacunar infarcts leading to confusion and dementia R> discucced possible PEG insertion with her sisters and brother as patient has no capacity to make medical decisions concern of patient pulling out the tube was discussed with the family Code(s): R63.8 - OTHER SYMPTOMS AND SIGNS CONCERNING FOOD AND FLUID INTAKE
--- NOTE | 2016-07-02 19:48 | PN ---
Progress Note (short form) - Note Progress Note: NEUROLOGY FOLLOW-up: Events reviewed. Pt examined with family at bedside. Case discussed with family. Questions answered. Ammonia level is normal but TSH is low. Pain relief is adequate on oxycodone without standing MS. No c/o dizziness off meclizine. However, Pt remains confused and is oriented to "the hill over there." + Glabella, snout, suck. Non-focal exam. No drift. Moves all fours well. 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 MRI suggests more chronic features of possible underlying OMS. Suggest: Continue supportive care. Use lowest amount of narcotics required. Mobilize out of bed to chair and PT for gait with walker. Thank you very much, Wayne Isidro MD
[2016-07-02] MEDS: clonazePAM 0.5 MG TABLET PO SCH (21:36)
--- NOTE | 2016-07-02 22:01 | PN ---
Progress Note (short form) - Note Progress Note: Patient seen and examined Denies any c/o follows simple commands Last Vital Signs Temp Pulse Resp BP Pulse Ox 98.7 F 78 20 178/79 98 07/02/16 10:00 07/02/16 10:00 07/02/16 10:00 07/02/16 10:00 07/02/16 09:00 Cor: RSR, No murmurs, No gallops Lungs: decreased at bases Abd: Soft, Normal bowel sounds, No organomegaly Ext:No significant edema Skin: No rashes, Integument intact Abnormal Lab Results 07/02/16 05:45 Anion Gap 7 L BUN 26 H Calcium 11.7 H AST 12 L Alkaline Phosphatase 151 H Total Protein 6.1 L Albumin 2.7 L TSH 0.24 L D Current Medications Amlodipine Besylate (Norvasc -) 10 mg PO DAILY [facility] Buspirone HCl (Buspar -) 5 mg PO BID [facility] Last Admin: 07/02/16 21:35 Dose: 5 mg Clonazepam (Klonopin -) 1 mg PO HS [facility] Last Admin: 07/02/16 21:36 Dose: 1 mg Docusate Sodium (Colace -) 100 mg PO TID [facility] Last Admin: 07/02/16 21:56 Dose: Not Given Finasteride (Proscar -) 5 mg PO DAILY [facility] Last Admin: 07/02/16 10:22 Dose: 5 mg Heparin Sodium (Porcine) (Heparin -) 5,000 unit SQ BID [facility] Last Admin: 07/02/16 21:57 Dose: Not Given Levothyroxine Sodium (Synthroid -) 50 mcg PO ACBK [facility] Last Admin: 07/02/16 06:35 Dose: Not Given Metoprolol Succinate (Toprol Xl -) 50 mg PO BID [facility] Last Admin: 07/02/16 21:36 Dose: 50 mg Non-Formulary Medication (Naloxegol Oxalate [Movantik]) 25 mg PO DAILY [facility] Last Admin: 07/02/16 10:06 Dose: 25 mg Vbzyt-4-Funf Ethyl Esters (Lovaza -) 2 gm PO BID [facility] Last Admin: 07/02/16 21:56 Dose: Not Given Ondansetron HCl (Zofran Injection) 4 mg IVPB Q6H PRN PRN Reason: NAUSEA Last Admin: 06/28/16 20:22 Dose: 4 mg Oxycodone HCl (Roxicodone -) 10 mg PO Q4H PRN PRN Reason: PAIN Last Admin: 07/02/16 21:38 Dose: 10 mg Pantoprazole Sodium (Protonix -) 40 mg PO BID [facility] Last Admin: 07/02/16 21:36 Dose: 40 mg Polyethylene Glycol (Miralax (For Daily Use) -) 17 gm PO DAILY [facility] Last Admin: 07/02/16 10:05 Dose: 17 gm A/P 80 year old Gentleman with PMhx of Metastatic Prostate Ca, Hypertension, Hyperlipidemia, CAD s/p Cardiac Stents, DM who presented with worsening mental status for the past several months and found to have multiple lung mets and TERRA with BUN/Cr of 29/1.5 (baseline Cr 1.1) and hyperkalemia with K of 6. mild hypercalcemia renal function improved will dose zometa check PSA neuro imput noted---chronic organic mental syndrome discussed with daughter at bed side about metastaic ling nodules/poor performance status
[2016-07-03] MEDS: DOCUSATE SODIUM 100 MG CAPSULE (FP) PO SCH ×3 (05:41→21:43)
[2016-07-03] MEDS: LEVOTHYROXINE NA 50 MCG TABLET (FP) PO SCH (05:59)
--- NOTE | 2016-07-03 08:21 | PN ---
Progress Note, Physician History of Present Illness: periods of confusion-- alert in bed nad - Current Medication List Current Medications: Active Medications Amlodipine Besylate (Norvasc -) 10 mg PO DAILY [facility] Buspirone HCl (Buspar -) 5 mg PO BID [facility] Last Admin: 07/02/16 21:35 Dose: 5 mg Clonazepam (Klonopin -) 0.5 mg PO HS [facility] Docusate Sodium (Colace -) 100 mg PO TID [facility] Last Admin: 07/03/16 05:41 Dose: 100 mg Finasteride (Proscar -) 5 mg PO DAILY [facility] Last Admin: 07/02/16 10:22 Dose: 5 mg Heparin Sodium (Porcine) (Heparin -) 5,000 unit SQ BID [facility] Last Admin: 07/02/16 21:57 Dose: Not Given Levothyroxine Sodium (Synthroid -) 50 mcg PO ACBK [facility] Last Admin: 07/03/16 05:59 Dose: 50 mcg Metoprolol Succinate (Toprol Xl -) 50 mg PO BID [facility] Last Admin: 07/02/16 21:36 Dose: 50 mg Non-Formulary Medication (Naloxegol Oxalate [Movantik]) 25 mg PO DAILY [facility] Last Admin: 07/02/16 10:06 Dose: 25 mg Vkejn-7-Igba Ethyl Esters (Lovaza -) 2 gm PO BID [facility] Last Admin: 07/02/16 21:56 Dose: Not Given Ondansetron HCl (Zofran Injection) 4 mg IVPB Q6H PRN PRN Reason: NAUSEA Last Admin: 06/28/16 20:22 Dose: 4 mg Oxycodone HCl (Roxicodone -) 10 mg PO Q4H PRN PRN Reason: PAIN Last Admin: 07/02/16 21:38 Dose: 10 mg Pantoprazole Sodium (Protonix -) 40 mg PO BID [facility] Last Admin: 07/02/16 21:36 Dose: 40 mg Polyethylene Glycol (Miralax (For Daily Use) -) 17 gm PO DAILY [facility] Last Admin: 07/02/16 10:05 Dose: 17 gm - Objective Vital Signs: Vital Signs Temperature 98.5 F 07/03/16 02:00 Pulse Rate 101 H 07/03/16 06:00 Respiratory Rate 20 07/03/16 02:00 Blood Pressure 164/92 07/03/16 06:00 O2 Sat by Pulse Oximetry (%) 96 07/02/16 21:00 Cardiovascular: Yes: S1, S2 Respiratory: Yes: Diminished, On Nasal O2 Gastrointestinal: Yes: Normal Bowel Sounds, Soft Problem List - Problems (1) Confusion Assessment/Plan: H/O DEMENTIA DUE TO PNA MONITOR Code(s): R41.0 - DISORIENTATION, UNSPECIFIED (2) Prostate ca Assessment/Plan: URO CONSULT Code(s): C61 - MALIGNANT NEOPLASM OF PROSTATE (3) CAD (coronary artery disease) of artery bypass graft Assessment/Plan: NO CP Code(s): I25.810 - ATHEROSCLEROSIS OF CABG W/O ANGINA PECTORIS (4) Pneumonia Assessment/Plan: IV ABX ID CONSULT Code(s): J18.9 - PNEUMONIA, UNSPECIFIED ORGANISM Qualifiers: (5) Pulmonary metastases Assessment/Plan: PULM CONSULT NOTED--WILL D/W FAMILY Code(s): C78.00 - SECONDARY MALIGNANT NEOPLASM OF UNSPECIFIED LUNG (6) Renal mass Assessment/Plan: UROLOGY CONSULT Code(s): N28.89 - OTHER SPECIFIED DISORDERS OF KIDNEY AND URETER Assessment/Plan D/W PT DAUGHTER REGARDING PROGNOSIS AND PLAN REGARDING PEG AND COMFORT
[2016-07-03 08:23] LABS: BASOPHIL 0.3 % (0-2.0); MCH 30.9 pg (25.7-33.7); MCHC 34.9 g/dl (32.0-35.9); MEAN CELL VOLUME 88.5 fl (80-96); MEAN PLT VOLUME 7.5 fl (7.5-11.1); NEUTROPHILS 91.8 % (42.8-82.8); PLATELET COUNT 269 K/MM3 (134-434); RDW 14.6 % (11.9-15.9)
[2016-07-03 08:50] LABS: ALBUMIN 3.1 g/dl (3.4-5.0); BILIRUBIN,TOTAL 0.3 mg/dL (0.2-1.0); CALCIUM 12.5 mg/dL (8.5-10.1); CREATININE 1.2 mg/dL (0.7-1.3); TOT PROT 7.3 g/dl (6.4-8.2)
[2016-07-03] MEDS: HEPARIN NA (PORCINE) 5,000 UNITS/ML 1ML VIAL SQ SCH ×2 (10:36→22:11)
[2016-07-03] MEDS: METOPROLOL SUCCINATE 50 MG TAB.SR.24H (FP) PO SCH ×2 (10:36→22:11)
[2016-07-03] MEDS: FINASTERIDE 5 MG TABLET (FP) PO SCH (10:36)
[2016-07-03] MEDS: amLODIPine BESYLATE 5 MG TABLET (FP) PO SCH (10:37)
[2016-07-03] MEDS: PATIENT'S OWN MEDICATION (NON-FORMULARY) (Naloxegol Oxalate [Movantik] 25 MG) PO SCH (10:38)
[2016-07-03] MEDS: POLYETHYLENE GLYCOL 3350 119 GM BTL PO SCH (10:38)
[2016-07-03] MEDS: OMEGA-3 ACID ETHYL ESTERS (FATTY-ACIDS) 1 GM CAPSULE (FP) PO SCH ×3 (10:38→21:43)
[2016-07-03] MEDS: busPIRone HCL 5 MG TABLET PO SCH ×2 (10:39→22:28)
[2016-07-03] MEDS: oxyCODONE HCL 5 MG TABLET PO PRN (12:41)
[2016-07-03] MEDS: PANTOPRAZOLE 40 MG TABLET (FP) PO SCH ×2 (14:22→22:28)
[2016-07-03] MEDS ORDERED: ZOLEDRONIC ACID 3 MG in SODIUM CHLORIDE 100 ML IVPB ONE (16:56)
[2016-07-03] MEDS ORDERED: ZOLEDRONIC ACID IVPB ONE (18:00)
[2016-07-03] MEDS ORDERED: SODIUM CHLORIDE IVPB ONE (18:00)
[2016-07-03] MEDS: SODIUM CHLORIDE 1,000 ML IV SCH (18:20)
--- NOTE | 2016-07-03 22:05 | PN ---
Progress Note (short form) - Note Progress Note: Patient seen and examined lethargic Last Vital Signs Temp Pulse Resp BP Pulse Ox 98.1 F 104 H 20 170/84 99 07/03/16 18:25 07/03/16 18:25 07/03/16 18:25 07/03/16 18:25 07/03/16 09:00 Cor: RSR, No murmurs, No gallops Lungs: decreased at bases Abd: Soft, Normal bowel sounds, No organomegaly Ext:No significant edema Skin: No rashes, Integument intact Abnormal Lab Results 07/03/16 07/03/16 06:20 06:20 RBC 3.28 L Hgb 10.1 L D Hct 29.0 L Neutrophils % 91.8 H D Lymphocytes % 6.0 L D Monocytes % 1.9 L Sodium 134 L BUN 24 H Random Glucose 151 H D Calcium 12.5 H AST 11 L Alkaline Phosphatase 173 H Albumin 3.1 L Current Medications Amlodipine Besylate (Norvasc -) 10 mg PO DAILY [facility] Last Admin: 07/03/16 10:37 Dose: 10 mg Buspirone HCl (Buspar -) 5 mg PO BID [facility] Last Admin: 07/03/16 10:39 Dose: 5 mg Clonazepam (Klonopin -) 0.5 mg PO HS [facility] Docusate Sodium (Colace -) 100 mg PO TID [facility] Last Admin: 07/03/16 21:43 Dose: Not Given Finasteride (Proscar -) 5 mg PO DAILY [facility] Last Admin: 07/03/16 10:36 Dose: 5 mg Heparin Sodium (Porcine) (Heparin -) 5,000 unit SQ BID [facility] Last Admin: 07/03/16 10:36 Dose: 5,000 unit Sodium Chloride (Normal Saline -) 1,000 mls @ 42 mls/hr IV ASDIR [facility] Last Admin: 07/03/16 18:20 Dose: 42 mls/hr Levothyroxine Sodium (Synthroid -) 50 mcg PO ACBK [facility] Last Admin: 07/03/16 05:59 Dose: 50 mcg Metoprolol Succinate (Toprol Xl -) 50 mg PO BID [facility] Last Admin: 07/03/16 10:36 Dose: 50 mg Non-Formulary Medication (Naloxegol Oxalate [Movantik]) 25 mg PO DAILY [facility] Last Admin: 07/03/16 10:38 Dose: 25 mg Yxvzq-5-Xrqy Ethyl Esters (Lovaza -) 2 gm PO BID [facility] Last Admin: 07/03/16 21:43 Dose: Not Given Ondansetron HCl (Zofran Injection) 4 mg IVPB Q6H PRN PRN Reason: NAUSEA Last Admin: 06/28/16 20:22 Dose: 4 mg Oxycodone HCl (Roxicodone -) 10 mg PO Q4H PRN PRN Reason: PAIN Last Admin: 07/03/16 12:41 Dose: 10 mg Pantoprazole Sodium (Protonix -) 40 mg PO BID [facility] Last Admin: 07/03/16 14:22 Dose: 40 mg Polyethylene Glycol (Miralax (For Daily Use) -) 17 gm PO DAILY [facility] Last Admin: 07/03/16 10:38 Dose: 17 gm A/P 80 year old Gentleman with PMhx of Metastatic Prostate Ca, Hypertension, Hyperlipidemia, CAD s/p Cardiac Stents, DM who presented with worsening mental status for the past several months and found to have multiple lung mets and TERRA with BUN/Cr of 29/1.5 (baseline Cr 1.1) and hyperkalemia with K of 6. moderate hypercalcemia renal function improved will dose zometa gentle hydration check cultures check PSA neuro imput noted---chronic organic mental syndrome discussed with daughter at bed side about metastaic ling nodules/poor performance status
[2016-07-03] MEDS: clonazePAM 0.5 MG TABLET PO SCH (22:28)
--- NOTE | 2016-07-03 23:00 | HOSP ---
Subjective - Review of Symptoms Events since last encounter: Called by nurse to see patient as she noticed a right sided facial droop when she went to give medications. Daughter reports she noticed it earlier in the day as well. Nurse and daughter both report pt with increased confusion, lethargy today. Not consistently following commands. Pt only c/o being cold on exam. Daughter reports not moving extremities much today at all, no noted focal weakness. Physical Examination Vital Signs: Vital Signs Temperature 98.1 F 07/03/16 18:25 Pulse Rate 104 H 07/03/16 18:25 Respiratory Rate 20 07/03/16 18:25 Blood Pressure 170/84 07/03/16 18:25 O2 Sat by Pulse Oximetry (%) 99 07/03/16 09:00 Constitutional: Yes: Calm, Other (not following commands or answering questions. noted leaning head to right side) HENT: Yes: Other (right side facial droop. does not respond to request to smile , stick out tongue) Cardiovascular: Yes: Regular Rate and Rhythm Respiratory: Yes: Rhonchi (right side--improved with repositioning and sitting upright) Gastrointestinal: Yes: Normal Bowel Sounds, Soft Musculoskeletal: Yes: Other (not following commands to squeeze hands, raise arms , move legs, resistance noted when extension of arms attempted.) Labs: CBC, BMP 07/03/16 06:20 07/03/16 06:20 Hospitalist Encounter Assessment: altered mental status with facial droop, increased from previous - likely due to progression of disease, increasing calcium levels, worsening functional status - DW pilot control operator helper neurology, Dr. Tinoco. will obtain CT head to r/o bleed
[2016-07-04] MEDS: DOCUSATE SODIUM 100 MG CAPSULE (FP) PO SCH ×3 (06:12→21:03)
[2016-07-04] MEDS: LEVOTHYROXINE NA 50 MCG TABLET (FP) PO SCH (06:12)
[2016-07-04] MEDS ORDERED: ALBUTEROL SO4 2.5/IPRATROPIUM 0.5 INH SOL 3 ML VIAL.NEB. NEB ONE (06:33)
[2016-07-04] MEDS ORDERED: FUROSEMIDE 40 MG/4 ML INJECTABLE VIAL IVPB ONE (07:38)
--- NOTE | 2016-07-04 07:38 | PN ---
Progress Note, Physician History of Present Illness: periods of confusion-- alert in bed events noted--cough and sob last night ?worsening lt facial droop - Current Medication List Current Medications: Active Medications Amlodipine Besylate (Norvasc -) 10 mg PO DAILY [facility] Last Admin: 07/03/16 10:37 Dose: 10 mg Buspirone HCl (Buspar -) 5 mg PO BID [facility] Last Admin: 07/03/16 22:28 Dose: Not Given Clonazepam (Klonopin -) 0.5 mg PO HS [facility] Last Admin: 07/03/16 22:28 Dose: Not Given Docusate Sodium (Colace -) 100 mg PO TID [facility] Last Admin: 07/04/16 06:12 Dose: Not Given Finasteride (Proscar -) 5 mg PO DAILY [facility] Last Admin: 07/03/16 10:36 Dose: 5 mg Heparin Sodium (Porcine) (Heparin -) 5,000 unit SQ BID [facility] Last Admin: 07/03/16 22:11 Dose: 5,000 unit Sodium Chloride (Normal Saline -) 1,000 mls @ 42 mls/hr IV ASDIR [facility] Last Admin: 07/03/16 18:20 Dose: 42 mls/hr Levothyroxine Sodium (Synthroid -) 50 mcg PO ACBK [facility] Last Admin: 07/04/16 06:12 Dose: Not Given Metoprolol Succinate (Toprol Xl -) 50 mg PO BID [facility] Last Admin: 07/03/16 22:11 Dose: 50 mg Metoprolol Tartrate (Lopressor Injection -) 5 mg IVPB Q6H PRN PRN Reason: HR > 130 SUSTAINED Non-Formulary Medication (Naloxegol Oxalate [Movantik]) 25 mg PO DAILY [facility] Last Admin: 07/03/16 10:38 Dose: 25 mg Vtbxo-7-Mljm Ethyl Esters (Lovaza -) 2 gm PO BID [facility] Last Admin: 07/03/16 21:43 Dose: Not Given Ondansetron HCl (Zofran Injection) 4 mg IVPB Q6H PRN PRN Reason: NAUSEA Last Admin: 06/28/16 20:22 Dose: 4 mg Oxycodone HCl (Roxicodone -) 10 mg PO Q4H PRN PRN Reason: PAIN Last Admin: 07/03/16 12:41 Dose: 10 mg Pantoprazole Sodium (Protonix -) 40 mg PO BID [facility] Last Admin: 07/03/16 22:28 Dose: Not Given Polyethylene Glycol (Miralax (For Daily Use) -) 17 gm PO DAILY [facility] Last Admin: 07/03/16 10:38 Dose: 17 gm - Objective Vital Signs: Vital Signs Temperature 98.6 F 07/04/16 02:00 Pulse Rate 104 H 07/04/16 02:00 Respiratory Rate 20 07/04/16 02:00 Blood Pressure 149/94 07/04/16 02:00 O2 Sat by Pulse Oximetry (%) 95 07/03/16 22:00 Cardiovascular: Yes: S1, S2 Respiratory: Yes: Diminished, Rales Gastrointestinal: Yes: Normal Bowel Sounds, Soft Neurological: Yes: Confusion, Facial Droop Labs: CBC, BMP 07/03/16 06:20 Problem List - Problems (1) Confusion Assessment/Plan: H/O DEMENTIA RPT CT --NAD Code(s): R41.0 - DISORIENTATION, UNSPECIFIED (2) Prostate ca Assessment/Plan: URO CONSULT Code(s): C61 - MALIGNANT NEOPLASM OF PROSTATE (3) CAD (coronary artery disease) of artery bypass graft Assessment/Plan: NO CP Code(s): I25.810 - ATHEROSCLEROSIS OF CABG W/O ANGINA PECTORIS (4) Pneumonia Assessment/Plan: OFF IV ABX PER ID CXR Code(s): J18.9 - PNEUMONIA, UNSPECIFIED ORGANISM Qualifiers: (5) Pulmonary metastases Assessment/Plan: PULM CONSULT NOTED--WILL D/W FAMILY Code(s): C78.00 - SECONDARY MALIGNANT NEOPLASM OF UNSPECIFIED LUNG (6) Renal mass Assessment/Plan: UROLOGY CONSULT Code(s): N28.89 - OTHER SPECIFIED DISORDERS OF KIDNEY AND URETER Assessment/Plan D/W PT DAUGHTER REGARDING PROGNOSIS AND PLAN REGARDING PEG AND COMFORT CARE DNR/DNI D/W DAUGHTER THEY WANT PEG
[2016-07-04 07:45] LABS: CALCIUM 11.2 mg/dL (8.5-10.1); CREATININE 1.2 mg/dL (0.7-1.3); MAGNESIUM 1.8 mg/dL (1.8-2.4); PHOSPHOROUS 3.2 mg/dL (2.5-4.9)
[2016-07-04] MEDS: ACETAMINOPHEN 1000 MG/100 ML VIAL (NON FORMULARY) IVPB PRN ×2 (08:14→20:29)
[2016-07-04] MEDS: POLYETHYLENE GLYCOL 3350 119 GM BTL PO SCH (09:28)
[2016-07-04] MEDS: busPIRone HCL 5 MG TABLET PO SCH ×2 (09:28→21:03)
[2016-07-04] MEDS: OMEGA-3 ACID ETHYL ESTERS (FATTY-ACIDS) 1 GM CAPSULE (FP) PO SCH ×2 (09:28→21:04)
[2016-07-04] MEDS: PATIENT'S OWN MEDICATION (NON-FORMULARY) (Naloxegol Oxalate [Movantik] 25 MG) PO SCH (09:29)
[2016-07-04] MEDS: PANTOPRAZOLE 40 MG TABLET (FP) PO SCH ×2 (09:29→21:04)
[2016-07-04] MEDS: amLODIPine BESYLATE 5 MG TABLET (FP) PO SCH (09:29)
[2016-07-04] MEDS: METOPROLOL SUCCINATE 50 MG TAB.SR.24H (FP) PO SCH ×2 (09:29→21:04)
[2016-07-04] MEDS: FINASTERIDE 5 MG TABLET (FP) PO SCH (09:29)
[2016-07-04] MEDS: HEPARIN NA (PORCINE) 5,000 UNITS/ML 1ML VIAL SQ SCH ×2 (09:39→21:34)
--- NOTE | 2016-07-04 10:21 | CONSULT ---
Admitting History and Physical - Primary Care Physician PCP: Lucila Li - Admission History of Present Illness: 80 y/o M with AMS. Recurrent hyperkalemia- s/p Kayexalate Pt with metastatic prostate ca, with renal, pulmonary mets PO- poor 0-50 % in general, more week today 0-25 % meals; no swallowing difficulty but increased weakness PMH: metastatic prostate ca, HTN, HLD, CAD with cardiac stents Moderate OMS per neurology Family agreed to PEG insertion. PMD discussed DNR with family. Palliative care consult placed. Now NPO, due to increased facial/lethargy. Medical notes reviewed and case discussed with PMD. Family reports change in speech and facial weakness 2 days ago. They report that he was forgetful but spoke well until this onset. Pt has had periods of increased confusion/lethargy - multifactorial eg labs/pain medication, etc. CTs of head/MRI noted. History Source: Patient, Family Member, Medical Record Limitations to Obtaining History: Clinical Condition - Past Medical History Cardiovascular: Yes: CAD (denies [place], but had CABG (no details)), HTN, Hyperlipdemia Gastrointestinal: Yes: Constipation Renal/: Yes: Renal Failure, Cancer (metastatic prostate) Heme/Onc: Yes: Cancer (prostate ca with mets), Other (PROSTTAE CANCER PROBABLE METASTATIC) Musculoskeletal: Yes: Chronic low back pain, Paraplegia - Past Surgical History Past Surgical History: Yes: CABG, Laminectomy - Smoking History Smoking history: Former smoker (over 15 ya) Have you smoked in the past 12 months: No Aproximately how many cigarettes per day: 0 If you are a former smoker, when did you quit?: Over 58 years ago - Alcohol/Substance Use Hx Alcohol Use: No - Social History 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) History - Admission Reason For Visit: HYPERKALEMIA - Diagnostics X-ray: Report Reviewed CT Scan: Report Reviewed MRI: Report Reviewed - General Mental Status: Awake and Alert, Able to Follow Commands, Forgetful, Vague Attention: Distractible Ability to Follow Directions: Fair - Hearing Hearing: Normal Speech Evaluation - Communication Primary Language: ANGUILLAN Communication: Yes: Simple Responses Oral Expression Ability: Yes: Moderate Impairment - Speech Production Able to Make Needs Known: Yes: Moderately Impaired Intelligibility: Yes: Moderately Impaired - Speech Characteristics Voice Loudness: Moderately Soft/Quiet Voice Pitch: Yes: Normal Voice Phonatory-based Quality: Yes: Dysphonia Speech Pattern: Impaired Speech Clarity: < 25% Nasal Resonance: Normal Articulation: Yes: Imprecise Rate of Speech: Too Fast Voice, Other Observations: Yes: Inadequate Breath Support - Language/Auditory Comprehension Follows: Yes: 1 Stage Simple Commands Observation: Comprehends Conversational Speech: Yes (simple), Benefits from Repetiton: Yes - Swallow Evaluation/Bedside Assessment Current Nutritional Intake: NPO Dentition: Yes: Missing Teeth Facial Symmetry at Rest: Facial Droop Right Facial Symmetry on Retraction: Facial Droop Right Against Resistance Opening: Weak Against Resistance Closing: Weak Pucker Lips: Droops Right Smile: Droops Right Lingual Movement: Symmetric Lingual Speed of Movement: Reduced Lingual Movement Strgth Against Opposition: Reduced Velopharyngeal Movement: Normal Laryngeal Elevation: Impaired Laryngeal Movement: Reduced Excursion, Labored,delay initiation, Reduced Velocity Oral Prep Time: Increased A-P Transit: Impaired Timing of Swallow: Delayed Recommendations - Speech Evaluation, Impression/Plan Impression: Impaired intelligibility with right facial weakness. Delayed, weak swallow with aspiration suspected on thin liquid.Dysarthria/dysphagia- new onset ? May be able to tolerate puree/thick liquid? PEG to supplement? Palliative care regarding DNR/DNI. Able to name and repeat.Grossly oriented to self -" born in [place]"/ "83" yo but not place/time. - Dysphagia Impressions/Plan Swallowing Skills: Impaired Dysphagia Impressions: Mild Impairment, Moderate Impairment *Silent aspiration: cannot be R/O at bedside Recommendations: Modified Barium Swallow
--- NOTE | 2016-07-04 10:33 | PN ---
Progress Note (short form) - Note Progress Note: Renal Follow up for TERRA/Hyperkalemia Pt seen and examined at the bedside pt noted to have left sided facial droop as of yesterday daughter reports that MS is worse now poor oral intake Vital Signs Temperature 99.2 F 07/04/16 06:00 Pulse Rate 100 H 07/04/16 06:00 Respiratory Rate 20 07/04/16 06:00 Blood Pressure 154/81 07/04/16 06:00 O2 Sat by Pulse Oximetry (%) 95 07/03/16 22:00 Intake & Output 07/01/16 07/02/16 07/03/16 07/04/16 23:59 23:59 23:59 23:59 Intake Total 981 200 660 294 Output Total 1100 Balance -119 200 660 294 Gen: NAD, CVS: RRR, No M/R Lungs: Dec BS at lung bases Abd: soft, NT Ext: No edema, clubbing or cyanosis : Mora removed, no bladder distension CBC, BMP 07/03/16 06:20 07/04/16 05:55 Current Medications Acetaminophen (Ofirmev Injection -) 1,000 mg IVPB Q6H PRN PRN Reason: FEVER OR PAIN Stop: 07/05/16 02:05 Last Admin: 07/04/16 08:14 Dose: 1,000 mg Albuterol/Ipratropium (Duoneb -) 1 amp NEB QIDR [facility] Amlodipine Besylate (Norvasc -) 10 mg PO DAILY [facility] Last Admin: 07/04/16 09:29 Dose: Not Given Buspirone HCl (Buspar -) 5 mg PO BID [facility] Last Admin: 07/04/16 09:28 Dose: Not Given Clonazepam (Klonopin -) 0.5 mg PO HS [facility] Last Admin: 07/03/16 22:28 Dose: Not Given Docusate Sodium (Colace -) 100 mg PO TID [facility] Last Admin: 07/04/16 06:12 Dose: Not Given Finasteride (Proscar -) 5 mg PO DAILY [facility] Last Admin: 07/04/16 09:29 Dose: Not Given Heparin Sodium (Porcine) (Heparin -) 5,000 unit SQ BID [facility] Last Admin: 07/04/16 09:39 Dose: 5,000 unit Sodium Chloride (Normal Saline -) 1,000 mls @ 42 mls/hr IV ASDIR [facility] Last Admin: 07/03/16 18:20 Dose: 42 mls/hr Levothyroxine Sodium (Synthroid -) 50 mcg PO ACBK [facility] Last Admin: 07/04/16 06:12 Dose: Not Given Metoprolol Succinate (Toprol Xl -) 50 mg PO BID [facility] Last Admin: 07/04/16 09:29 Dose: Not Given Metoprolol Tartrate (Lopressor Injection -) 5 mg IVPB Q6H PRN PRN Reason: HR > 130 SUSTAINED Non-Formulary Medication (Naloxegol Oxalate [Movantik]) 25 mg PO DAILY [facility] Last Admin: 07/04/16 09:29 Dose: Not Given Kqwej-7-Oeox Ethyl Esters (Lovaza -) 2 gm PO BID [facility] Last Admin: 07/04/16 09:28 Dose: Not Given Ondansetron HCl (Zofran Injection) 4 mg IVPB Q6H PRN PRN Reason: NAUSEA Last Admin: 06/28/16 20:22 Dose: 4 mg Pantoprazole Sodium (Protonix -) 40 mg PO BID [facility] Last Admin: 07/04/16 09:29 Dose: Not Given Polyethylene Glycol (Miralax (For Daily Use) -) 17 gm PO DAILY [facility] Last Admin: 07/04/16 09:28 Dose: Not Given A/p 80 year old Gentleman with PMhx of Metastatic Prostate Ca, Hypertension, Hyperlipidemia, CAD s/p Cardiac Stents, DM who presented with worsening MS for the past several months as per her daughter and found to have multiple abd mets and TERRA with BUN/Cr of 29/1.5 (baseline Cr 1.1) and hyperkalemia with K of 6. #Acute Kidney Injury Renal function improved and stable #Hypercalcemia of malignancy Corrected CA is 12 ? contribution to AMS ? role for bisphosphante given improved mental status with exercise caution with IVf given effusions and congestion seen on prior CXRs #AMS/Facial Droop Work up as per neurology #Metastatic Prostate Ca with Renal mass Urology follow up Mora discontinued Continue Proscar and Flomax #Hypertension Continue current meds Anatoliy Ryan DO
[2016-07-04] MEDS: ALBUTEROL SO4 2.5/IPRATROPIUM 0.5 INH SOL 3 ML VIAL.NEB. NEB SCH ×2 (11:42→18:25)
--- NOTE | 2016-07-04 12:20 | PN ---
Progress Note, Physician History of Present Illness: pulmonary lethargic,congested on o2 - Current Medication List Current Medications: Active Medications Acetaminophen (Ofirmev Injection -) 1,000 mg IVPB Q6H PRN PRN Reason: FEVER OR PAIN Stop: 07/05/16 02:05 Last Admin: 07/04/16 08:14 Dose: 1,000 mg Albuterol/Ipratropium (Duoneb -) 1 amp NEB QIDR [facility] Last Admin: 07/04/16 11:42 Dose: 1 amp Amlodipine Besylate (Norvasc -) 10 mg PO DAILY [facility] Last Admin: 07/04/16 09:29 Dose: Not Given Buspirone HCl (Buspar -) 5 mg PO BID [facility] Last Admin: 07/04/16 09:28 Dose: Not Given Clonazepam (Klonopin -) 0.5 mg PO HS [facility] Last Admin: 07/03/16 22:28 Dose: Not Given Docusate Sodium (Colace -) 100 mg PO TID [facility] Last Admin: 07/04/16 06:12 Dose: Not Given Finasteride (Proscar -) 5 mg PO DAILY [facility] Last Admin: 07/04/16 09:29 Dose: Not Given Heparin Sodium (Porcine) (Heparin -) 5,000 unit SQ BID [facility] Last Admin: 07/04/16 09:39 Dose: 5,000 unit Sodium Chloride (Normal Saline -) 1,000 mls @ 42 mls/hr IV ASDIR [facility] Last Admin: 07/03/16 18:20 Dose: 42 mls/hr Levothyroxine Sodium (Synthroid -) 50 mcg PO ACBK [facility] Last Admin: 07/04/16 06:12 Dose: Not Given Metoprolol Succinate (Toprol Xl -) 50 mg PO BID [facility] Last Admin: 07/04/16 09:29 Dose: Not Given Metoprolol Tartrate (Lopressor Injection -) 5 mg IVPB Q6H PRN PRN Reason: HR > 130 SUSTAINED Non-Formulary Medication (Naloxegol Oxalate [Movantik]) 25 mg PO DAILY [facility] Last Admin: 07/04/16 09:29 Dose: Not Given Tprzi-0-Hffj Ethyl Esters (Lovaza -) 2 gm PO BID [facility] Last Admin: 07/04/16 09:28 Dose: Not Given Ondansetron HCl (Zofran Injection) 4 mg IVPB Q6H PRN PRN Reason: NAUSEA Last Admin: 06/28/16 20:22 Dose: 4 mg Pantoprazole Sodium (Protonix -) 40 mg PO BID [facility] Last Admin: 07/04/16 09:29 Dose: Not Given Polyethylene Glycol (Miralax (For Daily Use) -) 17 gm PO DAILY [facility] Last Admin: 07/04/16 09:28 Dose: Not Given - Objective Vital Signs: Vital Signs Temperature 97.4 F L 07/04/16 08:30 Pulse Rate 116 H 07/04/16 11:41 Respiratory Rate 22 07/04/16 10:00 Blood Pressure 153/79 07/04/16 10:00 O2 Sat by Pulse Oximetry (%) 91 L 07/04/16 11:41 Constitutional: Yes: Mild Distress, Other Eyes: Yes: WNL HENT: Yes: WNL Neck: Yes: WNL Cardiovascular: Yes: Regular Rate and Rhythm, S1, S2 Respiratory: Yes: Rhonchi (bilateral rhonchi) Gastrointestinal: Yes: Normal Bowel Sounds, Soft Extremities: Yes: WNL Edema: No Labs: CBC, BMP 07/03/16 06:20 07/04/16 05:55 Assessment/Plan Problem List - Problems (1) Abdominal pain Code(s): R10.9 - UNSPECIFIED ABDOMINAL PAIN (2) Confusion Code(s): R41.0 - DISORIENTATION, UNSPECIFIED (3) Prostate ca Code(s): C61 - MALIGNANT NEOPLASM OF PROSTATE (4) Pulmonary metastases Code(s): C78.00 - SECONDARY MALIGNANT NEOPLASM OF UNSPECIFIED LUNG (5) Renal mass Code(s): N28.89 - OTHER SPECIFIED DISORDERS OF KIDNEY AND URETER (6) TERRA (acute kidney injury) Code(s): N17.9 - ACUTE KIDNEY FAILURE, UNSPECIFIED (7) Back pain Code(s): M54.9 - DORSALGIA, UNSPECIFIED Qualifiers: Back pain location: low back pain (8) CAD (coronary artery disease) of artery bypass graft Code(s): I25.810 - ATHEROSCLEROSIS OF CABG W/O ANGINA PECTORIS (9) Pneumonia Code(s): J18.9 - PNEUMONIA, UNSPECIFIED ORGANISM Qualifiers: (10) UTI (lower urinary tract infection) Code(s): N39.0 - URINARY TRACT INFECTION, SITE NOT SPECIFIED Assessment/Plan inhaled bronchodilators O2 as needed Aspiration precautions monitor lytes f/u chest x-rays abg antibiotics DR MURDOCK
[2016-07-04 12:38] LABS: ARTERIAL BLD GAS O2 SATURATION 80.4 % (90-98.9); ARTERIAL BLOOD GAS BASE EXCESS 0.1 meq/l (-2-2); ARTERIAL BLOOD GAS HCO3 22.6 meq/L (22-26)
[2016-07-04 12:39] LABS: ALLENS TEST POSITIVE; ART PUNCT SITE RIGHT RADIAL; ARTERIAL BLOOD GAS pH 7.48 (7.35-7.45); LPM/O2% 3L; PT. ON O2? YES; TYPE OF O2 NASAL
[2016-07-04 12:40] LABS: ARTERIAL BLOOD GAS PO2 45.7 mmHg (68-100)
[2016-07-04] MEDS: METOPROLOL TARTRATE 5 MG/5 ML VIAL IVPB PRN (15:20)
[2016-07-04] MEDS: SODIUM CHLORIDE 1,000 ML IV SCH (20:35)
[2016-07-04] MEDS: clonazePAM 0.5 MG TABLET PO SCH (21:04)
[2016-07-05 00:13] LABS: PROSTATE SPECIFIC ANTIGEN < 0.10 ng/mL (0.0-4.0)
[2016-07-05] MEDS: METOPROLOL TARTRATE 5 MG/5 ML VIAL IVPB PRN ×3 (02:13→16:53)
[2016-07-05] MEDS: DOCUSATE SODIUM 100 MG CAPSULE (FP) PO SCH ×3 (05:22→22:31)
[2016-07-05] MEDS: LEVOTHYROXINE NA 50 MCG TABLET (FP) PO SCH (06:01)
[2016-07-05 06:06] LABS: PSA ULTRA < 0.006 ng/mL (0.000-4.000)
[2016-07-05] MEDS: ALBUTEROL SO4 2.5/IPRATROPIUM 0.5 INH SOL 3 ML VIAL.NEB. NEB SCH ×4 (06:31→17:20)
[2016-07-05 06:56] LABS: BASOPHIL 0.5 % (0-2.0); MCH 30.2 pg (25.7-33.7); MCHC 33.5 g/dl (32.0-35.9); MEAN CELL VOLUME 90.2 fl (80-96); MEAN PLT VOLUME 7.7 fl (7.5-11.1); NEUTROPHILS 89.7 % (42.8-82.8); PLATELET COUNT 266 K/MM3 (134-434); WHITE BLOOD COUNT 9.3 K/mm3 (4.0-10.0)
[2016-07-05 07:20] LABS: CALCIUM 10.8 mg/dL (8.5-10.1)
[2016-07-05 07:23] LABS: CREATININE 1.5 mg/dL (0.7-1.3); PHOSPHOROUS 3.4 mg/dL (2.5-4.9)
--- NOTE | 2016-07-05 09:21 | PN ---
Progress Note, Physician History of Present Illness: periods of confusion-- alert in bed events noted--cough and sob last night ?worsening lt facial droop family still undecided - Current Medication List Current Medications: Active Medications Albuterol/Ipratropium (Duoneb -) 1 amp NEB QIDR [facility] Last Admin: 07/05/16 06:31 Dose: 1 amp Amlodipine Besylate (Norvasc -) 10 mg PO DAILY [facility] Last Admin: 07/04/16 09:29 Dose: Not Given Buspirone HCl (Buspar -) 5 mg PO BID [facility] Last Admin: 07/04/16 21:03 Dose: Not Given Clonazepam (Klonopin -) 0.5 mg PO HS [facility] Last Admin: 07/04/16 21:04 Dose: Not Given Docusate Sodium (Colace -) 100 mg PO TID [facility] Last Admin: 07/05/16 05:22 Dose: Not Given Finasteride (Proscar -) 5 mg PO DAILY [facility] Last Admin: 07/04/16 09:29 Dose: Not Given Heparin Sodium (Porcine) (Heparin -) 5,000 unit SQ BID [facility] Last Admin: 07/04/16 21:34 Dose: 5,000 unit Sodium Chloride (Normal Saline -) 1,000 mls @ 42 mls/hr IV ASDIR [facility] Last Admin: 07/04/16 20:35 Dose: 42 mls/hr Levothyroxine Sodium (Synthroid -) 50 mcg PO ACBK [facility] Last Admin: 07/05/16 06:01 Dose: Not Given Metoprolol Succinate (Toprol Xl -) 50 mg PO BID [facility] Last Admin: 07/04/16 21:04 Dose: Not Given Metoprolol Tartrate (Lopressor Injection -) 5 mg IVPB Q6H PRN PRN Reason: HR > 130 SUSTAINED Last Admin: 07/05/16 02:13 Dose: 5 mg Non-Formulary Medication (Naloxegol Oxalate [Movantik]) 25 mg PO DAILY [facility] Last Admin: 07/04/16 09:29 Dose: Not Given Yfmws-0-Ylir Ethyl Esters (Lovaza -) 2 gm PO BID [facility] Last Admin: 07/04/16 21:04 Dose: Not Given Ondansetron HCl (Zofran Injection) 4 mg IVPB Q6H PRN PRN Reason: NAUSEA Last Admin: 06/28/16 20:22 Dose: 4 mg Pantoprazole Sodium (Protonix -) 40 mg PO BID [facility] Last Admin: 07/04/16 21:04 Dose: Not Given Polyethylene Glycol (Miralax (For Daily Use) -) 17 gm PO DAILY [facility] Last Admin: 07/04/16 09:28 Dose: Not Given - Objective Vital Signs: Vital Signs Temperature 99.1 F 07/05/16 06:00 Pulse Rate 107 H 07/05/16 06:00 Respiratory Rate 20 07/05/16 06:00 Blood Pressure 134/76 07/05/16 06:00 O2 Sat by Pulse Oximetry (%) 100 07/04/16 21:00 Cardiovascular: Yes: S1, S2 Respiratory: Yes: Diminished, Rhonchi Neurological: Yes: Lethargy Labs: CBC, BMP 07/05/16 05:35 07/05/16 05:35 Problem List - Problems (1) Confusion Assessment/Plan: H/O DEMENTIA RPT CT --NAD MUTILPE FACTORS FAMILY DECIDING ON FURTHER CARE--PEG/DNR/DNI Code(s): R41.0 - DISORIENTATION, UNSPECIFIED (2) Prostate ca Assessment/Plan: URO CONSULT Code(s): C61 - MALIGNANT NEOPLASM OF PROSTATE (3) CAD (coronary artery disease) of artery bypass graft Assessment/Plan: NO CP Code(s): I25.810 - ATHEROSCLEROSIS OF CABG W/O ANGINA PECTORIS (4) Pneumonia Assessment/Plan: OFF IV ABX PER ID CXR Code(s): J18.9 - PNEUMONIA, UNSPECIFIED ORGANISM Qualifiers: (5) Pulmonary metastases Assessment/Plan: PULM CONSULT NOTED-- D/W FAMILY DX AND PROGNOSIS Code(s): C78.00 - SECONDARY MALIGNANT NEOPLASM OF UNSPECIFIED LUNG (6) Renal mass Assessment/Plan: UROLOGY CONSULT Code(s): N28.89 - OTHER SPECIFIED DISORDERS OF KIDNEY AND URETER Assessment/Plan D/W PT DAUGHTER REGARDING PROGNOSIS AND PLAN REGARDING PEG AND COMFORT CARE DNR/DNI D/W DAUGHTER THEY WANT PEG
[2016-07-05] MEDS ORDERED: FUROSEMIDE 40 MG/4 ML INJECTABLE VIAL IVPB ONE (09:35)
[2016-07-05] MEDS: morphine CARPU-JECT 2 MG/1 ML DISP.SYRIN SQ PRN ×3 (11:04→22:11)
[2016-07-05] MEDS: busPIRone HCL 5 MG TABLET PO SCH ×2 (11:05→22:31)
[2016-07-05] MEDS: AMINO ACIDS 4.25%/D5W 1,000 ML IV SCH ×2 (11:05→22:12)
[2016-07-05] MEDS: OMEGA-3 ACID ETHYL ESTERS (FATTY-ACIDS) 1 GM CAPSULE (FP) PO SCH ×2 (11:05→22:31)
[2016-07-05] MEDS: PATIENT'S OWN MEDICATION (NON-FORMULARY) (Naloxegol Oxalate [Movantik] 25 MG) PO SCH (11:06)
[2016-07-05] MEDS: POLYETHYLENE GLYCOL 3350 119 GM BTL PO SCH (11:06)
[2016-07-05] MEDS: FINASTERIDE 5 MG TABLET (FP) PO SCH (11:07)
[2016-07-05] MEDS: amLODIPine BESYLATE 5 MG TABLET (FP) PO SCH (11:07)
[2016-07-05] MEDS: PANTOPRAZOLE 40 MG TABLET (FP) PO SCH ×2 (11:10→22:32)
--- NOTE | 2016-07-05 11:25 | PN ---
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 Now audible and articulation is more precise. "Almost" back to baseline per family. Selected Entries 07/03/16 07/03/16 07/03/16 02:00 10:00 14:00 Temperature 98.5 F 98.5 F 98.9 F 07/03/16 07/03/16 07/04/16 18:25 22:00 02:00 Temperature 98.1 F 97.2 F L 98.6 F 07/04/16 07/04/16 07/04/16 06:00 08:30 14:00 Temperature 99.2 F 97.4 F L 97.5 F L 07/04/16 07/04/16 07/05/16 18:00 22:00 02:00 Temperature 98.1 F 100.1 F H 98.4 F 07/05/16 06:00 Temperature 99.1 F Laboratory Tests 07/03/16 07/05/16 06:20 05:35 WBC 7.0 D 9.3 D Pt will benefit from MBS, when medically stable, to initiate PO diet with safety.
[2016-07-05] MEDS: METOPROLOL SUCCINATE 50 MG TAB.SR.24H (FP) PO SCH ×2 (11:34→22:32)
--- NOTE | 2016-07-05 11:46 | PN ---
Progress Note, Physician History of Present Illness: pulmonary alert,feeling better,less congested - Current Medication List Current Medications: Active Medications Acetaminophen (Ofirmev Injection -) 1,000 mg IVPB Q6H PRN PRN Reason: FEVER OR PAIN Stop: 07/06/16 03:18 Albuterol/Ipratropium (Duoneb -) 1 amp NEB QIDR [facility] Last Admin: 07/05/16 11:29 Dose: 1 amp Amlodipine Besylate (Norvasc -) 10 mg PO DAILY [facility] Last Admin: 07/05/16 11:07 Dose: Not Given Buspirone HCl (Buspar -) 5 mg PO BID [facility] Last Admin: 07/05/16 11:05 Dose: Not Given Clonazepam (Klonopin -) 0.5 mg PO HS [facility] Last Admin: 07/04/16 21:04 Dose: Not Given Docusate Sodium (Colace -) 100 mg PO TID [facility] Last Admin: 07/05/16 05:22 Dose: Not Given Finasteride (Proscar -) 5 mg PO DAILY [facility] Last Admin: 07/05/16 11:07 Dose: Not Given Amino Acids (Clinimix -) 1,000 mls @ 84 mls/hr IV Q12H [facility] Last Admin: 07/05/16 11:05 Dose: 84 mls/hr Levothyroxine Sodium (Synthroid -) 50 mcg PO ACBK [facility] Last Admin: 07/05/16 06:01 Dose: Not Given Metoprolol Succinate (Toprol Xl -) 50 mg PO BID [facility] Last Admin: 07/05/16 11:34 Dose: Not Given Metoprolol Tartrate (Lopressor Injection -) 5 mg IVPB Q6H PRN PRN Reason: HR > 130 SUSTAINED Last Admin: 07/05/16 11:34 Dose: 5 mg Morphine Sulfate (Morphine Injection -) 0.5 mg SQ Q3H PRN PRN Reason: PAIN Last Admin: 07/05/16 11:04 Dose: 0.5 mg Non-Formulary Medication (Naloxegol Oxalate [Movantik]) 25 mg PO DAILY [facility] Last Admin: 07/05/16 11:06 Dose: Not Given Qtdzu-3-Jrax Ethyl Esters (Lovaza -) 2 gm PO BID [facility] Last Admin: 07/05/16 11:05 Dose: Not Given Ondansetron HCl (Zofran Injection) 4 mg IVPB Q6H PRN PRN Reason: NAUSEA Last Admin: 06/28/16 20:22 Dose: 4 mg Pantoprazole Sodium (Protonix -) 40 mg PO BID [facility] Last Admin: 07/05/16 11:10 Dose: Not Given Polyethylene Glycol (Miralax (For Daily Use) -) 17 gm PO DAILY [facility] Last Admin: 07/05/16 11:06 Dose: Not Given - Objective Vital Signs: Vital Signs Temperature 99.1 F 07/05/16 06:00 Pulse Rate 145 H 07/05/16 11:34 Respiratory Rate 20 07/05/16 06:00 Blood Pressure 149/72 07/05/16 11:34 O2 Sat by Pulse Oximetry (%) 100 07/04/16 21:00 Constitutional: Yes: Calm, Thin Eyes: Yes: WNL HENT: Yes: WNL Neck: Yes: WNL Cardiovascular: Yes: Regular Rate and Rhythm, S1, S2 Respiratory: Yes: Rhonchi (scattered rhonchi) Gastrointestinal: Yes: Normal Bowel Sounds, Soft Extremities: Yes: WNL Edema: No Labs: CBC, BMP 07/05/16 05:35 07/05/16 05:35 Assessment/Plan Problem List - Problems (1) Abdominal pain Code(s): R10.9 - UNSPECIFIED ABDOMINAL PAIN (2) Confusion Code(s): R41.0 - DISORIENTATION, UNSPECIFIED (3) Prostate ca Code(s): C61 - MALIGNANT NEOPLASM OF PROSTATE (4) Pulmonary metastases Code(s): C78.00 - SECONDARY MALIGNANT NEOPLASM OF UNSPECIFIED LUNG (5) Renal mass Code(s): N28.89 - OTHER SPECIFIED DISORDERS OF KIDNEY AND URETER (6) TERRA (acute kidney injury) Code(s): N17.9 - ACUTE KIDNEY FAILURE, UNSPECIFIED (7) Back pain Code(s): M54.9 - DORSALGIA, UNSPECIFIED Qualifiers: Back pain location: low back pain (8) CAD (coronary artery disease) of artery bypass graft Code(s): I25.810 - ATHEROSCLEROSIS OF CABG W/O ANGINA PECTORIS (9) Pneumonia Code(s): J18.9 - PNEUMONIA, UNSPECIFIED ORGANISM Qualifiers: (10) UTI (lower urinary tract infection) Code(s): N39.0 - URINARY TRACT INFECTION, SITE NOT SPECIFIED Assessment/Plan inhaled bronchodilators O2 as needed Aspiration precautions monitor lytes f/u chest x-rays antibiotics as per id DR MURDOCK
--- NOTE | 2016-07-05 14:34 | PN ---
Progress Note (short form) - Note Progress Note: Renal Follow up for TERRA/Hyperkalemia Pt seen and examined at the bedside daughter at the bedside on 40% ventimask to get IV Lasix because of sob speech and facial droop appear improved Vital Signs Temperature 98.2 F 07/05/16 14:00 Pulse Rate 120 H 07/05/16 14:00 Respiratory Rate 20 07/05/16 14:00 Blood Pressure 137/77 07/05/16 14:00 O2 Sat by Pulse Oximetry (%) 94 L 07/05/16 09:00 Intake & Output 07/02/16 07/03/16 07/04/16 07/05/16 23:59 23:59 23:59 23:59 Intake Total 764 931 5414 294 Output Total 200 Balance 899 894 0708 294 Gen: NAD, on Ventimask CVS: RRR, No M/R Lungs: Dec BS b/l lung ferrell Abd: soft, NT Ext: No edema, clubbing or cyanosis : no bladder distension CBC, BMP 07/05/16 05:35 07/05/16 05:35 Current Medications Acetaminophen (Ofirmev Injection -) 1,000 mg IVPB Q6H PRN PRN Reason: FEVER OR PAIN Stop: 07/06/16 03:18 Albuterol/Ipratropium (Duoneb -) 1 amp NEB QIDR [facility] Last Admin: 07/05/16 11:29 Dose: 1 amp Amlodipine Besylate (Norvasc -) 10 mg PO DAILY [facility] Last Admin: 07/05/16 11:07 Dose: Not Given Buspirone HCl (Buspar -) 5 mg PO BID [facility] Last Admin: 07/05/16 11:05 Dose: Not Given Clonazepam (Klonopin -) 0.5 mg PO HS [facility] Last Admin: 07/04/16 21:04 Dose: Not Given Docusate Sodium (Colace -) 100 mg PO TID [facility] Last Admin: 07/05/16 05:22 Dose: Not Given Finasteride (Proscar -) 5 mg PO DAILY [facility] Last Admin: 07/05/16 11:07 Dose: Not Given Amino Acids (Clinimix -) 1,000 mls @ 84 mls/hr IV Q12H [facility] Last Admin: 07/05/16 11:05 Dose: 84 mls/hr Levothyroxine Sodium (Synthroid -) 50 mcg PO ACBK [facility] Last Admin: 07/05/16 06:01 Dose: Not Given Metoprolol Succinate (Toprol Xl -) 50 mg PO BID [facility] Last Admin: 07/05/16 11:34 Dose: Not Given Metoprolol Tartrate (Lopressor Injection -) 5 mg IVPB Q6H PRN PRN Reason: HR > 130 SUSTAINED Last Admin: 07/05/16 11:34 Dose: 5 mg Morphine Sulfate (Morphine Injection -) 0.5 mg SQ Q3H PRN PRN Reason: PAIN Last Admin: 07/05/16 11:04 Dose: 0.5 mg Non-Formulary Medication (Naloxegol Oxalate [Movantik]) 25 mg PO DAILY [facility] Last Admin: 07/05/16 11:06 Dose: Not Given Cmhsc-8-Duyq Ethyl Esters (Lovaza -) 2 gm PO BID [facility] Last Admin: 07/05/16 11:05 Dose: Not Given Ondansetron HCl (Zofran Injection) 4 mg IVPB Q6H PRN PRN Reason: NAUSEA Last Admin: 06/28/16 20:22 Dose: 4 mg Pantoprazole Sodium (Protonix -) 40 mg PO BID [facility] Last Admin: 07/05/16 11:10 Dose: Not Given Polyethylene Glycol (Miralax (For Daily Use) -) 17 gm PO DAILY [facility] Last Admin: 07/05/16 11:06 Dose: Not Given A/p 80 year old Gentleman with PMhx of Metastatic Prostate Ca, Hypertension, Hyperlipidemia, CAD s/p Cardiac Stents, DM who presented with worsening MS for the past several months as per her daughter and found to have multiple abd mets and TERRA with BUN/Cr of 29/1.5 (baseline Cr 1.1) and hyperkalemia with K of 6. #Acute Kidney Injury Cr up trended to 1.5 continue to trend BUN/cr with IV lasix #Hypercalcemia of malignancy Corrected CA is 11.6 today Continue to trend for now #LLL PNA/Pleural effusions to get IV lasix today ID and Pulmonary follow up for regarding Abx #AMS/Facial Droop Work up as per neurology #Metastatic Prostate Ca with Renal mass Urology follow up Mora discontinued Continue Proscar and Flomax #Hypertension Continue current meds Anatoliy Ryan DO
[2016-07-05] MEDS: ACETAMINOPHEN 1000 MG/100 ML VIAL (NON FORMULARY) IVPB PRN ×2 (16:00→22:10)
--- NOTE | 2016-07-05 17:39 | PN ---
GI Progress Note Subjective: patient noted to have respiratory distress brought about by food intake,spoke to the patient and and family, agreeable to undergo PEG insertion - Objective Vital Signs: Vital Signs Temperature 98.2 F 07/05/16 14:00 Pulse Rate 150 H 07/05/16 16:53 Respiratory Rate 20 07/05/16 14:00 Blood Pressure 137/77 07/05/16 16:53 O2 Sat by Pulse Oximetry (%) 94 L 07/05/16 09:00 Constitutional: Other (congested) Eyes: Yes: Conjunctiva Clear Neck: Yes: Trachea Midline Cardiovascular: Yes: Regular Rate and Rhythm Respiratory: Yes: Rhonchi ...Palpate: Yes: Soft. No: Firm/Rigid, Guarding, Hepatomegaly, Mass, Pulsatile Mass, Splenomegaly, Tenderness Labs: CBC, BMP 07/05/16 05:35 07/05/16 05:35 Problem List - Problems (1) Poor fluid intake Code(s): R63.8 - OTHER SYMPTOMS AND SIGNS CONCERNING FOOD AND FLUID INTAKE (2) Dysphagia Assessment/Plan: R> for Peg insertion once medically cleared Code(s): R13.10 - DYSPHAGIA, UNSPECIFIED
[2016-07-05] MEDS ORDERED: morphine CARPU-JECT 4 MG/1 ML DISP.SYRIN ONE (18:13)
--- NOTE | 2016-07-05 19:54 | PN ---
Progress Note (short form) - Note Progress Note: NEUROLOGY FOLLOW-UP: Events reviewed and discussed with family. Pt. examined. Daughter's confirm that patient has been confused at home for at least 4 months and is now "back to the way he was at home." Over the last 2 days, Mr. Smith became increasingly lethargic. Facial asymmetry was noted. Was unable to swallow and was made NPO. Repeat CT of head (reviewed): shows diffuse atrophy and multiple infarcts and microvascular ischemic gliosis. Unchanged from the prior study. Now on ventimask. Family notes he is much more awake, responsive and participating. He is requesting to be fed. NEURO: Awake, alert. O [facility] (but not [facility]). He identifies his daughter. Fluent in Welsh. + Glabella, snout. Full ferrell. No facial. Gag OK Moves all fours well. IMP: Non-focal exam. 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 Suspect worsening was on Toxic-metabolic basis due to hypoxemia and/o infection. Now back to baseline. SUGGEST: Continue supportive care. Update UA, C&S Reassess swallowing and allow PO if safe. Thank you very much, Wayne Isidro MD
[2016-07-05] MEDS: clonazePAM 0.5 MG TABLET PO SCH (22:31)
[2016-07-06] MEDS: ALBUTEROL SO4 2.5/IPRATROPIUM 0.5 INH SOL 3 ML VIAL.NEB. NEB SCH ×5 (00:07→23:49)
[2016-07-06] MEDS: METOPROLOL TARTRATE 5 MG/5 ML VIAL IVPB PRN ×2 (01:04→10:04)
[2016-07-06] MEDS: morphine CARPU-JECT 2 MG/1 ML DISP.SYRIN SQ PRN ×3 (05:34→21:44)
[2016-07-06] MEDS: DOCUSATE SODIUM 100 MG CAPSULE (FP) PO SCH ×3 (05:55→21:26)
[2016-07-06] MEDS: LEVOTHYROXINE NA 50 MCG TABLET (FP) PO SCH (06:17)
--- NOTE | 2016-07-06 07:41 | PN ---
Progress Note, Physician History of Present Illness: periods of confusion-- alert in bed events noted--cough and sob last night ?worsening lt facial droop family still undecided - Current Medication List Current Medications: Active Medications Albuterol/Ipratropium (Duoneb -) 1 amp NEB QIDR [facility] Last Admin: 07/06/16 06:39 Dose: 1 amp Amlodipine Besylate (Norvasc -) 10 mg PO DAILY [facility] Last Admin: 07/05/16 11:07 Dose: Not Given Buspirone HCl (Buspar -) 5 mg PO BID [facility] Last Admin: 07/05/16 22:31 Dose: Not Given Clonazepam (Klonopin -) 0.5 mg PO HS [facility] Last Admin: 07/05/16 22:31 Dose: Not Given Docusate Sodium (Colace -) 100 mg PO TID [facility] Last Admin: 07/06/16 05:55 Dose: Not Given Enoxaparin Sodium (Lovenox -) 60 mg SQ BID [facility] Finasteride (Proscar -) 5 mg PO DAILY [facility] Last Admin: 07/05/16 11:07 Dose: Not Given Amino Acids (Clinimix -) 1,000 mls @ 84 mls/hr IV Q12H [facility] Last Admin: 07/05/16 22:12 Dose: 84 mls/hr Levothyroxine Sodium (Synthroid -) 50 mcg PO ACBK [facility] Last Admin: 07/06/16 06:17 Dose: Not Given Metoprolol Succinate (Toprol Xl -) 50 mg PO BID [facility] Last Admin: 07/05/16 22:32 Dose: Not Given Metoprolol Tartrate (Lopressor Injection -) 5 mg IVPB Q4H PRN PRN Reason: HR < 60, SBP < 110 Last Admin: 07/06/16 01:04 Dose: 5 mg Morphine Sulfate (Morphine Injection -) 0.5 mg SQ Q3H PRN PRN Reason: PAIN Last Admin: 07/06/16 05:34 Dose: 0.5 mg Non-Formulary Medication (Naloxegol Oxalate [Movantik]) 25 mg PO DAILY [facility] Last Admin: 07/05/16 11:06 Dose: Not Given Jlkqd-3-Xffy Ethyl Esters (Lovaza -) 2 gm PO BID [facility] Last Admin: 07/05/16 22:31 Dose: Not Given Ondansetron HCl (Zofran Injection) 4 mg IVPB Q6H PRN PRN Reason: NAUSEA Last Admin: 06/28/16 20:22 Dose: 4 mg Pantoprazole Sodium (Protonix -) 40 mg PO BID [facility] Last Admin: 07/05/16 22:32 Dose: Not Given Polyethylene Glycol (Miralax (For Daily Use) -) 17 gm PO DAILY [facility] Last Admin: 07/05/16 11:06 Dose: Not Given - Objective Vital Signs: Vital Signs Temperature 98.6 F 07/06/16 06:00 Pulse Rate 108 H 07/06/16 06:00 Respiratory Rate 18 07/06/16 06:00 Blood Pressure 144/85 07/06/16 06:00 O2 Sat by Pulse Oximetry (%) 97 07/05/16 21:00 Cardiovascular: Yes: S1, S2 Respiratory: Yes: Rhonchi Gastrointestinal: Yes: Normal Bowel Sounds, Soft Edema: No Labs: CBC, BMP 07/05/16 05:35 Problem List - Problems (1) Confusion Assessment/Plan: H/O DEMENTIA RPT CT --NAD MUTILPE FACTORS FAMILY DECIDING ON FURTHER CARE--PEG/DNR/DNI Code(s): R41.0 - DISORIENTATION, UNSPECIFIED (2) Prostate ca Assessment/Plan: URO CONSULT Code(s): C61 - MALIGNANT NEOPLASM OF PROSTATE (3) CAD (coronary artery disease) of artery bypass graft Assessment/Plan: NO CP Code(s): I25.810 - ATHEROSCLEROSIS OF CABG W/O ANGINA PECTORIS (4) Pneumonia Assessment/Plan: OFF IV ABX PER ID CXR Code(s): J18.9 - PNEUMONIA, UNSPECIFIED ORGANISM Qualifiers: (5) Pulmonary metastases Assessment/Plan: PULM CONSULT NOTED-- D/W FAMILY DX AND PROGNOSIS Code(s): C78.00 - SECONDARY MALIGNANT NEOPLASM OF UNSPECIFIED LUNG (6) Renal mass Assessment/Plan: UROLOGY CONSULT Code(s): N28.89 - OTHER SPECIFIED DISORDERS OF KIDNEY AND URETER (7) Thrombus Assessment/Plan: LOVENOX VASCULAR CONSULT Code(s): I82.90 - ACUTE EMBOLISM AND THROMBOSIS OF UNSPECIFIED VEIN Assessment/Plan D/W PT DAUGHTER REGARDING PROGNOSIS AND PLAN REGARDING PEG AND COMFORT CARE DNR/DNI D/W DAUGHTER THEY WANT PEG
[2016-07-06 08:23] LABS: CALCIUM 9.8 mg/dL (8.5-10.1); CREATININE 1.3 mg/dL (0.7-1.3)
[2016-07-06 08:24] LABS: PHOSPHOROUS 1.8 mg/dL (2.5-4.9)
--- NOTE | 2016-07-06 09:56 | EKG ---
Test Reason : Blood Pressure : / mmHG Vent. Rate : 138 BPM Atrial Rate : 138 BPM P-R Int : 122 ms QRS Dur : 110 ms QT Int : 342 ms P-R-T Axes : 048 -61 047 degrees QTc Int : 518 ms SINUS TACHYCARDIA WITH OCCASIONAL PREMATURE VENTRICULAR COMPLEXES AND FUSION COMPLEXES LEFT AXIS DEVIATION RIGHT BUNDLE BRANCH BLOCK ABNORMAL ECG WHEN COMPARED WITH ECG OF 05-JUL-2016 20:16, FUSION COMPLEXES ARE NOW PRESENT PREMATURE VENTRICULAR COMPLEXES ARE NOW PRESENT ABERRANT CONDUCTION IS NO LONGER PRESENT ST NOW DEPRESSED IN ANTERIOR LEADS Confirmed by RADHA SWIFT, ELAINE ([id number]) on 07/06/2016 9:56:27 AM Referred By: Akiko EVERETT Confirmed By:ELAINE GARCIA MD
[2016-07-06] MEDS: busPIRone HCL 5 MG TABLET PO SCH ×2 (10:02→21:26)
[2016-07-06] MEDS: AMINO ACIDS 4.25%/D5W 1,000 ML IV SCH ×3 (10:02→21:27)
[2016-07-06] MEDS: KCL 10 MEQ IVPB 100 ML IVPB SCH ×2 (10:02→14:06)
[2016-07-06] MEDS: OMEGA-3 ACID ETHYL ESTERS (FATTY-ACIDS) 1 GM CAPSULE (FP) PO SCH ×2 (10:02→21:26)
[2016-07-06] MEDS: METOPROLOL SUCCINATE 50 MG TAB.SR.24H (FP) PO SCH (10:03)
[2016-07-06] MEDS: PANTOPRAZOLE 40 MG TABLET (FP) PO SCH ×2 (10:03→21:31)
[2016-07-06] MEDS: PATIENT'S OWN MEDICATION (NON-FORMULARY) (Naloxegol Oxalate [Movantik] 25 MG) PO SCH (10:03)
[2016-07-06] MEDS: amLODIPine BESYLATE 5 MG TABLET (FP) PO SCH (10:03)
[2016-07-06] MEDS: FINASTERIDE 5 MG TABLET (FP) PO SCH (10:03)
[2016-07-06] MEDS: POLYETHYLENE GLYCOL 3350 119 GM BTL PO SCH (10:03)
[2016-07-06] MEDS: ENOXAPARIN NA (PORCINE) 60 MG/0.6 ML DISP.SYRIN SQ SCH ×2 (10:03→21:31)
[2016-07-06] MEDS ORDERED: FUROSEMIDE 40 MG/4 ML INJECTABLE VIAL IVPUSH ONE (11:00)
--- NOTE | 2016-07-06 11:00 | PN ---
Progress Note (short form) - Note Progress Note: Renal Follow up for TERRA/Hyperkalemia Pt seen and examined at the bedside awake and alert for speech and swallow eval today on ventimask O2 Vital Signs Temperature 98.6 F 07/06/16 06:00 Pulse Rate 130 H 07/06/16 10:04 Respiratory Rate 18 07/06/16 06:00 Blood Pressure 150/70 07/06/16 10:04 O2 Sat by Pulse Oximetry (%) 97 07/05/16 21:00 Intake & Output 07/03/16 07/04/16 07/05/16 07/06/16 23:59 23:59 23:59 23:59 Intake Total 660 6473 258 1008 Output Total 200 Balance 660 4184 095 7679 Gen: NAD, on Ventimask CVS: RRR, No M/R Lungs: Dec BS b/l lung ferrell Abd: soft, NT Ext: No edema, clubbing or cyanosis : no bladder distension CBC, BMP 07/05/16 05:35 07/06/16 06:00 Laboratory Tests 06/25/16 06/28/16 06/29/16 10:20 19:05 06:00 Calcium 9.2 10.3 H Phosphorus Magnesium Albumin 2.9 L 07/01/16 07/03/16 07/05/16 06:00 06:20 05:35 Calcium 10.7 H 10.8 H Phosphorus 3.4 Magnesium Albumin 2.6 L 3.1 L 07/06/16 06:00 Calcium 9.8 Phosphorus 1.8 L D Magnesium 2.0 Albumin Current Medications Albuterol/Ipratropium (Duoneb -) 1 amp NEB QIDR [facility] Last Admin: 07/06/16 06:39 Dose: 1 amp Amlodipine Besylate (Norvasc -) 10 mg PO DAILY [facility] Last Admin: 07/06/16 10:03 Dose: Not Given Buspirone HCl (Buspar -) 5 mg PO BID [facility] Last Admin: 07/06/16 10:02 Dose: Not Given Clonazepam (Klonopin -) 0.5 mg PO HS [facility] Last Admin: 07/05/16 22:31 Dose: Not Given Docusate Sodium (Colace -) 100 mg PO TID [facility] Last Admin: 07/06/16 05:55 Dose: Not Given Enoxaparin Sodium (Lovenox -) 60 mg SQ BID [facility] Last Admin: 07/06/16 10:03 Dose: 60 mg Finasteride (Proscar -) 5 mg PO DAILY [facility] Last Admin: 07/06/16 10:03 Dose: Not Given Amino Acids (Clinimix -) 1,000 mls @ 84 mls/hr IV Q12H [facility] Last Admin: 07/06/16 10:02 Dose: Not Given Potassium Chloride (Potassium Chloride 10 Meq Premix Ivpb -) 100 mls @ 100 mls/ hr IVPB Q60M [facility] Stop: 07/06/16 11:44 Last Admin: 07/06/16 10:02 Dose: 100 mls/hr Levothyroxine Sodium (Synthroid -) 50 mcg PO ACBK [facility] Last Admin: 07/06/16 06:17 Dose: Not Given Metoprolol Succinate (Toprol Xl -) 50 mg PO BID [facility] Last Admin: 07/06/16 10:03 Dose: Not Given Metoprolol Tartrate (Lopressor Injection -) 5 mg IVPB Q4H PRN PRN Reason: HR < 60, SBP < 110 Last Admin: 07/06/16 10:04 Dose: 5 mg Morphine Sulfate (Morphine Injection -) 0.5 mg SQ Q3H PRN PRN Reason: PAIN Last Admin: 07/06/16 05:34 Dose: 0.5 mg Non-Formulary Medication (Naloxegol Oxalate [Movantik]) 25 mg PO DAILY [facility] Last Admin: 07/06/16 10:03 Dose: Not Given Eiyyn-3-Xdlx Ethyl Esters (Lovaza -) 2 gm PO BID [facility] Last Admin: 07/06/16 10:02 Dose: Not Given Ondansetron HCl (Zofran Injection) 4 mg IVPB Q6H PRN PRN Reason: NAUSEA Last Admin: 06/28/16 20:22 Dose: 4 mg Pantoprazole Sodium (Protonix -) 40 mg PO BID [facility] Last Admin: 07/06/16 10:03 Dose: Not Given Polyethylene Glycol (Miralax (For Daily Use) -) 17 gm PO DAILY [facility] Last Admin: 07/06/16 10:03 Dose: Not Given A/p 80 year old Gentleman with PMhx of Metastatic Prostate Ca, Hypertension, Hyperlipidemia, CAD s/p Cardiac Stents, DM who presented with worsening MS for the past several months as per her daughter and found to have multiple abd mets and TERRA with BUN/Cr of 29/1.5 (baseline Cr 1.1) and hyperkalemia with K of 6. #Acute Kidney Injury Cr stable/improved continue to trend BUN/Cr #Hypercalcemia of malignancy Corrected CA is 10.6 today Continue to trend for now #Hypokalemia Give KCL IV x 2 #LLL PNA/Pleural effusions Give additional IV lasix today #AMS/Facial Droop Work up as per neurology #Metastatic Prostate Ca with Renal mass Urology follow up Mora discontinued Continue Proscar and Flomax #Hypertension Continue current meds Anatoliy Ryan DO
--- NOTE | 2016-07-06 13:29 | PN ---
Progress Note, Physician History of Present Illness: Patient with dyspnea. Tachycardic overnight with sinus tach and PACs/PVCs/ fusion complexes. Noted to have right IJ thrombosis, currently on lovenox. - Current Medication List Current Medications: Active Medications Albuterol/Ipratropium (Duoneb -) 1 amp NEB QIDR [facility] Last Admin: 07/06/16 11:09 Dose: 1 amp Amlodipine Besylate (Norvasc -) 10 mg PO DAILY [facility] Last Admin: 07/06/16 10:03 Dose: Not Given Buspirone HCl (Buspar -) 5 mg PO BID [facility] Last Admin: 07/06/16 10:02 Dose: Not Given Clonazepam (Klonopin -) 0.5 mg PO HS [facility] Last Admin: 07/05/16 22:31 Dose: Not Given Docusate Sodium (Colace -) 100 mg PO TID [facility] Last Admin: 07/06/16 05:55 Dose: Not Given Enoxaparin Sodium (Lovenox -) 60 mg SQ BID [facility] Last Admin: 07/06/16 10:03 Dose: 60 mg Finasteride (Proscar -) 5 mg PO DAILY [facility] Last Admin: 07/06/16 10:03 Dose: Not Given Amino Acids (Clinimix -) 1,000 mls @ 84 mls/hr IV Q12H [facility] Last Admin: 07/06/16 10:02 Dose: Not Given Levothyroxine Sodium (Synthroid -) 50 mcg PO ACBK [facility] Last Admin: 07/06/16 06:17 Dose: Not Given Metoprolol Tartrate (Lopressor Injection -) 5 mg IVPB Q4H PRN PRN Reason: HR < 60, SBP < 110 Last Admin: 07/06/16 10:04 Dose: 5 mg Metoprolol Tartrate (Lopressor -) 50 mg PO BID [facility] Morphine Sulfate (Morphine Injection -) 0.5 mg SQ Q3H PRN PRN Reason: PAIN Last Admin: 07/06/16 05:34 Dose: 0.5 mg Non-Formulary Medication (Naloxegol Oxalate [Movantik]) 25 mg PO DAILY [facility] Last Admin: 07/06/16 10:03 Dose: Not Given Tmdsp-5-Qwok Ethyl Esters (Lovaza -) 2 gm PO BID [facility] Last Admin: 07/06/16 10:02 Dose: Not Given Ondansetron HCl (Zofran Injection) 4 mg IVPB Q6H PRN PRN Reason: NAUSEA Last Admin: 06/28/16 20:22 Dose: 4 mg Pantoprazole Sodium (Protonix -) 40 mg PO BID [facility] Last Admin: 07/06/16 10:03 Dose: Not Given Polyethylene Glycol (Miralax (For Daily Use) -) 17 gm PO DAILY [facility] Last Admin: 07/06/16 10:03 Dose: Not Given - Objective Vital Signs: Vital Signs Temperature 98.6 F 07/06/16 06:00 Pulse Rate 130 H 07/06/16 10:04 Respiratory Rate 18 07/06/16 06:00 Blood Pressure 150/70 07/06/16 10:04 O2 Sat by Pulse Oximetry (%) 97 07/05/16 21:00 HENT: Yes: Atraumatic, Normocephalic Cardiovascular: No: JVD, Murmur Respiratory: Yes: Diminished (at bases otherwise clear) Gastrointestinal: Yes: Normal Bowel Sounds, Soft. No: Tenderness Edema: No Integumentary: Yes: Other (Poor skin turgor) Labs: CBC, BMP 07/05/16 05:35 07/06/16 06:00 - ....Imaging Chest X-ray: Report Reviewed (07/04/16: LLL infiltrates/effusion), Image Reviewed Assessment/Plan 80 yo male with HTN, hyperlipidemia, DM, CAD/CABG in 1998 (at [facility]?), metastatic prostate CA, who was admitted with altered mental status for the past few months. Patient has also been complaining of back pain that radiates to his right abdomen and was found to have right renal mass, pulmonary nodules, and is awaiting brain MRI to r/o mets. Cardiology initially consulted for frequent atrial ectopy. Patient was noted to have a lot of atrial ectopy per review of telemetry. No clear evidence of atrial fibrillation. 06/24/16 Echo demonstrated grossly normal LV systolic function, but regional WM abnormalities could not be excluded. Mild MR/TR/NJ. Trivial pericardial effusion of no hemodynamic significance. Called by nursing last evening regarding sinus tachycardia with frequent ectopy. Patient is currently being treated for pneumonia and current concern for aspiration. Patient's sinus tachycardia is not unusual in current clinical setting of pneumonia/aspiration. Also patient looks clinically hypovolemic and 2 doses of IV furosemide yesterday and today are also contributing to his tachycardia as this is making him more intravascularly depleted. Per my assessment, patient does not appear to be volume overloaded given absence of peripheral edema and lack of JVD. US of neck on 07/05 demonstrated right IJ thrombosis RECS: Will change metoprolol succinate to metoprolol tartrate 50 mg po bid as this can be crushed and mixed into his apple sauce. Patient to attempt oral diet today. Currently on therapeutic lovenox for R IJ thrombosis. Spoke with renal service regarding patient current clinical status. Will defer further diuretics at this time and given 500 cc bolus of NS and monitor clinical response. Will follow. Call with questions.
[2016-07-06] MEDS ORDERED: SODIUM CHLORIDE 500 ML IV STA (13:33)
[2016-07-06] MEDS: METOPROLOL TARTRATE 50 MG TABLET (FP) PO SCH ×2 (13:46→21:31)
--- NOTE | 2016-07-06 19:29 | PN ---
GI Progress Note Subjective: Patient dyspneic at rest. Cardio-respiratory problems all day. Now with wet couigh after being fed dysphagia diet. - Objective Vital Signs: Vital Signs Temperature 98.6 F 07/06/16 17:36 Pulse Rate 94 H 07/06/16 17:36 Respiratory Rate 18 07/06/16 17:36 Blood Pressure 138/97 07/06/16 17:36 O2 Sat by Pulse Oximetry (%) 97 07/06/16 09:00 Constitutional: Anxious, Severe Distress HENT: Yes: Normocephalic Neck: Yes: Supple Cardiovascular: Yes: Tachycardia Respiratory: Yes: Tachypnea Gastrointestinal Inspection: Yes: WNL ...Palpate: Yes: Soft. No: Tenderness Labs: CBC, BMP 07/05/16 05:35 07/06/16 06:00 Assessment/Plan Patient currently not stable enough for procedure. Discussed with 2 of his daughters who are still unclear about goals of care. Advised that they collectively clarify his status. No point to aggressive nutritional therapy if he is to be made palliative care. If they opt for aggressive management, may be able to place PEG Monday depending on his clinical status
[2016-07-06] MEDS: clonazePAM 0.5 MG TABLET PO SCH (21:26)
[2016-07-06] MEDS: ACETAMINOPHEN 325 MG TABLET (FP) PO PRN (21:31)
[2016-07-07] MEDS: AMINO ACIDS 4.25%/D5W 1,000 ML IV SCH ×4 (03:32→21:56)
[2016-07-07] MEDS: DOCUSATE SODIUM 100 MG CAPSULE (FP) PO SCH ×3 (05:46→21:57)
[2016-07-07] MEDS: LEVOTHYROXINE NA 50 MCG TABLET (FP) PO SCH (06:18)
[2016-07-07] MEDS: ALBUTEROL SO4 2.5/IPRATROPIUM 0.5 INH SOL 3 ML VIAL.NEB. NEB SCH ×4 (06:32→23:01)
[2016-07-07 06:56] LABS: EOSINOPHIL 1.1 % (0-4.5); MCH 30.7 pg (25.7-33.7); MCHC 34.1 g/dl (32.0-35.9); MEAN CELL VOLUME 89.9 fl (80-96); MEAN PLT VOLUME 7.6 fl (7.5-11.1); NEUTROPHILS 84.9 % (42.8-82.8); PLATELET COUNT 269 K/MM3 (134-434); RDW 14.7 % (11.9-15.9); WHITE BLOOD COUNT 9.4 K/mm3 (4.0-10.0)
[2016-07-07 07:18] LABS: CREATININE 1.1 mg/dL (0.7-1.3); MAGNESIUM 1.7 mg/dL (1.8-2.4)
[2016-07-07 07:24] LABS: PHOSPHOROUS 1.2 mg/dL (2.5-4.9)
[2016-07-07] MEDS: busPIRone HCL 5 MG TABLET PO SCH ×2 (09:29→21:57)
[2016-07-07] MEDS: ENOXAPARIN NA (PORCINE) 60 MG/0.6 ML DISP.SYRIN SQ SCH ×2 (09:30→22:10)
[2016-07-07] MEDS: OMEGA-3 ACID ETHYL ESTERS (FATTY-ACIDS) 1 GM CAPSULE (FP) PO SCH ×2 (09:30→21:57)
[2016-07-07] MEDS: METOPROLOL TARTRATE 50 MG TABLET (FP) PO SCH ×2 (09:30→22:10)
[2016-07-07] MEDS: PATIENT'S OWN MEDICATION (NON-FORMULARY) (Naloxegol Oxalate [Movantik] 25 MG) PO SCH (09:31)
[2016-07-07] MEDS: POLYETHYLENE GLYCOL 3350 119 GM BTL PO SCH (09:31)
[2016-07-07] MEDS: FINASTERIDE 5 MG TABLET (FP) PO SCH (09:33)
[2016-07-07] MEDS: amLODIPine BESYLATE 5 MG TABLET (FP) PO SCH (09:33)
[2016-07-07] MEDS: PANTOPRAZOLE 40 MG TABLET (FP) PO SCH ×2 (09:33→21:57)
[2016-07-07] MEDS: morphine CARPU-JECT 2 MG/1 ML DISP.SYRIN SQ PRN ×2 (09:44→22:25)
--- NOTE | 2016-07-07 10:22 | PN ---
Progress Note, Physician Chief Complaint: patient on venti mask dysphagfia diet had MBS yesterday daughter at bedside they will decide later today about palliative care vs PEG and let us know low grade temp last night - Current Medication List Current Medications: Active Medications Acetaminophen (Tylenol -) 650 mg PO Q4H PRN PRN Reason: FEVER OR PAIN Last Admin: 07/06/16 21:31 Dose: 650 mg Albuterol/Ipratropium (Duoneb -) 1 amp NEB QIDR [facility] Last Admin: 07/07/16 06:32 Dose: 1 amp Amlodipine Besylate (Norvasc -) 10 mg PO DAILY [facility] Last Admin: 07/07/16 09:33 Dose: 10 mg Buspirone HCl (Buspar -) 5 mg PO BID [facility] Last Admin: 07/07/16 09:29 Dose: Not Given Clonazepam (Klonopin -) 0.5 mg PO HS [facility] Last Admin: 07/06/16 21:26 Dose: Not Given Docusate Sodium (Colace -) 100 mg PO TID [facility] Last Admin: 07/07/16 05:46 Dose: Not Given Enoxaparin Sodium (Lovenox -) 60 mg SQ BID [facility] Last Admin: 07/07/16 09:30 Dose: 60 mg Finasteride (Proscar -) 5 mg PO DAILY [facility] Last Admin: 07/07/16 09:33 Dose: Not Given Amino Acids (Clinimix -) 1,000 mls @ 84 mls/hr IV Q12H [facility] Last Admin: 07/07/16 09:29 Dose: Not Given Levothyroxine Sodium (Synthroid -) 50 mcg PO ACBK [facility] Last Admin: 07/07/16 06:18 Dose: Not Given Metoprolol Tartrate (Lopressor Injection -) 5 mg IVPB Q4H PRN PRN Reason: HR < 60, SBP < 110 Last Admin: 07/06/16 10:04 Dose: 5 mg Metoprolol Tartrate (Lopressor -) 50 mg PO BID [facility] Last Admin: 07/07/16 09:30 Dose: 50 mg Morphine Sulfate (Morphine Injection -) 0.5 mg SQ Q3H PRN PRN Reason: PAIN Last Admin: 07/07/16 09:44 Dose: 0.5 mg Non-Formulary Medication (Naloxegol Oxalate [Movantik]) 25 mg PO DAILY [facility] Last Admin: 07/07/16 09:31 Dose: Not Given Jhcde-5-Gtwl Ethyl Esters (Lovaza -) 2 gm PO BID [facility] Last Admin: 07/07/16 09:30 Dose: Not Given Ondansetron HCl (Zofran Injection) 4 mg IVPB Q6H PRN PRN Reason: NAUSEA Last Admin: 06/28/16 20:22 Dose: 4 mg Pantoprazole Sodium (Protonix -) 40 mg PO BID [facility] Last Admin: 07/07/16 09:33 Dose: Not Given Polyethylene Glycol (Miralax (For Daily Use) -) 17 gm PO DAILY [facility] Last Admin: 07/07/16 09:31 Dose: Not Given - Objective Vital Signs: Vital Signs Temperature 98.4 F 07/07/16 06:00 Pulse Rate 70 07/07/16 06:00 Respiratory Rate 20 07/07/16 06:00 Blood Pressure 152/70 07/07/16 06:00 O2 Sat by Pulse Oximetry (%) 98 07/06/16 21:00 Constitutional: Yes: Calm Cardiovascular: Yes: Regular Rate and Rhythm, Tachycardia Respiratory: Yes: CTA Bilaterally, On Venti-Mask Gastrointestinal: Yes: Normal Bowel Sounds, Soft Edema: No Neurological: Yes: Alert (awake) Labs: CBC, BMP 07/07/16 05:35 07/07/16 05:35 Problem List - Problems (1) Dysphagia Assessment/Plan: MBS shows silent aspiration dysphagia diet family to decied in afternoon today about peg vs palliative care i spoke to them Code(s): R13.10 - DYSPHAGIA, UNSPECIFIED (2) Thrombus Assessment/Plan: on lovenox for Righr IJ thrombus Code(s): I82.90 - ACUTE EMBOLISM AND THROMBOSIS OF UNSPECIFIED VEIN (3) Hypothyroid Assessment/Plan: tsh noted dose adjsuted Code(s): E03.9 - HYPOTHYROIDISM, UNSPECIFIED (4) Prostate ca Assessment/Plan: with ABDOMINAL METS AND hypercalcemia on iv f luids calcium 9.0 better today Code(s): C61 - MALIGNANT NEOPLASM OF PROSTATE (5) Electrolyte abnormality Assessment/Plan: magnesium and K repleted recheck in am Code(s): E87.8 - OTH DISORDERS OF ELECTROLYTE AND FLUID BALANCE, NEC
[2016-07-07] MEDS ORDERED: MAGNESIUM SULF 50% (8.12 MEQ/2 ML-1 GM VIAL) IVPB ONE (11:00)
--- NOTE | 2016-07-07 11:10 | PN ---
Progress Note, ADMISSIONS OFFICER - Note Progress Note: Po diet of pureed food and honey thick liquid on a tsp. Staff fed pt last night , palpating larynx for reflex. Pt was reportedly more congested last night and minimal accepted last night and this morning. Selected Entries 07/05/16 07/05/16 07/05/16 02:00 06:00 10:00 Temperature 98.4 F 99.1 F 99.0 F 07/05/16 07/05/16 07/05/16 14:00 18:00 21:00 Temperature 98.2 F 100.4 F H 100.2 F H 07/06/16 07/06/16 07/06/16 02:00 06:00 13:47 Temperature 98.1 F 98.6 F 98.4 F 07/06/16 07/06/16 07/06/16 17:36 18:45 21:00 Temperature 98.6 F 100.0 F H 100.0 F H 07/07/16 07/07/16 02:00 06:00 Temperature 97.3 F L 98.4 F GI consult reviewed and appreciated, Family considering palliative care/home hospice vs PEG.
--- NOTE | 2016-07-07 11:49 | PN ---
Progress Note, Physician Chief Complaint: The patient seen in his room . Fmily by his bed. Awake, alert good urine output. Oral intake better - Current Medication List Current Medications: Active Medications Acetaminophen (Tylenol -) 650 mg PO Q4H PRN PRN Reason: FEVER OR PAIN Last Admin: 07/06/16 21:31 Dose: 650 mg Albuterol/Ipratropium (Duoneb -) 1 amp NEB QIDR [facility] Last Admin: 07/07/16 06:32 Dose: 1 amp Amlodipine Besylate (Norvasc -) 10 mg PO DAILY [facility] Last Admin: 07/07/16 09:33 Dose: 10 mg Buspirone HCl (Buspar -) 5 mg PO BID [facility] Last Admin: 07/07/16 09:29 Dose: Not Given Clonazepam (Klonopin -) 0.5 mg PO HS [facility] Last Admin: 07/06/16 21:26 Dose: Not Given Docusate Sodium (Colace -) 100 mg PO TID [facility] Last Admin: 07/07/16 05:46 Dose: Not Given Enoxaparin Sodium (Lovenox -) 60 mg SQ BID [facility] Last Admin: 07/07/16 09:30 Dose: 60 mg Finasteride (Proscar -) 5 mg PO DAILY [facility] Last Admin: 07/07/16 09:33 Dose: Not Given Amino Acids (Clinimix -) 1,000 mls @ 84 mls/hr IV Q12H [facility] Last Admin: 07/07/16 09:29 Dose: Not Given Potassium Chloride (Potassium Chloride 10 Meq Premix Ivpb -) 100 mls @ 100 mls/ hr IVPB Q60M [facility] Stop: 07/07/16 13:59 Levothyroxine Sodium (Synthroid -) 37.5 mcg PO ACBK [facility] Metoprolol Tartrate (Lopressor Injection -) 5 mg IVPB Q4H PRN PRN Reason: HR < 60, SBP < 110 Last Admin: 07/06/16 10:04 Dose: 5 mg Metoprolol Tartrate (Lopressor -) 50 mg PO BID [facility] Last Admin: 07/07/16 09:30 Dose: 50 mg Morphine Sulfate (Morphine Injection -) 0.5 mg SQ Q3H PRN PRN Reason: PAIN Last Admin: 07/07/16 09:44 Dose: 0.5 mg Non-Formulary Medication (Naloxegol Oxalate [Movantik]) 25 mg PO DAILY [facility] Last Admin: 07/07/16 09:31 Dose: Not Given Clxmu-9-Idab Ethyl Esters (Lovaza -) 2 gm PO BID [facility] Last Admin: 07/07/16 09:30 Dose: Not Given Ondansetron HCl (Zofran Injection) 4 mg IVPB Q6H PRN PRN Reason: NAUSEA Last Admin: 06/28/16 20:22 Dose: 4 mg Pantoprazole Sodium (Protonix -) 40 mg PO BID [facility] Last Admin: 07/07/16 09:33 Dose: Not Given Polyethylene Glycol (Miralax (For Daily Use) -) 17 gm PO DAILY [facility] Last Admin: 07/07/16 09:31 Dose: Not Given - Objective Vital Signs: Vital Signs Temperature 98.4 F 07/07/16 06:00 Pulse Rate 70 07/07/16 06:00 Respiratory Rate 20 07/07/16 06:00 Blood Pressure 152/70 07/07/16 06:00 O2 Sat by Pulse Oximetry (%) 98 07/06/16 21:00 Constitutional: Yes: Calm, Anxious HENT: Yes: Atraumatic, Normocephalic Neck: Yes: Supple, Trachea Midline Cardiovascular: Yes: Regular Rate and Rhythm, S1, S2 Respiratory: Yes: CTA Bilaterally, Rhonchi Edema: No Labs: CBC, BMP 07/07/16 05:35 07/07/16 05:35 Problem List - Problems (1) Confusion Code(s): R41.0 - DISORIENTATION, UNSPECIFIED (2) Prostate ca Code(s): C61 - MALIGNANT NEOPLASM OF PROSTATE (3) Pulmonary metastases Code(s): C78.00 - SECONDARY MALIGNANT NEOPLASM OF UNSPECIFIED LUNG (4) Renal mass Code(s): N28.89 - OTHER SPECIFIED DISORDERS OF KIDNEY AND URETER (5) TERRA (acute kidney injury) Code(s): N17.9 - ACUTE KIDNEY FAILURE, UNSPECIFIED (6) Back pain Code(s): M54.9 - DORSALGIA, UNSPECIFIED Qualifiers: Back pain location: low back pain (7) CAD (coronary artery disease) Code(s): I25.10 - ATHSCL HEART DISEASE OF [place] CORONARY ARTERY W/O ANG PCTRS (8) CAD (coronary artery disease) of artery bypass graft Code(s): I25.810 - ATHEROSCLEROSIS OF CABG W/O ANGINA PECTORIS (9) Chronic pain Code(s): G89.29 - OTHER CHRONIC PAIN (10) Hyponatremia Code(s): E87.1 - HYPO-OSMOLALITY AND HYPONATREMIA (11) Pneumonia Code(s): J18.9 - PNEUMONIA, UNSPECIFIED ORGANISM Qualifiers: Assessment/Plan 80 y/o male with Acute change in Mental status. Mental staus much better. Renal functions are improving towards his baseline. there is prerenal azotemia. need to r/o blood in the gut. CA Prostate with mets. Has Renal mass and Pulmonary nodule. The current management is well tolerated. Neurology w/u and Pain management in progress. Hypokalemia may be related to poor oral intake and Hypomgnesemia. KCl supplements. Mag Sulfate supplements Gabriella Fang MD
--- NOTE | 2016-07-07 11:55 | PN ---
Progress Note, Physician History of Present Illness: pulmonary alert,-resp distress,-tachypnea - Current Medication List Current Medications: Active Medications Acetaminophen (Tylenol -) 650 mg PO Q4H PRN PRN Reason: FEVER OR PAIN Last Admin: 07/06/16 21:31 Dose: 650 mg Albuterol/Ipratropium (Duoneb -) 1 amp NEB QIDR [facility] Last Admin: 07/07/16 06:32 Dose: 1 amp Amlodipine Besylate (Norvasc -) 10 mg PO DAILY [facility] Last Admin: 07/07/16 09:33 Dose: 10 mg Buspirone HCl (Buspar -) 5 mg PO BID [facility] Last Admin: 07/07/16 09:29 Dose: Not Given Clonazepam (Klonopin -) 0.5 mg PO HS [facility] Last Admin: 07/06/16 21:26 Dose: Not Given Docusate Sodium (Colace -) 100 mg PO TID [facility] Last Admin: 07/07/16 05:46 Dose: Not Given Enoxaparin Sodium (Lovenox -) 60 mg SQ BID [facility] Last Admin: 07/07/16 09:30 Dose: 60 mg Finasteride (Proscar -) 5 mg PO DAILY [facility] Last Admin: 07/07/16 09:33 Dose: Not Given Amino Acids (Clinimix -) 1,000 mls @ 84 mls/hr IV Q12H [facility] Last Admin: 07/07/16 09:29 Dose: Not Given Potassium Chloride (Potassium Chloride 10 Meq Premix Ivpb -) 100 mls @ 100 mls/ hr IVPB Q60M [facility] Stop: 07/07/16 13:59 Levothyroxine Sodium (Synthroid -) 37.5 mcg PO ACBK [facility] Metoprolol Tartrate (Lopressor Injection -) 5 mg IVPB Q4H PRN PRN Reason: HR < 60, SBP < 110 Last Admin: 07/06/16 10:04 Dose: 5 mg Metoprolol Tartrate (Lopressor -) 50 mg PO BID [facility] Last Admin: 07/07/16 09:30 Dose: 50 mg Morphine Sulfate (Morphine Injection -) 0.5 mg SQ Q3H PRN PRN Reason: PAIN Last Admin: 07/07/16 09:44 Dose: 0.5 mg Non-Formulary Medication (Naloxegol Oxalate [Movantik]) 25 mg PO DAILY [facility] Last Admin: 07/07/16 09:31 Dose: Not Given Bddyo-6-Mtlp Ethyl Esters (Lovaza -) 2 gm PO BID [facility] Last Admin: 07/07/16 09:30 Dose: Not Given Ondansetron HCl (Zofran Injection) 4 mg IVPB Q6H PRN PRN Reason: NAUSEA Last Admin: 06/28/16 20:22 Dose: 4 mg Pantoprazole Sodium (Protonix -) 40 mg PO BID [facility] Last Admin: 07/07/16 09:33 Dose: Not Given Polyethylene Glycol (Miralax (For Daily Use) -) 17 gm PO DAILY [facility] Last Admin: 07/07/16 09:31 Dose: Not Given - Objective Vital Signs: Vital Signs Temperature 98.4 F 07/07/16 06:00 Pulse Rate 70 07/07/16 06:00 Respiratory Rate 20 07/07/16 06:00 Blood Pressure 152/70 07/07/16 06:00 O2 Sat by Pulse Oximetry (%) 98 07/06/16 21:00 Constitutional: Yes: Calm, Thin Eyes: Yes: WNL HENT: Yes: WNL Neck: Yes: WNL Cardiovascular: Yes: Regular Rate and Rhythm, S1, S2 Respiratory: Yes: Diminished (poor insp effort,few rhonchi) Gastrointestinal: Yes: Normal Bowel Sounds, Soft Extremities: Yes: WNL Edema: No Labs: CBC, BMP 07/07/16 05:35 07/07/16 05:35 Assessment/Plan Problem List - Problems (1) Abdominal pain Code(s): R10.9 - UNSPECIFIED ABDOMINAL PAIN (2) Confusion Code(s): R41.0 - DISORIENTATION, UNSPECIFIED (3) Prostate ca Code(s): C61 - MALIGNANT NEOPLASM OF PROSTATE (4) Pulmonary metastases Code(s): C78.00 - SECONDARY MALIGNANT NEOPLASM OF UNSPECIFIED LUNG (5) Renal mass Code(s): N28.89 - OTHER SPECIFIED DISORDERS OF KIDNEY AND URETER (6) TERRA (acute kidney injury) Code(s): N17.9 - ACUTE KIDNEY FAILURE, UNSPECIFIED (7) Back pain Code(s): M54.9 - DORSALGIA, UNSPECIFIED Qualifiers: Back pain location: low back pain (8) CAD (coronary artery disease) of artery bypass graft Code(s): I25.810 - ATHEROSCLEROSIS OF CABG W/O ANGINA PECTORIS (9) Pneumonia Code(s): J18.9 - PNEUMONIA, UNSPECIFIED ORGANISM Qualifiers: (10) UTI (lower urinary tract infection) Code(s): N39.0 - URINARY TRACT INFECTION, SITE NOT SPECIFIED Assessment/Plan inhaled bronchodilators O2 as needed Aspiration precautions monitor lytes f/u chest x-rays antibiotics as per id DR MURDOCK
[2016-07-07] MEDS: KCL 10 MEQ IVPB 100 ML IVPB SCH ×3 (12:03→17:53)
[2016-07-07] MEDS ORDERED: MAGNESIUM SULF 50% (8.12 MEQ/2 ML-1 GM VIAL) ONE (12:05)
--- NOTE | 2016-07-07 14:13 | EKG ---
Test Reason : Blood Pressure : / mmHG Vent. Rate : 114 BPM Atrial Rate : 114 BPM P-R Int : 116 ms QRS Dur : 116 ms QT Int : 352 ms P-R-T Axes : 052 -59 042 degrees QTc Int : 485 ms SINUS TACHYCARDIA WITH PREMATURE ATRIAL COMPLEXES WITH ABERRANT CONDUCTION LEFT AXIS DEVIATION RIGHT BUNDLE BRANCH BLOCK ABNORMAL ECG WHEN COMPARED WITH ECG OF 23-JUN-2016 10:34, RIGHT BUNDLE BRANCH BLOCK IS NOW PRESENT CRITERIA FOR INFERIOR-POSTERIOR INFARCT ARE NO LONGER PRESENT Confirmed by GREY ALEGRE MD ([id number]) on 07/07/2016 2:12:53 PM Referred By: Confirmed By:GREY ALEGRE MD
[2016-07-07] MEDS ORDERED: KCL 10 MEQ IVPB 100 ML IVPB ONE (17:45)
[2016-07-07] MEDS: ACETAMINOPHEN 325 MG TABLET (FP) PO PRN (18:00)
--- NOTE | 2016-07-07 18:01 | PN ---
Progress Note, Physician History of Present Illness: No new events Family considering palliative care - Current Medication List Current Medications: Active Medications Acetaminophen (Tylenol -) 650 mg PO Q4H PRN PRN Reason: FEVER OR PAIN Last Admin: 07/06/16 21:31 Dose: 650 mg Albuterol/Ipratropium (Duoneb -) 1 amp NEB QIDR [facility] Last Admin: 07/07/16 17:51 Dose: 1 amp Amlodipine Besylate (Norvasc -) 10 mg PO DAILY [facility] Last Admin: 07/07/16 09:33 Dose: 10 mg Buspirone HCl (Buspar -) 5 mg PO BID [facility] Last Admin: 07/07/16 09:29 Dose: Not Given Clonazepam (Klonopin -) 0.5 mg PO HS [facility] Last Admin: 07/06/16 21:26 Dose: Not Given Docusate Sodium (Colace -) 100 mg PO TID [facility] Last Admin: 07/07/16 14:51 Dose: Not Given Enoxaparin Sodium (Lovenox -) 60 mg SQ BID [facility] Last Admin: 07/07/16 09:30 Dose: 60 mg Finasteride (Proscar -) 5 mg PO DAILY [facility] Last Admin: 07/07/16 09:33 Dose: Not Given Amino Acids (Clinimix -) 1,000 mls @ 84 mls/hr IV Q12H [facility] Last Admin: 07/07/16 15:50 Dose: 84 mls/hr Potassium Chloride (Potassium Chloride 10 Meq Premix Ivpb -) 100 mls @ 100 mls/ hr IVPB ONCE ONE Stop: 07/07/16 18:44 Last Admin: 07/07/16 17:53 Dose: 100 mls/hr Levothyroxine Sodium (Synthroid -) 37.5 mcg PO ACBK [facility] Metoprolol Tartrate (Lopressor Injection -) 5 mg IVPB Q4H PRN PRN Reason: HR < 60, SBP < 110 Last Admin: 07/06/16 10:04 Dose: 5 mg Metoprolol Tartrate (Lopressor -) 50 mg PO BID [facility] Last Admin: 07/07/16 09:30 Dose: 50 mg Morphine Sulfate (Morphine Injection -) 0.5 mg SQ Q3H PRN PRN Reason: PAIN Last Admin: 07/07/16 09:44 Dose: 0.5 mg Non-Formulary Medication (Naloxegol Oxalate [Movantik]) 25 mg PO DAILY [facility] Last Admin: 07/07/16 09:31 Dose: Not Given Wzbil-7-Nppf Ethyl Esters (Lovaza -) 2 gm PO BID [facility] Last Admin: 07/07/16 09:30 Dose: Not Given Ondansetron HCl (Zofran Injection) 4 mg IVPB Q6H PRN PRN Reason: NAUSEA Last Admin: 06/28/16 20:22 Dose: 4 mg Pantoprazole Sodium (Protonix -) 40 mg PO BID [facility] Last Admin: 07/07/16 09:33 Dose: Not Given Polyethylene Glycol (Miralax (For Daily Use) -) 17 gm PO DAILY [facility] Last Admin: 07/07/16 09:31 Dose: Not Given - Objective Vital Signs: Vital Signs Temperature 100.1 F H 07/07/16 17:31 Pulse Rate 65 07/07/16 17:31 Respiratory Rate 18 07/07/16 17:31 Blood Pressure 154/70 07/07/16 17:31 O2 Sat by Pulse Oximetry (%) 100 07/07/16 09:00 Constitutional: Yes: Mild Distress (on ventimask) Eyes: Yes: Conjunctiva Clear Neck: Yes: Supple Respiratory: Yes: Rhonchi. No: Rales, Wheezes Gastrointestinal: Yes: Normal Bowel Sounds Edema: Yes (tarce) Peripheral Pulses WNL: Yes Neurological: Yes: Alert Labs: CBC, BMP 07/07/16 05:35 07/07/16 05:35 Assessment/Plan 80 yo male with HTN, hyperlipidemia, DM, CAD/CABG in 1998 (at [facility]?), metastatic prostate CA, who was admitted with altered mental status for the past few months. Patient has also been complaining of back pain that radiates to his right abdomen and was found to have right renal mass, pulmonary nodules, and is awaiting brain MRI to r/o mets. Cardiology initially consulted for frequent atrial ectopy. Patient was noted to have a lot of atrial ectopy per review of telemetry. No clear evidence of atrial fibrillation. 06/24/16 Echo demonstrated grossly normal LV systolic function, but regional WM abnormalities could not be excluded. Mild MR/TR/MT. Trivial pericardial effusion of no hemodynamic significance. Called by nursing last evening regarding sinus tachycardia with frequent ectopy. Patient is currently being treated for pneumonia and current concern for aspiration. Patient's sinus tachycardia is not unusual in current clinical setting of pneumonia/aspiration. Also patient looks clinically hypovolemic and 2 doses of IV furosemide yesterday and today are also contributing to his tachycardia as this is making him more intravascularly depleted. Per my assessment, patient does not appear to be volume overloaded given absence of peripheral edema and lack of JVD. US of neck on 07/05 demonstrated right IJ thrombosis Today, 07/07, HR better overall BP ok RECS: Cont metoprolol tartrate 50 mg po bid an dIV metoprolol prn Currently on therapeutic lovenox for R IJ thrombosis -. will have to be switched to PO AC, timing to be determined after family's decision Family at bedside -. seems to be leaning toward comfort care
[2016-07-07] MEDS: clonazePAM 0.5 MG TABLET PO SCH (21:57)
[2016-07-08] MEDS: ACETAMINOPHEN 325 MG TABLET (FP) PO PRN ×3 (03:30→20:16)
[2016-07-08] MEDS: AMINO ACIDS 4.25%/D5W 1,000 ML IV SCH ×3 (03:36→21:21)
[2016-07-08] MEDS: DOCUSATE SODIUM 100 MG CAPSULE (FP) PO SCH ×3 (05:41→21:30)
[2016-07-08] MEDS: ALBUTEROL SO4 2.5/IPRATROPIUM 0.5 INH SOL 3 ML VIAL.NEB. NEB SCH ×4 (05:45→23:37)
[2016-07-08] MEDS: LEVOTHYROXINE NA 25 MCG TABLET (FP) PO SCH (06:08)
[2016-07-08] MEDS: morphine CARPU-JECT 2 MG/1 ML DISP.SYRIN SQ PRN ×4 (06:36→21:18)
[2016-07-08 07:24] LABS: ALBUMIN 2.5 g/dl (3.4-5.0); ANION GAP 12 (8-16); CALCIUM 8.5 mg/dL (8.5-10.1); CO2 19 mmol/L (21-32); GLUCOSE,RANDOM 124 mg/dL (74-106); MAGNESIUM 2.1 mg/dL (1.8-2.4); SGOT/AST 23 U/L (15-37); SGPT/ALT 23 U/L (12-78)
[2016-07-08 07:26] LABS: ALK PHOS 164 U/L (45-117); BILIRUBIN,TOTAL 0.3 mg/dL (0.2-1.0)
[2016-07-08] MEDS: amLODIPine BESYLATE 5 MG TABLET (FP) PO SCH (10:00)
[2016-07-08] MEDS: busPIRone HCL 5 MG TABLET PO SCH ×2 (10:01→21:30)
[2016-07-08] MEDS: FINASTERIDE 5 MG TABLET (FP) PO SCH (10:01)
[2016-07-08] MEDS: PANTOPRAZOLE 40 MG TABLET (FP) PO SCH ×2 (10:01→21:20)
[2016-07-08] MEDS: ENOXAPARIN NA (PORCINE) 60 MG/0.6 ML DISP.SYRIN SQ SCH ×2 (10:01→21:21)
[2016-07-08] MEDS: PATIENT'S OWN MEDICATION (NON-FORMULARY) (Naloxegol Oxalate [Movantik] 25 MG) PO SCH (10:01)
[2016-07-08] MEDS: METOPROLOL TARTRATE 50 MG TABLET (FP) PO SCH ×2 (10:01→21:55)
[2016-07-08] MEDS: OMEGA-3 ACID ETHYL ESTERS (FATTY-ACIDS) 1 GM CAPSULE (FP) PO SCH ×2 (10:02→21:31)
[2016-07-08] MEDS: POLYETHYLENE GLYCOL 3350 119 GM BTL PO SCH (10:02)
--- NOTE | 2016-07-08 10:03 | PN ---
Progress Note, FINISHING TRIMMER - Note Progress Note: Limited PO acceptance. Overtly tolerating modified diet. Pt is deciding about palliative care vs PEG. If PEG chosen, PO intake can be continued,as desired, for quality of life. Selected Entries 07/07/16 07/07/16 07/07/16 02:00 06:00 10:00 Temperature 97.3 F L 98.4 F 98.8 F 07/07/16 07/07/16 07/07/16 14:00 17:31 20:00 Temperature 98.3 F 100.1 F H 99.6 F 07/07/16 07/08/16 07/08/16 22:00 02:00 03:30 Temperature 99.0 F 98.7 F 99.9 F H 07/08/16 07:00 Temperature 99.5 F Laboratory Tests 07/07/16 05:35 WBC 9.4 Pt is DNR/DNI.
--- NOTE | 2016-07-08 10:22 | PN ---
Progress Note, Physician Chief Complaint: spoke to patient and his son son and daughter donot want peg tube but the patient is awake and alert and says he wants the peg tube will recall GI to speak to him as well eat half of cereal and few spoons of apple sauce and yogurt today - Current Medication List Current Medications: Active Medications Acetaminophen (Tylenol -) 650 mg PO Q4H PRN PRN Reason: FEVER OR PAIN Last Admin: 07/08/16 03:30 Dose: 650 mg Albuterol/Ipratropium (Duoneb -) 1 amp NEB QIDR [facility] Last Admin: 07/08/16 05:45 Dose: 1 amp Amlodipine Besylate (Norvasc -) 10 mg PO DAILY [facility] Last Admin: 07/08/16 10:00 Dose: 10 mg Buspirone HCl (Buspar -) 5 mg PO BID [facility] Last Admin: 07/08/16 10:01 Dose: 5 mg Clonazepam (Klonopin -) 0.5 mg PO HS [facility] Last Admin: 07/07/16 21:57 Dose: Not Given Docusate Sodium (Colace -) 100 mg PO TID [facility] Last Admin: 07/08/16 05:41 Dose: Not Given Enoxaparin Sodium (Lovenox -) 60 mg SQ BID [facility] Last Admin: 07/08/16 10:01 Dose: 60 mg Finasteride (Proscar -) 5 mg PO DAILY [facility] Last Admin: 07/08/16 10:01 Dose: 5 mg Amino Acids (Clinimix -) 1,000 mls @ 84 mls/hr IV Q12H [facility] Last Admin: 07/08/16 10:02 Dose: Not Given Levothyroxine Sodium (Synthroid -) 37.5 mcg PO ACBK [facility] Last Admin: 07/08/16 06:08 Dose: 37.5 mcg Metoprolol Tartrate (Lopressor Injection -) 5 mg IVPB Q4H PRN PRN Reason: HR < 60, SBP < 110 Last Admin: 07/06/16 10:04 Dose: 5 mg Metoprolol Tartrate (Lopressor -) 50 mg PO BID [facility] Last Admin: 07/08/16 10:01 Dose: 50 mg Non-Formulary Medication (Naloxegol Oxalate [Movantik]) 25 mg PO DAILY [facility] Last Admin: 07/08/16 10:01 Dose: 25 mg Ioccc-6-Fqso Ethyl Esters (Lovaza -) 2 gm PO BID [facility] Last Admin: 07/08/16 10:02 Dose: Not Given Ondansetron HCl (Zofran Injection) 4 mg IVPB Q6H PRN PRN Reason: NAUSEA Last Admin: 06/28/16 20:22 Dose: 4 mg Pantoprazole Sodium (Protonix -) 40 mg PO BID [facility] Last Admin: 07/08/16 10:01 Dose: 40 mg Polyethylene Glycol (Miralax (For Daily Use) -) 17 gm PO DAILY [facility] Last Admin: 07/08/16 10:02 Dose: Not Given - Objective Vital Signs: Vital Signs Temperature 99.5 F 07/08/16 07:00 Pulse Rate 86 07/08/16 07:00 Respiratory Rate 18 07/08/16 07:00 Blood Pressure 157/75 07/08/16 07:00 O2 Sat by Pulse Oximetry (%) 99 07/07/16 20:37 Constitutional: Yes: Calm, Thin Cardiovascular: Yes: Regular Rate and Rhythm, S1, S2 Respiratory: Yes: Rhonchi (scattered) Gastrointestinal: Yes: Normal Bowel Sounds, Soft Edema: No Neurological: Yes: Alert, Oriented (to name) Labs: CBC, BMP 07/07/16 05:35 07/08/16 06:00 Problem List - Problems (1) Dysphagia Assessment/Plan: will recall GI to speak regarding PEG placement read Zeinab note as well the patient wants pEG but family wants home hospice MBS shows silent aspiration dysphagia diet Code(s): R13.10 - DYSPHAGIA, UNSPECIFIED (2) Thrombus Assessment/Plan: on lovenox for Righr IJ thrombus Code(s): I82.90 - ACUTE EMBOLISM AND THROMBOSIS OF UNSPECIFIED VEIN (3) Hypothyroid Assessment/Plan: tsh noted dose adjsuted Code(s): E03.9 - HYPOTHYROIDISM, UNSPECIFIED (4) Prostate ca Assessment/Plan: with ABDOMINAL METS AND hypercalcemia on iv f luids calcium 9.0 better today Code(s): C61 - MALIGNANT NEOPLASM OF PROSTATE (5) Electrolyte abnormality Assessment/Plan: magnesium and K repleted recheck in am Code(s): E87.8 - OTH DISORDERS OF ELECTROLYTE AND FLUID BALANCE, NEC
[2016-07-08] MEDS ORDERED: NAPH,MB-DB/K PH,MBDB POWDER PACKET PO ONE (11:30)
--- NOTE | 2016-07-08 12:25 | PN ---
Progress Note, Physician History of Present Illness: pulmonary less alert today,c/o abd discomfort,-resp distress - Current Medication List Current Medications: Active Medications Acetaminophen (Tylenol -) 650 mg PO Q4H PRN PRN Reason: FEVER OR PAIN Last Admin: 07/08/16 10:00 Dose: 650 mg Albuterol/Ipratropium (Duoneb -) 1 amp NEB QIDR [facility] Last Admin: 07/08/16 11:46 Dose: 1 amp Amlodipine Besylate (Norvasc -) 10 mg PO DAILY [facility] Last Admin: 07/08/16 10:00 Dose: 10 mg Buspirone HCl (Buspar -) 5 mg PO BID [facility] Last Admin: 07/08/16 10:01 Dose: 5 mg Clonazepam (Klonopin -) 0.5 mg PO HS [facility] Last Admin: 07/07/16 21:57 Dose: Not Given Docusate Sodium (Colace -) 100 mg PO TID [facility] Last Admin: 07/08/16 05:41 Dose: Not Given Enoxaparin Sodium (Lovenox -) 60 mg SQ BID [facility] Last Admin: 07/08/16 10:01 Dose: 60 mg Finasteride (Proscar -) 5 mg PO DAILY [facility] Last Admin: 07/08/16 10:01 Dose: 5 mg Amino Acids (Clinimix -) 1,000 mls @ 84 mls/hr IV Q12H [facility] Last Admin: 07/08/16 10:02 Dose: Not Given Levothyroxine Sodium (Synthroid -) 37.5 mcg PO ACBK [facility] Last Admin: 07/08/16 06:08 Dose: 37.5 mcg Metoprolol Tartrate (Lopressor Injection -) 5 mg IVPB Q4H PRN PRN Reason: HR < 60, SBP < 110 Last Admin: 07/06/16 10:04 Dose: 5 mg Metoprolol Tartrate (Lopressor -) 50 mg PO BID [facility] Last Admin: 07/08/16 10:01 Dose: 50 mg Morphine Sulfate (Morphine Injection -) 0.5 mg SQ Q4H PRN PRN Reason: PAIN Non-Formulary Medication (Naloxegol Oxalate [Movantik]) 25 mg PO DAILY [facility] Last Admin: 07/08/16 10:01 Dose: 25 mg Dhuzn-9-Nryq Ethyl Esters (Lovaza -) 2 gm PO BID [facility] Last Admin: 07/08/16 10:02 Dose: Not Given Ondansetron HCl (Zofran Injection) 4 mg IVPB Q6H PRN PRN Reason: NAUSEA Last Admin: 06/28/16 20:22 Dose: 4 mg Pantoprazole Sodium (Protonix -) 40 mg PO BID [facility] Last Admin: 07/08/16 10:01 Dose: 40 mg Polyethylene Glycol (Miralax (For Daily Use) -) 17 gm PO DAILY [facility] Last Admin: 07/08/16 10:02 Dose: Not Given - Objective Vital Signs: Vital Signs Temperature 99.5 F 07/08/16 07:00 Pulse Rate 86 07/08/16 07:00 Respiratory Rate 18 07/08/16 07:00 Blood Pressure 157/75 07/08/16 07:00 O2 Sat by Pulse Oximetry (%) 99 07/07/16 20:37 Constitutional: Yes: Well Nourished, Calm Eyes: Yes: WNL HENT: Yes: WNL Neck: Yes: WNL Cardiovascular: Yes: Regular Rate and Rhythm, S1, S2 Respiratory: Yes: Rhonchi (few rhonchi) Gastrointestinal: Yes: Normal Bowel Sounds, Soft Extremities: Yes: WNL Edema: No Labs: CBC, BMP Assessment/Plan Problem List - Problems (1) Abdominal pain Code(s): R10.9 - UNSPECIFIED ABDOMINAL PAIN (2) Confusion Code(s): R41.0 - DISORIENTATION, UNSPECIFIED (3) Prostate ca Code(s): C61 - MALIGNANT NEOPLASM OF PROSTATE (4) Pulmonary metastases Code(s): C78.00 - SECONDARY MALIGNANT NEOPLASM OF UNSPECIFIED LUNG (5) Renal mass Code(s): N28.89 - OTHER SPECIFIED DISORDERS OF KIDNEY AND URETER (6) TERRA (acute kidney injury) Code(s): N17.9 - ACUTE KIDNEY FAILURE, UNSPECIFIED (7) Back pain Code(s): M54.9 - DORSALGIA, UNSPECIFIED Qualifiers: Back pain location: low back pain (8) CAD (coronary artery disease) of artery bypass graft Code(s): I25.810 - ATHEROSCLEROSIS OF CABG W/O ANGINA PECTORIS (9) Pneumonia Code(s): J18.9 - PNEUMONIA, UNSPECIFIED ORGANISM Qualifiers: (10) UTI (lower urinary tract infection) Code(s): N39.0 - URINARY TRACT INFECTION, SITE NOT SPECIFIED Assessment/Plan inhaled bronchodilators O2 as needed Aspiration precautions monitor lytes f/u chest x-rays DR MURDOCK
--- NOTE | 2016-07-08 13:00 | PN ---
Progress Note (short form) - Note Progress Note: Renal Follow up for TERRA/Hyperkalemia Pt seen and examined at the bedside no overnight events family at the bedside tolerating some of his diet Vital Signs Temperature 99.5 F 07/08/16 07:00 Pulse Rate 86 07/08/16 07:00 Respiratory Rate 18 07/08/16 07:00 Blood Pressure 157/75 07/08/16 07:00 O2 Sat by Pulse Oximetry (%) 99 07/07/16 20:37 Intake & Output 07/05/16 07/06/16 07/07/16 07/08/16 23:59 23:59 23:59 23:59 Intake Total 294 2614 1292 588 Balance 294 2614 1292 588 Gen: NAD, on Ventimask CVS: RRR, No M/R Lungs: Dec BS b/l lung ferrell Abd: soft, NT Ext: No edema, clubbing or cyanosis : no bladder distension CBC, BMP 07/07/16 05:35 07/08/16 06:00 Current Medications Acetaminophen (Tylenol -) 650 mg PO Q4H PRN PRN Reason: FEVER OR PAIN Last Admin: 07/08/16 10:00 Dose: 650 mg Albuterol/Ipratropium (Duoneb -) 1 amp NEB QIDR [facility] Last Admin: 07/08/16 11:46 Dose: 1 amp Amlodipine Besylate (Norvasc -) 10 mg PO DAILY [facility] Last Admin: 07/08/16 10:00 Dose: 10 mg Buspirone HCl (Buspar -) 5 mg PO BID [facility] Last Admin: 07/08/16 10:01 Dose: 5 mg Clonazepam (Klonopin -) 0.5 mg PO HS [facility] Last Admin: 07/07/16 21:57 Dose: Not Given Docusate Sodium (Colace -) 100 mg PO TID [facility] Last Admin: 07/08/16 05:41 Dose: Not Given Enoxaparin Sodium (Lovenox -) 60 mg SQ BID [facility] Last Admin: 07/08/16 10:01 Dose: 60 mg Finasteride (Proscar -) 5 mg PO DAILY [facility] Last Admin: 07/08/16 10:01 Dose: 5 mg Amino Acids (Clinimix -) 1,000 mls @ 84 mls/hr IV Q12H [facility] Last Admin: 07/08/16 10:02 Dose: Not Given Levothyroxine Sodium (Synthroid -) 37.5 mcg PO ACBK [facility] Last Admin: 07/08/16 06:08 Dose: 37.5 mcg Metoprolol Tartrate (Lopressor Injection -) 5 mg IVPB Q4H PRN PRN Reason: HR < 60, SBP < 110 Last Admin: 07/06/16 10:04 Dose: 5 mg Metoprolol Tartrate (Lopressor -) 50 mg PO BID [facility] Last Admin: 07/08/16 10:01 Dose: 50 mg Morphine Sulfate (Morphine Injection -) 0.5 mg SQ Q4H PRN PRN Reason: PAIN Last Admin: 07/08/16 12:17 Dose: 0.5 mg Non-Formulary Medication (Naloxegol Oxalate [Movantik]) 25 mg PO DAILY [facility] Last Admin: 07/08/16 10:01 Dose: 25 mg Qfjxf-0-Yeqy Ethyl Esters (Lovaza -) 2 gm PO BID [facility] Last Admin: 07/08/16 10:02 Dose: Not Given Ondansetron HCl (Zofran Injection) 4 mg IVPB Q6H PRN PRN Reason: NAUSEA Last Admin: 06/28/16 20:22 Dose: 4 mg Pantoprazole Sodium (Protonix -) 40 mg PO BID [facility] Last Admin: 07/08/16 10:01 Dose: 40 mg Polyethylene Glycol (Miralax (For Daily Use) -) 17 gm PO DAILY [facility] Last Admin: 07/08/16 10:02 Dose: Not Given A/p 80 year old Gentleman with PMhx of Metastatic Prostate Ca, Hypertension, Hyperlipidemia, CAD s/p Cardiac Stents, DM who presented with worsening MS for the past several months as per her daughter and found to have multiple abd mets and TERRA with BUN/Cr of 29/1.5 (baseline Cr 1.1) and hyperkalemia with K of 6. #Acute Kidney Injury Renal function improved and stable continue Clinimix BUN elevated, uptrending, continue to monitor #Hypercalcemia of malignancy Corrected CA is 9.8 today Continue to trend for now #AMS/Facial Droop Work up as per neurology #Metastatic Prostate Ca with Renal mass Urology follow up Mora discontinued Continue Proscar and Flomax #Hypertension Continue current meds Anatoliy Ryan DO
--- NOTE | 2016-07-08 17:24 | PN ---
Progress Note (short form) - Note Progress Note: Vascular surgery Head and neck US reviewed. Pt with right IJ thrombus. Subclavian vein is patent. No need to anticoagulate pt. Can repeat US one week from original US. If no propagation of the clot, no need for AC. Hal West DO
[2016-07-08] MEDS: METOPROLOL TARTRATE 5 MG/5 ML VIAL IVPB PRN (20:15)
[2016-07-08] MEDS: clonazePAM 0.5 MG TABLET PO SCH (21:20)
[2016-07-09] MEDS: ACETAMINOPHEN 325 MG TABLET (FP) PO PRN ×3 (01:55→21:44)
[2016-07-09] MEDS: morphine CARPU-JECT 2 MG/1 ML DISP.SYRIN SQ PRN ×5 (01:57→23:13)
[2016-07-09] MEDS: ALBUTEROL SO4 2.5/IPRATROPIUM 0.5 INH SOL 3 ML VIAL.NEB. NEB SCH ×4 (06:00→23:05)
[2016-07-09] MEDS: DOCUSATE SODIUM 100 MG CAPSULE (FP) PO SCH ×3 (06:13→21:44)
[2016-07-09] MEDS: LEVOTHYROXINE NA 25 MCG TABLET (FP) PO SCH (06:16)
[2016-07-09 07:31] LABS: CALCIUM 8.5 mg/dL (8.5-10.1); MAGNESIUM 1.9 mg/dL (1.8-2.4)
[2016-07-09 07:33] LABS: PHOSPHOROUS 1.6 mg/dL (2.5-4.9)
[2016-07-09] MEDS ORDERED: PT OWN MED DRAWER 7, Y5N ONE ×2 (08:54→21:42)
[2016-07-09] MEDS: PANTOPRAZOLE 40 MG TABLET (FP) PO SCH ×2 (09:09→21:48)
[2016-07-09] MEDS: amLODIPine BESYLATE 5 MG TABLET (FP) PO SCH (09:09)
[2016-07-09] MEDS: busPIRone HCL 5 MG TABLET PO SCH ×2 (09:09→21:48)
[2016-07-09] MEDS: PATIENT'S OWN MEDICATION (NON-FORMULARY) (Naloxegol Oxalate [Movantik] 25 MG) PO SCH (09:10)
[2016-07-09] MEDS: FINASTERIDE 5 MG TABLET (FP) PO SCH (09:10)
[2016-07-09] MEDS: POLYETHYLENE GLYCOL 3350 119 GM BTL PO SCH (09:10)
[2016-07-09] MEDS: OMEGA-3 ACID ETHYL ESTERS (FATTY-ACIDS) 1 GM CAPSULE (FP) PO SCH ×2 (09:10→21:48)
[2016-07-09] MEDS: METOPROLOL TARTRATE 50 MG TABLET (FP) PO SCH ×2 (09:10→21:43)
[2016-07-09] MEDS: ENOXAPARIN NA (PORCINE) 60 MG/0.6 ML DISP.SYRIN SQ SCH ×2 (09:14→21:43)
[2016-07-09] MEDS: AMINO ACIDS 4.25%/D5W 1,000 ML IV SCH ×3 (09:45→23:17)
--- NOTE | 2016-07-09 11:11 | PN ---
Progress Note, Physician History of Present Illness: pulmonary no change,-resp distress - Current Medication List Current Medications: Active Medications Acetaminophen (Tylenol -) 650 mg PO Q4H PRN PRN Reason: FEVER OR PAIN Last Admin: 07/09/16 05:41 Dose: 650 mg Albuterol/Ipratropium (Duoneb -) 1 amp NEB QIDR [facility] Last Admin: 07/09/16 06:00 Dose: 1 amp Amlodipine Besylate (Norvasc -) 10 mg PO DAILY [facility] Last Admin: 07/09/16 09:09 Dose: 10 mg Buspirone HCl (Buspar -) 5 mg PO BID [facility] Last Admin: 07/09/16 09:09 Dose: 5 mg Clonazepam (Klonopin -) 0.5 mg PO HS [facility] Last Admin: 07/08/16 21:20 Dose: 0.5 mg Docusate Sodium (Colace -) 100 mg PO TID [facility] Last Admin: 07/09/16 06:13 Dose: Not Given Enoxaparin Sodium (Lovenox -) 60 mg SQ BID [facility] Last Admin: 07/09/16 09:14 Dose: 60 mg Finasteride (Proscar -) 5 mg PO DAILY [facility] Last Admin: 07/09/16 09:10 Dose: 5 mg Amino Acids (Clinimix -) 1,000 mls @ 84 mls/hr IV Q12H [facility] Last Admin: 07/08/16 21:21 Dose: 84 mls/hr Levothyroxine Sodium (Synthroid -) 37.5 mcg PO ACBK [facility] Last Admin: 07/09/16 06:16 Dose: 37.5 mcg Metoprolol Tartrate (Lopressor Injection -) 5 mg IVPB Q4H PRN PRN Reason: HR < 60, SBP < 110 Last Admin: 07/08/16 20:15 Dose: 5 mg Metoprolol Tartrate (Lopressor -) 50 mg PO BID [facility] Last Admin: 07/09/16 09:10 Dose: 50 mg Morphine Sulfate (Morphine Injection -) 0.5 mg SQ Q4H PRN PRN Reason: PAIN Last Admin: 07/09/16 05:42 Dose: 0.5 mg Non-Formulary Medication (Naloxegol Oxalate [Movantik]) 25 mg PO DAILY [facility] Last Admin: 07/09/16 09:10 Dose: 25 mg Klxnm-1-Uvso Ethyl Esters (Lovaza -) 2 gm PO BID [facility] Last Admin: 07/09/16 09:10 Dose: Not Given Ondansetron HCl (Zofran Injection) 4 mg IVPB Q6H PRN PRN Reason: NAUSEA Last Admin: 06/28/16 20:22 Dose: 4 mg Pantoprazole Sodium (Protonix -) 40 mg PO BID [facility] Last Admin: 07/09/16 09:09 Dose: 40 mg Polyethylene Glycol (Miralax (For Daily Use) -) 17 gm PO DAILY [facility] Last Admin: 07/09/16 09:10 Dose: Not Given - Objective Vital Signs: Vital Signs Temperature 97.5 F L 07/09/16 09:00 Pulse Rate 91 H 07/09/16 09:00 Respiratory Rate 20 07/09/16 09:00 Blood Pressure 129/65 07/09/16 09:00 O2 Sat by Pulse Oximetry (%) 97 07/09/16 09:00 Constitutional: Yes: Well Nourished, Calm Eyes: Yes: WNL HENT: Yes: WNL Neck: Yes: WNL Cardiovascular: Yes: Regular Rate and Rhythm, S1, S2 Respiratory: Yes: Diminished Gastrointestinal: Yes: WNL Extremities: Yes: WNL Edema: No Labs: CBC, BMP 07/07/16 05:35 07/09/16 06:20 Assessment/Plan Problem List - Problems (1) Abdominal pain Code(s): R10.9 - UNSPECIFIED ABDOMINAL PAIN (2) Confusion Code(s): R41.0 - DISORIENTATION, UNSPECIFIED (3) Prostate ca Code(s): C61 - MALIGNANT NEOPLASM OF PROSTATE (4) Pulmonary metastases Code(s): C78.00 - SECONDARY MALIGNANT NEOPLASM OF UNSPECIFIED LUNG (5) Renal mass Code(s): N28.89 - OTHER SPECIFIED DISORDERS OF KIDNEY AND URETER (6) TERRA (acute kidney injury) Code(s): N17.9 - ACUTE KIDNEY FAILURE, UNSPECIFIED (7) Back pain Code(s): M54.9 - DORSALGIA, UNSPECIFIED Qualifiers: Back pain location: low back pain (8) CAD (coronary artery disease) of artery bypass graft Code(s): I25.810 - ATHEROSCLEROSIS OF CABG W/O ANGINA PECTORIS (9) Pneumonia Code(s): J18.9 - PNEUMONIA, UNSPECIFIED ORGANISM Qualifiers: (10) UTI (lower urinary tract infection) Code(s): N39.0 - URINARY TRACT INFECTION, SITE NOT SPECIFIED Assessment/Plan inhaled bronchodilators O2 as needed Aspiration precautions monitor yulisa MURDOCK
--- NOTE | 2016-07-09 11:13 | PN ---
Progress Note, Physician Chief Complaint: THIS IS MY FIRST MEDICAL ENCOUNTER WITH THIS PATIENT EVENTS AND CHART REVIEWED AWAKE ALERT FAMILY BEDSIDE +DISTRESS ABD PAIN - Current Medication List Current Medications: Active Medications Acetaminophen (Tylenol -) 650 mg PO Q4H PRN PRN Reason: FEVER OR PAIN Last Admin: 07/09/16 05:41 Dose: 650 mg Albuterol/Ipratropium (Duoneb -) 1 amp NEB QIDR [facility] Last Admin: 07/09/16 06:00 Dose: 1 amp Amlodipine Besylate (Norvasc -) 10 mg PO DAILY [facility] Last Admin: 07/09/16 09:09 Dose: 10 mg Buspirone HCl (Buspar -) 5 mg PO BID [facility] Last Admin: 07/09/16 09:09 Dose: 5 mg Clonazepam (Klonopin -) 0.5 mg PO HS [facility] Last Admin: 07/08/16 21:20 Dose: 0.5 mg Docusate Sodium (Colace -) 100 mg PO TID [facility] Last Admin: 07/09/16 06:13 Dose: Not Given Enoxaparin Sodium (Lovenox -) 60 mg SQ BID [facility] Last Admin: 07/09/16 09:14 Dose: 60 mg Finasteride (Proscar -) 5 mg PO DAILY [facility] Last Admin: 07/09/16 09:10 Dose: 5 mg Amino Acids (Clinimix -) 1,000 mls @ 84 mls/hr IV Q12H [facility] Last Admin: 07/08/16 21:21 Dose: 84 mls/hr Levothyroxine Sodium (Synthroid -) 37.5 mcg PO ACBK [facility] Last Admin: 07/09/16 06:16 Dose: 37.5 mcg Metoprolol Tartrate (Lopressor Injection -) 5 mg IVPB Q4H PRN PRN Reason: HR < 60, SBP < 110 Last Admin: 07/08/16 20:15 Dose: 5 mg Metoprolol Tartrate (Lopressor -) 50 mg PO BID [facility] Last Admin: 07/09/16 09:10 Dose: 50 mg Morphine Sulfate (Morphine Injection -) 0.5 mg SQ Q4H PRN PRN Reason: PAIN Last Admin: 07/09/16 05:42 Dose: 0.5 mg Non-Formulary Medication (Naloxegol Oxalate [Movantik]) 25 mg PO DAILY [facility] Last Admin: 07/09/16 09:10 Dose: 25 mg Yjtiq-8-Klbk Ethyl Esters (Lovaza -) 2 gm PO BID [facility] Last Admin: 07/09/16 09:10 Dose: Not Given Ondansetron HCl (Zofran Injection) 4 mg IVPB Q6H PRN PRN Reason: NAUSEA Last Admin: 06/28/16 20:22 Dose: 4 mg Pantoprazole Sodium (Protonix -) 40 mg PO BID [facility] Last Admin: 07/09/16 09:09 Dose: 40 mg Polyethylene Glycol (Miralax (For Daily Use) -) 17 gm PO DAILY [facility] Last Admin: 07/09/16 09:10 Dose: Not Given - Objective Vital Signs: Vital Signs Temperature 97.5 F L 07/09/16 09:00 Pulse Rate 91 H 07/09/16 09:00 Respiratory Rate 20 07/09/16 09:00 Blood Pressure 129/65 07/09/16 09:00 O2 Sat by Pulse Oximetry (%) 97 07/09/16 09:00 Constitutional: Yes: Moderate Distress Eyes: Yes: WNL HENT: Yes: WNL Neck: Yes: WNL Cardiovascular: Yes: Pulse Irregular Respiratory: Yes: On Nasal O2 Gastrointestinal: Yes: Tenderness Genitourinary: Yes: Incontinence Musculoskeletal: Yes: Muscle Weakness Edema: No Peripheral Pulses WNL: Yes Integumentary: Yes: WNL Wound/Incision: Yes: Clean/Dry Neurological: Yes: Weakness ...Motor Strength: LLE, RLE Psychiatric: Yes: Other Labs: CBC, BMP 07/07/16 05:35 07/09/16 06:20 Assessment/Plan DYSPHAGIA THROMBUS PROSTATE CANCER ELECTROLYTE ABNORMALITY PAIN CONTROL AC PER VASC SX RENAL EVAL 02 SUPPORT CONTINUE CURRENT MEDICAL CARE
[2016-07-09] MEDS ORDERED: POTASSIUM PHOSPHATE 15 MM in DEXTROSE 5%-WATER - 250 ML IVPB ONE (12:01)
--- NOTE | 2016-07-09 12:01 | PN ---
Progress Note (short form) - Note Progress Note: Renal Follow up for TERRA/Hyperkalemia Pt seen and examined at the bedside daughter at the bedside reports cough no chest pain no N/V/D poor oral intake Vital Signs Temperature 97.5 F L 07/09/16 09:00 Pulse Rate 91 H 07/09/16 09:00 Respiratory Rate 20 07/09/16 09:00 Blood Pressure 129/65 07/09/16 09:00 O2 Sat by Pulse Oximetry (%) 97 07/09/16 09:00 Intake & Output 07/06/16 07/07/16 07/08/16 07/09/16 23:59 23:59 23:59 23:59 Intake Total 2614 1292 588 Balance 2614 1292 588 Gen: NAD, on Ventimask CVS: RRR, No M/R Lungs: Dec BS b/l lung ferrell Abd: soft, NT Ext: No edema, clubbing or cyanosis : no bladder distension CBC, BMP 07/07/16 05:35 07/09/16 06:20 Laboratory Tests 07/08/16 07/09/16 06:00 06:20 Calcium 8.5 8.5 Phosphorus 1.6 L D Magnesium 1.9 Albumin 2.5 L Current Medications Acetaminophen (Tylenol -) 650 mg PO Q4H PRN PRN Reason: FEVER OR PAIN Last Admin: 07/09/16 05:41 Dose: 650 mg Albuterol/Ipratropium (Duoneb -) 1 amp NEB QIDR [facility] Last Admin: 07/09/16 11:50 Dose: 1 amp Amlodipine Besylate (Norvasc -) 10 mg PO DAILY [facility] Last Admin: 07/09/16 09:09 Dose: 10 mg Buspirone HCl (Buspar -) 5 mg PO BID [facility] Last Admin: 07/09/16 09:09 Dose: 5 mg Clonazepam (Klonopin -) 0.5 mg PO HS [facility] Last Admin: 07/08/16 21:20 Dose: 0.5 mg Docusate Sodium (Colace -) 100 mg PO TID [facility] Last Admin: 07/09/16 06:13 Dose: Not Given Enoxaparin Sodium (Lovenox -) 60 mg SQ BID [facility] Last Admin: 07/09/16 09:14 Dose: 60 mg Finasteride (Proscar -) 5 mg PO DAILY [facility] Last Admin: 07/09/16 09:10 Dose: 5 mg Amino Acids (Clinimix -) 1,000 mls @ 42 mls/hr IV Q12H [facility] Levothyroxine Sodium (Synthroid -) 37.5 mcg PO ACBK [facility] Last Admin: 07/09/16 06:16 Dose: 37.5 mcg Metoprolol Tartrate (Lopressor Injection -) 5 mg IVPB Q4H PRN PRN Reason: HR < 60, SBP < 110 Last Admin: 07/08/16 20:15 Dose: 5 mg Metoprolol Tartrate (Lopressor -) 50 mg PO BID [facility] Last Admin: 07/09/16 09:10 Dose: 50 mg Morphine Sulfate (Morphine Injection -) 0.5 mg SQ Q4H PRN PRN Reason: PAIN Last Admin: 07/09/16 05:42 Dose: 0.5 mg Non-Formulary Medication (Naloxegol Oxalate [Movantik]) 25 mg PO DAILY [facility] Last Admin: 07/09/16 09:10 Dose: 25 mg [id number] Ethyl Esters (Lovaza -) 2 gm PO BID [facility] Last Admin: 07/09/16 09:10 Dose: Not Given Ondansetron HCl (Zofran Injection) 4 mg IVPB Q6H PRN PRN Reason: NAUSEA Last Admin: 06/28/16 20:22 Dose: 4 mg Pantoprazole Sodium (Protonix -) 40 mg PO BID [facility] Last Admin: 07/09/16 09:09 Dose: 40 mg Polyethylene Glycol (Miralax (For Daily Use) -) 17 gm PO DAILY [facility] Last Admin: 07/09/16 09:10 Dose: Not Given A/p 80 year old Gentleman with PMhx of Metastatic Prostate Ca, Hypertension, Hyperlipidemia, CAD s/p Cardiac Stents, DM who presented with worsening MS for the past several months as per her daughter and found to have multiple abd mets and TERRA with BUN/Cr of 29/1.5 (baseline Cr 1.1) and hyperkalemia with K of 6. #Acute Kidney Injury Renal function improved and stable #Hyponatremia from total body volume overlaod check CXR decrease Clinimix rate to 42cc per hour #Hypophosphatemia Give K-phos IV 15mmol x 1 #Hypercalcemia of malignancy Ca is improved and stable #AMS/Facial Droop Work up as per neurology #Metastatic Prostate Ca with Renal mass Urology follow up Mora discontinued Continue Proscar and Flomax #Hypertension Continue current meds Anatoliy Ryan DO
--- NOTE | 2016-07-09 15:06 | PN ---
Progress Note (short form) - Note Progress Note: Patient has apparently verbalized that he wants G tube. Family seems to want hospice now Need competency eval before decision can be made
[2016-07-09] MEDS ORDERED: FUROSEMIDE 40 MG/4 ML INJECTABLE VIAL IVPUSH ONE (16:22)
[2016-07-09] MEDS: clonazePAM 0.5 MG TABLET PO SCH (21:43)
[2016-07-09] MEDS: METOPROLOL TARTRATE 5 MG/5 ML VIAL IVPB PRN (21:46)
[2016-07-10] MEDS: DOCUSATE SODIUM 100 MG CAPSULE (FP) PO SCH ×2 (05:55→13:35)
[2016-07-10] MEDS: LEVOTHYROXINE NA 25 MCG TABLET (FP) PO SCH (06:08)
[2016-07-10] MEDS: morphine CARPU-JECT 2 MG/1 ML DISP.SYRIN SQ PRN ×4 (06:19→20:26)
[2016-07-10] MEDS: ALBUTEROL SO4 2.5/IPRATROPIUM 0.5 INH SOL 3 ML VIAL.NEB. NEB SCH ×4 (06:36→23:51)
[2016-07-10 07:19] LABS: CALCIUM 7.7 mg/dL (8.5-10.1); CREATININE 1.2 mg/dL (0.7-1.3); MAGNESIUM 1.7 mg/dL (1.8-2.4); PHOSPHOROUS 2.3 mg/dL (2.5-4.9)
[2016-07-10] MEDS ORDERED: PANTOPRAZOLE SOD 40 MG SUSPENSION PACKET GT SCH (08:20)
[2016-07-10] MEDS ORDERED: PT OWN MED DRAWER 7, Y5N ONE ×2 (08:45→20:33)
[2016-07-10] MEDS: OMEGA-3 ACID ETHYL ESTERS (FATTY-ACIDS) 1 GM CAPSULE (FP) PO SCH (09:04)
[2016-07-10] MEDS: busPIRone HCL 5 MG TABLET PO SCH ×2 (09:04→21:26)
[2016-07-10] MEDS: ENOXAPARIN NA (PORCINE) 60 MG/0.6 ML DISP.SYRIN SQ SCH ×2 (09:04→21:27)
[2016-07-10] MEDS: METOPROLOL TARTRATE 50 MG TABLET (FP) PO SCH ×2 (09:04→21:26)
[2016-07-10] MEDS: POLYETHYLENE GLYCOL 3350 119 GM BTL PO SCH (09:05)
[2016-07-10] MEDS: PATIENT'S OWN MEDICATION (NON-FORMULARY) (Naloxegol Oxalate [Movantik] 25 MG) PO SCH (09:05)
[2016-07-10] MEDS: amLODIPine BESYLATE 5 MG TABLET (FP) PO SCH (09:05)
[2016-07-10] MEDS: FINASTERIDE 5 MG TABLET (FP) PO SCH (09:05)
[2016-07-10] MEDS: PANTOPRAZOLE SOD 40 MG SUSPENSION PACKET PO SCH ×2 (09:06→21:27)
[2016-07-10] MEDS ORDERED: MAGNESIUM SULF 50% (8.12 MEQ/2 ML-1 GM VIAL) IVPB ONE (11:00)
[2016-07-10] MEDS ORDERED: POTASSIUM PHOSPHATE 15 MM in SODIUM CHLORIDE 250 ML IVPB ONE (11:00)
--- NOTE | 2016-07-10 11:31 | PN ---
Progress Note, Physician History of Present Illness: pulmonary alert,comfortable,-resp distress - Current Medication List Current Medications: Active Medications Acetaminophen (Tylenol -) 650 mg PO Q4H PRN PRN Reason: FEVER OR PAIN Last Admin: 07/09/16 21:44 Dose: 650 mg Albuterol/Ipratropium (Duoneb -) 1 amp NEB QIDR [facility] Last Admin: 07/10/16 06:36 Dose: 1 amp Amlodipine Besylate (Norvasc -) 10 mg PO DAILY [facility] Last Admin: 07/10/16 09:05 Dose: 10 mg Buspirone HCl (Buspar -) 5 mg PO BID [facility] Last Admin: 07/10/16 09:04 Dose: 5 mg Clonazepam (Klonopin -) 0.5 mg PO HS [facility] Last Admin: 07/09/16 21:43 Dose: 0.5 mg Docusate Sodium (Colace -) 100 mg PO TID [facility] Last Admin: 07/10/16 05:55 Dose: Not Given Enoxaparin Sodium (Lovenox -) 60 mg SQ BID [facility] Last Admin: 07/10/16 09:04 Dose: 60 mg Finasteride (Proscar -) 5 mg PO DAILY [facility] Last Admin: 07/10/16 09:05 Dose: Not Given Amino Acids (Clinimix -) 1,000 mls @ 42 mls/hr IV Q12H [facility] Last Admin: 07/09/16 23:17 Dose: 42 mls/hr Potassium Phosphate 15 mm/ (Sodium Chloride) 255 mls @ 63.75 mls/hr IVPB ONCE ONE PRN Reason: 15 MM/4 HR Stop: 07/10/16 14:59 Levothyroxine Sodium (Synthroid -) 37.5 mcg PO ACBK [facility] Last Admin: 07/10/16 06:08 Dose: 37.5 mcg Metoprolol Tartrate (Lopressor Injection -) 5 mg IVPB Q4H PRN PRN Reason: HR < 60, SBP < 110 Last Admin: 07/09/16 21:46 Dose: 5 mg Metoprolol Tartrate (Lopressor -) 50 mg PO BID [facility] Last Admin: 07/10/16 09:04 Dose: 50 mg Morphine Sulfate (Morphine Injection -) 0.5 mg SQ Q4H PRN PRN Reason: PAIN Last Admin: 07/10/16 06:19 Dose: 0.5 mg Non-Formulary Medication (Naloxegol Oxalate [Movantik]) 25 mg PO DAILY [facility] Last Admin: 07/10/16 09:05 Dose: Not Given [id number] Ethyl Esters (Lovaza -) 2 gm PO BID [facility] Last Admin: 07/10/16 09:04 Dose: Not Given Ondansetron HCl (Zofran Injection) 4 mg IVPB Q6H PRN PRN Reason: NAUSEA Last Admin: 06/28/16 20:22 Dose: 4 mg Pantoprazole Sodium (Protonix Packets For Oral Suspension -) 40 mg PO BID [facility] Last Admin: 07/10/16 09:06 Dose: 40 mg Polyethylene Glycol (Miralax (For Daily Use) -) 17 gm PO DAILY [facility] Last Admin: 07/10/16 09:05 Dose: Not Given - Objective Vital Signs: Vital Signs Temperature 97.8 F 07/10/16 06:00 Pulse Rate 93 H 07/10/16 06:00 Respiratory Rate 18 07/10/16 06:00 Blood Pressure 134/64 07/10/16 06:00 O2 Sat by Pulse Oximetry (%) 96 07/09/16 21:00 Constitutional: Yes: Well Nourished, Calm Eyes: Yes: WNL HENT: Yes: WNL Neck: Yes: WNL Cardiovascular: Yes: Regular Rate and Rhythm, S1, S2 Respiratory: Yes: Rhonchi (few rhonchi) Gastrointestinal: Yes: Normal Bowel Sounds, Soft Extremities: Yes: WNL Edema: No Labs: CBC, BMP 07/07/16 05:35 07/10/16 05:55 Assessment/Plan Problem List - Problems (1) Abdominal pain Code(s): R10.9 - UNSPECIFIED ABDOMINAL PAIN (2) Confusion Code(s): R41.0 - DISORIENTATION, UNSPECIFIED (3) Prostate ca Code(s): C61 - MALIGNANT NEOPLASM OF PROSTATE (4) Pulmonary metastases Code(s): C78.00 - SECONDARY MALIGNANT NEOPLASM OF UNSPECIFIED LUNG (5) Renal mass Code(s): N28.89 - OTHER SPECIFIED DISORDERS OF KIDNEY AND URETER (6) TERRA (acute kidney injury) Code(s): N17.9 - ACUTE KIDNEY FAILURE, UNSPECIFIED (7) Back pain Code(s): M54.9 - DORSALGIA, UNSPECIFIED Qualifiers: Back pain location: low back pain (8) CAD (coronary artery disease) of artery bypass graft Code(s): I25.810 - ATHEROSCLEROSIS OF CABG W/O ANGINA PECTORIS (9) Pneumonia Code(s): J18.9 - PNEUMONIA, UNSPECIFIED ORGANISM Qualifiers: (10) UTI (lower urinary tract infection) Code(s): N39.0 - URINARY TRACT INFECTION, SITE NOT SPECIFIED Assessment/Plan inhaled bronchodilators O2 as needed Aspiration precautions monitor yulisa MURDOCK
[2016-07-10] MEDS: AMINO ACIDS 4.25%/D5W 1,000 ML IV SCH ×2 (11:55→13:59)
--- NOTE | 2016-07-10 13:26 | PN ---
Progress Note, Physician Chief Complaint: THERE IS CONFUSION ABOUT THE FAMILY/PATIENT WISHES ABOUT A FEEDING TUBE. I SAT WITH THE PATIENT FOR 20MINS DISCUSSING THE ENTIRE PEG PROCEDURE AND HE IS NOT SURE IF HE WANTS TO GO THROUGH WITH FEEDING TUBE PLACEMENT AT THIS TIME. HE WOULD LIKE TO THINK ABOUT TODAY AND DISCUSS WITH FAMILY. HIS DAUGHTER WAS BEDSIDE. - Current Medication List Current Medications: Active Medications Acetaminophen (Tylenol -) 650 mg PO Q4H PRN PRN Reason: FEVER OR PAIN Last Admin: 07/09/16 21:44 Dose: 650 mg Albuterol/Ipratropium (Duoneb -) 1 amp NEB QIDR [facility] Last Admin: 07/10/16 11:50 Dose: 1 amp Amlodipine Besylate (Norvasc -) 10 mg PO DAILY [facility] Last Admin: 07/10/16 09:05 Dose: 10 mg Buspirone HCl (Buspar -) 5 mg PO BID [facility] Last Admin: 07/10/16 09:04 Dose: 5 mg Clonazepam (Klonopin -) 0.5 mg PO HS [facility] Last Admin: 07/09/16 21:43 Dose: 0.5 mg Docusate Sodium (Colace -) 100 mg PO TID [facility] Last Admin: 07/10/16 05:55 Dose: Not Given Enoxaparin Sodium (Lovenox -) 60 mg SQ BID [facility] Last Admin: 07/10/16 09:04 Dose: 60 mg Finasteride (Proscar -) 5 mg PO DAILY [facility] Last Admin: 07/10/16 09:05 Dose: Not Given Amino Acids (Clinimix -) 1,000 mls @ 42 mls/hr IV Q12H [facility] Last Admin: 07/10/16 11:55 Dose: Not Given Potassium Phosphate 15 mm/ (Sodium Chloride) 255 mls @ 63.75 mls/hr IVPB ONCE ONE PRN Reason: 15 MM/4 HR Stop: 07/10/16 14:59 Levothyroxine Sodium (Synthroid -) 37.5 mcg PO ACBK [facility] Last Admin: 07/10/16 06:08 Dose: 37.5 mcg Metoprolol Tartrate (Lopressor Injection -) 5 mg IVPB Q4H PRN PRN Reason: HR < 60, SBP < 110 Last Admin: 07/09/16 21:46 Dose: 5 mg Metoprolol Tartrate (Lopressor -) 50 mg PO BID [facility] Last Admin: 07/10/16 09:04 Dose: 50 mg Morphine Sulfate (Morphine Injection -) 0.5 mg SQ Q4H PRN PRN Reason: PAIN Last Admin: 07/10/16 11:51 Dose: 0.5 mg Non-Formulary Medication (Naloxegol Oxalate [Movantik]) 25 mg PO DAILY [facility] Last Admin: 07/10/16 09:05 Dose: Not Given [id number] Ethyl Esters (Lovaza -) 2 gm PO BID [facility] Last Admin: 07/10/16 09:04 Dose: Not Given Ondansetron HCl (Zofran Injection) 4 mg IVPB Q6H PRN PRN Reason: NAUSEA Last Admin: 06/28/16 20:22 Dose: 4 mg Pantoprazole Sodium (Protonix Packets For Oral Suspension -) 40 mg PO BID [facility] Last Admin: 07/10/16 09:06 Dose: 40 mg Polyethylene Glycol (Miralax (For Daily Use) -) 17 gm PO DAILY [facility] Last Admin: 07/10/16 09:05 Dose: Not Given - Objective Vital Signs: Vital Signs Temperature 98.8 F 07/10/16 10:00 Pulse Rate 86 07/10/16 10:00 Respiratory Rate 20 07/10/16 10:00 Blood Pressure 138/60 07/10/16 10:00 O2 Sat by Pulse Oximetry (%) 97 07/10/16 09:00 Constitutional: Yes: Mild Distress Eyes: Yes: WNL HENT: Yes: WNL Neck: Yes: WNL Cardiovascular: Yes: WNL Respiratory: Yes: WNL Gastrointestinal: Yes: WNL Genitourinary: Yes: WNL Musculoskeletal: Yes: Muscle Pain Extremities: Yes: WNL Edema: No Peripheral Pulses WNL: Yes Integumentary: Yes: WNL Wound/Incision: Yes: Clean/Dry Neurological: Yes: Pre-Existing Deficit ...Motor Strength: LLE, RLE Psychiatric: Yes: Other Labs: CBC, BMP 07/07/16 05:35 07/10/16 05:55 Assessment/Plan DYSPHAGIA THROMBUS PROSTATE CANCER ELECTROLYTE ABNORMALITY PAIN CONTROL AC PER VASC SX RENAL EVAL 02 SUPPORT CONTINUE CURRENT MEDICAL CARE PASTORAL CARE GI DISCUSSION OVER PEG PLACEMENT, AWAITING FAMILY DECISION
--- NOTE | 2016-07-10 14:25 | PN ---
Progress Note, JEWELRY CONSULTANT - Note Progress Note: Selected Entries 07/08/16 07/08/16 07/08/16 02:00 03:30 07:00 Breakfast Temperature 98.7 F 99.9 F H 99.5 F 07/08/16 07/08/16 07/08/16 14:32 18:31 21:00 Breakfast Temperature 98.2 F 97.5 F L 97.3 F L 07/09/16 07/09/16 07/09/16 01:00 05:00 09:00 Breakfast Temperature 98.2 F 98.5 F 97.5 F L 07/09/16 07/09/16 07/09/16 13:00 18:00 22:00 Breakfast Temperature 97.3 F L 98.7 F 100.5 F H 07/10/16 07/10/16 07/10/16 02:00 06:00 08:53 Breakfast 0 Temperature 98.3 F 97.8 F 07/10/16 07/10/16 10:00 14:00 Breakfast Temperature 98.8 F 98.5 F Laboratory Tests 07/07/16 05:35 WBC 9.4 Limited PO acceptance. Case reviewed with nursing. If PEG is desired, PO intake can continue for quality of life, as desired,with PEG for supplemental use. Pt is deciding on PEG vs hospice/ comfort care.
[2016-07-10] MEDS: clonazePAM 0.5 MG TABLET PO SCH (21:26)
[2016-07-11] MEDS: morphine CARPU-JECT 2 MG/1 ML DISP.SYRIN SQ PRN ×4 (00:07→13:18)
[2016-07-11] MEDS: AMINO ACIDS 4.25%/D5W 1,000 ML IV SCH ×2 (00:09→12:41)
[2016-07-11] MEDS: ALBUTEROL SO4 2.5/IPRATROPIUM 0.5 INH SOL 3 ML VIAL.NEB. NEB SCH ×3 (06:00→18:30)
[2016-07-11] MEDS: LEVOTHYROXINE NA 25 MCG TABLET (FP) PO SCH (06:06)
--- NOTE | 2016-07-11 07:57 | PN ---
Progress Note, Physician History of Present Illness: periods of confusion-- alert in bed family wants peg - Current Medication List Current Medications: Active Medications Acetaminophen (Tylenol -) 650 mg PO Q4H PRN PRN Reason: FEVER OR PAIN Last Admin: 07/09/16 21:44 Dose: 650 mg Albuterol/Ipratropium (Duoneb -) 1 amp NEB QIDR [facility] Last Admin: 07/11/16 06:00 Dose: 1 amp Amlodipine Besylate (Norvasc -) 10 mg PO DAILY [facility] Last Admin: 07/10/16 09:05 Dose: 10 mg Buspirone HCl (Buspar -) 5 mg PO BID [facility] Last Admin: 07/10/16 21:26 Dose: 5 mg Clonazepam (Klonopin -) 0.5 mg PO HS [facility] Last Admin: 07/10/16 21:26 Dose: 0.5 mg Enoxaparin Sodium (Lovenox -) 60 mg SQ BID [facility] Last Admin: 07/10/16 21:27 Dose: 60 mg Amino Acids (Clinimix -) 1,000 mls @ 42 mls/hr IV Q12H [facility] Last Admin: 07/11/16 00:09 Dose: 42 mls/hr Levothyroxine Sodium (Synthroid -) 37.5 mcg PO ACBK [facility] Last Admin: 07/11/16 06:06 Dose: 37.5 mcg Methylnaltrexone [place] (Relistor -) 8 mg SQ DAILY [facility] Metoprolol Tartrate (Lopressor Injection -) 5 mg IVPB Q4H PRN PRN Reason: HR < 60, SBP < 110 Last Admin: 07/09/16 21:46 Dose: 5 mg Metoprolol Tartrate (Lopressor -) 50 mg PO BID [facility] Last Admin: 07/10/16 21:26 Dose: 50 mg Ondansetron HCl (Zofran Injection) 4 mg IVPB Q6H PRN PRN Reason: NAUSEA Last Admin: 06/28/16 20:22 Dose: 4 mg Pantoprazole Sodium (Protonix Packets For Oral Suspension -) 40 mg PO BID [facility] Last Admin: 07/10/16 21:27 Dose: 40 mg - Objective Vital Signs: Vital Signs Temperature 97.7 F 07/11/16 06:00 Pulse Rate 91 H 07/11/16 06:00 Respiratory Rate 20 07/11/16 06:00 Blood Pressure 118/65 07/11/16 06:00 O2 Sat by Pulse Oximetry (%) 97 07/10/16 21:00 Cardiovascular: Yes: S1, S2 Respiratory: Yes: Regular, CTA Bilaterally Gastrointestinal: Yes: Normal Bowel Sounds, Soft. No: Tenderness Labs: CBC, BMP 07/07/16 05:35 Problem List - Problems (1) Confusion Assessment/Plan: H/O DEMENTIA RPT CT --NAD MUTILPE FACTORS FAMILY DECIDING ON FURTHER CARE--WANTS PEG Code(s): R41.0 - DISORIENTATION, UNSPECIFIED (2) Prostate ca Assessment/Plan: URO CONSULT Code(s): C61 - MALIGNANT NEOPLASM OF PROSTATE (3) CAD (coronary artery disease) of artery bypass graft Assessment/Plan: NO CP Code(s): I25.810 - ATHEROSCLEROSIS OF CABG W/O ANGINA PECTORIS (4) Pneumonia Assessment/Plan: OFF IV ABX PER ID CXR Code(s): J18.9 - PNEUMONIA, UNSPECIFIED ORGANISM Qualifiers: (5) Pulmonary metastases Assessment/Plan: PULM CONSULT NOTED-- D/W FAMILY DX AND PROGNOSIS Code(s): C78.00 - SECONDARY MALIGNANT NEOPLASM OF UNSPECIFIED LUNG (6) Renal mass Assessment/Plan: UROLOGY CONSULT Code(s): N28.89 - OTHER SPECIFIED DISORDERS OF KIDNEY AND URETER (7) Thrombus Assessment/Plan: LOVENOX VASCULAR CONSULT Code(s): I82.90 - ACUTE EMBOLISM AND THROMBOSIS OF UNSPECIFIED VEIN
[2016-07-11 08:18] LABS: CALCIUM 7.5 mg/dL (8.5-10.1)
[2016-07-11 08:21] LABS: CREATININE 1.3 mg/dL (0.7-1.3); MAGNESIUM 2.6 mg/dL (1.8-2.4); PHOSPHOROUS 2.6 mg/dL (2.5-4.9)
[2016-07-11] MEDS ORDERED: PT OWN MED DRAWER 7, Y5N ONE ×2 (08:33→22:05)
--- NOTE | 2016-07-11 08:54 | PN ---
Progress Note (short form) - Note Progress Note: Came to see patient on isolation precautions in [id number]. Being attended to by daughter, Zayda, whowm jingle writer spoke to. Client is sleeping soundly, unable to complete full psychiatry assessment, will return to check mental status. Reported that he was lucid, alert and orientated on Monday07-10-16.
[2016-07-11] MEDS: busPIRone HCL 5 MG TABLET PO SCH ×2 (09:06→22:10)
[2016-07-11] MEDS: METOPROLOL TARTRATE 50 MG TABLET (FP) PO SCH ×2 (09:07→22:10)
[2016-07-11] MEDS: amLODIPine BESYLATE 5 MG TABLET (FP) PO SCH (09:07)
[2016-07-11] MEDS: ENOXAPARIN NA (PORCINE) 60 MG/0.6 ML DISP.SYRIN SQ SCH ×2 (09:07→22:11)
[2016-07-11] MEDS: PANTOPRAZOLE SOD 40 MG SUSPENSION PACKET PO SCH ×2 (09:08→22:11)
--- NOTE | 2016-07-11 11:48 | PN ---
Progress Note, Physician History of Present Illness: pulmnonary alert,comfortable,-resp distress - Current Medication List Current Medications: Active Medications Acetaminophen (Tylenol -) 650 mg PO Q4H PRN PRN Reason: FEVER OR PAIN Last Admin: 07/09/16 21:44 Dose: 650 mg Albuterol/Ipratropium (Duoneb -) 1 amp NEB QIDR [facility] Last Admin: 07/11/16 06:00 Dose: 1 amp Amlodipine Besylate (Norvasc -) 10 mg PO DAILY [facility] Last Admin: 07/11/16 09:07 Dose: 10 mg Buspirone HCl (Buspar -) 5 mg PO BID [facility] Last Admin: 07/11/16 09:06 Dose: 5 mg Clonazepam (Klonopin -) 0.5 mg PO HS [facility] Last Admin: 07/10/16 21:26 Dose: 0.5 mg Enoxaparin Sodium (Lovenox -) 60 mg SQ BID [facility] Last Admin: 07/11/16 09:07 Dose: 60 mg Amino Acids (Clinimix -) 1,000 mls @ 42 mls/hr IV Q12H [facility] Last Admin: 07/11/16 00:09 Dose: 42 mls/hr Levothyroxine Sodium (Synthroid -) 37.5 mcg PO ACBK [facility] Last Admin: 07/11/16 06:06 Dose: 37.5 mcg Methylnaltrexone [place] (Relistor -) 8 mg SQ DAILY [facility] Metoprolol Tartrate (Lopressor Injection -) 5 mg IVPB Q4H PRN PRN Reason: HR < 60, SBP < 110 Last Admin: 07/09/16 21:46 Dose: 5 mg Metoprolol Tartrate (Lopressor -) 50 mg PO BID [facility] Last Admin: 07/11/16 09:07 Dose: 50 mg Morphine Sulfate (Morphine Injection -) 1 mg SQ Q4H PRN PRN Reason: PAIN Last Admin: 07/11/16 09:08 Dose: 1 mg Ondansetron HCl (Zofran Injection) 4 mg IVPB Q6H PRN PRN Reason: NAUSEA Last Admin: 06/28/16 20:22 Dose: 4 mg Pantoprazole Sodium (Protonix Packets For Oral Suspension -) 40 mg PO BID [facility] Last Admin: 07/11/16 09:08 Dose: 40 mg - Objective Vital Signs: Vital Signs Temperature 97.4 F L 07/11/16 10:00 Pulse Rate 101 H 07/11/16 10:00 Respiratory Rate 20 07/11/16 10:00 Blood Pressure 116/72 07/11/16 10:00 O2 Sat by Pulse Oximetry (%) 97 07/11/16 09:00 Constitutional: Yes: Well Nourished, Calm Eyes: Yes: WNL HENT: Yes: WNL Neck: Yes: WNL Cardiovascular: Yes: Regular Rate and Rhythm, S1, S2 Respiratory: Yes: Rhonchi (few rhonchi) Gastrointestinal: Yes: Normal Bowel Sounds, Soft Extremities: Yes: WNL Edema: No Labs: CBC, BMP Assessment/Plan Problem List - Problems (1) Abdominal pain Code(s): R10.9 - UNSPECIFIED ABDOMINAL PAIN (2) Confusion Code(s): R41.0 - DISORIENTATION, UNSPECIFIED (3) Prostate ca Code(s): C61 - MALIGNANT NEOPLASM OF PROSTATE (4) Pulmonary metastases Code(s): C78.00 - SECONDARY MALIGNANT NEOPLASM OF UNSPECIFIED LUNG (5) Renal mass Code(s): N28.89 - OTHER SPECIFIED DISORDERS OF KIDNEY AND URETER (6) TERRA (acute kidney injury) Code(s): N17.9 - ACUTE KIDNEY FAILURE, UNSPECIFIED (7) Back pain Code(s): M54.9 - DORSALGIA, UNSPECIFIED Qualifiers: Back pain location: low back pain (8) CAD (coronary artery disease) of artery bypass graft Code(s): I25.810 - ATHEROSCLEROSIS OF CABG W/O ANGINA PECTORIS (9) Pneumonia Code(s): J18.9 - PNEUMONIA, UNSPECIFIED ORGANISM Qualifiers: (10) UTI (lower urinary tract infection) Code(s): N39.0 - URINARY TRACT INFECTION, SITE NOT SPECIFIED Assessment/Plan inhaled bronchodilators O2 as needed Aspiration precautions monitor yulisa MURDOCK
--- NOTE | 2016-07-11 11:57 | CON.PSY ---
Psychiatry Consult Chief Complaint: Patient spoken thru his daughter, to determine his capacity to m,maximiliano decisions regarging peg placement. Symptoms: reports: Weight change - Previous Psychiatric Treatment Outpatient: None Inpatient: None - Previous Substance Abuse Treatment Outpatient: None Inpatient: None - Family History Family History: Unremarkable - Current Medications Current Medications: Active Medications Acetaminophen (Tylenol -) 650 mg PO Q4H PRN PRN Reason: FEVER OR PAIN Last Admin: 07/09/16 21:44 Dose: 650 mg Albuterol/Ipratropium (Duoneb -) 1 amp NEB QIDR [facility] Last Admin: 07/11/16 11:10 Dose: 1 amp Amlodipine Besylate (Norvasc -) 10 mg PO DAILY [facility] Last Admin: 07/11/16 09:07 Dose: 10 mg Buspirone HCl (Buspar -) 5 mg PO BID [facility] Last Admin: 07/11/16 09:06 Dose: 5 mg Clonazepam (Klonopin -) 0.5 mg PO HS [facility] Last Admin: 07/10/16 21:26 Dose: 0.5 mg Enoxaparin Sodium (Lovenox -) 60 mg SQ BID [facility] Last Admin: 07/11/16 09:07 Dose: 60 mg Amino Acids (Clinimix -) 1,000 mls @ 42 mls/hr IV Q12H [facility] Last Admin: 07/11/16 00:09 Dose: 42 mls/hr Levothyroxine Sodium (Synthroid -) 37.5 mcg PO ACBK [facility] Last Admin: 07/11/16 06:06 Dose: 37.5 mcg Methylnaltrexone [place] (Relistor -) 8 mg SQ DAILY [facility] Metoprolol Tartrate (Lopressor Injection -) 5 mg IVPB Q4H PRN PRN Reason: HR < 60, SBP < 110 Last Admin: 07/09/16 21:46 Dose: 5 mg Metoprolol Tartrate (Lopressor -) 50 mg PO BID [facility] Last Admin: 07/11/16 09:07 Dose: 50 mg Morphine Sulfate (Morphine Injection -) 1 mg SQ Q4H PRN PRN Reason: PAIN Last Admin: 07/11/16 09:08 Dose: 1 mg Ondansetron HCl (Zofran Injection) 4 mg IVPB Q6H PRN PRN Reason: NAUSEA Last Admin: 06/28/16 20:22 Dose: 4 mg Pantoprazole Sodium (Protonix Packets For Oral Suspension -) 40 mg PO BID [facility] Last Admin: 07/11/16 09:08 Dose: 40 mg - Allergies Allergies: Allergies Allergy/AdvReac Type Severity Reaction Status Date / Time No Known Allergies Allergy Verified 06/27/16 16:30 - Current Living Status Usual Living Arrangement: With Spouse - Current Mental Status Evaluation Appearance: Well Groomed Attitude: Cooperative - Affect Affect: Constrictive Appropriateness: Appropriate to Content - Mood Mood: Euthymic - Speech/Language Expressive: Coherent - Psychomotor Activity Psychomotor Activity: Normal - Thought Process Thought Process: Intact - Thought Content Hallucinations: Absent Delusions: Absent - Self Perception Self Perception: No Impairment - Cognition Attention: Alert Orientation: Time Memory, Immediate Recall: Intact Memory, Short Term: 2/3 Memory, Remote with Promptin/3 - Concentration Serial Sevens Intact: No Simple Calculations Intact: No - Abstraction Proverb Interpretation: Intact Judgement: Intact - Insight Insight: Intact - Impulse Control Impulse Control: Good Control - Suicidal Ideation Suicidal Ideation: No - Homicidal Ideation Homicidal Ideation: No Assessment/Plan Patient has the functional capacity to make decisions about his health care at this time.
[2016-07-11] MEDS: Methylnaltrexone Bromide 12 MG/0.6 ML KIT SQ SCH (12:47)
--- NOTE | 2016-07-11 13:16 | PN ---
Progress Note (short form) - Note Progress Note: Renal Follow up for TERRA/Hyperkalemia Pt seen and examined at the bedside daughter at the bedside continues to have cough, daughter reports that its worse today on IV Clinimix Vital Signs Temperature 97.4 F L 07/11/16 10:00 Pulse Rate 72 07/11/16 11:10 Respiratory Rate 20 07/11/16 10:00 Blood Pressure 116/72 07/11/16 10:00 O2 Sat by Pulse Oximetry (%) 97 07/11/16 11:10 Gen: NAD, on Ventimask CVS: RRR, No M/R Lungs: Dec BS b/l lung ferrell Abd: soft, NT Ext: No edema, clubbing or cyanosis CBC, BMP 07/07/16 05:35 07/11/16 05:42 Laboratory Tests 07/11/16 05:42 Calcium 7.5 L Phosphorus 2.6 Magnesium 2.6 H D Current Medications Acetaminophen (Tylenol -) 650 mg PO Q4H PRN PRN Reason: FEVER OR PAIN Last Admin: 07/09/16 21:44 Dose: 650 mg Albuterol/Ipratropium (Duoneb -) 1 amp NEB QIDR [facility] Last Admin: 07/11/16 11:10 Dose: 1 amp Amlodipine Besylate (Norvasc -) 10 mg PO DAILY [facility] Last Admin: 07/11/16 09:07 Dose: 10 mg Buspirone HCl (Buspar -) 5 mg PO BID [facility] Last Admin: 07/11/16 09:06 Dose: 5 mg Clonazepam (Klonopin -) 0.5 mg PO HS [facility] Last Admin: 07/10/16 21:26 Dose: 0.5 mg Enoxaparin Sodium (Lovenox -) 60 mg SQ BID [facility] Last Admin: 07/11/16 09:07 Dose: 60 mg Amino Acids (Clinimix -) 1,000 mls @ 42 mls/hr IV Q12H [facility] Last Admin: 07/11/16 12:41 Dose: 42 mls/hr Levothyroxine Sodium (Synthroid -) 37.5 mcg PO ACBK [facility] Last Admin: 07/11/16 06:06 Dose: 37.5 mcg Methylnaltrexone [place] (Relistor -) 8 mg SQ DAILY [facility] Last Admin: 07/11/16 12:47 Dose: 8 mg Metoprolol Tartrate (Lopressor Injection -) 5 mg IVPB Q4H PRN PRN Reason: HR < 60, SBP < 110 Last Admin: 07/09/16 21:46 Dose: 5 mg Metoprolol Tartrate (Lopressor -) 50 mg PO BID [facility] Last Admin: 07/11/16 09:07 Dose: 50 mg Morphine Sulfate (Morphine Injection -) 1 mg SQ Q4H PRN PRN Reason: PAIN Last Admin: 07/11/16 09:08 Dose: 1 mg Ondansetron HCl (Zofran Injection) 4 mg IVPB Q6H PRN PRN Reason: NAUSEA Last Admin: 06/28/16 20:22 Dose: 4 mg Pantoprazole Sodium (Protonix Packets For Oral Suspension -) 40 mg PO BID [facility] Last Admin: 07/11/16 09:08 Dose: 40 mg A/p 80 year old Gentleman with PMhx of Metastatic Prostate Ca, Hypertension, Hyperlipidemia, CAD s/p Cardiac Stents, DM who presented with worsening MS for the past several months as per her daughter and found to have multiple abd mets and TERRA with BUN/Cr of 29/1.5 (baseline Cr 1.1) and hyperkalemia with K of 6. #Acute Kidney Injury Renal function stable Trend BUN/Cr #Cough Lasix PRN for sob #Hyponatremia from mild fluid expansion on Clinimix Trend na #Hypophosphatemia improved #Hypercalcemia of malignancy Ca is improved and stable #Metastatic Prostate Ca with Renal mass Urology follow up Mora discontinued Continue Proscar and Flomax #Hypertension Continue current meds Anatoliy Ryan DO
[2016-07-11] MEDS: morphine SULFATE 10 MG/5 ML UNIT-DOSE CUP PO PRN ×2 (17:41→22:11)
[2016-07-11] MEDS: clonazePAM 0.5 MG TABLET PO SCH (22:11)
[2016-07-12] MEDS: LEVOTHYROXINE NA 25 MCG TABLET (FP) PO SCH (06:00)
[2016-07-12] MEDS: ALBUTEROL SO4 2.5/IPRATROPIUM 0.5 INH SOL 3 ML VIAL.NEB. NEB SCH ×3 (06:06→11:10)
[2016-07-12] MEDS: morphine SULFATE 10 MG/5 ML UNIT-DOSE CUP PO PRN (08:44)
[2016-07-12] MEDS ORDERED: PT OWN MED DRAWER 7, Y5N ONE (09:49)
--- NOTE | 2016-07-12 10:15 | DS ---
Physical Examination Vital Signs: Vital Signs Temperature 97.4 F L 07/12/16 05:00 Pulse Rate 92 H 07/12/16 05:00 Respiratory Rate 22 07/12/16 05:00 Blood Pressure 117/62 07/12/16 05:00 O2 Sat by Pulse Oximetry (%) 96 07/11/16 21:00 Constitutional: Yes: Calm Cardiovascular: Yes: Regular Rate and Rhythm, S1, S2 Respiratory: Yes: On Venti-Mask (scattered crackles dimished at bases) Gastrointestinal: Yes: Normal Bowel Sounds, Soft Edema: No Neurological: Yes: Alert, Oriented (to name says he is ok) Labs: CBC, BMP 07/07/16 05:35 07/11/16 05:42 Discharge Summary Reason For Visit: HYPERKALEMIA Current Active Problems Abdominal pain (Acute) Confusion (Acute) Dysphagia (Acute) Electrolyte abnormality (Acute) Hypothyroid (Acute) Poor fluid intake (Acute) Prostate ca (Acute) Pulmonary metastases (Acute) Renal mass (Acute) Thrombus (Acute) Hospital Course: History of Present Illness: 80 year old male with significant past medical history of hypertension, hyperlipidemia, CAD s/p stents x2, diabetes, metastatic prostate CA who presents to the emergency department with altered mental status for the last few months. As per daughter, the patient has been intermittently confused over the several weeks. She states that the patient does not recognize his family or where he is. The patient has also been complaining of back pain that radiates to his right abdomen. The patient denies any nausea, vomiting, or diarrhea. The patient denies any dizziness or syncope. The patient denies recent illness, fevers, or chills. This am pt states feels better - Past Medical History Cardiovascular: Yes: CAD, HTN Gastrointestinal: Yes: Constipation Heme/Onc: Yes: Cancer (prostate ca with mets), Other (PROSTTAE CANCER PROBABLE METASTATIC) Musculoskeletal: Yes: Chronic low back pain, Paraplegia - Past Surgical History Past Surgical History: Yes: CABG, Laminectomy - Smoking History Smoking history: Former smoker Have you smoked in the past 12 months: No Aproximately how many cigarettes per day: 0 If you are a former smoker, when did you quit?: Over 58 years ago hospital course" hypercalcemia iv hydration zometa ct chest multiple lung mets, right renal pole metastatic lesion as well brain MRI showed no mets metstaatic lesion on left rib seen on body scan as well. plan for home hospice mad MBS done by rodney hartmann- silent aspiration on thick liquid impaire propulsion , stasis in oral cavity neck ultrasound: right IJ thrombus subclavian vein patent no need to AC seen by vascular surgeyr familydecided to pursue comfort care DNR/DNI and home hospice no feeding tube Condition: Fair - Instructions Referrals: Sergio Vincent MD [Primary Care Provider] - - Home Medications Comprehensive Discharge Medication List: Ambulatory Orders Buspirone HCl [Buspar -] 5 mg PO BID 08/26/15 Levothyroxine [Synthroid -] 50 mcg PO DAILY 08/26/15 Meclizine HCl 25 mg PO HS PRN 08/26/15 Metoprolol Succinate [Toprol Xl] 50 mg PO DAILY 08/26/15 Morphine Sulfate 30 mg PO TID PRN 08/26/15 Albuterol Sulfate [Proair Respiclick] 90 mcg IH QID PRN 11/30/15 Calcium Citrate [Calcitrate] 950 mg PO DAILY 11/30/15 Clonazepam [Klonopin] 1 mg PO HS PRN 11/30/15 Esomeprazole Magnesium [Nexium] 40 mg PO DAILY 11/30/15 Finasteride 5 mg PO DAILY 11/30/15 Albuterol Sulfate 0.042% [Ventolin 0.042% (Half-Strength) -] 1 amp NEB PRN PRN 05/12/16 Ergocalciferol [Drisdol -] 50,000 unit PO DAILY 05/12/16 Ipratropium 0.02% Nebulizer [Atrovent 0.02% Nebulizer -] 1 amp NEB PRN PRN 05/12 Amlodipine Besylate [Norvasc -] 5 mg PO DAILY 06/22/16 Icosapent Ethyl [Vascepa] 2 gm PO BID 06/22/16 Naloxegol Oxalate [Movantik] 25 mg PO DAILY 06/22/16 Oxycodone HCl/Acetaminophen [Endocet 7.5-325 mg Tablet] 1 each PO TID 06/22/16 Pitavastatin Calcium [Livalo] 2 mg PO DAILY 06/22/16 Roflumilast [Daliresp] 500 mcg PO DAILY 06/22/16 Tiotropium Inlet [Spiriva] 1 inh PO DAILY 06/22/16
[2016-07-12] MEDS: METOPROLOL TARTRATE 50 MG TABLET (FP) PO SCH (10:33)
[2016-07-12] MEDS: PANTOPRAZOLE SOD 40 MG SUSPENSION PACKET PO SCH (10:33)
[2016-07-12] MEDS: ENOXAPARIN NA (PORCINE) 60 MG/0.6 ML DISP.SYRIN SQ SCH (10:33)
[2016-07-12] MEDS: amLODIPine BESYLATE 5 MG TABLET (FP) PO SCH (10:33)
[2016-07-12] MEDS: busPIRone HCL 5 MG TABLET PO SCH (10:33)
[2016-07-12 12:19] VITALS: BP 120/60; PULSE 99; TEMP 97.8
[2016-07-12] MEDS: Methylnaltrexone Bromide 12 MG/0.6 ML KIT SQ SCH (12:24)
== END 2016-07-12 12:37 | disposition home health service (06) | DRG 682 ==
LOC: JER 15:20 → JERBED 18:07 → J4S 21:07
PROVIDERS: ADMIT Family Medicine; ATTEND Family Medicine
DX: N17.9 Acute kidney failure, unspecified (principal); J18.9 Pneumonia, unspecified organism; G92 Toxic encephalopathy; C78.00 Secondary malignant neoplasm of unspecified lung; E87.1 Hypo-osmolality and hyponatremia; N39.0 Urinary tract infection, site not specified; G82.20 Paraplegia, unspecified; I82.C11 Acute embolism and thrombosis of right internal jugular vein; E87.5 Hyperkalemia; R13.10 Dysphagia, unspecified; E03.9 Hypothyroidism, unspecified; C61 Malignant neoplasm of prostate; I25.10 Atherosclerotic heart disease of native coronary artery without angina pectoris; Z98.61 Coronary angioplasty status; E78.5 Hyperlipidemia, unspecified; E11.9 Type 2 diabetes mellitus without complications; Z87.891 Personal history of nicotine dependence; E83.52 Hypercalcemia; E83.39 Other disorders of phosphorus metabolism; N28.89 Other specified disorders of kidney and ureter; M54.5 Low back pain; I10 Essential (primary) hypertension; Z95.1 Presence of aortocoronary bypass graft; E87.6 Hypokalemia; R41.82 Altered mental status, unspecified; R41.0 Disorientation, unspecified; R26.9 Unspecified abnormalities of gait and mobility; D64.9 Anemia, unspecified; K59.00 Constipation, unspecified
CPT/HCPCS: 36415; 36600; 70450-TC; 70551-TC; 71010-TC; 71250-TC; 72125-TC; 72128-TC; 72131-TC; 74176-TC; 74230-TC; 76536-TC; 78306-TC; 80048; 80053; 81003; 81015; 82140; 82271; 82436; 82550; 82570; 82803; 83735; 84100; 84133; 84153; 84156; 84300; 84443; 84484; 85025; 86593; 87040; 87070; 87086; 87205; 87899; 92611-GN; 93005; 93010; 93306-TC; 94640; 97116-GP; 97161-GP; 99285-25; A9503; J1644; J3489